=== PATIENT | female | born 1995 | race Caucasian/White ===

== ENCOUNTER 2021-06-24 09:33 | Emergency (ER) | payer BC ==
[2021-06-24] MEDS ORDERED: NA CHLORIDE 0.9% 1,000 ML ONE (10:08)
[2021-06-24] MEDS ORDERED: ONDANSETRON 4 MG/2 ML VIAL ONE (10:08)
[2021-06-24 10:16] LABS: Absolute Lymphocytes (CBC) 0.5 K/uL (0.7-4.9); Hematocrit 44.5 % (36.0-45.0); Lymphocytes % 4.4 % (15.3-44.8); MPV 6.8 fL (7.6-11.3); RBC Red Blood Cell Count 4.71 M/uL (3.86-4.86)
[2021-06-24 10:31] LABS: Urine Blood Negative (Negative); Urine Glucose Negative (Negative); Urine Protein Negative (Negative); Urine pH 8.5 (5.0-7.0)
[2021-06-24 10:56] LABS: Bilirubin Total 0.5 mg/dL (0.2-1.0); Protein, Total 7.5 g/dL (6.4-8.2)
--- NOTE | 2021-06-24 12:18 | RAD REPORT ---
EXAM DESCRIPTION: CTAbdomen Pelvis W Contrast - 06/24/2021 11:26 am CLINICAL HISTORY: Abdominal pain. LLQ abdominal pain COMPARISON: No comparisons TECHNIQUE: Biphasic CT imaging of the abdomen and pelvis was performed with 100 ml non-ionic IV cont rast. All CT scans are performed using dose optimization technique as appropriate and may include automated exposure control or mA/KV adjustment according to patient size. FINDINGS: The lung bases are clear. The liver, spleen, pancreas, adrenal glands and kidneys are within normal limits. No bowel obstruction, free air, intra-abdominal free fluid or abscess. The appendix is not identifie d as a discrete structure, however, no secondary findings of appendicitis are identified. No eviden ce of significant lymphadenopathy. IUD is noted in the endometrium. Mild free fluid is seen in the pelvis. No suspicious bony findings. IMPRESSION: IUD is present in the uterus with mild free fluid in the pelvis. Suggest correlation cli nically for the possibility of pelvic inflammation or infection.
[2021-06-24] MEDS ORDERED: DIPHENHYDRAMINE 50 MG/ML VIAL ONE (12:21)
[2021-06-24] MEDS ORDERED: METOCLOPRAMIDE 10 MG/2mL INJ ONE (12:21)
[2021-06-24] MEDS ORDERED: NA CHLORIDE 0.9% 250 ML ONE (12:21)
[2021-06-24] MEDS ORDERED: FENTANYL CITR 100 MCG/2 ML ONE (12:46)
[2021-06-24 13:11] LABS: Platelet Estimate ADEQ
[2021-06-24 13:12] LABS: Blood Morphology Comment NOTED (NOT SEEN); White Blood Cell Scan OK (OK)
--- NOTE | 2021-06-24 14:34 | EDPHYS ---
Physician Documentation [facility] Name: Olga Wilkins Age: 26 yrs Sex: Female : 1995 Arrival Date: 06/24/2021 Time: 09:33 Bed 5 Private MD: Kulwinder Escalante ED Physician Dashawn Ferris HPI: 06/24 09:54 This 26 yrs old Female presents to ER via Wheelchair with complaints of Abdominal Pain, jmm Vomiting. 09:54 The patient presents with abdominal pain. Onset: The symptoms/episode began/occurred jmm gradually, today. The symptoms do not radiate. Associated signs and symptoms: Pertinent positives: nausea and vomiting, diarrhea. The symptoms are described as achy, crampy. Modifying factors: The symptoms are alleviated by nothing, the symptoms are aggravated by vomiting. It is unknown whether or not the patient has had similar symptoms in the past. 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 - Social history:: Smoking status: unknown. ROS: 09:54 Cardiovascular: Negative for chest pain, palpitations, and edema, Respiratory: Negative jmm for shortness of breath, cough, wheezing, and pleuritic chest pain. 09:54 Constitutional: Positive for body aches, chills. 09:54 Abdomen/GI: Positive for abdominal pain, nausea and vomiting, diarrhea. 09:54 All other systems are negative. Exam: 09:54 Head/Face: atraumatic. Eyes: EOMI, no conjunctival erythema appreciated ENT: Moist jmm Mucus Membranes Neck: Trachea midline, Supple Chest/axilla: Normal chest wall appearance and motion. Cardiovascular: Regular rate and rhythm. No edema appreciated Respiratory: Normal respirations, no respiratory distress appreciated 09:54 Back: Normal ROM Skin: General appearance color normal MS/ Extremity: Moves all extremities, no obvious deformities appreciated, no edema noted to the lower extremities Neuro: Awake and alert Psych: Behavior is normal, Mood is normal, Patient is cooperative and pleasant 09:54 Constitutional: The patient appears alert, awake, uncomfortable. 09:54 Abdomen/GI: Inspection: abdomen appears normal, Bowel sounds: normal, Palpation: soft, moderate abdominal tenderness, in all quadrants. Vital Signs: 09:40 BP 122 / 87; Pulse 103; Resp 20; Temp 97.9; Pulse Ox 100% on R/A; iw 10:32 BP 120 / 85; Pulse 100; Resp 18 S; Pulse Ox 100% on R/A; jd3 12:32 Pulse 100; Resp 17 S; Pulse Ox 100% on R/A; jd3 14:15 BP 119 / 85; Pulse 95; Resp 17 S; Pulse Ox 100% on R/A; jd3 MDM: 09:54 Patient medically screened. [facility] 14:32 Data reviewed: vital signs, nurses notes. Counseling: I had a detailed discussion with [facility] the patient and/or guardian regarding: the historical points, exam findings, and any diagnostic results supporting the discharge/admit diagnosis, lab results, the need for outpatient follow up, to return to the emergency department if symptoms worsen or persist or if there are any questions or concerns that arise at home. 06/24 09:56 Order name: CBC with Diff; Complete Time: 13:23 [facility] 06/24 09:56 Order name: CMP; Complete Time: 11:36 [facility] 06/24 09:56 Order name: Lipase; Complete Time: 11:36 [facility] 06/24 10:23 Order name: CBC Smear Scan; Complete Time: 13:23 [facility] 06/24 10:31 Order name: Urine --Ancillary (enter results); Complete Time: 12:01 06/24 10:31 Order name: Urine Dipstick-Ancillary; Complete Time: 10:31 [facility] 06/24 09:57 Order name: CT Abd/Pelvis - IV Contrast Only; Complete Time: 12:19 [facility] 06/24 12:21 Order name: GC (GONORR/CHLAMYDIA) Probe [facility] 06/24 14:28 Order name: Wet Prep [facility] 06/24 09:56 Order name: IV Saline Lock; Complete Time: 10:03 [facility] 06/24 09:56 Order name: Labs collected and sent; Complete Time: 10:03 [facility] 06/24 09:56 Order name: Urine Dipstick-Ancillary (obtain specimen); Complete Time: 10:31 [facility] 06/24 09:56 Order name: Urine Test (obtain specimen); Complete Time: 10:31 [facility] 06/24 12:20 Order name: Pelvic Exam Setup; Complete Time: 12:48 [facility] Administered Medications: 10:09 Drug: Zofran (Ondansetron) 4 mg Route: IVP; Site: right antecubital; jd3 10:09 Drug: NS 0.9% 1000 ml Route: IV; Rate: 1 bolus; Site: right antecubital; jd3 12:00 Follow up: IV Status: Completed infusion 6 12:22 Drug: Reglan (metoCLOPramide) 20 mg Route: IVP; Site: right antecubital; 6 12:22 Drug: diphenhydrAMINE 12.5 mg Route: IVP; Site: right antecubital; 6 12:22 Drug: NS 0.9% 250 ml Route: IV; Rate: bolus; Site: right antecubital; 6 12:48 Drug: fentaNYL (PF) 50 mcg Route: IVP; Site: right antecubital; jd3 15:04 Follow up: Response: Pain is decreased [facility] 14:40 Drug: Rocephin (cefTRIAXone) 1 grams Route: IV; Rate: calculated rate; Site: right jd3 antecubital; 15:04 Follow up: Response: No adverse reaction [facility] 14:41 Drug: AZITHromycin 1 grams Route: PO; jd3 15:04 Follow up: Response: No adverse reaction [facility] Disposition Summary: 06/24/21 14:33 Discharge Ordered Location: Home [facility] Condition: Stable [facility] Diagnosis - Vomiting [facility] - Diarrhea, unspecified [facility] Followup: [facility] - With: Kulwinder Escalante MD - When: 2 - 3 days - Reason: Recheck today's complaints, Continuance of care, Re-evaluation by your physician Discharge Instructions: - Discharge Summary Sheet [facility] - Food Choices to Help Relieve Diarrhea, Adult jm - Vomiting, Adult [facility] Forms: - Medication Reconciliation Form [facility] - Thank You Letter [facility] - Antibiotic Education [facility] - Prescription Opioid Use [facility] - Work release form [facility] Prescriptions: - ondansetron 4 mg Oral tablet,disintegrating - take 1 tablet by ORAL route every 4-6 hours; 20 tablet; Refills: 0, Product [facility] Selection Permitted - dicyclomine 20 mg Oral Tablet - take 1 tablet by ORAL route 4 times per day; 20 tablet; Refills: 0, Product [facility] Selection Permitted Addendum: 06/25/2021 15:38 Co-signature as Attending Physician, Dashawn Ferris MD I agree with the assessment and k dr plan of care. Signatures: Dispatcher [employer] EDNJ Dashawn Ferris MD MD kdr Mickail, Joel, PA PA jmm Williams, Irene, RN RN iw Davies, Jonathon, RN RN jd3 Azra Garcia RN RN jh6
--- NOTE | 2021-06-24 14:34 | ER ---
Nurse's Notes [facility] Name: Olga Wilkins Age: 26 yrs Sex: Female : 1995 Arrival Date: 06/24/2021 Time: 09:33 Bed 5 Private MD: Kulwinder Escalante Diagnosis: Vomiting;Diarrhea, unspecified Presentation: 06/24 09:40 Chief complaint: Patient states: is weak and vomiting and nauseous, started at 230 am , iw is also having abd pain. Coronavirus screen: Ebola Screen: Patient negative for fever greater than or equal to 101.5 degrees Fahrenheit, and additional compatible Ebola Virus Disease symptoms Patient denies exposure to infectious person. Patient denies travel to an Ebola-affected area in the 21 days before illness onset. No symptoms or risks identified at this time. Initial Sepsis Screen: Does the patient meet any 2 criteria? No. Patient's initial sepsis screen is negative. Does the patient have a suspected source of infection? No. Patient's initial sepsis screen is negative. Risk Assessment: Do you want to hurt yourself or someone else? Patient reports no desire to harm self or others. Onset of symptoms was June 24, 2021. 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 - Social history:: Smoking status: unknown. Screenin:32 Abuse screen: Denies threats or abuse. Nutritional screening: No deficits noted. jd3 Tuberculosis screening: No symptoms or risk factors identified. Fall Risk Ambulatory Aid- None/Bed Rest/Nurse Assist (0 pts). Gait- Normal/Bed Rest/Wheelchair (0 pts) Mental Status- Oriented to own ability (0 pts). Total Jerez Fall Scale indicates No Risk (0-24 pts). Assessment: 10:31 General: Appears in no apparent distress. uncomfortable, Behavior is calm, cooperative, jd3 appropriate for age. Pain: Complains of pain in low back area Quality of pain is described as aching. Neuro: Level of Consciousness is awake, alert, obeys commands, Oriented to person, place, time, situation. Cardiovascular: Heart tones present Capillary refill < 3 seconds Patient's skin is warm and dry. Respiratory: Airway is patent Respiratory effort is even, unlabored, Respiratory pattern is regular, symmetrical, Denies cough, shortness of breath. GI: Abdomen is flat, non-distended, Bowel sounds present X 4 quads. Abd is soft and non tender X 4 quads. Reports diarrhea, nausea, vomiting. : No signs and/or symptoms were reported regarding the genitourinary system. EENT: No signs and/or symptoms were reported regarding the EENT system. Derm: Skin is intact, Skin is dry, Skin is normal, Skin temperature is warm. Musculoskeletal: Circulation, motion, and sensation intact. Range of motion: intact in all extremities. 11:29 Reassessment: Patient appears in no apparent distress at this time. No changes from jd3 previously documented assessment. Patient and/or family updated on plan of care and expected duration. Pain level reassessed. Patient is alert, oriented x 3, equal unlabored respirations, skin warm/dry/pink. 12:32 Reassessment: Patient appears in no apparent distress at this time. Patient and/or jd3 family updated on plan of care and expected duration. Pain level reassessed. Patient is alert, oriented x 3, equal unlabored respirations, skin warm/dry/pink. pt reports continued nausea. 14:13 Reassessment: Patient appears in no apparent distress at this time. Patient and/or jd3 family updated on plan of care and expected duration. Pain level reassessed. Patient is alert, oriented x 3, equal unlabored respirations, skin warm/dry/pink. provider at bedside performing pelvic exam with [facility] as pasting inspector. 15:02 Reassessment: Patient and/or family updated on plan of care and expected duration. Pain jh6 level reassessed. Patient states feeling better. Patient states symptoms have improved. Pain: Denies pain. Vital Signs: 09:40 BP 122 / 87; Pulse 103; Resp 20; Temp 97.9; Pulse Ox 100% on R/A; iw 10:32 BP 120 / 85; Pulse 100; Resp 18 S; Pulse Ox 100% on R/A; jd3 12:32 Pulse 100; Resp 17 S; Pulse Ox 100% on R/A; jd3 14:15 BP 119 / 85; Pulse 95; Resp 17 S; Pulse Ox 100% on R/A; jd3 ED Course: 09:33 Patient arrived in ED. am2 09:33 Kulwinder Escalante MD is Private Physician. am2 09:41 Triage completed. iw 09:41 Marcell Rey PA is PHCP. jmm 09:41 Dashawn Ferris MD is Attending Physician. jmm 09:42 Arm band placed on. iw 09:49 Ole White RN is Primary Nurse. jd3 10:00 Initial lab(s) drawn, by me, sent to lab. Inserted saline lock: 20 gauge in right kj1 antecubital area, using aseptic technique. Blood collected. 10:32 Patient has correct armband on for positive identification. Bed in low position. Call jd3 light in reach. Side rails up X 1. Adult w/ patient. Pulse ox on. NIBP on. 11:28 CT Abd/Pelvis - IV Contrast Only In Process Unspecified. EDMS 14:33 Kulwinder Escalante MD is Referral Physician. [facility] 15:04 IV discontinued, intact, bleeding controlled, No redness/swelling at site. Pressure jh6 dressing applied. 15:04 No provider procedures requiring assistance completed. jh6 Administered Medications: 10:09 Drug: Zofran (Ondansetron) 4 mg Route: IVP; Site: right antecubital; jd3 10:09 Drug: NS 0.9% 1000 ml Route: IV; Rate: 1 bolus; Site: right antecubital; jd3 12:00 Follow up: IV Status: Completed infusion jh6 12:22 Drug: Reglan (metoCLOPramide) 20 mg Route: IVP; Site: right antecubital; jh6 12:22 Drug: diphenhydrAMINE 12.5 mg Route: IVP; Site: right antecubital; jh6 12:22 Drug: NS 0.9% 250 ml Route: IV; Rate: bolus; Site: right antecubital; jh6 12:48 Drug: fentaNYL (PF) 50 mcg Route: IVP; Site: right antecubital; jd3 15:04 Follow up: Response: Pain is decreased jh6 14:40 Drug: Rocephin (cefTRIAXone) 1 grams Route: IV; Rate: calculated rate; Site: right jd3 antecubital; 15:04 Follow up: Response: No adverse reaction 6 14:41 Drug: AZITHromycin 1 grams Route: PO; jd3 15:04 Follow up: Response: No adverse reaction [facility] Outcome: 14:33 Discharge ordered by MD. garza 15:03 Discharged to home ambulatory. 6 15:03 Condition: improved 15:03 Discharge instructions given to Instructed on discharge instructions, follow up and referral plans. Demonstrated understanding of instructions, follow-up care, medications, Prescriptions given X 2. 15:04 Patient left the ED. [facility] Signatures: Dispatcher [employer] EDMS Marcell Rey PA PA jmm Williams, Irene, RN Bethanie Orona Jonathon, RN RN jd3 Jackson, Kandis kj1 Azra Garcia RN RN jh6
[2021-06-24] MEDS ORDERED: AZITHROMYCIN 250 MG TAB ONE (14:39)
[2021-06-24] MEDS ORDERED: CEFTRIAXONE 1000 MG/VIAL ONE (14:39)
[2021-06-24] MEDS ORDERED: NA CHLORIDE 0.9% 50 ML ONE (14:40)
[2021-06-24 16:01] VITALS: TEMP 97.9; O2SAT 100
[2021-06-24 16:05] VITALS: BP 119/85
[2021-06-28 08:31] LABS: C.trachomatis RNA,TMA Not Detected (Not Detected)
== END 2021-06-24 15:04 | disposition home or self-care (01) ==
LOC: ER 09:33
DX: R10.32 Left lower quadrant pain (principal); R11.10 Vomiting, unspecified; R19.7 Diarrhea, unspecified
CPT/HCPCS: 96361; 85025; 36415; 81025; 87210; 81003; 83690; 80053; 87590; 87490; 74177; 96375; 96374; 99284; Q9967; J2765; J1200; J3010; J7050; J7030; J2405

== ENCOUNTER 2021-07-17 14:12 | Emergency (ER) | payer BC ==
--- OUTSIDE RECORDS SUMMARY | 2021-07-17 14:16 | XMS REPORT | Continuity of Care Document ---
:1995 Author Organization [facility] t Address [address] [place] [address] Care Team Providers Name Role Phone CLEVE, Barrera Primary Care Physician Unavailable ASIM DOMÍNGUEZ Attending Clinician Unavailable Asim Domínguez MD Attending Clinician Doctor Unassigned, Name Attending Clinician Unavailable Ron CLAIRE Attending Clinician Joce PA-C Attending Clinician JOCE Attending Clinician Unavailable 2, Lab Attending Clinician Unavailable Consults, Ang Pn Genetic Attending Clinician Unavailable David CLAIRE W Attending Clinician Billy HERNANDEZ Attending Clinician Unavailable Ultrasound Attending Clinician Unavailable Anna CLAIRE R Attending Clinician ASIM DOMÍNGUEZ Admitting Clinician Unavailable Ron CLAIRE Admitting Clinician Payers Payer Name Policy Type Policy Number Effective Date Expiration Date [facility] [id number] 2019 CHOICE MEDICAID 00:00:00 Problems Condition Condition Condition Status Onset Resolution Last Treating Co mments Source Name Details Category Date Date Treatment Clinician Date Presence Presence Disease Active 2019-02 Unive rs of 52 mg of 52 mg 0-15 ity of [place] trel-relea trel-relea 00 Sd dical [facility] intrauteri intrauteri ne device ne device (IUD) (IUD) Normal Normal Disease Active Univers labor labor 8-28 ity of 00:00: [address] 39 weeks 39 weeks Disease Active Unive rs gestation gestation 8-28 ity of of of 00:00: [place] 00 Medi lani Branch Liveborn Liveborn Disease Active 2020-0 Unive rs , of , of 8-28 it y of pyle pyle 00:00: Snehal guzman , , 00 Me dical born in born in [facility] hospital by vaginal by vaginal delivery delivery COVID-19 COVID-19 Disease Active 2020-0 Unive rs virus virus 8-28 ity of infection infection 00:00: Snehal s [facility] Abnormal Abnormal Disease Active 2020- Last Unive rs maternal maternal 8-14 Assessmen ity of glucose glucose 00:00: t & Plan: [place] tolerance, tolerance, 00 3 hr gtt Medical antepartum antepartum wnl Br anch Positive Positive Disease Active 2020- Unive rs GBS test GBS test 8-14 ity of 00:00: [address] Obesity Obesity Disease Active 2020-0 Univers (BMI (BMI 6-08 ity of 30-39.9) 30-39.9) 00:00: [address] Gastroesop Gastroesop Disease Active 2020-0 U nivers hageal hageal 5-28 ity of reflux reflux 00:00: [place] disease, disease, 00 Medica l esophagiti esophagiti Br anch s presence s presence not not specified specified Abnormal Abnormal Disease Active 2020-0 Unive rs findings findings 5-28 ity of on on 00:00: [place] 00 [facility] screening screening Bran ch Supervisio Supervisio Disease Active 2020-0 U nivers n of n of 4-09 ity of high-risk high-risk 00:00: Snehal guzman 00 [facility] with with Branch insufficie insufficie nt nt care in care in third third trimester trimester Allergies, Adverse Reactions, Alerts Allergy Allergy Status Severity Reaction(s) Onset Inactive Treating Comm ents Source Name Type Date Date Clinician NO KNOWN Drug Active Univers ALLERGIE Class ity of S [facility] Social History Social Habit Start Date Stop Date Quantity Comments Source ASSERTION 2019-02-05 University of 00:00:00 [facility] History SDOH University o f Alcohol Binge [facility] Sex Assigned At Universit y of [facility] Exposure to Not sure [facility] SARS-CoV-2 (event) [facility] History of tobacco Cigarette Smoker University of use [facility] Tobacco use and 2020-01-08 2020-01-08 Never used Universit y of exposure 00:00:00 00:00:00 [facility] Cigarettes smoked 2020-01-08 2020-01-08 Univers ity of current (pack per 00:00:00 00:00:00 [facility]) - Reported Branch Cigarette 2020-01-08 2020-01-08 University of pack-years 00:00:00 00:00:00 [facility] Alcohol intake 2020-01-08 2020-01-08 Ex-drinker University 00:00:00 00:00:00 (finding) [facility] History SDOH 2019-06-05 2019-06-05 2 [place] o f Alcohol Std Drinks 00:00:00 00:00:00 [facility] History [facility] 2019-06-05 2019-06-05 3 [place] o f Alcohol Frequency 00:00:00 00:00:00 [facility] Smoking Status Start Date Stop Date Source Former smoker 2020-01-08 00:00:00 2020-01-08 00:00:00 [facility] Medications Ordered Filled Start Stop Current Ordering Indication Dosage Frequency Signature Comments Components Source Medication Medication Date Date Medication? 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 [place] levonorgest 2019-02 2020- No 1{devic 1 Device, Univers reL 0-16 10-15 e} Intrauteri ity of (MIRENA) 00:30: 23:28 ne, ONCE, [place] IUD 1 00 :00 1 dose, Hydrometeorologist [facility] 12/11/19 at 1930, Routine rho(D) Yes 300ug 300 mcg, Univer s immune 10-23 Intramuscu ity of globulin 22:49: lar, ONCE, [place] (RHOGAM) 17 For 1 Medical syringe 300 dose, Branch mcg Conditiona l, Routine HYDROcodone 2020-0 Yes 1{tbl} 1 tablet, Univers -acetaminop 10-23 Oral, ity of hen (NORCO 22:49: Q6HPRN, [place] 5) 5-325 mg 12 Starting Medi lani tablet 1 Fri Branch tablet 10/24/19 at 174, Until Discontinu ed, Routine, Pain (scale 7-10) ibuprofen 2020-0 Yes 600mg 600 mg, Univ ers (IBU) 10-23 Oral, ity of tablet 600 22:49: Q6HPRN[place] mg 12 Starting Medical Fri Branch 10/24/19 at 174, Until Discontinu ed, Routine, Pain (scale 4-6) diphenhydrA 2020-0 Yes 25mg 25 mg, IV U nivers MINE-0.9 % 10-23 Piggyback, ity of sod.chlr 22:49: Administer [place] (BENADRYL) 12 over 30 Medica l 25 mg/50 mL Minutes, Bran ch piggyback Q6HPRN, 25 mg Starting 10/24/19 at 174, Until Discontinu ed, Routine, Itching ondansetron 2020-0 Yes 4mg 4 mg, Slow Univers (ZOFRAN 10-23 IV Push, ity of (PF)) 22:49: Q8HPRN, [place] injection 4 12 Starting Medi lani mg Fri Branch 10/24/19 at 174, Until Discontinu ed, Routine, Nausea and Vomiting (N/V) simethicone 2020-0 Yes 160mg 160 mg, Un johnnie (GAS RELIEF 10-23 Oral, ity of (SIMETHICON 22:49: PC+HSPRN, [place] E)) 12 Starting Medical chewable Fri Branch tablet 160 10/24/19 at mg 174, Until Discontinu ed, Routine, Gas docusate 2020-0 Yes 240mg 240 mg, Unive rs calcium 10-23 Oral, ity of (SURFAK) 22:49: QDAILYPRN, [place] capsule 240 12 Starting Medi lani mg Fri Branch 10/24/19 at 174, Until Discontinu ed, Routine, Constipati on magnesium 2019-0 Yes 30mL 30 mL, Univer s hydroxide 10-23 Oral, ity of (MILK OF 22:49: QDAILYPRN, [place] MAGNESIA) 12 Starting Medica l 400 mg/5 mL Fri Branch suspension 10/24/19 at 30 mL 1749, Until Discontinu ed, Routine, Constipati on acetaminoph 2020-0 Yes 650mg 650 mg, Un johnnie en 10-23 Oral, ity of (TYLENOL) 22:49: Q6HPRN, [place] tablet 650 11 Starting Medic al mg Fri Branch 10/24/19 at 1749, Until Discontinu ed, Routine, Pain (scale 1-3) diphenhydrA 2019-0 Yes 25mg 25 mg, Univ ers MINE 10-23 Oral, ity of (BENADRYL) 22:49: Q6HPRN, [place] tablet 25 11 Starting Medica l mg Fri Branch 10/24/19 at 1749, Until Discontinu ed, Routine, Sleep, Itching benzocaine- 2019-0 Yes Topical, Un [place]ohn[place] menthol 10-23 PRN, ity of (DERMOPLAST 22:49: [place] 20-0.5 % 11 Sun Medical topical 10/24/19 at Branch spray 1749, Until Discontinu ed, Routine, Perineum discomfort benzocaine- 2019-0 Yes Topical, Un johnnie menthol 10-23 PRN, ity of (DERMOPLAST 16:17: [place] 20-0.5 % 00 Sun Medical topical 10/24/19 at Branch spray 1117, Until Discontinu ed, Routine, Localized pain LR 1000 mL 2019-0 2020- No at 125 Univ ers + oxytocin 10-23-28 mL/hr, IV ity of 20 units IV 15:45: 16:19 Infusion, [place] Solution 00 :00 ONCE, 1 Medical dose, Fri Branch 10/24/19 at 1045, Routine oxytocin 2019-0 2020- No at 6 Univers (PITOCIN) 10-23- mL/hr, IV ity of 20 Units in 14:13: 22:49 Infusion, [place] lactated 45 :17 TITRATE, Medical ringers Starting Branch 1,000 mL IV Fri infusion 10/24/19 at 0913, Until 8/28/20 at 1749, Routine FENTanyl PF 2019- No 50ug 50 mcg, Un johnnie (SUBLIMAZE 10-23 Slow IV ity o f (PF)) 10:45: 09:42 Push, [place] injection 00 :00 ONCE, 1 Medical 50 mcg dose, Fri Branch 10/24/19 at 0545, Routine D5W-LR IV 2019- No 1000mL at 125 Uni vers infusion 10-23 mL/hr, IV ity o f 1,000 mL 09:00: 22:49 Infusion, [place] 00 :17 CONTINUOUS Medical , Starting Branch Sun10/24/19 at 0400, Until Sun10/24/19 at 1749, Routine lactated 2019- No 500mL at 999 Unive rs ringers IV 10-23 mL/hr, 500 it y of infusion 08:52: 22:49 mL, IV [place] 500 mL 15 :17 Infusion, Medical PRN - SEE Branch INSTRUCTIO NS, Starting Sun10/24/19 at 0352, Until Sun10/24/19 at 174, Routine 2020- No 1{piece Take 1 Uni vers vits62/FA/o 10-09 } Piece by ity of m3/dha/epa 15:37: 00:00 mouth [place] ( 59 :00 daily. Medical GUMMY ORAL) Branch 2020- No 1{piece Take 1 Uni vers vits62/FA/o 10-09 } Piece by ity of m3/dha/epa 15:37: 00:00 mouth [place] ( 59 :00 daily. Medical GUMMY ORAL) Branch 2020-0 Yes 1{piece Take 1 Univ ers vits62/FA/o 8-07 } Piece by ity of m3/dha/epa 21:11: mouth [place] ( 56 daily. Medical GUMMY ORAL) Branch 2020-0 Yes 1{piece Take 1 Univ ers vits62/FA/o 8-07 } Piece by ity of m3/dha/epa 21:11: mouth [place] ( 56 daily. Medical GUMMY ORAL) Branch 2020-0 Yes 1{piece Take 1 Univ ers vits62/FA/o 8-07 } Piece by ity of m3/dha/epa 21:11: mouth [place] ( 56 daily. Medical GUMMY ORAL) Branch 2020-0 Yes 1{piece Take 1 Univ ers vits62/FA/o 8-07 } Piece by ity of m3/dha/epa 21:11: mouth [place] ( 56 daily. Medical GUMMY ORAL) Branch famotidine 2020-0 Yes [id number] 20mg Take 1 Univers 20 mg 5-28 tablet by ity of tablet 00:00: mouth [address] [place] [address] (two) Medical times Branch daily. famotidine 2020-0 Yes [id number] 20mg Take 1 Univers 20 mg 5-28 tablet by ity of tablet 00:00: mouth [address] [place] [address] (two) Medical times Branch daily. famotidine 2020-0 Yes [id number] 20mg Take 1 Univers 20 mg 5-28 tablet by ity of tablet 00:00: mouth [address] [place] [address] (two) Medical times Branch daily. famotidine 2020-0 Yes [id number] 20mg Take 1 Univers 20 mg 5-28 tablet by ity of tablet 00:00: mouth [address] [place] [address] ([facility]) Medical times Branch daily. famotidine 2020-0 Yes [id number] 20mg Take 1 Univers 20 mg 5-28 tablet by ity of tablet 00:00: mouth [address] [place] [address] (two) Medical times Branch daily. famotidine 2020-0 Yes [id number] 20mg Take 1 Univers 20 mg 5-28 tablet by ity of tablet 00:00: mouth [address] [place] [address] (two) Medical times Branch daily. famotidine 2020-0 Yes [id number] 20mg Take 1 Univers 20 mg 5-28 tablet by ity of tablet 00:00: mouth [address] [place] [address] (two) Medical times Branch daily. famotidine 2020-0 Yes [id number] 20mg Take 1 Univers 20 mg 5-28 tablet by ity of tablet 00:00: mouth [address] [place] [address] (two) Medical times Branch daily. famotidine 2020-0 Yes [id number] 20mg Take 1 Univers 20 mg 5-28 tablet by ity of tablet 00:00: mouth [address] [place] [address] (two) Medical times Branch daily. famotidine 2020-0 Yes [id number] 20mg Take 1 Univers 20 mg 5-28 tablet by ity of tablet 00:00: mouth [address] [place] [address] (two) Medical times Branch daily. famotidine 2020-0 Yes [id number] 20mg Take 1 Univers 20 mg 5-28 tablet by ity of tablet 00:00: mouth (two) Medical times Branch daily. famotidine 2020-0 Yes [id number] 20mg Take 1 Univers 20 mg 5-28 tablet by ity of tablet 00:00: mouth (two) Medical times Branch daily. famotidine 2020-0 Yes [id number] 20mg Take 1 Univers 20 mg 5-28 tablet by ity of tablet 00:00: mouth (two) Medical times Branch daily. famotidine 2020-0 Yes [id number] 20mg Take 1 Univers 20 mg 5-28 tablet by ity of tablet 00:00: mouth (two) Medical times Branch daily. famotidine 2020-0 Yes [id number] 20mg Take 1 Univers 20 mg 5-28 tablet by ity of tablet 00:00: mouth (two) Medical times Branch daily. famotidine 2020-0 Yes [id number] 20mg Take 1 Univers 20 mg 5-28 tablet by ity of tablet 00:00: mouth (two) Medical times Branch daily. famotidine 2020-0 Yes [id number] 20mg Take 1 Univers 20 mg 5-28 tablet by ity of tablet 00:00: mouth (two) Medical times Branch daily. famotidine 2020-0 Yes [id number] 20mg Take 1 Univers 20 mg 5-28 tablet by ity of tablet 00:00: mouth (two) Medical times Branch daily. famotidine 2020-0 Yes [id number] 20mg Take 1 Univers 20 mg 5-28 tablet by ity of tablet 00:00: mouth [place] (two) Medical times Branch daily. famotidine 2020-0 Yes [id number] 20mg Take 1 Univers 20 mg 5-28 tablet by ity of tablet 00:00: mouth (two) Medical times Branch daily. famotidine 2020-0 Yes [id number] 20mg Take 1 Univers 20 mg 5-28 tablet by ity of tablet 00:00: mouth [place] (two) Medical times Branch daily. famotidine 2020-0 Yes [id number] 20mg Take 1 Univers 20 mg 5-28 tablet by ity of tablet 00:00: mouth [place] (two) Medical times Branch daily. famotidine 2020-0 2020- No [id number] 20mg Take 1 Univers 20 mg 5-28 11-12 tablet by ity of tablet 00:00: 00:00 mouth 2 [place] 00 :00 (two) Medical times Branch daily. famotidine 2020- No [id number] 20mg Take 1 Univers 20 mg 5-28 11-12 tablet by ity of tablet 00:00: 00:00 mouth 2 [place] 00 :00 (two) Medical times Branch daily. 2020-0 Yes 1{piece Take 1 Univ ers vits62/FA/o 4-09 } Piece by ity of m3/dha/epa 20:38: mouth [place] ( 24 daily. Medical GUMMY ORAL) Branch Yes 1{piece Take 1 Univ ers vits62/FA/o 4-09 } Piece by ity of m3/dha/epa 20:38: mouth [place] ( 24 daily. Medical GUMMY ORAL) Branch 0 Yes 1{piece Take 1 Univ ers vits62/FA/o 4-09 } Piece by ity of m3/dha/epa 20:38: mouth [place] ( 24 daily. Medical GUMMY ORAL) Branch 0 Yes 1{piece Take 1 Univ ers vits62/FA/o 4-09 } Piece by ity of m3/dha/epa 20:38: mouth [place] ( 24 daily. Medical GUMMY ORAL) Branch 2019-0 Yes 1{piece Take 1 Univ ers vits62/FA/o 4-09 } Piece by ity of m3/dha/epa 20:38: mouth [place] ( 24 daily. Medical GUMMY ORAL) Branch 2020-0 Yes 1{piece Take 1 Univ ers vits62/FA/o 4-09 } Piece by ity of m3/dha/epa 20:38: mouth [place] ( 24 daily. Medical GUMMY ORAL) Branch 2020-0 Yes 1{piece Take 1 Univ ers vits62/FA/o 4-09 } Piece by ity of m3/dha/epa 20:38: mouth [place] ( 24 daily. Medical GUMMY ORAL) Branch 2019-0 Yes 1{piece Take 1 Univ ers vits62/FA/o 4-09 } Piece by ity of m3/dha/epa 20:38: mouth [place] ( 24 daily. Medical GUMMY ORAL) Branch 2020-0 Yes 1{piece Take 1 Univ ers vits62/FA/o 4-09 } Piece by ity of m3/dha/epa 20:38: mouth [place] ( 24 daily. Medical GUMMY ORAL) Branch 2020-0 Yes 1{piece Take 1 Univ ers vits62/FA/o 4-09 } Piece by ity of m3/dha/epa 20:38: mouth [place] ( 24 daily. Medical GUMMY ORAL) Branch 2019-0 Yes 1{piece Take 1 Univ ers vits62/FA/o 4-09 } Piece by ity of m3/dha/epa 20:38: mouth [place] ( 24 daily. Medical GUMMY ORAL) Branch 0 Yes 1{piece Take 1 Univ ers vits62/FA/o 4-09 } Piece by ity of m3/dha/epa 20:38: mouth [place] ( 24 daily. Medical GUMMY ORAL) Branch 0 Yes 1{piece Take 1 Univ ers vits62/FA/o 4-09 } Piece by ity of m3/dha/epa 20:38: mouth [place] ( 24 daily. Medical GUMMY ORAL) Branch 2019-0 Yes 1{piece Take 1 Univ ers vits62/FA/o 4-09 } Piece by ity of m3/dha/epa 20:38: mouth [place] ( 24 daily. Medical GUMMY ORAL) Branch 2020-0 Yes 1{piece Take 1 Univ ers vits62/FA/o 4-09 } Piece by ity of m3/dha/epa 20:38: mouth [place] ( 24 daily. Medical GUMMY ORAL) Branch 2020-0 Yes 1{piece Take 1 Univ ers vits62/FA/o 4-09 } Piece by ity of m3/dha/epa 20:38: mouth [place] ( 24 daily. Medical GUMMY ORAL) Branch 2020-0 Yes 1{piece Take 1 Univ ers vits62/FA/o 4-09 } Piece by ity of m3/dha/epa 20:38: mouth [place] ( 24 daily. Medical GUMMY ORAL) Branch 2020-0 Yes 1{piece Take 1 Univ ers vits62/FA/o 4-09 } Piece by ity of m3/dha/epa 20:38: mouth [place] ( 24 daily. Medical GUMMY ORAL) Branch 2020-0 Yes 1{piece Take 1 [facility] vits62/FA/o 06-04 } Piece by ity of m3/dha/epa 20:38: mouth [place] ( 24 daily. Medical GUMMY ORAL) Branch PNV 2020-0 Yes [id number] Take 1 Univ [facility] 102-iron-fo - 09 TAB-CAP/M2 it y of late 00:00: by mouth [place] 1-dss-dha 00 daily. Medical (VITAFOL Branch FE+, WITH DOCUSATE,) 90 mg iron-1 mg -50 mg-200 mg Cap PNV 2020-0 Yes [id number] Take 1 [facility] 102-iron-fo - 09 TAB-CAP/M2 it y of late 00:00: by mouth [place] 1-dss-dha 00 daily. Medical (VITAFOL Branch FE+, WITH DOCUSATE,) 90 mg iron-1 mg -50 mg-200 mg Cap PNV 2020-0 Yes [id number] Take 1 [facility] 102-iron-fo - 09 TAB-CAP/M2 it y of late 00:00: by mouth [place] 1-dss-dha 00 daily. Medical (VITAFOL Branch FE+, WITH DOCUSATE,) 90 mg iron-1 mg -50 mg-200 mg Cap PNV 2020-0 Yes [id number] Take 1 Univ [facility] 102-iron-fo - 09 TAB-CAP/M2 it y of late 00:00: by mouth [place] 1-dss-dha 00 daily. Medical (VITAFOL Branch FE+, WITH DOCUSATE,) 90 mg iron-1 mg -50 mg-200 mg Cap PNV 2020-0 Yes [id number] Take 1 Univ [facility] 102-iron-fo - 09 TAB-CAP/M2 it y of late 00:00: by mouth [place] 1-dss-dha 00 daily. Medical (VITAFOL Branch FE+, WITH DOCUSATE,) 90 mg iron-1 mg -50 mg-200 mg Cap PNV 2020-0 Yes [id number] Take 1 Univ ers 102-iron-fo - 09 TAB-CAP/M2 it y of late 00:00: by mouth [place] 1-dss-dha 00 daily. Medical (VITAFOL Branch FE+, WITH DOCUSATE,) 90 mg iron-1 mg -50 mg-200 mg Cap PNV 2020-0 Yes [id number] Take 1 Univ ers 102-iron-fo 4-09 09 TAB-CAP/M2 it y of late 00:00: by mouth [place] [address] 00 daily. Medical (VITAFOL Branch FE+, WITH DOCUSATE,) 90 mg iron-1 mg -50 mg-200 mg Cap PNV 2020-0 Yes [id number] Take 1 Univ ers 102-iron-fo 4-09 09 TAB-CAP/M2 it y of late 00:00: by mouth [place] [address]-dss-dha 00 daily. Medical (VITAFOL Branch FE+, WITH DOCUSATE,) 90 mg iron-1 mg -50 mg-200 mg Cap PNV 2020-0 Yes [id number] Take 1 Univ ers 102-iron-fo 4-09 09 TAB-CAP/M2 it y of late 00:00: by mouth [place] [address]-dss-dha 00 daily. Medical (VITAFOL Branch FE+, WITH DOCUSATE,) 90 mg iron-1 mg -50 mg-200 mg Cap PNV 2020-0 Yes [id number] Take 1 Univ ers 102-iron-fo 4- 09 TAB-CAP/M2 it y of late 00:00: by mouth [place] [address] 00 daily. Medical (VITAFOL Branch FE+, WITH DOCUSATE,) 90 mg iron-1 mg -50 mg-200 mg Cap PNV 2020-0 Yes [id number] Take 1 Univ ers 102-iron-fo 4- 09 TAB-CAP/M2 it y of late 00:00: by mouth [place] [address] 00 daily. Medical (VITAFOL Branch FE+, WITH DOCUSATE,) 90 mg iron-1 mg -50 mg-200 mg Cap PNV 2020-0 Yes [id number] Take 1 Univ ers 102-iron-fo 4-09 09 TAB-CAP/M2 it y of late 00:00: by mouth [place] [address]-dss-dha 00 daily. Medical (VITAFOL Branch FE+, WITH DOCUSATE,) 90 mg iron-1 mg -50 mg-200 mg Cap PNV 2020-0 Yes [id number] Take 1 Univ ers 102-iron-fo 4-09 09 TAB-CAP/M2 it y of late 00:00: by mouth [place] [address]-dss-dha 00 daily. Medical (VITAFOL Branch FE+, WITH DOCUSATE,) 90 mg iron-1 mg -50 mg-200 mg Cap PNV 2020-0 Yes [id number] Take 1 Univ ers 102-iron-fo - 09 TAB-CAP/M2 it y of late 00:00: by mouth [address] daily. Medical (VITAFOL Branch FE+, WITH DOCUSATE,) 90 mg iron-1 mg -50 mg-200 mg Cap PNV 2020-0 Yes [id number] Take 1 Univ ers 102-iron-fo - 09 TAB-CAP/M2 it y of late 00:00: by mouth [address] daily. Medical (VITAFOL Branch FE+, WITH DOCUSATE,) 90 mg iron-1 mg -50 mg-200 mg Cap PNV 2020-0 Yes [id number] Take 1 Univ ers 102-iron-fo - 09 TAB-CAP/M2 it y of late 00:00: by mouth [address] daily. Medical (VITAFOL Branch FE+, WITH DOCUSATE,) 90 mg iron-1 mg -50 mg-200 mg Cap PNV 2020-0 Yes [id number] Take 1 Univ ers 102-iron-fo - 09 TAB-CAP/M2 it y of late 00:00: by mouth [address] daily. Medical (VITAFOL Branch FE+, WITH DOCUSATE,) 90 mg iron-1 mg -50 mg-200 mg Cap PNV 2020-0 Yes [id number] Take 1 Univ ers 102-iron-fo - 09 TAB-CAP/M2 it y of late 00:00: by mouth [address] daily. Medical (VITAFOL Branch FE+, WITH DOCUSATE,) 90 mg iron-1 mg -50 mg-200 mg Cap PNV 2020-0 Yes [id number] Take 1 Univ ers 102-iron-fo - 09 TAB-CAP/M2 it y of late 00:00: by mouth [place] [address]-dss-dha 00 daily. Medical (VITAFOL Branch FE+, WITH DOCUSATE,) 90 mg iron-1 mg -50 mg-200 mg Cap PNV 2020-0 Yes [id number] Take 1 Univ ers 102-iron-fo - 09 TAB-CAP/M2 it y of late 00:00: by mouth [place] [address]-dss-[facility] 00 daily. Medical (VITAFOL Branch FE+, WITH DOCUSATE,) 90 mg iron-1 mg -50 mg-200 mg Cap PNV 2020-0 Yes [id number] Take 1 Univ ers 102-iron-fo - 09 TAB-CAP/M2 it y of late 00:00: by mouth [place] [address] 00 daily. Medical (VITAFOL Branch FE+, WITH DOCUSATE,) 90 mg iron-1 mg -50 mg-200 mg Cap PNV 2020-0 Yes [id number] Take 1 Univ ers 102-iron-fo - 09 TAB-CAP/M2 it y of late 00:00: by mouth [place] [address]-dss-dha 00 daily. Medical (VITAFOL Branch FE+, WITH DOCUSATE,) 90 mg iron-1 mg -50 mg-200 mg Cap PNV 2020-0 Yes [id number] Take 1 Univ ers 102-iron-fo - 09 TAB-CAP/M2 it y of late 00:00: by mouth [place] [address] 00 daily. Medical (VITAFOL Branch FE+, WITH DOCUSATE,) 90 mg iron-1 mg -50 mg-200 mg Cap PNV 2020-0 Yes [id number] Take 1 Univ ers 102-iron-fo - 09 TAB-CAP/M2 it y of late 00:00: by mouth [place] [address] 00 daily. Medical (VITAFOL Branch FE+, WITH DOCUSATE,) 90 mg iron-1 mg -50 mg-200 mg Cap PNV 2020-0 Yes [id number] Take 1 Univ ers 102-iron-fo - 09 TAB-CAP/M2 it y of late 00:00: by mouth [place] [address]-dss-dha 00 daily. Medical (VITAFOL Branch FE+, WITH DOCUSATE,) 90 mg iron-1 mg -50 mg-200 mg Cap PNV 2020-0 Yes [id number] Take 1 Univ ers 102-iron-fo - 09 TAB-CAP/M2 it y of late 00:00: by mouth [place] [address]-dss-dha 00 daily. Medical (VITAFOL Branch FE+, WITH DOCUSATE,) 90 mg iron-1 mg -50 mg-200 mg Cap PNV 2020-0 Yes [id number] Take 1 Univ ers 102-iron-fo - 09 TAB-CAP/M2 it y of late 00:00: by mouth [address] 00 daily. Medical (VITAFOL Branch FE+, WITH DOCUSATE,) 90 mg iron-1 mg -50 mg-200 mg Cap PNV 2020-0 Yes [id number] Take 1 Univ ers 102-iron-fo - 09 TAB-CAP/M2 it y of late 00:00: by mouth [place] [address]-dss-[facility] 00 daily. Medical (VITAFOL Branch FE+, WITH DOCUSATE,) 90 mg iron-1 mg -50 mg-200 mg Cap PNV 2020-0 Yes [id number] Take 1 Univ ers 102-iron-fo - 09 TAB-CAP/M2 it y of late 00:00: by mouth [address] 00 daily. Medical (VITAFOL Branch FE+, WITH DOCUSATE,) 90 mg iron-1 mg -50 mg-200 mg Cap PNV 2020-0 Yes [id number] Take 1 Univ ers 102-iron-fo - 09 TAB-CAP/M2 it y of late 00:00: by mouth [address] 00 daily. Medical (VITAFOL Branch FE+, WITH DOCUSATE,) 90 mg iron-1 mg -50 mg-200 mg Cap PNV 2020-0 Yes [id number] Take 1 Univ ers 102-iron-fo - 09 TAB-CAP/M2 it y of late 00:00: by mouth [address] 00 daily. Medical (VITAFOL Branch FE+, WITH DOCUSATE,) 90 mg iron-1 mg -50 mg-200 mg Cap PNV 2020-0 2020- No [id number] Take 1 Uni vers 102-iron-fo 06-04 09 TAB-CAP/M2 i ty of late 00:00: 00:00 by mouth [place] [address]-dss-dha 00 :00 daily. Medical (VITAFOL Branch FE+, WITH DOCUSATE,) 90 mg iron-1 mg -50 mg-200 mg Cap PNV 2020-0 2020- No [id number] Take 1 Uni vers 102-iron-fo 06-04- 09 TAB-CAP/M2 i ty of late 00:00: 00:00 by mouth [place] 1-dss-dha 00 :00 daily. Medical (VITAFOL Branch FE+, WITH DOCUSATE,) 90 mg iron-1 mg -50 mg-200 mg Cap Immunizations Ordered Filled Immunization Date Status Comments Sour e Immunization Name Name TDAP (ADACEL) 2019-08-04 Completed University of VACCINE 00:00:00 [place] [facility] TDAP (ADACEL) 2019-08-04 Completed University of VACCINE 00:00:00 [place] [facility] TDAP (ADACEL) 2019-08-04 Completed University of VACCINE 00:00:00 [facility] TDAP (ADACEL) 2019-08-04 Completed University of VACCINE 00:00:00 [facility] TDAP (ADACEL) 2019-08-04 Completed University of VACCINE 00:00:00 [place] [facility] TDAP (ADACEL) 2019-08-04 Completed University of VACCINE 00:00:00 [facility] TDAP (ADACEL) 2019-08-04 Completed University of VACCINE 00:00:00 [place] [facility] TDAP (ADACEL) 2019-08-04 Completed University of VACCINE 00:00:00 [facility] TDAP (ADACEL) 2019-08-04 Completed University of VACCINE 00:00:00 [facility] TDAP (ADACEL) 2019-08-04 Completed University of VACCINE 00:00:00 [place] [facility] TDAP (ADACEL) 2019-08-04 Completed University of VACCINE 00:00:00 [facility] TDAP (ADACEL) 2019-08-04 Completed University of VACCINE 00:00:00 [facility] TDAP (ADACEL) 2019-08-04 Completed University of VACCINE 00:00:00 [facility] TDAP (ADACEL) 2019-08-04 Completed University of VACCINE 00:00:00 [facility] TDAP (ADACEL) 2019-08-04 Completed University of VACCINE 00:00:00 [facility] TDAP (ADACEL) 2019-08-04 Completed University of VACCINE 00:00:00 [facility] TDAP (ADACEL) 2019-08-04 Completed University of VACCINE 00:00:00 [facility] TDAP (ADACEL) 2019-08-04 Completed University of VACCINE 00:00:00 [facility] TDAP (ADACEL) 2019-08-04 Completed University of VACCINE 00:00:00 [facility] TDAP (ADACEL) 2019-08-04 Completed University of VACCINE 00:00:00 [facility] TDAP (ADACEL) 2019-08-04 Completed University VACCINE 00:00:00 [facility] Vital Signs Vital Name Observation Time Observation Value Comments Source Systolic blood 2020-01-08 21:28:00 132 mm[Hg] Univer sity of pressure [facility] Diastolic blood 2020-01-08 21:28:00 70 mm[Hg] Unive rsity of pressure [facility] Heart rate 2020-01-08 21:28:00 92 /min Universi ty of [facility] Body temperature 2020-01-08 21:28:00 36.89 Deisy Univ ersity of [facility] Respiratory rate 2020-01-08 21:28:00 18 /min Univ ersity of [facility] Body height 2020-01-08 21:28:00 162.6 cm Universi ty of [facility] Body weight 2020-01-08 21:28:00 90.266 kg Universi ty of [facility] BMI 2020-01-08 21:28:00 34.16 kg/m2 Universi ty of [facility] Systolic blood 2019-12-11 20:34:00 117 mm[Hg] Univer sity of pressure [facility] Diastolic blood 2019-12-11 20:34:00 74 mm[Hg] Unive rsity of pressure [facility] Heart rate 2019-12-11 20:34:00 71 /min Universi ty of [facility] Body temperature 2019-12-11 20:34:00 36.83 Deisy Univ ersity of [facility] Respiratory rate 2019-12-11 20:34:00 18 /min Univ ersity of [facility] Body height 2019-12-11 20:34:00 162.6 cm Universi ty of [facility] Body weight 2019-12-11 20:34:00 90.266 kg Universi ty of [facility] BMI 2019-12-11 20:34:00 34.16 kg/m2 Universi ty of [facility] Systolic blood 2019-11-20 20:57:00 109 mm[Hg] Univer sity of pressure [facility] Diastolic blood 2019-11-20 20:57:00 73 mm[Hg] Unive rsity of pressure [facility] Heart rate 2019-11-20 20:57:00 72 /min Universi ty of [place] [facility] Body temperature 2019-11-20 20:57:00 37.11 Deisy Univ ersity of [place] [facility] Respiratory rate 2019-11-20 20:57:00 18 /min Univ ersity of [facility] Body height 2019-11-20 20:57:00 162.6 cm Universi ty [facility] [place] [facility] Body weight 2019-11-20 20:57:00 87.363 kg Universi ty of [place] [facility] BMI 2019-11-20 20:57:00 33.06 kg/m2 Universi ty of [place] [facility] Respiratory rate 2019-10-25 19:15:00 18 /min Univ ersity of [facility] Systolic blood 2019-10-25 13:05:00 123 mm[Hg] Univer sity of pressure [facility] Diastolic blood 2019-10-25 13:05:00 83 mm[Hg] Unive rsity of pressure [facility] Heart rate 2019-10-25 13:05:00 87 /min Universi ty of [facility] Body temperature 2019-10-25 13:05:00 36.67 Deisy Univ ersity of [facility] Oxygen saturation in 2019-10-25 13:05:00 100 /min University of Arterial blood by [facility] Pulse oximetry Branch Body height 2019-10-24 09:25:00 162.6 cm Universi ty [facility] [place] [facility] [place] Body weight 2019-10-24 09:25:00 93.441 kg Universi ty of [place] [facility] BMI 2019-10-24 09:25:00 35.36 kg/m2 Universi ty of [facility] Systolic blood 2019-10-17 14:02:00 119 mm[Hg] Univer sity of pressure [facility] Diastolic blood 2019-10-17 14:02:00 75 mm[Hg] Unive rsity of pressure [facility] Heart rate 2019-10-17 14:02:00 84 /min Universi ty of [facility] Body temperature 2019-10-17 14:02:00 36.83 Deisy Univ ersity of [facility] Respiratory rate 2019-10-17 14:02:00 18 /min Univ ersity of [facility] Body height 2019-10-17 14:02:00 162.6 cm Universi ty of [facility] Body weight 2019-10-17 14:02:00 93.441 kg Universi ty of [place] [facility] BMI 2019-10-17 14:02:00 35.36 kg/m2 Universi ty of [place] [facility] Systolic blood 2019-10-10 15:06:00 116 mm[Hg] Univer sity of pressure [place] [facility] Diastolic blood 2019-10-10 15:06:00 78 mm[Hg] Unive rsity of pressure [place] [facility] Heart rate 2019-10-10 15:06:00 85 /min Universi ty of [place] [facility] Body temperature 2019-10-10 15:06:00 36.94 Deisy Univ ersity of [place] [facility] Respiratory rate 2019-10-10 15:06:00 18 /min Univ ersity of [place] [facility] Body height 2019-10-10 15:06:00 162.6 cm Universi ty of [place] [facility] Body weight 2019-10-10 15:06:00 93.078 kg Universi ty of [place] [facility] BMI 2019-10-10 15:06:00 35.22 kg/m2 Universi ty of [place] [facility] Systolic blood 2019-10-03 21:11:00 115 mm[Hg] Univer sity of pressure [facility] Diastolic blood 2019-10-03 21:11:00 74 mm[Hg] Unive rsity of pressure [facility] Heart rate 2019-10-03 21:11:00 91 /min Universi ty of [place] [facility] Body temperature 2019-10-03 21:11:00 36.72 Deisy Univ ersity of [place] [facility] Respiratory rate 2019-10-03 21:11:00 18 /min Univ ersity of [place] [facility] Body weight 2019-10-03 21:11:00 91.808 kg Universi ty of [place] [facility] BMI 2019-10-03 21:11:00 34.74 kg/m2 Universi ty of [place] [facility] Systolic blood 2019-09-15 21:17:00 118 mm[Hg] Univer sity of pressure [facility] Diastolic blood 2019-09-15 21:17:00 72 mm[Hg] Unive rsity of pressure [facility] Heart rate 2019-09-15 21:17:00 64 /min Universi ty of [place] [facility] Body temperature 2019-09-15 21:17:00 37.06 Deisy Univ ersity of [place] [facility] Respiratory rate 2019-09-15 21:17:00 18 /min [facility] Body height 2019-09-15 21:17:00 162.6 cm Universi ty [facility] Body weight 2019-09-15 21:17:00 89.812 kg Universi [facility] BMI 2019-09-15 21:17:00 33.99 kg/m2 Universi [facility] Systolic blood 2019-08-04 15:38:00 114 mm[Hg] Univer sity of pressure [facility] Diastolic blood 2019-08-04 15:38:00 74 mm[Hg] Unive rsity of [facility] Heart rate 2019-08-04 15:38:00 92 /min Universi [facility] Body temperature 2019-08-04 15:38:00 36.83 Deisy [facility] Respiratory rate 2019-08-04 15:38:00 18 /min [facility] Body height 2019-08-04 15:38:00 162.6 cm Universi [facility] Body weight 2019-08-04 15:38:00 87.091 [facility] BMI 2019-08-04 15:38:00 32.96 kg/m2 [facility] Procedures Procedure Date / Time Performing Clinician Source Performed DISCLOSURE AND CONSENT, 2019-12-11 05:01:00 Doctor Unassigned, [facility] MEDICAL AND SURGICAL [facility] PROCEDURES POCT TEST 2019-12-11 00:00:00 Landon Domínguez [facility] CBC WITH DIFF 2019-10-25 08:36:00 [facility] VENOUS CORD GAS 2019-10-24 14:20:00 [facility] CBC WITH DIFF 2019-10-24 09:11:00 Ron Arleth [facility] HEPATITIS B SURFACE 2019-10-24 09:11:00 Arleth Velasquez [facility] ANTIGEN [facility] ADC OR NANI ONLY - RPR 2019-10-24 09:11:00 Arleth Velasquez [facility] HIV 1/2 AG-AB WITH REFLEX 2019-10-24 09:11:00 Arleth Velasquez [facility] COVID-19 (ID NOW RAPID 2019-10-24 09:11:00 Arleth Velasquez [facility] TESTING) Medical Branch HB ABO GROUPING 2019-10-24 09:10:00 Ron Arleth [place] [facility] [place] [facility] RHO (D) IMMUNE GLOBULIN 2019-10-24 09:10:00 Landon Domínguez [facility] [place] NOTICE OF PRIVACY 2019-10-24 08:36:07 Doctor Unassigned, [facility] PRACTICES [facility] CONSENT/REFUSAL FOR 2019-10-24 08:33:33 [facility] DIAGNOSIS [facility] TREATMENT [facility] ASSIGNMENT OF BENEFITS 2019-10-24 08:33:13 Doctor Unasscecil, [facility] POCT URINALYSIS W/O 2019-10-17 00:00:00 Shivani Hatch [facility] SPECIFIC GRAVITY Medical Branch POCT URINALYSIS W/O 2019-10-10 15:08:00 Landon Domínguez [facility] SPECIFIC GRAVITY Medical Branch 3 HR GLUCOSE TOLERANCE 2019-10-09 17:12:00 Landon Domínguez [facility] TEST Medical Branch 2 HR GLUCOSE TOLERANCE 2019-10-09 16:05:00 Sang [facility] TEST Medical Branch 1 HR GLUCOSE TOLERANCE 2019-10-09 15:00:00 [facility] [place] [facility] GLUCOSE FASTING 2019-10-09 14:02:00 Landon Domínguez [facility] [place] [facility] [place] CBC WITH DIFF 2019-10-09 14:02:00 Shivani Hatch [place] [facility] Medical Branch GLUCOSE FASTING 2019-10-09 14:02:00 Landon Domínguez [facility] [place] >14 WEEKS US 2019-10-03 21:43:13 Shivani [facility]atch [facility] LIMITED Medical Branch POCT URINALYSIS W/O 2019-10-03 21:35:00 Shivani Hatch [facility] SPECIFIC GRAVITY Medical Branch DSU PRE-OP 2019-10-03 05:01:00 Doctor Kalen, [facility] POCT HEMOGLOBIN A1C TEST 2019-10-03 00:00:00 Shivani Hatch [facility] POCT URINALYSIS W/O 2019-09-15 00:00:00 Sang Landon Mauricio [facility] [place] SPECIFIC GRAVITY [facility] TDAP (ADACEL) 2019-08-04 16:00:53 Landon Domínguez [place] [facility] [place] IMMUNIZATION [facility] POCT URINALYSIS W/O 2019-08-04 00:00:00 Landon Domínguez [facility] SPECIFIC GRAVITY [facility] SCANNED LAB RESULTS 2019-07-24 05:01:00 Doctor Lb Higuera [facility] SCANNED LAB RESULTS 2019-07-07 05:01:00 Doctor Lb Higuera [facility] AGREEMENTS AUTHORIZATIONS 2019-06-18 05:01:00 Doctor Kalen, [facility] AND IRREVOCABLE [facility] ASSIGNMENTS (FORM 2001) Encounters Start End Encounter Admission Attending Care Care Encounter Source Date/Time Date/Time Type Type Clinicians Facility Department ID 2020-12-24 Outpatient [facility] NANNETTE [id number] Univers [facility]:37[facility] 2020-12-28 2020-12-28 Outpatient R RYAN DOMÍNGUEZEN [facility] [id number] Univers 13:30:00 13:30:00 ity [facility] 2020-12-28 2020-12-28 Outpatient R LANDON DOMÍNGUEZ [facility] [id number] Univers 13:30:00 13:30:00 [id number] ity [facility] 2020-07-07 2020-07-07 Outpatient R LANDON DOMÍNGUEZ [facility] [id number] Univers 09:30:00 09:30:00 [id number] ity [facility] 2020-07-07 2020-07-07 Outpatient R SANG LANDON [facility] [id number] Univers 09:30:00 09:30:00 [facility] 2020-01-08 2020-01-08 Office Landon Domínguez [facility] [id number] Univers 15:04:40 15:34:40 Visit Asim Malcolm [id number] i ty of [place] [id number] Snehal guzman Professio [phone] Sd dic[address] 2020-01-08 2020-01-08 Outpatient R LANDON DOMÍNGUEZ [facility] [id number] Univers 15:00:00 15:00:00 [id number] ity [facility] 2020-01-08 2020-01-08 Outpatient R LANDON DOMÍNGUEZ [facility] [id number] Univers 15:00:00 15:00:00 ity of [facility] 2019-12-11 2019-12-11 Office Sang [facility] [id number] Univers 15:06:04 16:09:16 Visit Asim Malcolm [id number] i [id number] [phone] [address] 2019-12-11 2019-12-11 Outpatient R LANDON DOMÍNGUEZ [facility] [id number] Univers 15:00:00 15:00:00 [id number] ity [facility] 2019-12-11 2019-12-11 Outpatient R SANG [facility] [id number] Univers 15:00:00 15:00:00 ity of [facility] 2019-12-11 2019-12-11 Orders Doctor DEONDRE [id number] Univers 00:00:00 00:00:00 Only Unassigned, RACHELLE [id number] ity of [facility] [id number] [place] as [phone] [address] 2019-11-20 2019-11-20 Routine Sang [facility] [id number] Univers 15:38:58 16:14:30 Asim Hickman [id number] ity of [place] [id number] [phone] [address] 2019-11-20 2019-11-20 Outpatient R LANDON DOMÍNGUEZ [facility] [id number] Univers 15:30:00 15:30:00 [id number] ity [facility] 2019-11-20 2019-11-20 Outpatient R SANG [facility] [id number] Univers 15:30:00 15:30:00 ity of [facility] 2019-11-13 2019-11-13 Outpatient R LANDON DOMÍNGUEZ [facility] [id number] Univers 15:30:00 15:30:00 [id number] ity of [facility] 2019-11-13 2019-11-13 Outpatient R LANDON DOMÍNGUEZ [facility] [id number] Univers 15:30:00 15:30:00 ity of [facility] 2019-10-27 2019-10-27 Outpatient R [facility] [id number] Univers 09:00:00 09:00:00 [id number] ity of [facility] 2019-10-27 2019-10-27 Outpatient R [facility] [id number] Univers 09:00:00 09:00:00 ity of [facility] 2019-10-24 2019-10-25 Hospital Landon Domínguez [facility] [id number] Univers 03:33:00 14:45:00 Encounter Arleth Velasquez [id number] ity of [id number] [phone] [address] 2019-10-24 2019-10-24 Outpatient LANDON DOMÍNGUEZ [facility] [id number] Univers 09:00:00 09:00:00 [id number] ity of [facility] 2019-10-24 2019-10-24 Outpatient R LANDON DOMÍNGUEZ [facility] [id number] Univers 09:00:00 09:00:00 ity of [facility] 2019-10-17 2019-10-17 Routine Joce [facility] [id number] Univers 08:54:41 09:09:41 Shivani Malcolm [id number] ity of Visit [place] [id number] [facility] [phone] Sd dical [address] 2019-10-17 2019-10-17 Outpatient R JOCE [facility] [id number] Univers 09:00:00 09:00:00 SHIVANI [id number] ity of [facility] 2019-10-17 2019-10-17 Outpatient R JOCE [facility] [id number] Univers 09:00:00 09:00:00 SHIVANI itchacorta [facility] 2019-10-10 2019-10-10 Routine Landon Domínguez [facility] [id number] Univers 09:54:20 10:49:54 Asim Malcolm [id number] ity [id number] [phone] Sd dical nal [address] [facility] 2019-10-10 2019-10-10 Outpatient R LANDON DOMÍNGUEZ [facility] [id number] Univers 10:00:00 10:00:00 [id number] ity of [facility] 2019-10-10 2019-10-10 Outpatient R SANG LANDON [facility] [id number] Univers 10:00:00 10:00:00 ity [facility] 2019-10-09 2019-10-09 Channel Program Manager 2, Adc Lab [facility] [id number] Univers 08:57:15 09:12:15 Visit Landon Domínguezton [id number] ity [id number] [phone] Sd dical [address] 2019-10-09 2019-10-09 Outpatient R [facility] [id number] Univers 09:00:00 09:00:00 [id number] ity of [facility] 2019-10-09 2019-10-09 Outpatient R LANDON DOMÍNGUEZ [facility] [id number] Univers 09:00:00 09:00:00 ity of [facility] 2019-10-08 2019-10-08 Outpatient R [facility] [id number] Univers 08:30:00 08:30:00 [id number] ity of [facility] 2019-10-08 2019-10-08 Outpatient R [facility] [id number] Univers 08:30:00 08:30:00 ity of [facility] 2019-10-03 2019-10-03 Routine Joce [facility] [id number] Univers 15:55:08 16:10:08 Shivani Yun [id number] ity of [id number] [phone] Sd dical nal [address] [facility] 2019-10-03 2019-10-03 Outpatient R JOCE, [facility] [id number] Univers 16:00:00 16:00:00 SHIVANI [id number] ity of [facility] 2019-10-03 2019-10-03 Outpatient R JOCE, [facility] [id number] Univers 16:00:00 16:00:00 SHIVANI ity [facility] 2019-10-03 2019-10-03 Orders Doctor DEONDRE [id number] Univers 00:00:00 00:00:00 Only Unassigned, RACHELLE [id number] ity of [place] [facility] [id number] [place] as [phone] [address] 2019-09-22 2019-09-22 Outpatient R [facility] [id number] Univers 08:30:00 08:30:00 [id number] ity of [facility] 2019-09-22 2019-09-22 Outpatient R [facility] [id number] Univers 08:30:00 08:30:00 ity of [facility] 2019-09-16 2019-09-16 Case Landon Domínguez [facility] [id number] Univers 00:00:00 00:00:00 Management Asim Malcolm [id number] ity [id number] [phone] Sd dical nal [address] [place] [address] 2019-09-15 2019-09-15 Routine Landon Domínguez [facility] [id number] Univers 15:47:00 16:33:51 Asim Malcolm [id number] ity of [id number] [phone] Sd dical nal [address] [place] [address] 2019-09-15 2019-09-15 Channel Program Manager 2, Adc Lab [facility] [id number] Univers 13:16:45 13:31:45 Visit Landon Domínguez [id number] ity of [id number] [phone] Sd dical nal [address] [facility] 2019-09-15 2019-09-15 Outpatient R [facility] [id number] Univers 13:00:00 13:00:00 ity [facility] 2019-09-15 2019-09-15 Outpatient R [facility] [id number] Univers 13:00:00 13:00:00 ity of [facility] 2019-09-01 2019-09-01 Outpatient R JOCE [facility] [id number] Univers 11:30:00 11:30:00 [facility] 2019-09-01 2019-09-01 Outpatient R JOCE [facility] [id number] Univers 11:30:00 11:30:00 SHIVANI [facility] 2019-09-01 2019-09-01 [facility] [id number] Univers 07:52:30 08:07:30 ne Visit Shivani Malcolm [id number] ity [id number] [phone] Sd dical nal [address] [place] [address] 2019-08-12 2019-08-12 Telephone Joce [facility] [id number] Univers 00:00:00 00:00:00 Shivani Malcolm [id number] i ty of [id number] [phone] Sd dical nal [address] [place] [address] 2019-08-04 2019-08-04 Routine Sang Landon [facility] [id number] Univers 10:26:46 11:59:45 Asim Malcolm [id number] ity of [id number] [phone] Sd dical nal [address] [place] [address] 2019-08-04 2019-08-04 Outpatient R LANDON DOMÍNGUEZ [facility] [id number] Univers 10:30:00 10:30:00 [id number] ity [facility] 2019-08-04 2019-08-04 Outpatient R LANDON DOMÍNGUEZ [facility] [id number] Univers 10:30:00 10:30:00 ity of [facility] 2019-07-29 2019-07-29 Outpatient R [facility] [id number] Univers 10:30:00 10:30:00 ity of [facility] 2019-07-29 2019-07-29 Outpatient P [facility] [id number] Univers 10:30:00 10:30:00 ity of [facility] 2019-07-28 2019-07-28 Telemedici Consults, Rmchp Ang Pn Gene tic [facility] [id number] Univers 07:55:28 17:00:39 ne Visit Rommel Hernandez BEAMING MACHINE OPERATOR [id number] ity [facility] [id number] [place]ón as MATERNAL [phone] Med ical & CHILD [address] [place] [address] 2019-07-28 2019-07-28 Outpatient R [facility] [id number] Univers 09:30:00 09:30:00 ity of [facility] 2019-07-28 2019-07-28 Outpatient R ROMMEL HERNANDEZ [facility] [id number] Univers 09:30:00 09:30:00 ity of [facility] 2019-07-24 2019-07-24 Outpatient R LANDON DOMÍNGUEZ [facility] [id number] Univers 14:00:00 14:00:00 [id number] ity of [facility] 2019-07-24 2019-07-24 Outpatient R LANDON DOMÍNGUEZ [facility] [id number] Univers 14:00:00 14:00:00 ity of [facility] 2019-07-24 2019-07-24 Telemedici Landon Domínguez [facility] 1.2.840.114 [id number] Univers 08:03:52 08:18:52 ne Visit Asim [place] 350.1.13.10 ity [facility] [place] [phone] Sd dic[address] 2019-07-24 2019-07-24 Orders Doctor MENDOSA 1.2.840.114 [id number] Univers 00:00:00 00:00:00 Only Unassigned, RACHELLE 350.1.13.10 ity of [place] [facility] 4.2.7.2.686 [place] [phone] [address] 2019-07-22 2019-07-22 Telephone Landon Domínguez [facility] 1.2.840.114 [id number] Univers 00:00:00 00:00:00 Cam [place] 350.1.13.10 i ty [place] [phone] Sd dic[address] 2019-07-18 2019-07-18 Telephone Landon Domínguez [facility] 1.2.840.114 [id number] Univers 00:00:00 00:00:00 Cam [place] 350.1.13.10 i ty [place] [phone] Sd dic[address] 2019-07-16 2019-07-16 Telephone Landon Domínguez [facility] 1.2.840.114 [id number] Univers 00:00:00 00:00:00 Cam [facility] [id number] it y of [place] 4.2.7.2.686 [place] Professio [phone] [address] One 2019-07-14 2019-07-14 Telephone Landon Domínguez [facility] 1.2.840.114 [id number] Univers 00:00:00 00:00:00 Cam [place] 350.1.13.10 i ty [place] [phone] [address] 2019-07-11 2019-07-11 Outpatient R [facility] [id number] Univers 13:00:00 13:00:00 [id number] ity of [facility] 2019-07-07 2019-07-07 Orders Doctor MENDOSA 1.2.840.114 [id number] Univers 00:00:00 00:00:00 Only Unassigned, RACHELLE 350.1.13.10 ity of [place] [facility] 4.2.7.2.686 [place] [phone] [address] 2019-07-04 2019-07-04 Outpatient R [facility] [id number] Univers 15:15:00 15:15:00 ity of [facility] 2019-07-04 2019-07-04 Outpatient R [facility] [id number] Univers 15:15:00 15:15:00 ity of [facility] 2019-07-03 2019-07-03 Outpatient R LANDON DOMÍNGUEZ [facility] [id number] Univers 16:15:00 16:15:00 ity of [facility] 2019-07-03 2019-07-03 Telemedici Shivani Hatch [facility] 1.2.840 .114 [id number] Univers 08:03:54 08:18:54 ne Visit Landon Domínguez Yun 350.1.13.10 ity of [place].2.[place] [phone] Sd dical nal 134 [facility] 2019-06-18 2019-06-18 Channel Program Manager Ultrasound, [facility] 1.2 .840.114 [id number] Univers 14:18:50 15:12:47 Visit Landon Domínguez BEAMING MACHINE OPERATOR 350.1.13.10 ity of Sidney Castillo [facility] 4.2.7.2.686 [place] MATERNAL [phone] Med ical & CHILD [address] [place] [address] 2019-06-18 2019-06-18 Channel Program Manager 2, Adc Lab [facility] 1.2.840.114 [id number] Univers 13:08:11 13:23:11 Visit Ladnon Domínguez Yun 350.1.13.10 ity of [place] 4[place].7.2.[place] [phone] Sd dical nal 353 [facility] 2019-06-18 2019-06-18 Outpatient R LANDON DOMÍNGUEZ [facility] [id number] Univers 13:00:00 13:00:00 ity of [facility] 2019-06-18 2019-06-18 Orders Doctor DEONDRE 1.2.840.114 [id number] Univers 00:00:00 00:00:00 Only Unassigned, RACHELLE 350.1.13.10 ity of [place] [facility] 4.2.7.2.686 [place] [phone] [address] Results Test Description Test Time Test Comments Results Result Comments Source POCT TEST 2019-12-11 20:50:00 Test Item Value Reference Range Interpretation Comme nts POCT PREG (test code = 1605) Negative On board controls acceptable with C Line (test code = 3574) Yes POCT PREG LOT # (test code = 3575) POCT PREG TEST DATE (test code = 3576) [facility] [id number] 20:50:00 Test Item Value Reference Range Interpretation Comments POCT PREG (test code = 1605) Negative On board controls acceptable with C Yes Line (test code = 3574) POCT PREG LOT # (test code = 3575) POCT PREG TEST DATE (test code = 3576) [facility] with [id number] 09:39:00 Test Item Value Reference Range Interpretation Comments WBC (test code = See_Comment [Automated 3390-2) message] The sy stem which generated this result transmitted reference range : 4.30 - 11.10 10*3/?L. The reference range was not used to interpret this result as normal/abnormal . RBC (test code = See_Comment L [Automated 719-8) message] The sy stem which generated this result transmitted reference range : 3.93 - 5.25 10*6/?L. The reference range was not used to interpret this result as normal/abnormal . HGB (test code = 9.6 g/dL 11.6-15 L 718-7) HCT (test code = 28.5 % 35.7-45.2 L 4544-3) MCV (test code = 95.6 fL 80.6-95.5 H 787-2) MCH (test code = 32.2 pg 25.9-32.8 785-6) MCHC (test code = 33.7 g/dL 31.6-35.1 786-4) RDW-SD (test code = 46.3 fL 39-49.9 60989-3) RDW-CV (test code = 13.3 % 12-15.5 788-0) PLT (test code = See_Comment [Automated 777-3) message] The sy stem which generated this result transmitted reference range : 166 - 358 10*3/ ?L. The reference r saira was not used to interpret this result as normal/abnormal . MPV (test code = 9.7 fL 9.5-12.9 36087-1) NRBC/100 WBC (test See_Comment [Automat ed code = 3428486029) message] The system which generated this result transmitted reference range : 0.0 - 10.0 /100 WBCs. The refer ence range was not u sed to interpret th is result as normal/abnormal . NRBC x10^3 (test code <0.01 See_Comment [Auto mated = 3282789815) message] The s ystem which generated this result transmitted reference range : 10*3/?L. The reference range was not used to interpret this result as normal/abnormal . GRAN MAT (NEUT) % 67.7 % (test code = 770-8) IMM GRAN % (test code 0.70 % = 9065880931) LYMPH % (test code = 23.3 % 736-9) MONO % (test code = 7.1 % 5905-5) EOS % (test code = 0.8 % 713-8) BASO % (test code = 0.4 % 706-2) GRAN MAT x10^3(ANC) 7.43 10*3/uL 1.88-7.09 H (test code = 4789867253) IMM GRAN x10^3 (test 0.08 10*3/uL 0-0.06 H code = 3497304321) LYMPH x10^3 (test code 2.56 10*3/uL 1.32-3.29 = 731-0) MONO x10^3 (test code 0.78 10*3/uL 0.33-0.92 = 742-7) EOS x10^3 (test code = 0.09 10*3/uL 0.03-0.39 711-2) BASO x10^3 (test code 0.04 10*3/uL 0.01-0.07 = 704-7) Lab Interpretation Abnormal (test code = 24793-2) [facility] CECELIA RIVERA - [id number] 03:09:00 Test Item Value Reference Range Interpretation Comments RPR (Qualitative) (test code = Nonreactive Nonreactive 95819-4) Lab Interpretation (test code = Normal 19142-2) [facility] IMMUNE [id number] 22:52:21 Test Item Value Reference Range Interpretation Comments RHIG CANDIDATE? No- see comment Patient i s not a (test code = candidate for R hIg- 5055) Patient is Rh Positive.Perfor med at [facility] Laboratory Services - [facility] Blood [address] [place] [address]Wcvf Free: [phone] A No. [id number] [facility] CampusHepatitis B Surface [id number] 15:34:00 Test Item Value Reference Range Interpretation Comments HBsAg Semi-Quantitative (test code = Negative Negative 5195-3) [facility]ORD [id number] 14:31:00 Test Item Value Reference Range Interpretation Comments VENOUS BASE EXCESS, mEq/L CORD (test code = 3509091154) VENOUS PH, CORD (test 7.25-7.45 code = 4979664259) VENOUS PC02, CORD See_Comment [Automate d message] The (test code = system which ge nerated 6459629515) this result tra nsmitted reference range : 27 - 49 mmHg. The refer ence range was not used to interpret this result as normal/abnormal . VENOUS PO2, CORD (test See_Comment [Aut omated message] The code = 3371334354) system wh ich generated this result tra nsmitted reference range : 17 - 41 mmHg. The refer ence range was not used to interpret this result as normal/abnormal . VENOUS BICARBONATE, See_Comment [Automa josue message] The CORD (test code = system whi ch generated 2909737813) this result tra nsmitted reference range : 12 - 29 mEq/L. The refe rence range was not used to interpret this result as normal/abnormal . [facility] [id number] 14:28:00 Test Item Value Reference Range Interpretation Comments BASE EXCESS, CORD mEq/L (test code = 4230063203) AC PH, CORD (BEAKER) 7.18-7.38 (test code = 8114107565) PC02, CORD (test code See_Comment [Auto mated message] The = 7168332022) system which g enerated this result transmit josue reference range : 32 - 66 mmHg. The refer ence range was not used to interpret this result as normal/abnormal . PO2, CORD (test code See_Comment [Autom ated message] The = 4344701982) system which g enerated this result transmit josue reference range : 10 - 30 mmHg. The refer ence range was not used to interpret this result as normal/abnormal . BICARBONATE, CORD See_Comment [Automate d message] The (test code = system which ge nerated this 9053194648) result transmit josue reference range : 17 - 27 mEq/L. The refe rence range was not used to interpret this result as normal/abnormal . [facility]HIV [facility]/2 AG-AB WITH [id number] 10:27:00 Test Item Value Reference Range Interpretation Comments HIV Negative Negative Semi-quantitative (test code = 87078-4) IBETH (test code = Non-reactive for HIV-1 IBETH) antigen and HIV-1/HIV-2 antibodies. ?No laboratory evidence of HIV infection. ?Repeat in 2-4 weeks if acute HIV infection is suspected. [facility] CampusType and Screen - ONCE [id number] 10:02:48 Test Item Value Reference Range Interpretation Comments ABO & RH (test code O Positive Performe d at [facility] = 20) Laboratory Serv [facility] [address] [place] [address] Free: [phone] A No. [id number] IAT (test code = Negative Performed a t [facility] 1185) Laboratory Serv [facility] [place] [address] Free: [phone] A No. [id number] [facility]COVID[facility] (ID NOW RAPID TESTING)2019-10-24 09:50:00 Test Item Value Reference Range Interpretation Comments SARS-CoV-2 Rapid ID NOW Positive Not Detected A (test code = 58893-9) IBETH (test code = IBETH) ID NOW COVID-19 Assay is an isothermal nucleic acid amplification test intended for the qualitative detection of nucleic acid from SARS-CoV-2 viral RNA in nasopharyngeal (FOOD TECHNICIAN) specimens. It is used under Emergency Use Authorization (EUA) by FDA. The limit of detection (LOD) of the assay is 125 Genome Equivalents/mL. A positive result is indicative of the presence of SARS-CoV-2 RNA. ?Clinical correlation with patient history and other diagnostic information is necessary to determine patient infection status. A negative (Not Detected) result does not preclude SARS-CoV-2 infection. In patients with clinical symptoms and other tests that are consistent with SARS-CoV-2 infection, negative results should be treated as presumptive negative and a new specimen should be tested with alternative PCR molecular test. Invalid: Please collect a new specimen for repeat patient testing if clinically indicated. Lab Interpretation Abnormal (test code = 69204-1) [facility] with [id number] 09:33:00 Test Item Value Reference Range Interpretation Comments WBC (test code = See_Comment H [Automated 5227-2) message] The sy stem which generated this result transmitted reference range : 4.30 - 11.10 10*3/?L. The reference range was not used to interpret this result as normal/abnormal . RBC (test code = See_Comment L [Automated 079-8) message] The sy stem which generated this result transmitted reference range : 3.93 - 5.25 10*6/?L. The reference range was not used to interpret this result as normal/abnormal . HGB (test code = 11.9 g/dL 11.6-15 718-7) HCT (test code = 34.4 % 35.7-45.2 L 4544-3) MCV (test code = 92.0 fL 80.6-95.5 787-2) MCH (test code = 31.8 pg 25.9-32.8 785-6) MCHC (test code = 34.6 g/dL 31.6-35.1 786-4) RDW-SD (test code = 42.7 fL 39-49.9 88300-6) RDW-CV (test code = 12.9 % 12-15.5 788-0) PLT (test code = See_Comment [Automated 777-3) message] The sy stem which generated this result transmitted reference range : 166 - 358 10*3/ ?L. The reference r saira was not used to interpret this result as normal/abnormal . MPV (test code = 9.6 fL 9.5-12.9 38651-9) NRBC/100 WBC (test See_Comment [Automat ed code = 3522033594) message] The system which generated this result transmitted reference range : 0.0 - 10.0 /100 WBCs. The refer ence range was not u sed to interpret th is result as normal/abnormal . NRBC x10^3 (test code <0.01 See_Comment [Auto mated = 0492626898) message] The s ystem which generated this result transmitted reference range : 10*3/?L. The reference range was not used to interpret this result as normal/abnormal . GRAN MAT (NEUT) % 72.0 % (test code = 770-8) IMM GRAN % (test code 0.70 % = 7955938023) LYMPH % (test code = 20.8 % 736-9) MONO % (test code = 5.7 % 5905-5) EOS % (test code = 0.5 % 713-8) BASO % (test code = 0.3 % 706-2) GRAN MAT x10^3(ANC) 8.70 10*3/uL 1.88-7.09 H (test code = 8990004063) IMM GRAN x10^3 (test 0.08 10*3/uL 0-0.06 H code = 1451262783) LYMPH x10^3 (test code 2.52 10*3/uL 1.32-3.29 = 731-0) MONO x10^3 (test code 0.69 10*3/uL 0.33-0.92 = 742-7) EOS x10^3 (test code = 0.06 10*3/uL 0.03-0.39 711-2) BASO x10^3 (test code 0.04 10*3/uL 0.01-0.07 = 704-7) Lab Interpretation Abnormal (test code = 07748-1) [facility] URINALYSIS W/O SPECIFIC [id number] 14:04:00 Test Item Value Reference Range Interpretation Comments POCT PH U (test code = 3254) n/a 5-8 POCT U LEUK EST (test code = 3263) n/a Negative - Negative POCT U NIT (test code = 3262) n/a Negative - Negative POCT U PROT (test code = 3259) neg Negative - Negative POCT U GLU (test code = 3256) neg Negative - Negative POCT U KETONE (test code = 3258) n/a Negative - Negative POCT U BLD (test code = 3257) n/a Negative - Negative [facility] W/O SPECIFIC [id number] 15:08:00 Test Item Value Reference Range Interpretation Comments POCT PH U (test code = 3254) n/a 5-8 POCT U LEUK EST (test code = 3263) n/a Negative - Negative POCT U NIT (test code = 3262) n/a Negative - Negative POCT U PROT (test code = 3259) neg Negative - Negative POCT U GLU (test code = 3256) neg Negative - Negative POCT U KETONE (test code = 3258) n/a Negative - Negative POCT U BLD (test code = 3257) n/a Negative - Negative [facility] W/O SPECIFIC [id number] 15:08:00 Test Item Value Reference Range Interpretation Comments POCT PH U (test code = 3254) n/a 5-8 POCT U LEUK EST (test code = 3263) n/a Negative - Negative POCT U NIT (test code = 3262) n/a Negative - Negative POCT U PROT (test code = 3259) neg Negative - Negative POCT U GLU (test code = 3256) neg Negative - Negative POCT U KETONE (test code = 3258) n/a Negative - Negative POCT U BLD (test code = 3257) n/a Negative - Negative [facility]3 HR GLUCOSE TOLERANCE [id number] 18:00:00 Test Item Value Reference Range Interpretation Comments GLUC 3 HR (test code = 5250662652) 103 mg/dL 70-110 Lab Interpretation (test code = Normal 98580-3) [facility] CampusGLUCOSE [id number] 17:52:00 Test Item Value Reference Range Interpretation Comments GLU FASTNG (test code = 7464484177) 86 mg/dL 70-110 Lab Interpretation (test code = Normal 58022-9) [facility] HR GLUCOSE TOLERANCE [id number] 17:48:00 Test Item Value Reference Range Interpretation Comments GLUC 1 HR (test code = 6440995955) 131 mg/dL 120-170 Lab Interpretation (test code = Normal 47648-0) [facility] HR GLUCOSE TOLERANCE [id number] 17:48:00 Test Item Value Reference Range Interpretation Comments GLUC 2 HR (test code = 2767468268) 171 mg/dL 70-120 H Lab Interpretation (test code = Abnormal 08330-8) [facility] WITH [id number] 17:33:00 Test Item Value Reference Range Interpretation Comments WBC (test code = See_Comment [Automated 6690-2) message] The sy stem which generated this result transmitted reference range : 4.30 - 11.10 10*3/?L. The reference range was not used to interpret this result as normal/abnormal . RBC (test code = See_Comment L [Automated 789-8) message] The sy stem which generated this result transmitted reference range : 3.93 - 5.25 10*6/?L. The reference range was not used to interpret this result as normal/abnormal . HGB (test code = 10.9 g/dL 11.6-15 L 718-7) HCT (test code = 32.5 % 35.7-45.2 L 4544-3) MCV (test code = 95.0 fL 80.6-95.5 787-2) MCH (test code = 31.9 pg 25.9-32.8 785-6) MCHC (test code = 33.5 g/dL 31.6-35.1 786-4) RDW-SD (test code = 43.9 fL 39-49.9 86613-0) RDW-CV (test code = 12.9 % 12-15.5 788-0) PLT (test code = See_Comment [Automated 777-3) message] The sy stem which generated this result transmitted reference range : 166 - 358 10*3/ ?L. The reference r saira was not used to interpret this result as normal/abnormal . MPV (test code = 9.8 fL 9.5-12.9 83159-4) NRBC/100 WBC (test See_Comment [Automat ed code = 8698442915) message] The system which generated this result transmitted reference range : 0.0 - 10.0 /100 WBCs. The refer ence range was not u sed to interpret th is result as normal/abnormal . NRBC x10^3 (test code <0.01 See_Comment [Auto mated = 3311740210) message] The s ystem which generated this result transmitted reference range : 10*3/?L. The reference range was not used to interpret this result as normal/abnormal . GRAN MAT (NEUT) % 62.3 % (test code = 770-8) IMM GRAN % (test code 0.70 % = 0768794467) LYMPH % (test code = 29.9 % 736-9) MONO % (test code = 6.0 % 5905-5) EOS % (test code = 0.5 % 713-8) BASO % (test code = 0.6 % 706-2) GRAN MAT x10^3(ANC) 5.49 10*3/uL 1.88-7.09 (test code = 8873306411) IMM GRAN x10^3 (test 0.06 10*3/uL 0-0.06 code = 3800920703) LYMPH x10^3 (test code 2.63 10*3/uL 1.32-3.29 = 731-0) MONO x10^3 (test code 0.53 10*3/uL 0.33-0.92 = 742-7) EOS x10^3 (test code = 0.04 10*3/uL 0.03-0.39 711-2) BASO x10^3 (test code 0.05 10*3/uL 0.01-0.07 = 704-7) Lab Interpretation Abnormal (test code = 90705-8) [facility] HEMOGLOBIN A1C [id number] 21:58:00 Test Item Value Reference Range Interpretation Comments POCT HBA1C (test code = 4548-4) 5.2 % 4-6 [facility] HEMOGLOBIN A1C [id number] 21:58:00 Test Item Value Reference Range Interpretation Comments POCT HBA1C (test code = 4548-4) 5.2 % 4-6 [facility]>14 WEEKS US [id number] 21:43:38Cephalic presentationUn[facility]>14 WEEKS US [id number] 21:43:38Cephalic presentationUnHarris Health System [facility] HospitalPOCO URINALYSIS W/O SPECIFIC [id number] 21:35:00 Test Item Value Reference Range Interpretation Comments POCT PH U (test code = 3254) NA 5-8 POCT U LEUK EST (test code = NA Negative - Negative 3263) POCT U NIT (test code = 3262) NA Negative - Negative POCT U PROT (test code = 3259) Negative Negative - Negative POCT U GLU (test code = 3256) Negative Negative - Negative POCT U KETONE (test code = 3258) NA Negative - Negative POCT U BLD (test code = 3257) NA Negative - Negative Lab Interpretation (test code = Normal 06907-9) [facility] URINALYSIS W/O SPECIFIC [id number] 21:35:00 Test Item Value Reference Range Interpretation Comments POCT PH U (test code = 3254) NA 5-8 POCT U LEUK EST (test code = NA Negative - Negative 3263) POCT U NIT (test code = 3262) NA Negative - Negative POCT U PROT (test code = 3259) Negative Negative - Negative POCT U GLU (test code = 3256) Negative Negative - Negative POCT U KETONE (test code = 3258) NA Negative - Negative POCT U BLD (test code = 3257) NA Negative - Negative Lab Interpretation (test code = Normal 49959-9) [facility] URINALYSIS W/O SPECIFIC [id number] 21:23:00 Test Item Value Reference Range Interpretation Comments POCT PH U (test code = 3254) n/a 5-8 POCT U LEUK EST (test code = 3263) n/a Negative - Negative POCT U NIT (test code = 3262) n/a Negative - Negative POCT U PROT (test code = 3259) neg Negative - Negative POCT U GLU (test code = 3256) neg Negative - Negative POCT U KETONE (test code = 3258) n/a Negative - Negative POCT U BLD (test code = 3257) n/a Negative - Negative [facility] URINALYSIS W/O SPECIFIC [id number] 15:56:00 Test Item Value Reference Range Interpretation Comments POCT PH U (test code = 3254) N/A 5-8 POCT U LEUK EST (test code = N/A Negative - Negative 3263) POCT U NIT (test code = 3262) N/A Negative - Negative POCT U PROT (test code = 3259) Negative Negative - Negative POCT U GLU (test code = 3256) Trace Negative - Negative POCT U KETONE (test code = 3258) N/A Negative - Negative POCT U BLD (test code = 3257) N/A Negative - Negative [facility] W/O SPECIFIC [id number] 15:56:00 Test Item Value Reference Range Interpretation Comments POCT PH U (test code = 3254) N/A 5-8 POCT U LEUK EST (test code = N/A Negative - Negative 3263) POCT U NIT (test code = 3262) N/A Negative - Negative POCT U PROT (test code = 3259) Negative Negative - Negative POCT U GLU (test code = 3256) Trace Negative - Negative POCT U KETONE (test code = 3258) N/A Negative - Negative POCT U BLD (test code = 3257) N/A Negative - Negative [facility]
[2021-07-17 16:02] LABS: Urine Blood Negative (Negative); Urine Glucose Negative (Negative); Urine Protein Negative (Negative); Urine Specific Gravity >=1.030 (1.005-1.030); Urine pH 5.5 (5.0-7.0)
[2021-07-17 16:14] LABS: Urine Bacteria <20 /HPF (<20); Urine RBC <5 /HPF (NONE SEEN)
[2021-07-17] MEDS ORDERED: FENTANYL CITR 100 MCG/2 ML ONE (16:50)
[2021-07-17] MEDS ORDERED: KETOROLAC 30 MG/ML INJ ONE (18:19)
--- NOTE | 2021-07-17 18:52 | EDPHYS ---
Physician Documentation [facility] Name: Olga Wilkins Age: 26 yrs Sex: Female : 1995 Arrival Date: 07/17/2021 Time: 14:13 Bed 9 Private MD: ED Physician Dia Campo HPI: 07/17 18:00 This 26 yrs old Female presents to ER via Wheelchair with complaints of Back Pain. cp 18:00 The patient presents with pain that is chronic. The symptoms are located in the low cp back. Onset: The symptoms/episode began/occurred at an unknown time. and became worse today, after bending over. 18:00 The pain radiates to the left leg. cp 18:00 Associated signs and symptoms: Pertinent negatives: abdominal pain, constipation, cp fever, incontinence, numbness. Modifying factors: the patient symptoms are aggravated by standing, walking. Severity of symptoms: in the emergency department the symptoms are unchanged, despite home interventions. Patient reports being diagnosed with bulging disc in January 2021. Currently taking prescribed Gabapentin w/o relief. Patient denies history of IV drug use, denies bowel and/or bladder incontinence, denies saddle anesthesia. 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 - Social history:: Smoking status: Reported history of juuling and/or vaping. ROS: 18:05 Constitutional: Negative for body aches, chills, fever, poor PO intake. cp 18:05 Eyes: Negative for injury, pain, redness, and discharge. cp 18:05 Neck: Negative for pain with movement, pain at rest, stiffness. 18:05 Cardiovascular: Negative for chest pain. 18:05 Respiratory: Negative for cough, shortness of breath, wheezing. 18:05 Abdomen/GI: Negative for abdominal pain, nausea, vomiting, and diarrhea, constipation, bowel incontinence. 18:05 Back: Positive for pain at rest, pain with movement, of the low back. 18:05 : Negative for urinary symptoms, bladder incontinence. 18:05 Neuro: Negative for dizziness, headache, saddle anesthesia. 18:05 All other systems are negative. Exam: 18:10 Constitutional: The patient appears in no acute distress, alert, awake, non-toxic, well cp developed, well nourished, uncomfortable. 18:10 Head/Face: Normocephalic, atraumatic. cp 18:10 Eyes: Periorbital structures: appear normal, Conjunctiva: normal, no exudate, no injection, Sclera: no appreciated abnormality, Lids and lashes: appear normal, bilaterally. 18:10 ENT: External ear(s): are unremarkable, Nose: is normal, Mouth: Lips: moist, Oral mucosa: moist, Posterior pharynx: Airway: no evidence of obstruction, patent. 18:10 Neck: ROM/movement: is normal, is supple, without pain, no range of motions limitations. 18:10 Chest/axilla: Inspection: normal. 18:10 Cardiovascular: Rate: normal. 18:10 Respiratory: the patient does not display signs of respiratory distress, Respirations: normal, no use of accessory muscles, no retractions. 18:10 Abdomen/GI: Inspection: abdomen appears normal, Bowel sounds: active, all quadrants, Palpation: abdomen is soft and non-tender, in all quadrants. 18:10 Back: pain, that is severe, of the low back area, ROM is painful, with all movement. 18:10 Neuro: Orientation: to person, place \T\ time. Mentation: is normal, Motor: moves all fours, strength is normal, Sensation: is normal, Gait: is steady, Deep tendon reflexes are 2+ (normal) in the right patellar, right Achilles, left patellar and left Achilles. Vital Signs: 14:23 BP 99 / 68; Pulse 98; Resp 16; Temp 99.1(TE); Pulse Ox 98% on R/A; Weight 68.04 kg; vg1 Height 5 ft. 5 in. (165.10 cm); Pain 10/10; 14:23 Body Mass Index 24.96 (68.04 kg, 165.10 cm) vg1 MDM: 16:42 Patient medically screened. cp 18:50 Data reviewed: vital signs, nurses notes. cp 18:50 Counseling: I had a detailed discussion with the patient and/or guardian regarding: the cp historical points, exam findings, and any diagnostic results supporting the discharge/admit diagnosis, lab results, the need for outpatient follow up, for definitive care, a painting manager, to return to the emergency department if symptoms worsen or persist or if there are any questions or concerns that arise at home. Response to treatment: the patient's symptoms have markedly improved after treatment, and as a result, I will discharge patient. 07/17 14:48 Order name: Urine Microscopic Only; Complete Time: 16:42 cp 07/17 16:02 Order name: Urine Dipstick-Ancillary; Complete Time: 16:42 EDMS 07/17 14:48 Order name: Urine Dipstick-Ancillary (obtain specimen); Complete Time: 16:19 cp 07/17 14:48 Order name: Urine Test (obtain specimen); Complete Time: 16:19 cp Administered Medications: 16:51 Drug: fentaNYL (PF) 25 mcg Route: IM; Site: right deltoid; ss 19:26 Follow up: Response: No adverse reaction ss 18:20 Drug: TORadol (ketorolac) 60 mg Route: IM; Site: right gluteus; ss 19:27 Follow up: Response: No adverse reaction; Marked relief of symptoms; Pain is decreased ss 18:55 Not Given (Already has lido patch on from todaya): Lidoderm Patch 5 % (700 mg/patch) 1 ss patches Topical once; leave on for 12 hours; cover most painful area; may cut into smaller pieces Disposition Summary: 07/17/21 18:51 Discharge Ordered Location: Home cp Problem: chronic cp Symptoms: have improved cp Condition: Stable cp Diagnosis - Low back pain cp Followup: cp - With: Vinh Bejarano DO - When: 2 - 3 days - Reason: Recheck today's complaints Discharge Instructions: - Discharge Summary Sheet cp - Chronic Back Pain cp Forms: - Work release form ss - Medication Reconciliation Form cp - Thank You Letter cp - Antibiotic Education cp - Prescription Opioid Use cp Prescriptions: - Lidoderm 5 % Topical adhesive patch,medicated - apply 1 patch by TOPICAL route once daily; 1 box; Refills: 0, Product Selection cp Permitted - Cyclobenzaprine 10 mg Oral Tablet - take 1 tablet by ORAL route every 8 hours As needed; 20 tablet; Refills: 0, cp Product Selection Permitted - Medrol (Leonardo) 4 mg Oral Tablets, Dose Pack - take 1 tablet by ORAL route as directed - follow package instructions; 1 cp packet; Refills: 0, Product Selection Permitted Signatures: Dispatcher [employer] Odalis Duggan, RN RN ss Francois Hennessy PA PA cp Garcia, Victoria RN RN vg1 Corrections: (The following items were deleted from the chart) 07/18 19:07 07/17 18:00 Onset: The symptoms/episode began/occurred last year, cp cp
--- NOTE | 2021-07-17 18:52 | ER ---
Nurse's Notes [facility] Name: Olga Wilkins Age: 26 yrs Sex: Female : 1995 Arrival Date: 07/17/2021 Time: 14:13 Bed 9 Private MD: Diagnosis: Low back pain Presentation: 07/17 14:23 Chief complaint: Patient states: was dx with a bulging disc in January 2021; states vg1 has been taking Gabapentin but "its not working"; states this morning the pain "shoots down the left side of my leg". Coronavirus screen: Vaccine status: Patient reports being unvaccinated. Client denies travel out of the [place] in the last 14 days. Ebola Screen: Patient denies exposure to infectious person. Patient denies travel to an Ebola-affected area in the 21 days before illness onset. Initial Sepsis Screen: Does the patient meet any 2 criteria? No. Patient's initial sepsis screen is negative. Does the patient have a suspected source of infection? No. Patient's initial sepsis screen is negative. Risk Assessment: Do you want to hurt yourself or someone else? Patient reports no desire to harm self or others. Onset of symptoms was July 16, 2021. 14:23 Method Of Arrival: Wheelchair vg1 14:23 Acuity: REBEKAH 3 vg1 Triage Assessment: 14:27 General: Appears uncomfortable, Behavior is crying. Pain: Complains of pain in back vg1 Pain currently is 10 out of 10 on a pain scale. Musculoskeletal: Circulation, motion, and sensation intact. 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 - Social history:: Smoking status: Reported history of juuling and/or vaping. Screenin:53 Abuse screen: Denies threats or abuse. Denies injuries from another. Nutritional ss screening: No deficits noted. Tuberculosis screening: Never had TB. Fall Risk None identified. Assessment: 16:53 General: Appears distressed, uncomfortable, Behavior is cooperative, tearful. Pain: ss Complains of pain in low back Pain currently is 10 out of 10 on a pain scale. Quality of pain is described as aching, sharp. Neuro: Blum Agitation-Sedation Scale (RASS): 0 - Alert and Calm Level of Consciousness is awake, alert, obeys commands, Oriented to person, place, time, situation. Neuro: Denies paresthesias. Cardiovascular: Capillary refill < 3 seconds is brisk in bilateral fingers. Respiratory: Airway is patent Respiratory effort is even, unlabored, Respiratory pattern is regular, symmetrical. GI: No signs and/or symptoms were reported involving the gastrointestinal system. EENT: Oral mucosa is moist. Derm: Skin is intact, is healthy with good turgor, Skin is dry, Skin is pink, warm \\T\\ dry. normal. 18:46 Reassessment: Patient appears in no apparent distress at this time. Patient and/or ss family updated on plan of care and expected duration. Pain level reassessed. Patient is alert, oriented x 3, equal unlabored respirations, skin warm/dry/pink. General: Pt reports that she had some relief with the Fentanyl dose, but is still having a lot of pain. Toradol given as ordered. Respiratory: Respiratory effort is even, unlabored. 19:27 Reassessment: Patient states feeling better. Patient states symptoms have improved. Vital Signs: 14:23 BP 99 / 68; Pulse 98; Resp 16; Temp 99.1(TE); Pulse Ox 98% on R/A; Weight 68.04 kg; vg1 Height 5 ft. 5 in. (165.10 cm); Pain 10/10; 14:23 Body Mass Index 24.96 (68.04 kg, 165.10 cm) vg1 ED Course: 14:13 Patient arrived in ED. ds1 14:18 Francois Hennessy PA is PHCP. cp 14:18 Dia Campo MD is Attending Physician. cp 14:27 Triage completed. vg1 14:27 Arm band placed on. vg1 16:53 Odalis Fair, RN is Primary Nurse. 16:53 Patient has correct armband on for positive identification. Bed in low position. Call ss light in reach. 18:50 Vinh Bejarano DO is Referral Physician. cp 19:26 No provider procedures requiring assistance completed. Patient did not have IV access ss during this emergency room visit. Administered Medications: 16:51 Drug: fentaNYL (PF) 25 mcg Route: IM; Site: right deltoid; ss 19:26 Follow up: Response: No adverse reaction ss 18:20 Drug: TORadol (ketorolac) 60 mg Route: IM; Site: right gluteus; ss 19:27 Follow up: Response: No adverse reaction; Marked relief of symptoms; Pain is decreased ss 18:55 Not Given (Already has lido patch on from todaya): Lidoderm Patch 5 % (700 mg/patch) 1 ss patches Topical once; leave on for 12 hours; cover most painful area; may cut into smaller pieces Medication: 16:53 VIS not applicable for this client. ss Outcome: 18:51 Discharge ordered by MD. cp 19:26 Discharged to home ambulatory. ss 19:26 Condition: improved 19:26 Discharge instructions given to patient, Instructed on discharge instructions, follow up and referral plans. medication usage, Demonstrated understanding of instructions, follow-up care, medications, Prescriptions given X 3. 19:27 Patient left the ED. ss Signatures: Lissett Morales ds1 Odalis Fair, RN RN ss Francois Hennessy PA PA cp Garcia, Victoria, RN RN vg1
[2021-07-17 19:59] VITALS: BP 99/68; TEMP 99.1; O2SAT 98
== END 2021-07-17 19:27 | disposition home or self-care (01) ==
LOC: ER 14:12
DX: M54.50 Low back pain, unspecified (principal)
CPT/HCPCS: 96372; 99283; J3010; 81003; 81015

== ENCOUNTER 2021-12-24 21:12 | Emergency (ER) | payer BC, OTHER ==
--- OUTSIDE RECORDS SUMMARY | 2021-12-24 21:18 | XMS REPORT | Continuity of Care Document ---
:1995 Author Organization [facility] t Address [address] [place] [address] Care Team Providers Name Role Phone Caitlyn GELLER, Azra Rust Primary Care Physician [phone] Shivani Hobson PA-C Attending Clinician LANDON DOMÍNGUEZ Attending Clinician Unavailable Landon Domínguez MD Attending Clinician Doctor Unassigned, Ra[place] Attending Clinician Unavailable Arleth Velasquez MD Attending Clinician SHIVANI HOBSON Attending Clinician Unavailable 2, [facility] Attending Clinician Unavailable Consults, Rmchp [facility] Pn Genetic Attending Clinician Unavailab Rommel Catherine MD Attending Clinician ROMMEL HERNANDEZ Attending Clinician Unavailable Ultrasound, Ang-Mfm Attending Clinician Unavailable Sidney Castillo MD Attending Clinician LANDON DOMÍNGUEZ Admitting Clinician Unavailable Arleth Velasquez MD Admitting Clinician Payers Payer Name Policy Type Policy Number Effective Date Expiration Date [facility] [id number] 2019 CHOICE MEDICAID 00:00:00 Problems Condition Condition Condition Status Onset Resolution Last Treating Co mments Source Name Details Category Date Date Treatment Clinician Date Presence Presence Disease Active 2019-02 Unive rs of 52 mg of 52 mg 0-15 ity of [place] trel-relea trel-relea 00 Me dical sing sing Branch intrauteri intrauteri ne device ne device (IUD) (IUD) Normal Normal Disease Active 2020-0 Univers labor labor 8-28 ity of 00:00: [address] 39 weeks 39 weeks Disease Active 2020-0 Unive rs gestation gestation 8-28 ity of of of 00:00: [place] 00 [facility] Liveborn Liveborn Disease Active 2020-0 Unive rs infant, of infant, of 8-28 it y of pyle [place]yle 00:[place] , , 00 [place] dical born in born in [facility] hospital by vaginal by vaginal delivery delivery COVID-19 COVID-19 Disease Active 2020-0 Unive rs virus virus 8-28 [place] [facility] Abnormal Abnormal Disease Active 2020-0 Last Unive rs maternal maternal 8-14 Assessmen ity of glucose glucose 00:00: t & Plan: Raúl tolerance, tolerance, 00 3 hr gtt Medical antepartum antepartum wnl Br anch Positive Positive Disease Active 2020-0 Unive rs GBS test GBS test 8-14 ity of 00:00: [place] [facility] Obesity Obesity Disease Active 2020-0 Univers (BMI (BMI 6-08 ity of 30-39.9) 30-39.9) 00:00: [address] Gastroesop Gastroesop Disease Active 2020-0 U nivers hageal hageal 5-28 ity of reflux reflux 00:00: [place] disease, disease, 00 Medica l esophagiti esophagiti Br anch s presence s presence not not specified specified Abnormal Abnormal Disease Active 2020-0 Unive rs findings findings 5-28 ity of on on 00:00: [place] 00 [facility] screening screening Bran ch Supervisio Supervisio Disease Active 2020-0 U nivers n of n of 4-09 ity of high-risk high-risk 00:00: [place] [facility] with with Branch insufficie insufficie nt nt care in care in third third trimester trimester Allergies, Adverse Reactions, Alerts Allergy Allergy Status Severity Reaction(s) Onset Inactive Treating Comm ents Source Name Type Date Date Clinician NO KNOWN Drug Active Univers ALLERGIE Class ity of S [facility] Social History Social Habit Start Date Stop Date Quantity Comments Source ASSERTION 2019-02-05 University of 00:00:00 [place] [facility] History SDOH University o f Alcohol Binge [place] [facility] History [facility] University o f Alcohol Comment [place] Med ical Branch History of tobacco Cigarette Smoker University of use [facility] Exposure to 2021-11-22 2021-12-02 Not sure University of SARS-CoV-2 (event) 00:00:00 13:21:00 [facility] Tobacco use and 2021-12-02 2021-12-02 Smokeless Universit y of exposure 00:00:00 00:00:00 tobacco non-user [facility] dical Branch Cigarettes smoked 2021-12-02 2021-12-02 Univers ity of current (pack per 00:00:00 00:00:00 [facility]) - Reported Branch Cigarette 2021-12-02 2021-12-02 University of pack-years 00:00:00 00:00:00 [facility] Alcohol intake 2021-12-02 2021-12-02 Ex-drinker University 00:00:00 00:00:00 (finding) [facility] History [facility] 2019-06-05 2019-06-05 2 University o f Alcohol Std Drinks 00:00:00 00:00:00 [facility] History [facility] 2019-06-05 2019-06-05 3 University o f Alcohol Frequency 00:00:00 00:00:00 [facility] Sex Assigned At [birth year] Universit y of 00:00:00 00:00:00 [facility] Smoking Status Start Date Stop Date Source Ex-smoker 2021-12-02 00:00:00 2021-12-02 00:00:00 Universi ty [facility] Medications Ordered Filled Start Stop Current Ordering Indication Dosage Frequency Signature Comments Components Source Medication Medication Date Date Medication? Clinician (SIG) Name Name metroNIDAZO 2021-02 Yes [id number] 500mg Take 1 Univers LE 500 mg 0-10 tablet by ity o f tablet 00:00: mouth [place] 00 every 12 Medical (twelve) Branch hours. meloxicam 2021-02 Yes 7.5mg Take 7.5 Uni vers 7.5 mg 0-07 mg by ity of tablet 13:54: mouth. [address] baclofen 10 2021-02 Yes 10mg Take 10 mg Univers mg tablet 0-07 by mouth. ity o f 13:54: [address] meloxicam 2021-02 Yes 7.5mg Take 7.5 Uni vers 7.5 mg 0-07 mg by ity of tablet 13:54: mouth. [address] baclofen 10 2021-02 Yes 10mg Take 10 mg Univers mg tablet 0-07 by mouth. ity o f 13:54: [address] meloxicam 2021-02 Yes 7.5mg Take 7.5 Uni vers 7.5 mg 0-07 mg by ity of tablet 13:54: mouth. [address] baclofen 10 2021-02 Yes 10mg Take 10 mg Univers mg tablet 0-07 by mouth. ity o f 13:54: [address] meloxicam 2021-02 Yes 7.5mg Take 7.5 Uni vers 7.5 mg 0-07 mg by ity of tablet 13:54: mouth. [address] baclofen 10 2021-02 Yes 10mg Take 10 mg Univers mg tablet 0-07 by mouth. ity o f 13:54: [address] LOESTRIN FE 2021-02 Yes [id number] 1{tbl} Take 1 Univers (LOESTRIN 0-07 tablet by ity o f FE 03/17) 1 00:00: mouth in [place] mg-20 mcg 00 the Medical (21)/75 mg morning. Branc h (7) tablet LOESTRIN FE 2021-02 Yes [id number] 1{tbl} Take 1 Univers (LOESTRIN 0-07 tablet by ity o f FE 03/17) 1 00:00: mouth in [place] mg-20 mcg 00 the Medical (21)/75 mg morning. Branc h (7) tablet LOESTRIN FE 2021-02 Yes [id number] 1{tbl} Take 1 Univers (LOESTRIN 0-07 tablet by ity o f FE 03/17) 1 00:00: mouth in [place] mg-20 mcg 00 the Medical (21)/75 mg morning. Branc h (7) tablet LOESTRIN FE 2021-02 Yes [id number] 1{tbl} Take 1 Univers (LOESTRIN 0-07 tablet by ity o f FE 03/17) 1 00:00: mouth in [place] mg-20 mcg 00 the Medical (21)/75 mg morning. Branc h (7) tablet gabapentin 2022-0 Yes 600mg Take 600 Un johnnie 600 mg 8-29 mg by ity of tablet 00:00: mouth in [place] [address] the Medical morning Branch and 600 mg at noon and 600 mg in the evening. gabapentin 2022-0 Yes 600mg Take 600 Un johnnie 600 mg 8-29 mg by ity of tablet 00:00: mouth in [place] 00 the Medical morning Branch and 600 mg at noon and 600 mg in the evening. gabapentin 2022-0 Yes 600mg Take 600 Un johnnie 600 mg 8-29 mg by ity of tablet 00:00: mouth in [place] [address] the Medical morning Branch and 600 mg at noon and 600 mg in the evening. gabapentin 2022-0 Yes 600mg Take 600 Un johnnie 600 mg 8-29 mg by ity of tablet 00:00: mouth in [place] [address] the Medical morning Branch and 600 mg at noon and 600 mg in the evening. SERTraline 2022-0 Yes TAKE 1 AND U nivers 100 mg 8-14 A HALF ity of tablet 00:00: TABLETS BY [address] Medical DAILY Branch SERTraline 2022-0 Yes TAKE 1 AND U nivers 100 mg 8-14 A HALF ity of tablet 00:00: TABLETS BY [address] Medical DAILY Branch SERTraline 2022-0 Yes TAKE 1 AND U nivers 100 mg 8-14 A HALF ity of tablet 00:00: TABLETS BY [address] Medical DAILY Branch SERTraline 2022-0 Yes TAKE 1 AND U nivers 100 mg 8-14 A HALF ity of tablet 00:00: TABLETS BY [place] [address] MOUTH Medical DAILY Branch buPROPion 2022-0 Yes 1{tbl} Take 1 Univ ers HCL, 8-08 tablet by ity of smoking 00:00: mouth 2 [place] deter, 150 00 (two) Medical mg Tb12 times Branch daily. buPROPion 2022-0 Yes 1{tbl} Take 1 Univ ers HCL, 8-08 tablet by ity of smoking 00:00: mouth 2 [place] deter, 150 00 (two) Medical mg Tb12 times Branch daily. buPROPion 2022-0 Yes 1{tbl} Take 1 Univ ers HCL, 8-08 tablet by ity of smoking 00:00: mouth 2 [place] deter, 150 00 (two) Medical mg Tb12 times Branch daily. buPROPion Yes 1{tbl} Take 1 Univ ers HCL, 8-08 tablet by ity of smoking 00:00: mouth 2 [place] deter, 150 00 (two) Medical mg Tb12 times Branch daily. 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 levonorgest 2019-02 2020- No 1{devic 1 Device, Univers reL 0-16 10-15 e} Intrauteri ity of (MIRENA) 00:30: 23:28 ne, ONCE, [place] IUD 1 00 :00 1 dose, Associate Financial Advisor [facility] Branch 12/11/19 at 1930, Routine rho(D) Yes 300ug 300 mcg, Univer s immune 10-23 Intramuscu ity of globulin 22:49: lar, ONCE, [place] (RHOGAM) 17 For 1 Medical syringe 300 dose, Branch mcg Conditiona l, Routine HYDROcodone Yes 1{tbl} 1 tablet, Univers -acetaminop 10-23 Oral, ity of hen (NORCO 22:49: Q6HPRN, [place] 5) 5-325 mg 12 Starting Medi lani tablet 1 Sun Branch tablet 10/24/19 at 1749, Until Discontinu ed, Routine, Pain (scale 7-10) ibuprofen Yes 600mg 600 mg, Univ ers (IBU) 8- Oral, ity of tablet 600 22:49: Q6HPRN[place] mg 12 Starting Medical Fri Branch 10/24/19 at 1749, Until Discontinu ed, Routine, Pain (scale 4-6) [...] IV Push, ity of (PF)) 22:49: Q8HPRN, [place] injection 4 12 Starting Medi lani mg [...] Until Discontinu ed, Routine, Constipati on magnesium 2020-0 Yes 30mL 30 mL, Univer s hydroxide 10-23 Oral, ity of (MILK OF 22:49: QDAILYPRN, [place] MAGNESIA) 12 Starting Medica l 400 mg/5 mL Fri Branch suspension 10/24/19 at 30 mL 1748, Until Discontinu ed, Routine, Constipati on acetaminoph 2020-0 Yes 650mg 650 mg, Un johnnie en 10-23 Oral, ity of (TYLENOL) 22:49: Q6HPRN, [place] tablet 650 11 Starting Medic al mg Fri Branch 10/24/19 at 174, Until Discontinu ed, Routine, Pain (scale 1-3) diphenhydrA 2020-0 Yes 25mg 25 mg, Univ ers MINE 10-23 Oral, ity of (BENADRYL) 22:49: Q6HPRN, [place] tablet 25 11 Starting Medica l mg Fri Branch 10/24/19 at 1749, Until Discontinu ed, Routine, Sleep, Itching benzocaine- 2020-0 Yes Topical, Un johnnie menthol 10-23 PRN, ity of (DERMOPLAST 22:49: [place] 20-0.5 % 11 Sun Medical topical 10/24/19 at Branch spray 1749, Until Discontinu ed, Routine, Perineum discomfort benzocaine- 2020-0 Yes Topical, Un [place]ohn[place] menthol 10-23 PRN, ity of (DERMOPLAST 16:17: [place] 20-0.5 % 00 Sun Medical topical 10/24/19 at Branch spray 1117, Until Discontinu ed, Routine, Localized pain LR 1000 mL 2020-0 2020- No at 125 Univ ers + oxytocin 10-23 mL/hr, IV ity of 20 units IV 15:45: 16:19 Infusion, [place] Solution 00 :00 ONCE, 1 Medical dose, Sun Branch 10/24/19 at 1045, Routine oxytocin 2020-0 2020- No at 6 Univers (PITOCIN) 10-23 mL/hr, IV ity of 20 Units in 14:13: 22:49 Infusion, [place] lactated 45 :17 TITRATE, Medical ringers Starting Branch 1,000 mL IV Fri infusion 10/24/19 at 0913, Until Sun10/24/19 at 1749, Routine FENTanyl PF 2020-0 2020- No 50ug 50 mcg, Un johnnie (SUBLIMAZE 10-23 Slow IV ity o f (PF)) 10:45: 09:42 Push, [place] injection 00 :00 ONCE, 1 Medical 50 mcg dose, Sun Branch 10/24/19 at 0545, Routine D5W-LR IV 2020-0 2020- No 1000mL at 125 Uni vers infusion 10-23 mL/hr, IV ity o f 1,000 mL 09:00: 22:49 Infusion, [place] 00 :17 CONTINUOUS Medical , Starting Branch Sun10/24/19 at 0400, Until Sun10/24/19 at 1749, Routine lactated 2020-0 2020- No 500mL at 999 Unive rs ringers IV 10-23 mL/hr, 500 it y of infusion 08:52: 22:49 mL, IV [place] 500 mL 15 :17 Infusion, Medical PRN - SEE Branch NICHELLE HERNANDEZ, Starting Sun10/24/19 at 0352, Until Sun10/24/19 at 1749, Routine 2020- No 1{piece Take 1 Uni vers vits62/FA/o 8-14 08-14 } Piece by ity of m3/dha/epa 15:37: 00:00 mouth [place] ( 59 :00 daily. Medical GUMMY ORAL) Branch 0 2020- No 1{piece Take 1 Uni vers vits62/FA/o 8-14 -14 } Piece by ity of m3/dha/epa 15:37: 00:00 mouth [place] ( 59 :00 daily. Medical GUMMY ORAL) Branch 0 Yes 1{piece Take 1 Univ ers vits62/FA/o 8-07 } Piece by ity of m3/dha/epa 21:11: mouth [place] ( 56 daily. Medical GUMMY ORAL) Branch 0 Yes 1{piece Take 1 Univ ers vits62/FA/o 8-07 } Piece by ity of m3/dha/epa 21:11: mouth [place] ( 56 daily. Medical GUMMY ORAL) Branch 0 Yes 1{piece Take 1 Univ ers vits62/FA/o 8-07 } Piece by ity of m3/dha/epa 21:11: mouth [place] ( 56 daily. Medical GUMMY ORAL) Branch 0 Yes 1{piece Take 1 Univ ers vits62/FA/o 8-07 } Piece by ity of m3/dha/epa 21:11: mouth [place] ( 56 daily. Medical GUMMY ORAL) Branch famotidine 0 Yes [id number] 20mg Take 1 Univers 20 mg 5-28 tablet by ity of tablet 00:00: mouth 2 [place] 00 (two) Medical times Branch daily. famotidine 2020-0 Yes [id number] 20mg Take 1 Univers 20 mg 5-28 tablet by ity of tablet 00:00: mouth 2 [place] 00 (two) Medical times Branch daily. famotidine 2020-0 Yes [id number] 20mg Take 1 Univers 20 mg 5-28 tablet by ity of tablet 00:00: mouth 2 [place] 00 (two) Medical times Branch daily. famotidine 0 Yes [id number] 20mg Take 1 Univers 20 mg 5-28 tablet by ity of tablet 00:00: mouth [place] (two) Medical times Branch daily. famotidine 2020-0 Yes [id number] 20mg Take 1 Univers 20 mg 5-28 tablet by ity of tablet 00:00: mouth [place] (two) Medical times Branch daily. famotidine 2020-0 Yes [id number] 20mg Take 1 Univers 20 mg 5-28 tablet by ity of tablet 00:00: mouth [place] (two) Medical times Branch daily. famotidine 2020-0 Yes [id number] 20mg Take 1 Univers 20 mg 5-28 tablet by ity of tablet 00:00: mouth [place] (two) Medical times Branch daily. famotidine 2020-0 Yes [id number] 20mg Take 1 Univers 20 mg 5-28 tablet by ity of tablet 00:00: mouth [place] (two) Medical times Branch daily. famotidine 2020-0 Yes [id number] 20mg Take 1 Univers 20 mg 5-28 tablet by ity of tablet 00:00: mouth [place] (two) Medical times Branch daily. famotidine 2020-0 Yes [id number] 20mg Take 1 Univers 20 mg 5-28 tablet by ity of tablet 00:00: mouth [place] (two) Medical times Branch daily. famotidine 2020-0 Yes [id number] 20mg Take 1 Univers 20 mg 5-28 tablet by ity of tablet 00:00: mouth [place] (two) Medical times Branch daily. famotidine 2020-0 Yes [id number] 20mg Take 1 Univers 20 mg 5-28 tablet by ity of tablet 00:00: mouth [place] (two) Medical times Branch daily. famotidine 2020-0 Yes [id number] 20mg Take 1 Univers 20 mg 5-28 tablet by ity of tablet 00:00: mouth [place] (two) Medical times Branch daily. famotidine 2020-0 Yes [id number] 20mg Take 1 Univers 20 mg 5-28 tablet by ity of tablet 00:00: mouth [place] (two) Medical times Branch daily. famotidine 2020-0 Yes [id number] 20mg Take 1 Univers 20 mg 5-28 tablet by ity of tablet 00:00: mouth 2 [place] (two) Medical times Branch daily. famotidine 2020-0 Yes [id number] 20mg Take 1 Univers 20 mg 5-28 tablet by ity of tablet 00:00: mouth 2 [place] (two) Medical times Branch daily. famotidine 2020-0 Yes [id number] 20mg Take 1 Univers 20 mg 5-28 tablet by ity of tablet 00:00: mouth 2 [place] 00 (two) Medical times Branch daily. famotidine 2020-0 Yes [id number] 20mg Take 1 Univers 20 mg 5-28 tablet by ity of tablet 00:00: mouth 2 [place] 00 (two) Medical times Branch daily. famotidine 2020-0 Yes [id number] 20mg Take 1 Univers 20 mg 5-28 tablet by ity of tablet 00:00: mouth 2 [place] (two) Medical times Branch daily. famotidine 2020-0 Yes [id number] 20mg Take 1 Univers 20 mg 5-28 tablet by ity of tablet 00:00: mouth [address] [place] [address] (two) Medical times Branch daily. famotidine 2020-0 Yes [id number] 20mg Take 1 Univers 20 mg 5-28 tablet by ity of tablet 00:00: mouth [address] [place] [address] (two) Medical times Branch daily. famotidine 2020-0 Yes [id number] 20mg Take 1 Univers 20 mg 5-28 tablet by ity of tablet 00:00: mouth 2 [place] (two) Medical times Branch daily. famotidine 2020-0 2020- No [id number] 20mg Take 1 Univers 20 mg 5-28 11-12 tablet by ity of tablet 00:00: 00:00 mouth 2 [place] 00 :00 (two) Medical times Branch daily. famotidine 2020-0 2020- No [id number] 20mg Take 1 Univers 20 mg 5-28 11-12 tablet by ity of tablet 00:00: 00:00 mouth 2 [place] 00 :00 (two) Medical times Branch daily. [...] 24 daily. Medical GUMMY ORAL) Branch PNV 0 Yes [id number] Take 1 Univ ers 102-iron-fo 06-04 TAB-CAP/M2 it y of late 00:00: by mouth [place] 1-dss-dha 00 daily. Medical (VITAFOL Branch FE+, WITH DOCUSATE,) 90 mg iron-1 mg -50 mg-200 mg Cap PNV 0 Yes [id number] Take 1 Univ ers 102-iron-fo 06-04 TAB-CAP/M2 it y of late 00:00: by mouth [place] 1-dss-dha 00 daily. Medical (VITAFOL Branch FE+, WITH DOCUSATE,) 90 mg iron-1 mg -50 mg-200 mg Cap PNV 2020-0 Yes [id number] Take 1 Univ ers 102-iron-fo - 09 TAB-CAP/M2 it y of late 00:00: by mouth [address] 00 daily. Medical (VITAFOL Branch FE+, WITH DOCUSATE,) 90 mg iron-1 mg -50 mg-200 mg Cap PNV 2020-0 Yes [id number] Take 1 Univ ers 102-iron-fo 4- 09 TAB-CAP/M2 it y of late 00:00: by mouth [address] 00 daily. Medical (VITAFOL Branch FE+, WITH DOCUSATE,) 90 mg iron-1 mg -50 mg-200 mg Cap PNV 2020-0 Yes [id number] Take 1 Univ ers 102-iron-fo - 09 TAB-CAP/M2 it y of late 00:00: by mouth [address] 00 daily. Medical (VITAFOL Branch FE+, WITH DOCUSATE,) 90 mg iron-1 mg -50 mg-200 mg Cap PNV 2020-0 Yes [id number] Take 1 Univ ers 102-iron-fo - 09 TAB-CAP/M2 it y of late 00:00: by mouth [address] 00 daily. Medical (VITAFOL Branch FE+, WITH DOCUSATE,) 90 mg iron-1 mg -50 mg-200 mg Cap PNV 2020-0 Yes [id number] Take 1 Univ ers 102-iron-fo - 09 TAB-CAP/M2 it y of late 00:00: by mouth [address] 00 daily. Medical (VITAFOL Branch FE+, WITH DOCUSATE,) 90 mg iron-1 mg -50 mg-200 mg Cap PNV 2020-0 Yes [id number] Take 1 Univ ers 102-iron-fo - 09 TAB-CAP/M2 it y of late 00:00: by mouth [place] [address] 00 daily. Medical (VITAFOL Branch FE+, WITH DOCUSATE,) 90 mg iron-1 mg -50 mg-200 mg Cap PNV 2020-0 Yes [id number] Take 1 Univ ers 102-iron-fo 4- 09 TAB-CAP/M2 it y of late 00:00: by mouth [place] [address] 00 daily. Medical (VITAFOL Branch FE+, WITH DOCUSATE,) 90 mg iron-1 mg -50 mg-200 mg Cap PNV 2020-0 Yes [id number] Take 1 Univ ers 102-iron-fo 06-04 09 TAB-CAP/M2 it y of late 00:00: by mouth [place] [address]-dss-dha 00 daily. Medical (VITAFOL Branch FE+, WITH DOCUSATE,) 90 mg iron-1 mg -50 mg-200 mg Cap PNV 2020-0 Yes [id number] Take 1 Univ ers 102-iron-fo 06-04 09 TAB-CAP/M2 it y of late 00:00: by mouth [place] [address]-dha 00 daily. Medical (VITAFOL Branch FE+, WITH DOCUSATE,) 90 mg iron-1 mg -50 mg-200 mg Cap PNV 2020-0 Yes [id number] Take 1 Univ ers 102-iron-fo 06-04 09 TAB-CAP/M2 it y of late 00:00: by mouth [place] [address] 00 daily. Medical (VITAFOL Branch FE+, WITH DOCUSATE,) 90 mg iron-1 mg -50 mg-200 mg Cap PNV 2020-0 Yes [id number] Take 1 Univ ers 102-iron-fo - 09 TAB-CAP/M2 it y of late 00:00: by mouth [place] [address]-dss-dha 00 daily. Medical (VITAFOL Branch FE+, WITH DOCUSATE,) 90 mg iron-1 mg -50 mg-200 mg Cap PNV 2020-0 Yes [id number] Take 1 Univ ers 102-iron-fo - 09 TAB-CAP/M2 it y of late 00:00: by mouth [place] [address]-dss-dha 00 daily. Medical (VITAFOL Branch FE+, WITH DOCUSATE,) 90 mg iron-1 mg -50 mg-200 mg Cap PNV 2020-0 Yes [id number] Take 1 Univ ers 102-iron-fo - 09 TAB-CAP/M2 it y of late 00:00: by mouth [place] [address]-dss-dha 00 daily. Medical (VITAFOL Branch FE+, WITH DOCUSATE,) 90 mg iron-1 mg -50 mg-200 mg Cap PNV 2020-0 Yes [id number] Take 1 Univ ers 102-iron-fo 4-09 09 TAB-CAP/M2 it y of late 00:00: by mouth [address] 00 daily. Medical (VITAFOL Branch FE+, WITH DOCUSATE,) 90 mg iron-1 mg -50 mg-200 mg Cap PNV 2020-0 Yes [id number] Take 1 Univ ers 102-iron-fo 4-09 09 TAB-CAP/M2 it y of late 00:00: by mouth [address] 00 daily. Medical (VITAFOL Branch FE+, WITH DOCUSATE,) 90 mg iron-1 mg -50 mg-200 mg Cap PNV 2020-0 Yes [id number] Take 1 Univ ers 102-iron-fo 4-09 09 TAB-CAP/M2 it y of late 00:00: by mouth [place] [address] 00 daily. Medical (VITAFOL Branch FE+, WITH DOCUSATE,) 90 mg iron-1 mg -50 mg-200 mg Cap PNV 2020-0 Yes [id number] Take 1 Univ ers 102-iron-fo 4-09 09 TAB-CAP/M2 it y of late 00:00: by mouth [address] 00 daily. Medical (VITAFOL Branch FE+, WITH DOCUSATE,) 90 mg iron-1 mg -50 mg-200 mg Cap PNV 2020-0 Yes [id number] Take 1 Univ ers 102-iron-fo 4-09 09 TAB-CAP/M2 it y of late 00:00: by mouth [address] 00 daily. Medical (VITAFOL Branch FE+, WITH DOCUSATE,) 90 mg iron-1 mg -50 mg-200 mg Cap PNV 2020-0 Yes [id number] Take 1 Univ ers 102-iron-fo 4-09 09 TAB-CAP/M2 it y of late 00:00: by mouth [address]-[facility] 00 daily. Medical (VITAFOL Branch FE+, WITH DOCUSATE,) 90 mg iron-1 mg -50 mg-200 mg Cap PNV 2020-0 Yes [id number] Take 1 Univ ers 102-iron-fo 4-09 09 TAB-CAP/M2 it y of late 00:00: by mouth [place] [address]-dha 00 daily. Medical (VITAFOL Branch FE+, WITH DOCUSATE,) 90 mg iron-1 mg -50 mg-200 mg Cap PNV 2020-0 Yes [id number] Take 1 Univ ers 102-iron-fo - 09 TAB-CAP/M2 it y of late 00:00: by mouth [address] 00 daily. Medical (VITAFOL Branch FE+, WITH DOCUSATE,) 90 mg iron-1 mg -50 mg-200 mg Cap PNV 2020-0 Yes [id number] Take 1 Univ ers 102-iron-fo 4- 09 TAB-CAP/M2 it y of late 00:00: by mouth [address] 00 daily. Medical (VITAFOL Branch FE+, WITH DOCUSATE,) 90 mg iron-1 mg -50 mg-200 mg Cap PNV 2020-0 Yes [id number] Take 1 Univ ers 102-iron-fo - 09 TAB-CAP/M2 it y of late 00:00: by mouth [address] 00 daily. Medical (VITAFOL Branch FE+, WITH DOCUSATE,) 90 mg iron-1 mg -50 mg-200 mg Cap PNV 2020-0 Yes [id number] Take 1 Univ ers 102-iron-fo - 09 TAB-CAP/M2 it y of late 00:00: by mouth [address] 00 daily. Medical (VITAFOL Branch FE+, WITH DOCUSATE,) 90 mg iron-1 mg -50 mg-200 mg Cap PNV 2020-0 Yes [id number] Take 1 Univ ers 102-iron-fo - 09 TAB-CAP/M2 it y of late 00:00: by mouth [address] 00 daily. Medical (VITAFOL Branch FE+, WITH DOCUSATE,) 90 mg iron-1 mg -50 mg-200 mg Cap PNV 2020-0 Yes [id number] Take 1 Univ ers 102-iron-fo - 09 TAB-CAP/M2 it y of late 00:00: by mouth [place] [address] 00 daily. Medical (VITAFOL Branch FE+, WITH DOCUSATE,) 90 mg iron-1 mg -50 mg-200 mg Cap PNV 2020-0 Yes [id number] Take 1 Univ ers 102-iron-fo 4- 09 TAB-CAP/M2 it y of late 00:00: by mouth [place] 1-dss-dha 00 daily. Medical (VITAFOL Branch FE+, WITH DOCUSATE,) 90 mg iron-1 mg -50 mg-200 mg Cap PNV 2020-0 Yes [id number] Take 1 Univ ers 102-iron-fo 06-04 09 TAB-CAP/M2 it y of late 00:00: by mouth [place] 1-dss-dha 00 daily. Medical (VITAFOL Branch FE+, WITH DOCUSATE,) 90 mg iron-1 mg -50 mg-200 mg Cap PNV 2020-0 Yes [id number] Take 1 Univ ers 102-iron-fo 06-04 09 TAB-CAP/M2 it y of late 00:00: by mouth [place] 1-dss-dha 00 daily. Medical (VITAFOL Branch FE+, WITH DOCUSATE,) 90 mg iron-1 mg -50 mg-200 mg Cap PNV 2019-0 2020- No [id number] Take 1 Uni vers 102-iron-fo 06-04 09 TAB-CAP/M2 i ty of late 00:00: 00:00 by mouth [place] 1-dss-dha 00 :00 daily. Medical (VITAFOL Branch FE+, WITH DOCUSATE,) 90 mg iron-1 mg -50 mg-200 mg Cap PNV 2019-0 2020- No [id number] Take 1 Uni vers 102-iron-fo 06-04 09 TAB-CAP/M2 i ty of late 00:00: 00:00 by mouth [place] 1-dss-dha 00 :00 daily. Medical (VITAFOL Branch FE+, WITH DOCUSATE,) 90 mg iron-1 mg -50 mg-200 mg Cap Immunizations Ordered Filled Immunization Date Status Comments [facility] e Immunization Name Name TDAP (ADACEL) 2019-08-04 Completed University of VACCINE 00:00:00 [place] [facility] TDAP (ADACEL) 2019-08-04 Completed University of VACCINE 00:00:00 [place] [facility] TDAP (ADACEL) 2019-08-04 Completed University of VACCINE 00:00:00 [place] [facility] TDAP (ADACEL) 2019-08-04 Completed University of VACCINE 00:00:00 [place] [facility] TDAP (ADACEL) 2019-08-04 Completed University of VACCINE 00:00:00 [facility] TDAP (ADACEL) 2019-08-04 Completed University of VACCINE 00:00:00 [facility] TDAP (ADACEL) 2019-08-04 Completed University of VACCINE 00:00:00 [facility] TDAP (ADACEL) 2019-08-04 Completed University of VACCINE 00:00:00 [facility] TDAP (ADACEL) 2019-08-04 Completed University of VACCINE 00:00:00 [facility] TDAP (ADACEL) 2019-08-04 Completed University of VACCINE 00:00:00 [facility] TDAP (ADACEL) 2019-08-04 Completed University of VACCINE 00:00:00 [facility] TDAP (ADACEL) 2019-08-04 Completed University of VACCINE 00:00:00 [facility] TDAP (ADACEL) 2019-08-04 Completed University of VACCINE 00:00:00 [facility] TDAP (ADACEL) 2019-08-04 Completed University of VACCINE 00:00:00 [facility] TDAP (ADACEL) 2019-08-04 Completed University of VACCINE 00:00:00 [facility] TDAP (ADACEL) 2019-08-04 Completed University of VACCINE 00:00:00 [facility] TDAP (ADACEL) 2019-08-04 Completed University of VACCINE 00:00:00 [facility] TDAP (ADACEL) 2019-08-04 Completed University of VACCINE 00:00:00 [facility] TDAP (ADACEL) 2019-08-04 Completed University of VACCINE 00:00:00 [facility] TDAP (ADACEL) 2019-08-04 Completed University of VACCINE 00:00:00 [facility] TDAP (ADACEL) 2019-08-04 Completed University of VACCINE 00:00:00 [facility] TDAP (ADACEL) 2019-08-04 Completed University of VACCINE 00:00:00 [facility] TDAP (ADACEL) 2019-08-04 Completed University of VACCINE 00:00:00 [facility] TDAP (ADACEL) 2019-08-04 Completed University of VACCINE 00:00:00 [facility] TDAP (ADACEL) 2019-08-04 Completed University of VACCINE 00:00:00 [facility] Vital Signs Vital Name Observation Time Observation Value Comments Source Systolic blood 2021-12-02 18:51:00 102 mm[Hg] Univer sity of pressure [facility] Diastolic blood 2021-12-02 18:51:00 71 mm[Hg] Unive rsity of pressure [facility] Heart rate 2021-12-02 18:51:00 89 /min Universi ty of [place] [facility] Body temperature 2021-12-02 18:51:00 36.72 Deisy Univ ersity of [place] [facility] Respiratory rate 2021-12-02 18:51:00 16 /min Univ ersity of [place] [facility] Body height 2021-12-02 18:51:00 162.6 cm Universi ty [facility] [place] [facility] Body weight 2021-12-02 18:51:00 64.093 kg Universi ty [facility] [place] [facility] BMI 2021-12-02 18:51:00 24.25 kg/m2 Universi ty [facility] [place] [facility] Oxygen saturation in 2021-12-02 18:51:00 98 /min University of Arterial blood by [facility] Pulse oximetry Branch Systolic blood 2020-01-08 21:28:00 132 mm[Hg] Univer sity of pressure [place] [facility] Diastolic blood 2020-01-08 21:28:00 70 mm[Hg] Unive rsity of pressure [facility] Heart rate 2020-01-08 21:28:00 92 /min Universi ty of [place] [facility] Body temperature 2020-01-08 21:28:00 36.89 Deisy Univ ersity of [place] [facility] Respiratory rate 2020-01-08 21:28:00 18 /min Univ ersity of [place] [facility] Body height 2020-01-08 21:28:00 162.6 cm Universi ty [facility] [place] [facility] Body weight 2020-01-08 21:28:00 90.266 kg [facility]i [facility] [place] [facility] BMI 2020-01-08 21:28:00 34.16 kg/m2 [facility] [place] [facility] Systolic blood 2019-12-11 20:34:00 117 mm[Hg] Univer sity of pressure [place] [facility] Diastolic blood 2019-12-11 20:34:00 74 mm[Hg] Unive rsity of pressure [facility] Heart rate 2019-12-11 20:34:00 71 /min Universi ty of [place] [facility] Body temperature 2019-12-11 20:34:00 36.83 Deisy Univ ersity of [place] [facility] Respiratory rate 2019-12-11 20:34:00 18 /min Univ ersity of [place] [facility] Body height 2019-12-11 20:34:00 162.6 cm Universi ty [facility] [place] [facility] Body weight 2019-12-11 20:34:00 90.266 kg Universi ty of [place] [facility] BMI 2019-12-11 20:34:00 34.16 kg/m2 Universi ty of [facility] Systolic blood 2019-11-20 20:57:00 109 mm[Hg] Univer sity of pressure [facility] Diastolic blood 2019-11-20 20:57:00 73 mm[Hg] Unive rsity of pressure [facility] Heart rate 2019-11-20 20:57:00 72 /min Universi ty of [facility] Body temperature 2019-11-20 20:57:00 37.11 Deisy Univ ersity of [facility] Respiratory rate 2019-11-20 20:57:00 18 /min Univ ersity of [facility] Body height 2019-11-20 20:57:00 162.6 cm Universi ty of [facility] Body weight 2019-11-20 20:57:00 87.363 kg Universi ty of [facility] BMI 2019-11-20 20:57:00 33.06 kg/m2 Universi ty of [facility] Respiratory rate 2019-10-25 19:15:00 18 /min Univ ersity of [facility] Systolic blood 2019-10-25 13:05:00 123 mm[Hg] Univer sity of pressure [facility] Diastolic blood 2019-10-25 13:05:00 83 mm[Hg] Unive rsity of pressure [facility] Heart rate 2019-10-25 13:05:00 87 /min Universi ty of [facility] Body temperature 2019-10-25 13:05:00 36.67 Deisy Univ ersity of [facility] Oxygen saturation in 2019-10-25 13:05:00 100 /min University of Arterial blood by [facility] Pulse oximetry Branch Body height 2019-10-24 09:25:00 162.6 cm Universi ty of [facility] Body weight 2019-10-24 09:25:00 93.441 kg Universi ty of [place] [facility] BMI 2019-10-24 09:25:00 35.36 kg/m2 Universi ty of [facility] Systolic blood 2019-10-17 14:02:00 119 mm[Hg] Univer sity of pressure [place] [facility] Diastolic blood 2019-10-17 14:02:00 75 mm[Hg] Unive rsity of pressure [place] [facility] Heart rate 2019-10-17 14:02:00 84 /min Universi ty of [place] [facility] Body temperature 2019-10-17 14:02:00 36.83 Deisy Univ ersity of [place] [facility] Respiratory rate 2019-10-17 14:02:00 18 /min Univ ersity of [place] [facility] Body height 2019-10-17 14:02:00 162.6 cm Universi ty of [place] [facility] Body weight 2019-10-17 14:02:00 93.441 kg Universi ty of [place] [facility] BMI 2019-10-17 14:02:00 35.36 kg/m2 [facility]i ty [facility] [place] [facility] Systolic blood 2019-10-10 15:06:00 116 mm[Hg] Univer sity of pressure [place] [facility] Diastolic blood 2019-10-10 15:06:00 78 mm[Hg] Unive rsity of pressure [place] [facility] Heart rate 2019-10-10 15:06:00 85 /min Universi ty of [place] [facility] Body temperature 2019-10-10 15:06:00 36.94 Deisy Univ ersity of [place] [facility] Respiratory rate 2019-10-10 15:06:00 18 /min Univ ersity of [place] [facility] Body height 2019-10-10 15:06:00 162.6 cm [facility]i [facility] [place] [facility] Body weight 2019-10-10 15:06:00 93.078 kg [facility] [place] [facility] BMI 2019-10-10 15:06:00 35.22 kg/m2 [facility] [place] [facility] Systolic blood 2019-10-03 21:11:00 115 mm[Hg] Univer sity of pressure [place] [facility] Diastolic blood 2019-10-03 21:11:00 74 mm[Hg] Unive rsity of pressure [place] [facility] Heart rate 2019-10-03 21:11:00 91 /min Universi ty [facility] [place] [facility] Body temperature 2019-10-03 21:11:00 36.72 Deisy Univ [facility]ity of [place] [facility] Respiratory rate 2019-10-03 21:11:00 18 /min Univ ersity of [place] [facility] Body weight 2019-10-03 21:11:00 91.808 kg [facility]i ty [facility] [place] [facility] BMI 2019-10-03 21:11:00 34.74 kg/m2 [facility] [place] [facility] Systolic blood 2019-09-15 21:17:00 118 mm[Hg] Univer sity of pressure [place] [facility] Diastolic blood 2019-09-15 21:17:00 72 mm[Hg] Unive rsity of pressure [place] [facility] Heart rate 2019-09-15 21:17:00 64 /min Universi ty of [place] [facility] Body temperature 2019-09-15 21:17:00 37.06 Deisy Univ ersity of [place] [facility] Respiratory rate 2019-09-15 21:17:00 18 /min Univ ersity of [place] [facility] Body height 2019-09-15 21:17:00 162.6 cm [facility]i ty [facility] [place] [facility] Body weight 2019-09-15 21:17:00 89.812 kg [facility]i ty [facility] [place] [facility] BMI 2019-09-15 21:17:00 33.99 kg/m2 [facility] ty [facility] [place] [facility] Systolic blood 2019-08-04 15:38:00 114 mm[Hg] Univer sity of pressure [place] [facility] Diastolic blood 2019-08-04 15:38:00 74 mm[Hg] Unive rsity of pressure [place] [facility] Heart rate 2019-08-04 15:38:00 92 /min Universi ty of [place] [facility] Body temperature 2019-08-04 15:38:00 36.83 Deisy Univ [facility] [place] [facility] Respiratory rate 2019-08-04 15:38:00 18 /min Univ ersity of [place] [facility] Body height 2019-08-04 15:38:00 162.6 cm [facility]i [facility] [place] [facility] Body weight 2019-08-04 15:38:00 87.091 kg [facility] [place] [facility] BMI 2019-08-04 15:38:00 32.96 kg/m2 [facility] [place] [facility] Procedures Procedure Date / Time Performing Clinician Source Performed DISCLOSURE AND CONSENT, 2021-12-02 05:01:00 [facility] PROCEDURES POCT TEST 2021-12-02 00:00:00 Landon Domínguez [facility] ty [facility] DISCLOSURE AND CONSENT, 2019-12-11 05:01:00 [facility]ICAL [facility] PROCEDURES POCT TEST 2019-12-11 00:00:00 Landon Domínguez [facility] CBC WITH DIFF 2019-10-25 08:36:00 Landon Domínguez [facility] VENOUS CORD GAS 2019-10-24 14:20:[address] [facility] CBC WITH DIFF 2019-10-24 09:11:00 Ron [facility] HEPATITIS B SURFACE 2019-10-24 09:11:00 Ron Arleth [facility] ANTIGEN [facility] ADC OR NANI ONLY - RPR 2019-10-24 09:11:00 Arleth Velasquez [facility] HIV 1/2 AG-AB WITH REFLEX 2019-10-24 09:11:00 Arleth Velasquez [facility] COVID-19 (ID NOW RAPID 2019-10-24 09:11:00 Ron Arleth [facility] TESTING) Medical [place] HB ABO GROUPING 2019-10-24 09:10:00 Ron [facility] RHO (D) IMMUNE GLOBULIN 2019-10-24 09:10:00 Landon Domínguez [facility] NOTICE OF PRIVACY 2019-10-24 08:36:07 Doctor Unassigned, [facility] PRACTICES [facility] CONSENT/REFUSAL FOR 2019-10-24 08:33:33 Doctor Unassigned, [facility] DIAGNOSIS AND TREATMENT [facility] ASSIGNMENT OF BENEFITS 2019-10-24 08:33:13 Doctor Unassigned, [facility] POCT URINALYSIS W/O 2019-10-17 00:00:00 Shivani Hobson [facility] SPECIFIC GRAVITY Medical Branch POCT URINALYSIS W/O 2019-10-10 15:08:00 Landon Domínguez [facility] SPECIFIC GRAVITY Medical [place] 3 HR GLUCOSE TOLERANCE 2019-10-09 17:12:00 Landon Domínguez [facility] TEST Medical [place] 2 HR GLUCOSE TOLERANCE 2019-10-09 16:05:00 Landon Domínguez [facility] TEST Medical [place] 1 HR GLUCOSE TOLERANCE 2019-10-09 15:00:00 Landon Domínguez [facility] TEST Medical Branch GLUCOSE FASTING 2019-10-09 14:02:[address] [facility] [place] CBC WITH DIFF 2019-10-09 14:02:00 Shivani Hobson [place] [facility] [place] GLUCOSE FASTING 2019-10-09 14:02:[address] [facility] [place] >14 WEEKS US 2019-10-03 21:43:13 Shivani Hobson [facility] LIMITED [facility] POCT URINALYSIS W/O 2019-10-03 21:35:00 Shivani Hobson [facility] SPECIFIC GRAVITY Medical [place] DSU PRE-OP 2019-10-03 05:01:00 Doctor Higuera [facility] [place] [facility] [place] POCT HEMOGLOBIN A1C TEST 2019-10-03 00:00:00 Shivani Hobson [facility] POCT URINALYSIS W/O 2019-09-15 00:00:00 Sang [facility] SPECIFIC GRAVITY Medical [place] TDAP (ADACEL) 2019-08-04 16:00:53 Sang Landon [facility] IMMUNIZATION [facility] POCT URINALYSIS W/O 2019-08-04 00:00:00 Sang [facility] SPECIFIC GRAVITY Medical [place] SCANNED LAB RESULTS 2019-07-24 05:01:00 Lb Neal [facility] [place] [facility] [place] SCANNED LAB RESULTS 2019-07-07 05:01:00 Doctor Higuera [facility] Name Medical [place] AGREEMENTS AUTHORIZATIONS 2019-06-18 05:01:00 Doctor Higuera [facility] AND IRREVOCABLE [place] [facility] [place] ASSIGNMENTS (FORM 2001) Encounters Start End Encounter Admission Attending Care Care Encounter Source Date/Time Date/Time Type Type Clinicians Facility Department ID 2020-12-24 Outpatient [facility] NANNETTE [id number] Univers 14:37:30 [facility] 2021-12-05 2021-12-05 Case Carlmaki [facility] [id number] [facility] 00:00:00 00:00:00 Management Shivani [place] [id number] [id number] [phone] Mn dical NAL 134 [facility] 2021-12-02 2021-12-02 Outpatient R SANG LANDON [facility] [id number] Univers 13:30:00 14:30:59 ity of [facility] 2021-12-02 2021-12-02 Office Domínguez [facility] [id number] Univers 13:30:00 14:00:00 Visit Hang FRANKLIN [id number] it y of W[id number] [phone] [address] 2021-12-02 2021-12-02 Orders Doctor DEONDRE [id number] Univers 00:00:00 00:00:00 Only Unassigned, RACHELLE [id number] ity of [place] [facility] [id number] [place] [phone] [place] [address] Branch 2020-12-28 2020-12-28 Outpatient R SANG [facility] [id number] Univers 13:30:00 13:30:00 ity of [facility] 2020-07-07 2020-07-07 Outpatient R SANG [facility] [id number] Univers 09:30:00 09:30:00 ity of [facility] 2020-01-08 2020-01-08 Office Sang [facility] [id number] Univers 15:04:40 15:34:40 Visit Hang [place] [id number] [id number] [phone] Mn dic[address] 2020-01-08 2020-01-08 Outpatient R SANG [facility] [id number] Univers 15:00:00 15:00:00 ity of [facility] 2019-12-11 2019-12-11 Office Sang [facility] [id number] Univers 15:06:04 16:09:16 Visit Hang [place] [id number] [place] [id number] [phone] Mn dical nal 134 [facility] 2019-12-11 2019-12-11 Outpatient R SANG LANDON [facility] [id number] Univers 15:00:00 15:00:00 ity of [facility] 2019-12-11 2019-12-11 Orders Doctor DEONDRE [id number] Univers 00:00:00 00:00:00 Only Unassigned, RACHELLE [id number] ity of [place] [facility] [id number] [place] [phone] [facility] 009 [place] 2019-11-20 2019-11-20 Routine Sang [facility] [id number] Univers 15:38:58 16:14:30 Hang [place] [id number] ity of [id number] [phone] Mn dic[address] 2019-11-20 2019-11-20 Outpatient R SANG [facility] [id number] Univers 15:30:00 15:30:00 ity of [facility] 2019-11-13 2019-11-13 Outpatient R SANG [facility] [id number] Univers 15:30:00 15:30:00 ity of [facility] 2019-10-27 2019-10-27 Outpatient R [facility] [id number] Univers 09:00:00 09:00:00 ity of [facility] 2019-10-24 2019-10-25 Hospital Landon Domínguez [facility] [id number] Univers 03:33:00 14:45:00 Encounter Arleth Velasquez [id number] ity [id number] Op[place] [id number] [facility] 083 [place] 2019-10-24 2019-10-24 Outpatient R DOMÍNGUEZ [facility] [id number] Univers 09:00:00 09:00:00 ity of [facility] 2019-10-17 2019-10-17 [facility] [id number] Univers 08:54:41 09:09:41 Shivani [place] [id number] [place]y [id number] [phone] Mn dical [facility] 134 [facility] 2019-10-17 2019-10-17 Outpatient R JOCE [facility] [id number] Univers 09:00:00 09:00:00 SHIVANI ity of [facility] 2019-10-10 2019-10-10 Routine Sang [facility] [id number] Univers 09:54:20 10:49:54 Cam [place] [id number] ity [place] [id number] [phone] [address] 2019-10-10 2019-10-10 Outpatient R SANG LANDON [facility] [id number] Univers 10:00:00 10:00:00 ity of [facility] 2019-10-09 2019-10-09 Book Sewing 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 Operator 2, Adc Lab [facility] [id number] Univers 08:57:15 09:12:15 Visit Landon Domínguez [place] [id number] [place] [id number] [phone] [facility] 353 [facility] 2019-10-09 2019-10-09 Outpatient R LANDON DOMÍNGUEZ [facility] [id number] Univers 09:00:00 09:00:00 ity of [facility] 2019-10-08 2019-10-08 Outpatient R [facility] [id number] Univers 08:30:00 08:30:00 ity of [facility] 2019-10-03 2019-10-03 Routine Joce [facility] [id number] Univers 15:55:08 16:10:08 Shivani [place] [id number] [id number] [phone] Mn dical [facility] 134 [facility] 2019-10-03 2019-10-03 Outpatient R JOCE [facility] [id number] Univers 16:00:00 16:00:00 SHIVANI ity [facility] 2019-10-03 2019-10-03 Orders Doctor DEONDRE [id number] Univers 00:00:00 00:00:00 Only Unassigned, RACHELLE [id number] ity of [place] [facility] [id number] [place] [phone] [address] 2019-09-22 2019-09-22 Outpatient R [facility] [id number] Univers 08:30:00 08:30:00 ity of [facility] 2019-09-16 2019-09-16 Case Ryan Domínguezen [facility] [id number] Univers 00:00:00 00:00:00 Management Hang [place] [id number] [id number] [phone] Mn dical nal 134 [facility] 2019-09-15 2019-09-15 Routine Sang Landon [facility] [id number] Univers 15:47:00 16:33:51 Cam [place] [id number] [id number] [phone] Mn dical nal 134 [facility] 2019-09-15 2019-09-15 Book Sewing Machine Operator 2, Adc Lab [facility] 1.2.840.114 [id number] Univers 13:16:45 13:31:45 Visit Landon Domínguez [place] [id number] [place] [id number] [phone] Mn dical [facility] 353 [facility] 2019-09-15 2019-09-15 Outpatient R [facility] [id number] Univers 13:00:00 13:00:00 ity of [facility] 2019-09-01 2019-09-01 [facility] [id number] Univers 11:30:00 11:30:00 SHIVANI [facility] 2019-09-01 2019-09-01 Telemedici Joce [facility] [id number] Univers 07:52:30 08:07:30 ne Visit Shivani [place] [id number] [id number] [phone] [address] 2019-08-12 2019-08-12 [facility] [id number] Univers 00:00:00 00:00:00 Shivani [place] [id number] i [place] [id number] [id number] [address] 2019-08-04 2019-08-04 Franko Domínguez [facility] [id number] Univers 10:26:46 11:59:45 Hang [place] [id number] ity of [place] [id number] [id number] [address] 2019-08-04 2019-08-04 Outpatient R LANDON DOMÍNGUEZ [facility] [id number] Univers 10:30:00 10:30:00 ity [facility] 2019-07-29 2019-07-29 Outpatient P [facility] [id number] Univers 10:30:00 10:30:00 ity of [facility] 2019-07-28 2019-07-28 Telemedici Consults, Rmchp Ang Pn Gene tic [facility] [id number] Univers 07:55:28 17:00:39 ne Visit Rommel Hernandez 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 [id number] ity of REGIONAL [id number] [place] MATERNAL [phone] Med ical & CHILD [address] [place] [address] 2019-07-28 2019-07-28 Outpatient R ROMMEL HERNNADEZ [facility] [id number] Univers 09:30:00 09:30:00 ity of [facility] 2019-07-24 2019-07-24 Outpatient R LANDON DOMÍNGUEZ [facility] [id number] Univers 14:00:00 14:00:00 ity [facility] 2019-07-24 2019-07-24 Telemedici Landon Domínguez NMNIKHIL 1.2.840.114 [id number] Univers 08:03:52 08:18:52 ne Visit Cam [place] 350.1.13.10 [id number] [phone] Mn dical nal 134 [facility] 2019-07-24 2019-07-24 Orders Doctor DEONDRE [id number] [facility] 00:00:00 00:00:00 Only Unassigned, RACHELLE [id number] ity of [place] [facility] [id number] [place] [phone] [address] 2019-07-22 2019-07-22 Telephone Landon Domínguez [facility] 1.2.840.114 [id number] Univers 00:00:00 00:00:00 Cam [place] [id number] i [place] [id number] [phone] Mn dical nal 134 [facility] 2019-07-18 2019-07-18 Telephone Landon Domínguez [facility] [facility] 1.2.840.114 [id number] Univers 00:00:00 00:00:00 [place] 350.1.13.10 [place] [phone] Mn dical nal 134 [facility] 2019-07-16 2019-07-16 Telephone Landon Domínguez [facility] 1.2.840.114 [id number] Univers 00:00:00 00:00:00 [facility] [id number] it y of [place] 4.2.7.2.686 [place] Professio [phone] Mn dical nal 044 [facility] 2019-07-14 2019-07-14 Telephone Landon Domínguez [facility] 1.2.840.114 [id number] Univers 00:00:00 00:00:00 [place] 350.1.13.10 [place] [phone] Mn dical nal 134 [facility] 2019-07-07 2019-07-07 Orders Doctor DEONDRE 1.2.840.114 [id number] Univers 00:00:00 00:00:00 Only Unassigned, RACHELLE 350.1.13.10 ity of [facility] 4.2.7.2.686 [place] [phone] [address] 2019-07-04 2019-07-04 Outpatient R [facility] [id number] Univers 15:15:00 15:15:00 ity of [facility] 2019-07-03 2019-07-03 Outpatient R DOMÍNGUEZRYANEN [facility] [id number] Univers 16:15:00 16:15:00 ity of [facility] 2019-07-03 2019-07-03 Telemedici Shivani Hobson [facility] 1.2.840 .114 [id number] Univers 08:03:54 08:18:54 ne Visit Landon Domínguezton 350.1.13.10 [place] [phone] Mn dical nal 134 [facility] 2019-06-18 2019-06-18 Book Sewing Machine Operator Ultrasound, [facility] 1.2 .840.114 [id number] Univers 14:18:50 15:12:47 Visit Landon Domínguez Hang 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 ASSISTANT 350.1.13.10 ity of Sidney Castillo [facility] 4.2.7.2.686 [place] MATERNAL [phone] Med ical & CHILD [address] [place] [address] 2019-06-18 2019-06-18 Book Sewing Machine Operator 2, Adc Lab [facility] 1.2.840.114 [id number] Univers 13:08:11 13:23:11 Visit Landon Domínguez 350.1.13.10 [place] [phone] Mn dical nal 353 [facility] 2019-06-18 2019-06-18 Outpatient R DOMÍNGUEZLANDON [facility] [id number] Univers 13:00:00 13:00:00 ity of [facility] 2019-06-18 2019-06-18 Orders Doctor MENDOSA 1.2.840.114 [id number] Univers 00:00:00 00:00:00 Only Unassigned, RACHELLE 350.1.13.10 ity of [place] [facility] 4.2.7.2.686 [place] [phone] [address] Results Test Description Test Time Test Comments Results Result Comments Source POCT TEST 2021-12-02 19:14:00 Test Item Value Reference Range Interpretation Comme nts POCT PREG (test code = 1605) Negative On board controls acceptable with C Line (test code = 3574) Yes POCT PREG LOT # (test code = 3575) POCT PREG TEST DATE (test code = 3576) [facility] [id number] 19:14:00 Test Item Value Reference Range Interpretation Comments POCT PREG (test code = 1605) Negative On board controls acceptable with C Yes Line (test code = 3574) POCT PREG LOT # (test code = 3575) POCT PREG TEST DATE (test code = 3576) [facility] [id number] 20:50:00 Test Item Value Reference Range Interpretation Comments POCT PREG (test code = 1605) Negative On board controls acceptable with C Yes Line (test code = 3574) POCT PREG LOT # (test code = 3575) POCT PREG TEST DATE (test code = 3576) [facility] [id number] 20:50:00 Test Item Value Reference Range Interpretation Comments POCT PREG (test code = 1605) Negative On board controls acceptable with C Yes Line (test code = 3574) POCT PREG LOT # (test code = 3575) POCT PREG TEST DATE (test code = 3576) [facility] with [id number] 09:39:00 Test Item Value Reference Range Interpretation Comments WBC (test code = See_Comment [Automated 1590-2) message] The sy stem which generated this result transmitted reference range : 4.30 - 11.10 10*3/?L. The reference range was not used to interpret this result as normal/abnormal . RBC (test code = See_Comment L [Automated 369-8) message] The sy stem which generated this [...] RDW-SD (test code = 46.3 fL 39-49.9 31601-2) RDW-CV (test code = 13.3 % 12-15.5 788-0) PLT (test code = See_Comment [Automated 777-3) message] The sy stem which generated this result transmitted reference range : 166 - 358 10*3/ ?L. The reference r saira was not used to interpret this result as normal/abnormal . MPV (test code = 9.7 fL 9.5-12.9 98297-0) NRBC/100 WBC (test See_Comment [Automat ed code = 9899528791) message] The system which generated this result transmitted reference range : 0.0 - 10.0 /100 WBCs. The refer ence range was not u sed to interpret th is result as normal/abnormal . NRBC x10^3 (test code <0.01 See_Comment [Auto mated = 4133247437) message] The s ystem which generated this result transmitted reference range : 10*3/?L. The reference range was not used to interpret this result as normal/abnormal . GRAN MAT (NEUT) % 67.7 % (test code = 770-8) IMM GRAN % (test code 0.70 % = 3483538077) LYMPH % (test code = 23.3 % 736-9) MONO % (test code = 7.1 % 5905-5) EOS % (test code = 0.8 % 713-8) BASO % (test code = 0.4 % 706-2) GRAN MAT x10^3(ANC) 7.43 10*3/uL 1.88-7.09 H (test code = 5729066825) IMM GRAN x10^3 (test 0.08 10*3/uL 0-0.06 H code = 8213111161) LYMPH x10^3 (test code 2.56 10*3/uL 1.32-3.29 = 731-0) MONO x10^3 (test code 0.78 10*3/uL 0.33-0.92 = 742-7) EOS x10^3 (test code = 0.09 10*3/uL 0.03-0.39 711-2) BASO x10^3 (test code 0.04 10*3/uL 0.01-0.07 = 704-7) Lab Interpretation Abnormal (test code = 18487-9) [facility] OR NANI ONLY - [id number] 03:09:00 Test Item Value Reference Range Interpretation Comments RPR (Qualitative) (test code = Nonreactive Nonreactive 79456-5) Lab Interpretation (test code = Normal 46710-3) [facility] IMMUNE [id number] 22:52:21 Test Item Value Reference Range Interpretation Comments RHIG CANDIDATE? No- see comment Patient i s not a (test code = candidate for R hIg- 5055) Patient is Rh Positive.Perfor med at [facility] Laboratory Services - [facility] Blood [address] [place], [place] [address]Toll Free: [phone] A No. [id number] [facility] System[facility]atitis B Surface [id number] 15:34:00 Test Item Value Reference Range Interpretation Comments HBsAg Semi-Quantitative (test code = Negative Negative 5195-3) [facility] System[facility] CORD [id number] 14:31:00 Test Item Value Reference Range Interpretation Comments VENOUS BASE EXCESS, mEq/L CORD (test code = 9668485933) VENOUS PH, CORD (test 7.25-7.45 code = 2357317044) VENOUS PC02, CORD See_Comment [Automate d message] The (test code = system which ge nerated 9836861973) this result tra nsmitted reference range : 27 - 49 mmHg. The refer ence range was not used to interpret this result as normal/abnormal . VENOUS PO2, CORD (test See_Comment [Aut omated message] The code = 6542119380) system wh [facility] generated this result tra nsmitted reference range : 17 - 41 mmHg. The refer ence range was not used to interpret this result as normal/abnormal . VENOUS BICARBONATE, See_Comment [Automa josue message] The CORD (test code = system whi ch generated 4354936472) this result tra nsmitted reference range : 12 - 29 mEq/L. The refe rence range was not used to interpret this result as normal/abnormal . [facility] System[facility] CORD [id number] 14:28:00 Test Item Value Reference Range Interpretation Comments BASE EXCESS, CORD mEq/L (test code = 0394333813) AC PH, CORD (BEAKER) 7.18-7.38 (test code = 0657438958) PC02, CORD (test code See_Comment [Auto mated message] The = 7985664823) system which g enerated this result transmit josue reference range : 32 - 66 mmHg. The refer ence range was not used to interpret this result as normal/abnormal . PO2, CORD (test code See_Comment [Autom ated message] The = 2222993238) system which g enerated this result transmit josue reference range : 10 - 30 mmHg. The refer ence range was not used to interpret this result as normal/abnormal . BICARBONATE, CORD See_Comment [Automate d message] The (test code = system which ge nerated this 9038679409) result transmit josue reference range : 17 - 27 mEq/L. The refe rence range was not used to interpret this result as normal/abnormal . [facility]/2 AG-AB WITH [id number] 10:27:00 Test Item Value Reference Range Interpretation Comments HIV Negative Negative Semi-quantitative (test code = 58452-7) IBETH (test code = Non-reactive for HIV-1 IBETH) antigen and HIV-1/HIV-2 antibodies. ?No laboratory evidence of HIV infection. ?Repeat in 2-4 weeks if acute HIV infection is suspected. [facility] SystemType and Screen - ONCE [id number] 10:02:48 Test Item Value Reference Range Interpretation Comments ABO & RH (test code O Positive Performe d at [facility] = 20) Laboratory Serv [facility] [place], [place] [address]Toll Free: [phone] A No. [id number] IAT (test code = Negative Performed a t [facility] 1185) Laboratory Serv [facility] [address] [place] [address]Oume Free: [phone] A No. [id number] [facility] SystemCOVID-19 (ID NOW RAPID TESTING)2019-10-24 09:50:00 Test Item Value Reference Range Interpretation Comments SARS-CoV-2 Rapid ID NOW Positive Not Detected A (test code = 53647-2) IBETH (test code = IBETH) ID NOW COVID-19 Assay is an isothermal nucleic acid amplification test intended for the qualitative detection of nucleic acid from SARS-CoV-2 viral RNA in nasopharyngeal (MACHINIST HELPER MARINE) specimens. It is used under Emergency Use [...] indicated. Lab Interpretation Abnormal (test code = 17745-3) [facility] with [id number] 09:33:00 Test Item Value Reference Range Interpretation Comments WBC (test code = See_Comment H [Automated 4690-2) message] The sy stem which generated this result transmitted reference range : 4.30 - 11.10 10*3/?L. The reference range was not used to interpret this result as normal/abnormal . RBC (test code = See_Comment L [Automated 279-8) message] The sy stem which generated this [...] RDW-SD (test code = 42.7 fL 39-49.9 24341-1) RDW-CV (test code = 12.9 % 12-15.5 788-0) PLT (test code = See_Comment [Automated 777-3) message] The sy stem which generated this result transmitted reference range : 166 - 358 10*3/ ?L. The reference r saira was not used to interpret this result as normal/abnormal . MPV (test code = 9.6 fL 9.5-12.9 08999-3) NRBC/100 WBC (test See_Comment [Automat ed code = 0942271734) message] The system which generated this result transmitted reference range : 0.0 - 10.0 /100 WBCs. The refer ence range was not u sed to interpret th is result as normal/abnormal . NRBC x10^3 (test code <0.01 See_Comment [Auto mated = 0862757564) message] The s ystem which generated this result transmitted reference range : 10*3/?L. The reference range was not used to interpret this result as normal/abnormal . GRAN MAT (NEUT) % 72.0 % (test code = 770-8) IMM GRAN % (test code 0.70 % = 1239303530) LYMPH % (test code = 20.8 % 736-9) MONO % (test code = 5.7 % 5905-5) EOS % (test code = 0.5 % 713-8) BASO % (test code = 0.3 % 706-2) GRAN MAT x10^3(ANC) 8.70 10*3/uL 1.88-7.09 H (test code = 4578837927) IMM GRAN x10^3 (test 0.08 10*3/uL 0-0.06 H code = 5532093016) LYMPH x10^3 (test code 2.52 10*3/uL 1.32-3.29 = 731-0) MONO x10^3 (test code 0.69 10*3/uL 0.33-0.92 = 742-7) EOS x10^3 (test code = 0.06 10*3/uL 0.03-0.39 711-2) BASO x10^3 (test code 0.04 10*3/uL 0.01-0.07 = 704-7) Lab Interpretation Abnormal (test code = 21551-6) [facility] URINALYSIS W/O SPECIFIC [id number] 14:04:00 Test Item Value Reference Range Interpretation [...] code = 3257) n/a Negative - Negative [facility] URINALYSIS W/O SPECIFIC [id number] 15:08:00 Test Item Value Reference Range Interpretation [...] code = 3257) n/a Negative - Negative [facility] [id number] 15:08:00 Test Item Value Reference Range Interpretation [...] code = 3257) n/a Negative - Negative [facility] HR GLUCOSE TOLERANCE [id number] 18:00:00 Test Item Value Reference Range Interpretation Comments GLUC 3 HR (test code = 7360384653) 103 mg/dL 70-110 Lab Interpretation (test code = Normal 99822-4) [facility] SystemGLUCOSE [id number] 17:52:00 Test Item Value Reference Range Interpretation Comments GLU FASTNG (test code = 2864579962) 86 mg/dL 70-110 Lab Interpretation (test code = Normal 78469-5) [facility] HR GLUCOSE TOLERANCE [id number] 17:48:00 Test Item Value Reference Range Interpretation Comments GLUC 1 HR (test code = 4000800585) 131 mg/dL 120-170 Lab Interpretation (test code = Normal 76720-1) [facility] HR GLUCOSE TOLERANCE [id number] 17:48:00 Test Item Value Reference Range Interpretation Comments GLUC 2 HR (test code = 5493387685) 171 mg/dL 70-120 H Lab Interpretation (test code = Abnormal 26953-5) [facility] SystemCBC WITH [id number] 17:33:00 Test Item Value Reference Range Interpretation Comments WBC (test code = See_Comment [Automated 5990-2) message] The sy stem which generated this result transmitted reference range : 4.30 - 11.10 10*3/?L. The reference range was not used to interpret this result as normal/abnormal . RBC (test code = See_Comment L [Automated 939-8) message] The sy stem which generated this [...] RDW-SD (test code = 43.9 fL 39-49.9 05146-0) RDW-CV (test code = 12.9 % 12-15.5 788-0) PLT (test code = See_Comment [Automated 777-3) message] The sy stem which generated this result transmitted reference range : 166 - 358 10*3/ ?L. The reference r saira was not used to interpret this result as normal/abnormal . MPV (test code = 9.8 fL 9.5-12.9 65198-2) NRBC/100 WBC (test See_Comment [Automat ed code = 7959990020) message] The system which generated this result transmitted reference range : 0.0 - 10.0 /100 WBCs. The refer ence range was not u sed to interpret th is result as normal/abnormal . NRBC x10^3 (test code <0.01 See_Comment [Auto mated = 8381720037) message] The s ystem which generated this result transmitted reference range : 10*3/?L. The reference range was not used to interpret this result as normal/abnormal . GRAN MAT (NEUT) % 62.3 % (test code = 770-8) IMM GRAN % (test code 0.70 % = 0376247942) LYMPH % (test code = 29.9 % 736-9) MONO % (test code = 6.0 % 5905-5) EOS % (test code = 0.5 % 713-8) BASO % (test code = 0.6 % 706-2) GRAN MAT x10^3(ANC) 5.49 10*3/uL 1.88-7.09 (test code = 5094602881) IMM GRAN x10^3 (test 0.06 10*3/uL 0-0.06 code = 4648753756) LYMPH x10^3 (test code 2.63 10*3/uL 1.32-3.29 = 731-0) MONO x10^3 (test code 0.53 10*3/uL 0.33-0.92 = 742-7) EOS x10^3 (test code = 0.04 10*3/uL 0.03-0.39 711-2) BASO x10^3 (test code 0.05 10*3/uL 0.01-0.07 = 704-7) Lab Interpretation Abnormal (test code = 32886-5) [facility] HEMOGLOBIN A1C [id number] 21:58:00 Test Item Value Reference Range Interpretation Comments POCT HBA1C (test code = 4548-4) 5.2 % 4-6 [facility] HEMOGLOBIN A1C [id number] 21:58:00 Test Item Value Reference Range Interpretation Comments POCT HBA1C (test code = 4548-4) 5.2 % 4-6 [facility]>14 WEEKS US [id number] 21:43:38[facility]14 W[facility] [id number] 21:43:38[facility]phal[facility]Un[facility] URINALYSIS W/O SPECIFIC [id number] 21:35:00 Test Item Value Reference Range Interpretation [...] Negative Lab Interpretation (test code = Normal 31742-9) [facility] URINALYSIS W/O SPECIFIC [id number] 21:35:00 Test Item Value Reference Range Interpretation [...] Negative Lab Interpretation (test code = Normal 22079-6) [facility] URINALYSIS W/O SPECIFIC [id number] 21:23:00 Test Item Value Reference Range Interpretation [...] code = 3257) n/a Negative - Negative [facility] URINALYSIS W/O SPECIFIC [id number] 15:56:00 Test Item Value Reference Range Interpretation [...] code = 3257) N/A Negative - Negative [facility] URINALYSIS W/O SPECIFIC [id number] 15:56:00 Test Item Value Reference Range Interpretation [...] code = 3257) N/A Negative - Negative [facility]
[2021-12-24] MEDS ORDERED: ONDANSETRON 4 MG (ODT) TAB ONE (21:25)
[2021-12-24] MEDS ORDERED: FAMOTIDINE 20 MG/2 ML VIAL IV ONE (22:13)
[2021-12-24] MEDS ORDERED: NA CHLORIDE 0.9% 1,000 ML ONE ×2 (22:13→23:20)
[2021-12-24 22:19] LABS: Absolute Lymphocytes (CBC) 3.9 K/uL (0.7-4.9); Hematocrit 42.9 % (36.0-45.0); Lymphocytes % 29.4 % (15.3-44.8); MCV 92.1 fL (80-100); MPV 6.9 fL (7.6-11.3); RBC Red Blood Cell Count 4.65 M/uL (3.86-4.86)
[2021-12-24 22:22] LABS: Urine Blood Negative (Negative); Urine Glucose Negative (Negative); Urine Protein Trace (Negative); Urine Specific Gravity 1.025 (1.005-1.030)
[2021-12-24 22:35] LABS: Urine Bacteria <20 /HPF (<20); Urine Mucus 1+ /HPF (None Seen); Urine RBC <5 /HPF (None Seen)
[2021-12-24 22:35] LABS: Albumin 3.9 g/dL (3.4-5.0); Bilirubin Total 0.4 mg/dL (0.2-1.0); Potassium 3.1 mmol/L (3.5-5.1); Protein, Total 7.7 g/dL (6.4-8.2)
[2021-12-24 22:40] LABS: Urine Specific Gravity/Preg 1.025 (1.005-1.030)
[2021-12-24] MEDS ORDERED: CEFTRIAXONE 1000 MG/VIAL ONE (23:19)
[2021-12-24] MEDS ORDERED: PANTOPRAZOLE 40 MG INJ ONE (23:19)
[2021-12-24] MEDS ORDERED: NA CHLORIDE 0.9% 50 ML IV ONE (23:20)
[2021-12-24] MEDS ORDERED: ONDANSETRON 4 MG/2 ML VIAL ONE (23:42)
[2021-12-25 00:11] LABS: Barbiturates NEGATIVE (NEGATIVE); Benzodiazepines NEGATIVE (NEGATIVE); Cocaine NEGATIVE (NEGATIVE); METHAMPHETAM NEGATIVE (NEGATIVE); Methadone NEGATIVE (NEGATIVE); Opiates NEGATIVE (NEGATIVE); Phencyclidine NEGATIVE (NEGATIVE); THC Cannibis POSITIVE (NEGATIVE)
--- NOTE | 2021-12-25 01:03 | ER ---
Nurse's Notes [facility] Name: Olga Wilkins Age: 26 yrs Sex: Female : 1995 Arrival Date: 12/24/2021 Time: 21:15 Bed 7 Private MD: Diagnosis: Nausea with vomiting, unspecified;UTI/ Urinary tract infection, site not specified;Hypokalemia Presentation: 12/24 21:18 Chief complaint: Patient states: "For the past several day I have been puking, so much tw5 so it is just stomach acid.". Chief complaint: Patient states: "My stomach and lower back really hurt.". Coronavirus screen: Vaccine status: Patient reports being unvaccinated. Ebola Screen: Patient negative for fever greater than or equal to 101.5 degrees Fahrenheit, and additional compatible Ebola Virus Disease symptoms Patient denies exposure to infectious person. Patient denies travel to an Ebola-affected area in the 21 days before illness onset. Initial Sepsis Screen: Does the patient meet any 2 criteria? No. Patient's initial sepsis screen is negative. Does the patient have a suspected source of infection? Yes: Acute abdominal pain. Risk Assessment: Do you want to hurt yourself or someone else? Patient reports no desire to harm self or others. Onset of symptoms was December 22, 2021. 21:18 Method Of Arrival: Ambulatory tw5 21:18 Acuity: REBEKAH 3 tw5 Triage Assessment: 21:19 General: Appears in no apparent distress. Behavior is appropriate for age. Pain: tw5 Complains of pain in abdomen Pain currently is 10 out of 10 on a pain scale. GI: Reports nausea, vomiting. 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 - Social history:: Smoking status: Reported history of juuling and/or vaping. Patient uses street drugs, marijuana. Screenin:05 Abuse screen: Denies threats or abuse. Denies injuries from another. Nutritional tp1 screening: No deficits noted. Tuberculosis screening: No symptoms or risk factors identified. Fall Risk None identified. Assessment: 21:55 General: Appears in no apparent distress. uncomfortable, Behavior is calm, cooperative. tp1 Pain: Complains of pain in abdomen Pain does not radiate. Pain currently is 10 out of 10 on a pain scale. Quality of pain is described as aching, sharp, Pain began 2-3 days ago. Is continuous. Neuro: Level of Consciousness is awake, alert, obeys commands, Oriented to person, place, time, situation. Cardiovascular: Patient's skin is warm and dry. Respiratory: Airway is patent Respiratory effort is even, unlabored. GI: Abdomen is flat, non-distended, Abd is soft and non tender X 4 quads. Reports nausea, vomiting. : No signs and/or symptoms were reported regarding the genitourinary system. EENT: No signs and/or symptoms were reported regarding the EENT system. Derm: Skin is pink, warm \\T\\ dry. Musculoskeletal: Circulation, motion, and sensation intact. Vital Signs: 21:18 BP 154 / 93; Pulse 71; Resp 18; Temp 99.2; Pulse Ox 97% ; Weight 63.5 kg; Height 5 ft. tw5 4 in. (162.56 cm); Pain 1010; 23:00 BP 153 / 89; Pulse 67; Resp 20 S; Pulse Ox 100% on R/A; as6 12/25 01:34 BP 147 / 88; Pulse 67; Resp 18 S; Pulse Ox 100% on R/A; as6 12/24 21:18 Body Mass Index 24.03 (63.50 kg, 162.56 cm) tw5 ED Course: 12/24 21:15 Patient arrived in ED. bp1 21:16 Francois Hennessy PA is PHCP. cp 21:16 Mague Ray MD is Attending Physician. cp 21:19 Triage completed. tw5 21:58 Lucio Arias, REBEKA is Primary Nurse. as6 22:02 Inserted saline lock: 20 gauge in right antecubital area, using aseptic technique. tp1 Blood collected. 22:02 Patient has correct armband on for positive identification. Placed in gown. Bed in low tp1 position. Call light in reach. 22:12 CBC with Diff Sent. as6 22:12 CMP Sent. as6 22:12 Lipase Sent. as6 23:32 CT Abd/Pelvis - IV Contrast Only In Process Unspecified. EDMS 23:40 UDS Sent. 12/25 01:34 No provider procedures requiring assistance completed. IV discontinued, intact, as bleeding controlled, No redness/swelling at site. Pressure dressing applied. 01:34 Arm band placed on. as6 Administered Medications: 12/24 21:25 Drug: Ondansetron 4 mg Route: PO; tw5 12/25 01:32 Follow up: Response: No adverse reaction 12/24 22:23 Drug: NS 0.9% 1000 ml Route: IV; Rate: 1 bolus; Site: right antecubital; 22:23 Drug: Pepcid (famotidine) 20 mg Route: IVP; Site: right antecubital; 12/25 01:32 Follow up: Response: No adverse reaction 12/24 23:49 Drug: ProTONIX (pantoprazole) 40 mg Route: IVP; Site: right antecubital; 12/25 01:33 Follow up: Response: No adverse reaction 12/24 23:49 Drug: NS 0.9% 1000 ml Route: IV; Rate: 1 bolus; Site: right antecubital; 12/25 01:33 Follow up: Response: No adverse reaction; IV Status: Completed infusion; IV Intake: as6 1000ml 12/24 23:49 Drug: Rocephin (cefTRIAXone) 1 grams Route: IV; Rate: calculated rate; Site: right as6 antecubital; 12/25 01:33 Follow up: Response: No adverse reaction; IV Status: Completed infusion; IV Intake: 48dcsn412/24 23:49 Drug: Zofran (Ondansetron) 4 mg Route: IVP; Site: right antecubital; 12/25 01:33 Follow up: Response: No adverse reaction 01:32 Drug: Potassium Effervescent Tablet 50 mEq Route: PO; 01:33 Follow up: Response: No adverse reaction 01:32 Drug: Potassium Effervescent Tablet 25 mEq Route: PO; 01:33 Follow up: Response: No adverse reaction as Medication: 01:34 VIS not applicable for this client. as6 Intake: 01:33 IV: 1000ml; Total: 1000ml. 01:33 IV: 50ml; Total: 1050ml. as6 Outcome: 01:02 Discharge ordered by . cp 01:34 Discharged to home ambulatory. as6 01:34 Condition: stable 01:34 Discharge instructions given to patient, Instructed on discharge instructions, follow up and referral plans. medication usage, Demonstrated understanding of instructions, follow-up care, medications, Prescriptions given X 3. 01:35 Patient left the ED. as6 Signatures: Dispatcher [employer] EDMS Francois Hennessy PA PA cp [place], Brittany bp1 Wood, Tiffany tw5 Lucio Arias, REBEKA RN as6 Malika Ng RN RN tp1
--- NOTE | 2021-12-25 01:03 | EDPHYS ---
Physician Documentation [facility] [place] Name: Olga Wilkins Age: 26 yrs Sex: Female : 1995 Arrival Date: 12/24/2021 Time: 21:15 Bed 7 Private MD: ED Physician Mague Ray HPI: 12/24 21:30 This 26 yrs old Female presents to ER via Ambulatory with complaints of Vomiting, cp Abdominal Pain. 21:30 The patient presents to the emergency department with nausea, with "dry heaves", cp vomiting, that is continuous, abdominal pain, of the abdomen diffusely, described as waxing and waning. 21:30 Onset: The symptoms/episode began/occurred 3 day(s) ago. cp 21:30 Possible causes: frequent use of marijuana. Associated signs and symptoms: Pertinent cp positives: abdominal pain, anorexia, small amount of bright red blood in vomitus, Pertinent negatives: constipation, diarrhea, fever. Severity of symptoms: in the emergency department the symptoms are unchanged despite home interventions. 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 - Social history:: Smoking status: Reported history of juuling and/or vaping. Patient uses street drugs, marijuana. ROS: 21:35 Constitutional: Positive for poor PO intake, Negative for body aches, chills, fever. cp 21:35 Eyes: Negative for injury, pain, redness, and discharge. cp 21:35 ENT: Negative for drainage from ear(s), ear pain, sore throat, difficulty swallowing, difficulty handling secretions. 21:35 Cardiovascular: Negative for chest pain, palpitations. 21:35 Respiratory: Negative for cough, shortness of breath, wheezing. 21:35 Abdomen/GI: Positive for abdominal pain, nausea and vomiting, anorexia, hematemesis, Negative for diarrhea, constipation, black/tarry stool, rectal bleeding. 21:35 Back: Positive for pain at rest, pain with movement. 21:35 : Negative for vaginal bleeding, vaginal discharge. 21:35 Neuro: Negative for altered mental status. 21:35 All other systems are negative. Exam: 21:40 Constitutional: The patient appears in no acute distress, alert, awake, non-toxic, well cp developed, well nourished, uncomfortable. 21:40 Head/Face: Normocephalic, atraumatic. cp 21:40 Eyes: Periorbital structures: appear normal, Conjunctiva: normal, no exudate, no injection, Sclera: no appreciated abnormality, Lids and lashes: appear normal, bilaterally. 21:40 ENT: External ear(s): are unremarkable, Nose: is normal, Mouth: Lips: moist, Oral mucosa: pink and intact, moist, Posterior pharynx: Airway: no evidence of obstruction, patent, Tonsils: are normal in appearance, swelling, is not appreciated, erythema, is not appreciated, exudate, is not appreciated. 21:40 Chest/axilla: Inspection: normal. 21:40 Cardiovascular: Rate: normal, Rhythm: regular. 21:40 Respiratory: the patient does not display signs of respiratory distress, Respirations: normal, no use of accessory muscles, no retractions, labored breathing, is not present, Breath sounds: are clear throughout, no decreased breath sounds, no stridor, no wheezing. 21:40 Abdomen/GI: Inspection: abdomen appears normal, Bowel sounds: active, all quadrants, Palpation: soft, in all quadrants, moderate abdominal tenderness, in all quadrants, rebound tenderness, is not appreciated, involuntary guarding, is not appreciated. 21:40 Back: pain, that is mild, of the low back area and mid back area, ROM is painful, with all movement, Straight leg raises: of both lower extremities does not illicit pain. 21:40 Neuro: Orientation: to person, place \\T\\ time. Mentation: is normal, Motor: moves all fours, strength is normal, Sensation: is normal. Vital Signs: 21:18 BP 154 / 93; Pulse 71; Resp 18; Temp 99.2; Pulse Ox 97% ; Weight 63.5 kg; Height 5 ft. tw5 4 in. (162.56 cm); Pain 10/10; 23:00 BP 153 / 89; Pulse 67; Resp 20 S; Pulse Ox 100% on R/A; as6 12/25 01:34 BP 147 / 88; Pulse 67; Resp 18 S; Pulse Ox 100% on R/A; as6 12/24 21:18 Body Mass Index 24.03 (63.50 kg, 162.56 cm) tw5 MDM: 12/24 21:35 Patient medically screened. cp 22:00 Differential diagnosis: gastritis, cholecystitis, appendicitis, viral gastroenteritis, cp gastroenteritis. 12/25 01:02 Data reviewed: vital signs, nurses notes, lab test result(s), radiologic studies, CT cp scan. 01:02 Counseling: I had a detailed discussion with the patient and/or guardian regarding: the cp historical points, exam findings, and any diagnostic results supporting the discharge/admit diagnosis, lab results, radiology results, to return to the emergency department if symptoms worsen or persist or if there are any questions or concerns that arise at home. 01:02 Response to treatment: the patient's symptoms have markedly improved after treatment, cp patient is well hydrated. and as a result, I will discharge patient. ED course: VSS. Nausea and pain improved, vomiting resolved. Will discharge to home for continued monitoring. 12/24 22:06 Order name: CBC with Diff; Complete Time: 22:57 cp 12/24 23:00 Interpretation: Normal except: WBC 13.20; HGB 15.1; MPV 6.9; NEUT A 8.3. 12/24 22:06 Order name: CMP; Complete Time: 22:57 12/24 23:00 Interpretation: Normal except: NA 135; K 3.1; GLUC 137; GFR 78; GLOB 3.8; A/G 1.0. 12/24 22:06 Order name: Lipase; Complete Time: 22:57 cp 12/24 22:06 Order name: Urine Microscopic Only; Complete Time: 22:57 cp 12/24 22:22 Order name: Urine Dipstick-Ancillary; Complete Time: 22:57 EDMS 12/24 22:23 Order name: Urine --Ancillary (enter results); Complete Time: 22:57 mw2 12/24 22:40 Order name: Urine Culture EDSD 12/24 22:57 Order name: UDS; Complete Time: 00:53 cp 12/24 22:59 Order name: CT Abd/Pelvis - IV Contrast Only cp 12/24 22:06 Order name: IV Saline Lock; Complete Time: 22:12 cp 12/24 22:06 Order name: Labs collected and sent; Complete Time: 22:12 cp 12/24 22:06 Order name: Urine Dipstick-Ancillary (obtain specimen); Complete Time: 22:22 cp 12/24 22:06 Order name: Urine Test (obtain specimen); Complete Time: 22:22 cp Administered Medications: 12/24 21:25 Drug: Ondansetron 4 mg Route: PO; tw5 12/25 01:32 Follow up: Response: No adverse reaction 12/24 22:23 Drug: NS 0.9% 1000 ml Route: IV; Rate: 1 bolus; Site: right antecubital; 22:23 Drug: Pepcid (famotidine) 20 mg Route: IVP; Site: right antecubital; 12/25 01:32 Follow up: Response: No adverse reaction 12/24 23:49 Drug: ProTONIX (pantoprazole) 40 mg Route: IVP; Site: right antecubital; 12/25 01:33 Follow up: Response: No adverse reaction 12/24 23:49 Drug: NS 0.9% 1000 ml Route: IV; Rate: 1 bolus; Site: right antecubital; 12/25 01:33 Follow up: Response: No adverse reaction; IV Status: Completed infusion; IV Intake: as6 1000ml 12/24 23:49 Drug: Rocephin (cefTRIAXone) 1 grams Route: IV; Rate: calculated rate; Site: right as6 antecubital; 12/25 01:33 Follow up: Response: No adverse reaction; IV Status: Completed infusion; IV Intake: [id number] 23:49 Drug: Zofran (Ondansetron) 4 mg Route: IVP; Site: right antecubital; 12/25 01:33 Follow up: Response: No adverse reaction 01:32 Drug: Potassium Effervescent Tablet 50 mEq Route: PO; 01:33 Follow up: Response: No adverse reaction 01:32 Drug: Potassium Effervescent Tablet 25 mEq Route: PO; 01:33 Follow up: Response: No adverse reaction as6 Disposition Summary: 12/25/21 01:02 Discharge Ordered Location: Home cp Problem: new cp Symptoms: have improved cp Condition: Stable cp Diagnosis - Nausea with vomiting, unspecified cp - UTI/ Urinary tract infection, site not specified cp - Hypokalemia cp Followup: cp - With: Private Physician - When: 2 - 3 days - Reason: Recheck today's complaints Discharge Instructions: - Discharge Summary Sheet cp - Nausea and Vomiting, Adult cp - Urinary Tract Infection, Adult cp - Hypokalemia cp Forms: - Medication Reconciliation Form cp - Thank You Letter cp - Antibiotic Education cp - Prescription Opioid Use cp Prescriptions: - Pepcid 20 mg Oral Tablet - take 1 tablet by ORAL route every 12 hours for 5 days; 10 tablet; Refills: 0, cp Product Selection Permitted - Zofran 4 mg Oral Tablet - take 1 tablet by ORAL route every 12 hours As needed; 20 tablet; Refills: 0, cp Product Selection Permitted - Macrobid 100 mg Oral Capsule - take 1 capsule by ORAL route every 12 hours for 7 days; 14 capsule; Refills: 0, cp Product Selection Permitted Signatures: Dispatcher [employer] EDFrancois Hunt PA PA cp Wood, Tiffany tw5 Lucio Arias RN RN as6
[2021-12-25] MEDS ORDERED: POTASSIUM 25 MEQ EFFERV TAB ONE (01:25)
[2021-12-25 02:05] VITALS: TEMP 99.2
[2021-12-25 02:16] VITALS: O2SAT 100
[2021-12-25 02:17] VITALS: BP 147/88
--- NOTE | 2021-12-27 20:08 | RAD REPORT ---
EXAM DESCRIPTION: CT - Abdomen Pelvis W Contrast - 12/24/2021 11:29 pm CLINICAL HISTORY: 26 years Female vomiting, abdominal pain TECHNIQUE: Contiguous axial images obtained through the abdomen and pelvis following intravenous con trast administration. Coronal and sagittal reformatted images provided. This CT exam was performed according to our departmental dose-optimization program, which includes on e or more of the following dose reduction techniques: automated exposure control, adjustment of the m A and/or kV according to patient size, and/or use of iterative reconstruction technique. COMPARISON: No prior exams provided for comparison. FINDINGS: There is a small amount of free fluid in the cul-de-sac. No adnexal mass. Normal uterus. No bowel inflammation, obstruction, or free intraperitoneal air. Normal appendix. The lung bases, liver, biliary tree, gallbladder, pancreas, spleen, adrenal glands, kidneys, uterus, urinary bladder, and osseous structures are normal. IMPRESSION: Small amount of free fluid in the cul-de-sac likely physiologic. No adnexal mass. No other acute findings in the abdomen or pelvis. Normal appendix. Electronically signed by: Vaishnavi Gipson MD 12/25/2021 12:49 AM CDT Due to temporary technical issues with the PACS/Fluency reporting system, reports are being signed by the in house radiologists without review as a courtesy to insure prompt reporting. The interpreting radiologist is fully responsible for the content of the report.
== END 2021-12-25 01:35 | disposition home or self-care (01) ==
LOC: ER 21:12
DX: N39.0 Urinary tract infection, site not specified (principal); E87.6 Hypokalemia; F32.A Depression, unspecified
CPT/HCPCS: 96365; 87088; 85025; 87086; 36415; 81025; 83690; 80053; 80307; 74177; 96375; 99284; 96366; Q9967; C9113; Q0162; J7030 ×2; J2405; 81003; 81015

== ENCOUNTER 2022-12-18 23:26 | Emergency (ER) | payer BC, OTHER ==
--- OUTSIDE RECORDS SUMMARY | 2022-12-18 23:31 | XMS REPORT | Continuity of Care Document ---
:1995 Author Organization [facility] t Address [address] [place] [address] [place] [id number] Care Team Providers Name Role Phone PERICO POON Primary Care Physician Unavailable LANDON DOMÍNGUEZ Attending Clinician Unavailable Shviani Hobson PA-C Attending Clinician Landon Domínguez MD Attending Clinician Doctor Unassigned, Carpio Attending Clinician Unavailable [email or web address] Attending Clinician Unavailable Arleth Velasquez MD Attending Clinician SHIVANI HOBSON Attending Clinician Unavailable 2, Adc Lab Attending Clinician Unavailable Consults, Rmchp Har[facility] Pn Genetic Attending Clinician Unavailab Rommel Catherine MD Attending Clinician ROMMEL HERNANDEZ Attending Clinician Unavailable Ultrasound, Ang-Mfm Attending Clinician Unavailable Sidney Castillo MD Attending Clinician LANDON DOMÍNGUEZ Admitting Clinician Unavailable [email or web address] Admitting Clinician Unavailable Arleth Velasquez MD Admitting Clinician Payers Payer Name Policy Type Policy Number Effective Date Expiration Date [facility] [id number] 2019 CHOICE MEDICAID 00:00:00 Problems Condition Condition Condition Status Onset Resolution Last Treating Co mments Source Name Details Category Date Date Treatment Clinician Date Presence Presence Disease Active 2019-02 Unive rs of 52 mg of 52 mg 0-15 ity of [place] trel-rele[place] trel-relea 00 Me dical sing [facility] intrauteri intrauteri ne device ne device (IUD) (IUD) Normal Normal Disease Active 2020-0 Univers labor labor 8-28 ity of 00:00: [address] 39 weeks 39 weeks Disease Active 2020-0 Unive rs gestation gestation 8-28 ity of of of 00:00: [place] 00 [facility] Branch Liveborn Liveborn Disease Active 2020-0 Unive rs infant, of infant, of 8-28 it y of pyle pyle 00:00: Snehal guzman , , 00 Me dical born in born in [facility] hospital by vaginal by vaginal delivery delivery COVID-19 COVID-19 Disease Active 2020-0 Unive rs virus virus 8-28 ity of infection infection 00:00: Snehal guzman [address] [place] [address] Abnormal Abnormal Disease Active 2020-0 Last Unive rs maternal maternal 8-14 Assessmen ity of glucose glucose 00:00: t & Plan: [place] tolerance, tolerance, 00 3 hr gtt Medical antepartum antepartum wnl Br anch Positive Positive Disease Active 2020-0 Unive rs GBS test GBS test 8-14 ity of 00:00: [address] Obesity Obesity Disease Active 2020-0 Univers (BMI (BMI 6-08 ity of 30-39.9) 30-39.9) 00:00: [address] Gastroesop Gastroesop Disease Active 2020-0 U nivers hageal hageal 5-28 ity of reflux reflux 00:00: [place] disease, disease, 00 Medica l esophagiti esophagiti Br anch s presence s presence not not specified specified Abnormal Abnormal Disease Active 2020-0 Unive rs findings findings 5-28 ity of on on 00:00: [place] 00 [facility] screening screening Bran ch Supervisio Supervisio Disease Active 2020-0 U nivers n of n of 4-09 ity of high-risk high-risk 00:00: Snehal guzman 00 [facility] with with Branch insufficie insufficie nt nt care in care in third third trimester trimester Allergies, Adverse Reactions, Alerts Allergy Allergy Status Severity Reaction(s) Onset Inactive Treating Comm ents Source Name Type Date Date Clinician NO KNOWN Drug Active Univers ALLERGIE Class ity of S [facility] Social History Social Habit Start Date Stop Date Quantity Comments Source ASSERTION 2019-02-05 University of 00:00:00 [facility] History SDVT University o f Alcohol Binge [place] [facility] Branch History [facility] o f Alcohol Comment [place] Med ical Branch History of tobacco Cigarette Smoker University of use [facility] Exposure to 2021-11-22 2021-12-02 Not sure University SARS-CoV-2 (event) 00:00:00 13:21:00 [facility] Tobacco use and 2021-12-02 2021-12-02 Smokeless Universit y of exposure 00:00:00 00:00:00 tobacco non-user [facility] dical Branch Cigarettes smoked 2021-12-02 2021-12-02 [facility] ity of current (pack per 00:00:00 00:00:00 [facility]) - Reported Branch Cigarette 2021-12-02 2021-12-02 University of pack-years 00:00:00 00:00:00 [facility] Alcohol intake 2021-12-02 2021-12-02 Ex-drinker [facility] 00:00:00 00:00:00 (finding) [facility] History [facility] 2019-06-05 2019-06-05 2 University o f Alcohol Std Drinks 00:00:00 00:00:00 [facility] History [facility] 2019-06-05 2019-06-05 3 University o f Alcohol Frequency 00:00:00 00:00:00 [facility] Sex Assigned At [birth year] Universit y of 00:00:00 00:00:00 [facility] Smoking Status Start Date Stop Date Source Ex-smoker 2021-12-02 00:00:00 2021-12-02 00:00:00 Universi ty of [facility] Medications Ordered Filled Start Stop Current Ordering Indication Dosage Frequency Signature Comments Components Source Medication Medication Date Date Medication? Clinician (SIG) Name Name metroNIDAZO 2021-02 Yes [id number] 500mg Take 1 Univers LE 500 mg 0-10 tablet by ity o f tablet 00:00: mouth [place] 00 every 12 Medical (twelve) Branch hours. meloxicam 2021-02 Yes 7.5mg Take 7.5 Uni vers 7.5 mg 0-07 mg by ity of tablet 13:54: mouth. [place] 16 [facility] Branch baclofen 10 2021-02 Yes 10mg Take 10 mg Univers mg tablet 0-07 by mouth. ity o f 13:54: [address] meloxicam 2021-02 Yes 7.5mg Take 7.5 Uni vers 7.5 mg 0-07 mg by ity of tablet 13:54: mouth. [address] baclofen 10 2021-02 Yes 10mg Take 10 mg Univers mg tablet 0-07 by mouth. ity o f 13:54: [address] meloxicam 2021-02 Yes 7.5mg Take 7.5 Uni vers 7.5 mg 0-07 mg by ity of tablet 13:54: mouth. [address] baclofen 10 2021-02 Yes 10mg Take 10 mg Univers mg tablet 0-07 by mouth. ity o f 13:54: [address] meloxicam 2021-02 Yes 7.5mg Take 7.5 Uni vers 7.5 mg 0-07 mg by ity of tablet 13:54: mouth. [address] baclofen 10 2021-02 Yes 10mg Take 10 mg Univers mg tablet 0-07 by mouth. ity o f 13:54: [address] LOESTRIN FE 2021-02 Yes [id number] 1{tbl} Take 1 Univers (LOESTRIN 0-07 tablet by ity o f FE 03/17) 1 00:00: mouth in [place] mg-20 mcg 00 the Medical (21)/75 mg morning. Branc h (7) tablet LOESTRIN FE 2021-02 Yes [id number] 1{tbl} Take 1 Univers (LOESTRIN 0-07 tablet by ity o f FE 03/17) 1 00:00: mouth in [place] mg-20 mcg 00 the Medical (21)/75 mg morning. Branc h (7) tablet LOESTRIN FE 2021-02 Yes [id number] 1{tbl} Take 1 Univers (LOESTRIN 0-07 tablet by ity o f FE 03/17) 1 00:00: mouth in [place] mg-20 mcg 00 the Medical (21)/75 mg morning. Branc h (7) tablet LOESTRIN FE 2021-02 Yes [id number] 1{tbl} Take 1 Univers (LOESTRIN 0-07 tablet by ity o f FE 03/17) 1 00:00: mouth in [place] mg-20 mcg 00 the Medical (21)/75 mg morning. [facility] h (7) tablet gabapentin 2022-0 Yes 600mg Take 600 Un johnnie 600 mg 8-29 mg by ity of tablet 00:00: mouth in [place] 00 the Medical morning Branch and 600 mg at noon and 600 mg in the evening. gabapentin 2022-0 Yes 600mg Take 600 Un johnnie 600 mg 8-29 mg by ity of tablet 00:00: mouth in [place] 00 the Medical morning Branch and 600 mg at noon and 600 mg in the evening. gabapentin 2022-0 Yes 600mg Take 600 Un johnnie 600 mg 8-29 mg by ity of tablet 00:00: mouth in [place] 00 the Medical morning Branch and 600 mg at noon and 600 mg in the evening. gabapentin 2022-0 Yes 600mg Take 600 Un johnnie 600 mg 8-29 mg by ity of tablet 00:00: mouth in [place] [address] the Medical morning Branch and 600 mg at noon and 600 mg in the evening. SERTraline 2022-0 Yes TAKE 1 AND U nivers 100 mg 8-14 A HALF ity of tablet 00:00: TABLETS BY [place] [address] MOUTH Medical DAILY Branch SERTraline 2022-0 Yes TAKE 1 AND U nivers 100 mg 8-14 A HALF ity of tablet 00:00: TABLETS BY [place] [address] MOUTH Medical DAILY Branch SERTraline 2022-0 Yes TAKE 1 AND U nivers 100 mg 8-14 A HALF ity of tablet 00:00: TABLETS BY [address] Medical DAILY Branch SERTraline 2022-0 Yes TAKE 1 AND U nivers 100 mg 8-14 A HALF ity of tablet 00:00: TABLETS BY [place] [address] MOUTH Medical DAILY Branch buPROPion 2022-0 Yes [...] 00:30: 23:28 [place] IUD 1 00 :00 [employer] Branch levonorgest 2019-02 2020- No 1{devic 1 Device, Univers reL 0-16 10-15 e} Intrauteri ity of (MIRENA) 00:30: 23:28 ne, ONCE, [place] IUD 1 00 :00 1 dose, Terminal Supervisor [facility] 12/11/19 at 1930, Routine levonorgest 2019-02 2020- No 1{devic Un johnnie reL 0-16 10-15 e} ity of (MIRENA) 00:30: 23:28 [place] IUD 1 00 :00 [employer] Branch levonorgest 2019-02 2020- No 1{devic 1 Device, Univers reL 0-16 10-15 e} Intrauteri ity of (MIRENA) 00:30: 23:28 ne, ONCE, [place] IUD 1 00 :00 1 dose, Terminal Supervisor [facility] Branch 12/11/19 at 1930, Routine rho(D) [...] 12 Starting Medi lani tablet 1 Sun [place] tablet 10/24/19 at 1749, Until Discontinu ed, Routine, Pain (scale 7-10) ibuprofen Yes 600mg 600 mg, Univ ers (IBU) 8 Oral, ity of tablet 600 22:49: Q6HPRN, [...] IV Push, ity of (PF)) 22:49: Q8HPRN, [place] injection 4 12 Starting Medi lani mg Fri Branch 10/24/19 at 1748, Until Discontinu ed, Routine, Nausea and Vomiting (N/V) simethicone 2020-0 Yes 160mg 160 mg, Un johnnie (GAS RELIEF 10-23 Oral, ity of (SIMETHICON 22:49: PC+HSPRN, [place] E)) 12 Starting Medical chewable Fri Branch tablet 160 10/24/19 at mg 1748, Until Discontinu ed, Routine, Gas docusate 2020-0 [...] of 20 units IV 15:45: 16:19 Infusion, [place] Solution 00 :00 ONCE, 1 Medical dose, Sun Branch 10/24/19 at 1045, Routine oxytocin 2020-0 2020- No at 6 Univers (PITOCIN) 10-23 mL/hr, IV ity of 20 Units in 14:13: 22:49 Infusion, [place] lactated 45 :17 TITRATE, Medical ringers Starting Branch 1,000 mL IV Fri infusion 10/24/19 at 0913, Until Sun10/24/19 at 1749, Routine FENTanyl PF 2019-0 2020- No 50ug 50 mcg, Un johnnie [...] 00 :17 CONTINUOUS Medical , Starting Branch 10/24/19 at 0400, Until Sun10/24/19 at 1749, Routine lactated 2020-0 2020- No 500mL at 999 Unive rs ringers IV 8-28 08-28 mL/hr, 500 it y of infusion 08:52: [...] Medical GUMMY ORAL) Branch famotidine 0 Yes [id number] 20mg Take 1 Univers 20 mg 5-28 tablet by ity of tablet 00:00: mouth 2 [place] 00 (two) Medical times Branch daily. famotidine 2020-0 Yes [id number] 20mg Take 1 Univers 20 mg 5-28 tablet by ity of tablet 00:00: mouth 2 [place] 00 (two) Medical times Branch daily. famotidine 2020-0 Yes [id number] 20mg Take 1 Univers 20 mg 5-28 tablet by ity of tablet 00:00: mouth 2 [place] 00 (two) Medical times Branch daily. famotidine 2020-0 Yes [id number] 20mg Take 1 Univers 20 mg 5-28 tablet by ity of tablet 00:00: mouth [place] (two) Medical times Branch daily. famotidine 2020-0 Yes [id number] 20mg Take 1 Univers 20 mg 5-28 tablet by ity of tablet 00:00: mouth [place] (two) Medical times Branch daily. famotidine 2020-0 Yes [id number] 20mg Take 1 Univers 20 mg 5-28 tablet by ity of tablet 00:00: mouth [place] (two) Medical times Branch daily. famotidine 2020-0 Yes [id number] 20mg Take 1 Univers 20 mg 5-28 tablet by ity of tablet 00:00: mouth [place] (two) Medical times Branch daily. famotidine 2020-0 Yes [id number] 20mg Take 1 Univers 20 mg 5-28 tablet by ity of tablet 00:00: mouth [place] (two) Medical times Branch daily. famotidine 2020-0 Yes [id number] 20mg Take 1 Univers 20 mg 5-28 tablet by ity of tablet 00:00: mouth [place] (two) Medical times Branch daily. famotidine 2020-0 Yes [id number] 20mg Take 1 Univers 20 mg 5-28 tablet by ity of tablet 00:00: mouth [place] (two) Medical times Branch daily. famotidine 2020-0 Yes [id number] 20mg Take 1 Univers 20 mg 5-28 tablet by ity of tablet 00:00: mouth [place] (two) Medical times Branch daily. famotidine 2020-0 Yes [id number] 20mg Take 1 Univers 20 mg 5-28 tablet by ity of tablet 00:00: mouth [place] (two) Medical times Branch daily. famotidine 2020-0 Yes [id number] 20mg Take 1 Univers 20 mg 5-28 tablet by ity of tablet 00:00: mouth [place] (two) Medical times Branch daily. famotidine 2020-0 Yes [id number] 20mg Take 1 Univers 20 mg 5-28 tablet by ity of tablet 00:00: mouth [place] (two) Medical times Branch daily. famotidine 2020-0 Yes [id number] 20mg Take 1 Univers 20 mg 5-28 tablet by ity of tablet 00:00: mouth 2 [place] (two) Medical times Branch daily. famotidine 2020-0 Yes [id number] 20mg Take 1 Univers 20 mg 5-28 tablet by ity of tablet 00:00: mouth 2 [place] (two) Medical times Branch daily. famotidine 2020-0 Yes [id number] 20mg Take 1 Univers 20 mg 5-28 tablet by ity of tablet 00:00: mouth 2 [place] 00 (two) Medical times Branch daily. famotidine 2020-0 Yes [id number] 20mg Take 1 Univers 20 mg 5-28 tablet by ity of tablet 00:00: mouth 2 [place] 00 (two) Medical times Branch daily. famotidine 2020-0 Yes [id number] 20mg Take 1 Univers 20 mg 5-28 tablet by ity of tablet 00:00: mouth 2 [place] (two) Medical times Branch daily. famotidine 2020-0 Yes [id number] 20mg Take 1 Univers 20 mg 5-28 tablet by ity of tablet 00:00: mouth 2 [place] (two) Medical times Branch daily. famotidine 2020-0 Yes [id number] 20mg Take 1 Univers 20 mg 5-28 tablet by ity of tablet 00:00: mouth [address] [place] [address] (two) Medical times Branch daily. famotidine 2020-0 Yes [id number] 20mg Take 1 Univers 20 mg 5-28 tablet by ity of tablet 00:00: mouth 2 [place] (two) Medical times Branch daily. famotidine 2020-0 2020- No [id number] 20mg Take 1 Univers 20 mg 5-28 11-12 tablet by ity of tablet 00:00: 00:00 mouth 2 [place] 00 :00 (two) Medical times Branch daily. famotidine 2020-0 2020- No [id number] 20mg Take 1 Univers 20 mg 5-28 11-12 tablet by ity of tablet 00:00: 00:00 mouth 2 [place] 00 :00 (two) Medical times Branch daily. [...] Medical GUMMY ORAL) Branch PNV 0 Yes [id number] Take 1 Univ ers 102-iron-fo 06-04 09 TAB-CAP/M2 it y of late 00:00: by mouth [place] 1-dss-dha 00 daily. Medical (VITAFOL Branch FE+, WITH DOCUSATE,) 90 mg iron-1 mg -50 mg-200 mg Cap PNV 2019-0 Yes [id number] Take 1 Univ ers 102-iron-fo 06-04 09 TAB-CAP/M2 it y of late 00:00: by mouth [place] 1-dss-dha 00 daily. Medical (VITAFOL Branch FE+, WITH DOCUSATE,) 90 mg iron-1 mg -50 mg-200 mg Cap PNV 2020-0 Yes [id number] Take 1 Univ ers 102-iron-fo 06-04 09 TAB-CAP/M2 it y of late 00:00: by mouth [address] daily. Medical (VITAFOL Branch FE+, WITH DOCUSATE,) 90 mg iron-1 mg -50 mg-200 mg Cap PNV 2020-0 Yes [id number] Take 1 Univ ers 102-iron-fo - 09 TAB-CAP/M2 it y of late 00:00: by mouth [address] daily. Medical (VITAFOL Branch FE+, WITH DOCUSATE,) 90 mg iron-1 mg -50 mg-200 mg Cap PNV 2020-0 Yes [id number] Take 1 Univ ers 102-iron-fo 06-04 09 TAB-CAP/M2 it y of late 00:00: by mouth [address] daily. Medical (VITAFOL Branch FE+, WITH DOCUSATE,) 90 mg iron-1 mg -50 mg-200 mg Cap PNV 2020-0 Yes [id number] Take 1 Univ ers 102-iron-fo - 09 TAB-CAP/M2 it y of late 00:00: by mouth [address] daily. Medical (VITAFOL Branch FE+, WITH DOCUSATE,) 90 mg iron-1 mg -50 mg-200 mg Cap PNV 2020-0 Yes [id number] Take 1 Univ ers 102-iron-fo 06-04 TAB-CAP/M2 it y of late 00:00: by mouth [address] daily. Medical (VITAFOL Branch FE+, WITH DOCUSATE,) 90 mg iron-1 mg -50 mg-200 mg Cap PNV 2020-0 Yes [id number] Take 1 Univ ers 102-iron-fo 06-04 09 TAB-CAP/M2 it y of late 00:00: by mouth [address] 00 daily. Medical (VITAFOL Branch FE+, WITH DOCUSATE,) 90 mg iron-1 mg -50 mg-200 mg Cap PNV 2020-0 Yes [id number] Take 1 Univ ers 102-iron-fo 4- 09 TAB-CAP/M2 it y of late 00:00: by mouth [place] [address]-[facility] 00 daily. Medical (VITAFOL Branch FE+, WITH DOCUSATE,) 90 mg iron-1 mg -50 mg-200 mg Cap PNV 2020-0 Yes [id number] Take 1 Univ ers 102-iron-fo - 09 TAB-CAP/M2 it y of late 00:00: by mouth [place] [address]-[facility] 00 daily. Medical (VITAFOL Branch FE+, WITH DOCUSATE,) 90 mg iron-1 mg -50 mg-200 mg Cap PNV 2020-0 Yes [id number] Take 1 Univ ers 102-iron-fo - 09 TAB-CAP/M2 it y of late 00:00: by mouth [place] [address]-[facility] 00 daily. Medical (VITAFOL Branch FE+, WITH DOCUSATE,) 90 mg iron-1 mg -50 mg-200 mg Cap PNV 2020-0 Yes [id number] Take 1 Univ ers 102-iron-fo - 09 TAB-CAP/M2 it y of late 00:00: by mouth [place] [address]-[facility] 00 daily. Medical (VITAFOL Branch FE+, WITH DOCUSATE,) 90 mg iron-1 mg -50 mg-200 mg Cap PNV 2020-0 Yes [id number] Take 1 Univ ers 102-iron-fo - 09 TAB-CAP/M2 it y of late 00:00: by mouth [place] [address]-[facility] 00 daily. Medical (VITAFOL Branch FE+, WITH DOCUSATE,) 90 mg iron-1 mg -50 mg-200 mg Cap PNV 2020-0 Yes [id number] Take 1 Univ ers 102-iron-fo - 09 TAB-CAP/M2 it y of late 00:00: by mouth [place] [address]-[facility] 00 daily. Medical (VITAFOL Branch FE+, WITH DOCUSATE,) 90 mg iron-1 mg -50 mg-200 mg Cap PNV 2020-0 Yes [id number] Take 1 Univ ers 102-iron-fo 4- 09 TAB-CAP/M2 it y of late 00:00: by mouth [place] [address]-[facility] 00 daily. Medical (VITAFOL Branch FE+, WITH DOCUSATE,) 90 mg iron-1 mg -50 mg-200 mg Cap PNV 2020-0 Yes [id number] Take 1 Univ ers 102-iron-fo 4-09 09 TAB-CAP/M2 it y of late 00:00: by mouth [address] 00 daily. Medical (VITAFOL Branch FE+, WITH DOCUSATE,) 90 mg iron-1 mg -50 mg-200 mg Cap PNV 2020-0 Yes [id number] Take 1 Univ ers 102-iron-fo 4-09 09 TAB-CAP/M2 it y of late 00:00: by mouth [place] [address]-[facility] 00 daily. Medical (VITAFOL Branch FE+, WITH DOCUSATE,) 90 mg iron-1 mg -50 mg-200 mg Cap PNV 2020-0 Yes [id number] Take 1 Univ ers 102-iron-fo 4-09 09 TAB-CAP/M2 it y of late 00:00: by mouth [place] [address]-[facility] 00 daily. Medical (VITAFOL Branch FE+, WITH DOCUSATE,) 90 mg iron-1 mg -50 mg-200 mg Cap PNV 2020-0 Yes [id number] Take 1 Univ ers 102-iron-fo 4- 09 TAB-CAP/M2 it y of late 00:00: by mouth [address] 00 daily. Medical (VITAFOL Branch FE+, WITH DOCUSATE,) 90 mg iron-1 mg -50 mg-200 mg Cap PNV 2020-0 Yes [id number] Take 1 Univ ers 102-iron-fo 4-09 09 TAB-CAP/M2 it y of late 00:00: by mouth [place] [address]-[facility] 00 daily. Medical (VITAFOL Branch FE+, WITH DOCUSATE,) 90 mg iron-1 mg -50 mg-200 mg Cap PNV 2020-0 Yes [id number] Take 1 Univ ers 102-iron-fo 4-09 09 TAB-CAP/M2 it y of late 00:00: by mouth [place] [address]-[facility] 00 daily. Medical (VITAFOL Branch FE+, WITH DOCUSATE,) 90 mg iron-1 mg -50 mg-200 mg Cap PNV 2020-0 Yes [id number] Take 1 Univ ers 102-iron-fo 4-09 09 TAB-CAP/M2 it y of late 00:00: by mouth [place] 1-dss-dha 00 daily. Medical (VITAFOL Branch FE+, WITH DOCUSATE,) 90 mg iron-1 mg -50 mg-200 mg Cap PNV 2020-0 Yes [id number] Take 1 Univ ers 102-iron-fo 06-04 09 TAB-CAP/M2 it y of late 00:00: by mouth [address] daily. Medical (VITAFOL Branch FE+, WITH DOCUSATE,) 90 mg iron-1 mg -50 mg-200 mg Cap PNV 2020-0 Yes [id number] Take 1 Univ ers 102-iron-fo - 09 TAB-CAP/M2 it y of late 00:00: by mouth [address] daily. Medical (VITAFOL Branch FE+, WITH DOCUSATE,) 90 mg iron-1 mg -50 mg-200 mg Cap PNV 2020-0 Yes [id number] Take 1 Univ ers 102-iron-fo 06-04 09 TAB-CAP/M2 it y of late 00:00: by mouth [address] daily. Medical (VITAFOL Branch FE+, WITH DOCUSATE,) 90 mg iron-1 mg -50 mg-200 mg Cap PNV 2020-0 Yes [id number] Take 1 Univ ers 102-iron-fo - 09 TAB-CAP/M2 it y of late 00:00: by mouth [address] daily. Medical (VITAFOL Branch FE+, WITH DOCUSATE,) 90 mg iron-1 mg -50 mg-200 mg Cap PNV 2020-0 Yes [id number] Take 1 Univ ers 102-iron-fo 06-04 TAB-CAP/M2 it y of late 00:00: by mouth [address] daily. Medical (VITAFOL Branch FE+, WITH DOCUSATE,) 90 mg iron-1 mg -50 mg-200 mg Cap PNV 2020-0 Yes [id number] Take 1 Univ ers 102-iron-fo 06-04 09 TAB-CAP/M2 it y of late 00:00: by mouth [address] 00 daily. Medical (VITAFOL Branch FE+, WITH DOCUSATE,) 90 mg iron-1 mg -50 mg-200 mg Cap PNV 2020-0 Yes [id number] Take 1 Univ ers 102-iron-fo 4-09 09 TAB-CAP/M2 it y of late 00:00: by mouth [place] 1-dss-dha 00 daily. Medical (VITAFOL Branch FE+, WITH DOCUSATE,) 90 mg iron-1 mg -50 mg-200 mg Cap PNV 2020-0 Yes [id number] Take 1 Univ ers 102-iron-fo 06-04 09 TAB-CAP/M2 it y of late 00:00: by mouth [place] 1-dss-dha 00 daily. Medical (VITAFOL Branch FE+, WITH DOCUSATE,) 90 mg iron-1 mg -50 mg-200 mg Cap PNV 2020-0 Yes [id number] Take 1 Univ ers 102-iron-fo 06-04 09 TAB-CAP/M2 it y of late 00:00: by mouth [place] 1-dss-dha 00 daily. Medical (VITAFOL Branch FE+, WITH DOCUSATE,) 90 mg iron-1 mg -50 mg-200 mg Cap PNV 2020-0 2020- No [id number] Take 1 Uni vers 102-iron-fo 06-04 09 TAB-CAP/M2 i ty of late 00:00: 00:00 by mouth [place] 1-dss-dha 00 :00 daily. Medical (VITAFOL Branch FE+, WITH DOCUSATE,) 90 mg iron-1 mg -50 mg-200 mg Cap PNV 2020-0 2020- No [id number] Take 1 Uni vers 102-iron-fo 06-04 09 TAB-CAP/M2 i ty of late 00:00: 00:00 by mouth [place] 1-dss-dha 00 :00 daily. Medical (VITAFOL Branch FE+, WITH DOCUSATE,) 90 mg iron-1 mg -50 mg-200 mg Cap Vital Signs Vital Name Observation Time Observation Value Comments Source Systolic blood 2021-12-02 18:51:00 102 mm[Hg] Univer [facility]ity of [facility] Diastolic blood 2021-12-02 18:51:00 71 mm[Hg] Unive [facility] Heart rate 2021-12-02 18:51:00 89 /min [facility] Body temperature 2021-12-02 18:51:00 36.72 Deisy [facility] Respiratory rate 2021-12-02 18:51:00 16 /min Univ ersity of [facility] Body height 2021-12-02 18:51:00 162.6 cm Universi ty of [facility] Body weight 2021-12-02 18:51:00 64.093 kg Universi ty of [place] [facility] BMI 2021-12-02 18:51:00 24.25 kg/m2 Universi ty of [facility] Oxygen saturation in 2021-12-02 18:51:00 98 /min University of Arterial blood by [facility] Pulse oximetry Branch Systolic blood 2020-01-08 21:28:00 132 mm[Hg] Univer sity of pressure [facility] Diastolic blood 2020-01-08 21:28:00 70 mm[Hg] Unive rsity of pressure [facility] Heart rate 2020-01-08 21:28:00 92 /min Universi ty of [facility] Body temperature 2020-01-08 21:28:00 36.89 Deisy Univ ersity of [facility] Respiratory rate 2020-01-08 21:28:00 18 /min Univ ersity of [facility] Body height 2020-01-08 21:28:00 162.6 cm Universi ty of [facility] Body weight 2020-01-08 21:28:00 90.266 kg Universi ty of [facility] BMI 2020-01-08 21:28:00 34.16 kg/m2 Universi ty of [facility] Systolic blood 2019-12-11 20:34:00 117 mm[Hg] Univer sity of pressure [facility] Diastolic blood 2019-12-11 20:34:00 74 mm[Hg] Unive rsity of pressure [facility] Heart rate 2019-12-11 20:34:00 71 /min Universi ty of [facility] Body temperature 2019-12-11 20:34:00 36.83 Deisy Univ ersity of [facility] Respiratory rate 2019-12-11 20:34:00 18 /min Univ ersity of [facility] Body height 2019-12-11 20:34:00 162.6 cm Universi ty of [facility] Body weight 2019-12-11 20:34:00 90.266 kg [facility] System BMI 2019-12-11 20:34:00 34.16 kg/m2 [facility] Systolic blood 2019-11-20 20:57:00 109 mm[Hg] Univer sity of [facility] Diastolic blood 2019-11-20 20:57:00 73 mm[Hg] Unive rsity of [facility] Heart rate 2019-11-20 20:57:00 72 /min [facility] Body temperature 2019-11-20 20:57:00 37.11 Deisy Univ ers[facility] Respiratory rate 2019-11-20 20:57:00 18 /min Univ [facility] Body height 2019-11-20 20:57:00 162.6 cm [facility] Body weight 2019-11-20 20:57:00 87.363 kg [facility] BMI 2019-11-20 20:57:00 33.06 kg/m2 [facility] Respiratory rate 2019-10-25 19:15:00 18 /min Univ ersity of [facility] Systolic blood 2019-10-25 13:05:00 123 mm[Hg] Univer sity of [facility] Diastolic blood 2019-10-25 13:05:00 83 mm[Hg] Unive rsity of [facility] Heart rate 2019-10-25 13:05:00 87 /min [facility] [place] Body temperature 2019-10-25 13:05:00 36.67 Deisy Univ [facility] Oxygen saturation in 2019-10-25 13:05:00 100 /min University Arterial blood by [facility] Pulse oximetry Branch Body height 2019-10-24 09:25:00 162.6 cm [facility] Body weight 2019-10-24 09:25:00 93.441 kg [facility] BMI 2019-10-24 09:25:00 35.36 kg/m2 [facility] Systolic blood 2019-10-17 14:02:00 119 mm[Hg] Univer [facility] Diastolic blood 2019-10-17 14:02:00 75 mm[Hg] Unive rsity of [facility] Heart rate 2019-10-17 14:02:00 84 /min [facility] Body temperature 2019-10-17 14:02:00 36.83 Deisy Univ [facility] Respiratory rate 2019-10-17 14:02:00 18 /min Univ [facility] Body height 2019-10-17 14:02:00 162.6 cm [facility] Body weight 2019-10-17 14:02:00 93.441 kg [facility] BMI 2019-10-17 14:02:00 35.36 kg/m2 [facility] Systolic blood 2019-10-10 15:06:00 116 mm[Hg] [facility]iver [facility] Diastolic blood 2019-10-10 15:06:00 78 mm[Hg] Unive rsity of [facility] Heart rate 2019-10-10 15:06:00 85 /min [facility] Body temperature 2019-10-10 15:06:00 36.94 Deisy Univ [facility] Respiratory rate 2019-10-10 15:06:00 18 /min Univ [facility] Body height 2019-10-10 15:06:00 162.6 cm [facility] Body weight 2019-10-10 15:06:00 93.078 kg [facility] BMI 2019-10-10 15:06:00 35.22 kg/m2 [facility] Systolic blood 2019-10-03 21:11:00 115 mm[Hg] [facility] Diastolic blood 2019-10-03 21:11:00 74 mm[Hg] Unive rs[facility] of [facility] Heart rate 2019-10-03 21:11:00 91 /min [facility] Body temperature 2019-10-03 21:11:00 36.72 Deisy Univ [facility] Respiratory rate 2019-10-03 21:11:00 18 /min Univ [facility] Body weight 2019-10-03 21:11:00 91.808 kg [facility] BMI 2019-10-03 21:11:00 34.74 kg/m2 [facility] Systolic blood 2019-09-15 21:17:00 118 mm[Hg] Univer [facility] Diastolic blood 2019-09-15 21:17:00 72 mm[Hg] Unive rsity of [facility] Heart rate 2019-09-15 21:17:00 64 /min [facility] Body temperature 2019-09-15 21:17:00 37.06 Deisy [facility] ersity of [facility] Respiratory rate 2019-09-15 21:17:00 18 /min Univ [facility] Body height 2019-09-15 21:17:00 162.6 cm [facility] Body weight 2019-09-15 21:17:00 89.812 kg [facility] BMI 2019-09-15 21:17:00 33.99 kg/m2 [facility] Systolic blood 2019-08-04 15:38:00 114 mm[Hg] [facility] Diastolic blood 2019-08-04 15:38:00 74 mm[Hg] Unive rsity of [facility] Heart rate 2019-08-04 15:38:00 92 /min [facility] Body temperature 2019-08-04 15:38:00 36.83 Deisy [facility] Res[facility] rate 2019-08-04 15:38:00 18 /min [facility] ersity of [facility] Body height 2019-08-04 15:38:00 162.6 cm [facility] Body weight 2019-08-04 15:38:00 87.091 kg [facility] BMI 2019-08-04 15:38:00 32.96 kg/m2 [facility] Procedures Procedure Date / Time Performing Clinician Source Performed DISCLOSURE AND CONSENT, 2021-12-02 05:01:00 Doctor Unassigned, U [facility] MEDICAL AND SURGICAL [facility] PROCEDURES POCT TEST 2021-12-02 00:00:00 Landon Domínguez [facility] DISCLOSURE AND CONSENT, 2019-12-11 05:01:00 [facility] PROCEDURES POCT TEST 2019-12-11 00:00:00 Landon Domínguez [facility] CBC WITH DIFF 2019-10-25 08:36:00 Landon Dom[place]nguez [place] [facility] VENOUS CORD GAS 2019-10-24 14:20:00 Domínguez, [facility] CBC WITH DIFF 2019-10-24 09:11:00 Ron [facility] HEPATITIS B SURFACE 2019-10-24 09:11:00 [facility] ANTIGEN Medical Branch ADC OR NANI ONLY - RPR 2019-10-24 09:11:00 Arleth Velasquez Un [facility] HIV 1/2 AG-AB WITH REFLEX 2019-10-24 09:11:00 Arleth Velasquez Un [facility] COVID-19 (ID NOW RAPID 2019-10-24 09:11:00 Arleth Velasquez [facility] TESTING) Medical Branch HB ABO GROUPING 2019-10-24 09:10:00 Ron [facility] RHO (D) IMMUNE GLOBULIN 2019-10-24 09:10:00 Sang [facility] NOTICE OF PRIVACY 2019-10-24 08:36:07 Doctor Unassigned, [facility] PRACTICES [facility] CONSENT/REFUSAL FOR 2019-10-24 08:33:33 Doctor Unassigned, [facility] DIAGNOSIS AND TREATMENT [facility] ASSIGNMENT OF BENEFITS 2019-10-24 08:33:13 Doctor Unassigned, [facility] POCT URINALYSIS W/O 2019-10-17 00:00:00 [facility]iv[facility] SPECIFIC GRAVITY Medical Branch POCT URINALYSIS W/O 2019-10-10 15:08:[address] [facility] SPECIFIC GRAVITY Medical Branch 3 HR GLUCOSE TOLERANCE 2019-10-09 17:12:00 [facility] 2 HR GLUCOSE TOLERANCE 2019-10-09 16:05:00 [facility] TEST [facility] 1 HR GLUCOSE TOLERANCE 2019-10-09 15:00:00 Sang [facility] TEST [facility] GLUCOSE FASTING 2019-10-09 14:02:00 Sang [facility] CBC WITH DIFF 2019-10-09 14:02:00 Joce [facility] GLUCOSE FASTING 2019-10-09 14:02:00 Doímnguez, [facility] >14 WEEKS US 2019-10-03 21:43:13 Shivani Hobson [facility] LIMITED [facility] POCT URINALYSIS W/O 2019-10-03 21:35:00 [facility] SPECIFIC GRAVITY [facility] DSU PRE-OP 2019-10-03 05:01:00 Doctor Higuera [facility] POCT HEMOGLOBIN A1C TEST 2019-10-03 00:00:00 Shivani Hobson [facility] POCT URINALYSIS W/O 2019-09-15 00:00:00 Landon Domínguez [facility] SPECIFIC GRAVITY [facility] TDAP (ADACEL) 2019-08-04 16:00:53 Landon Domínguez [facility] IMMUNIZATION [facility] POCT URINALYSIS W/O 2019-08-04 00:00:00 Landon Domínguez [facility] SPECIFIC GRAVITY [facility] SCANNED LAB RESULTS 2019-07-24 05:01:00 [facility] SCANNED LAB RESULTS 2019-07-07 05:01:00 Doctor Suttoncecil [facility] Name [facility] AGREEMENTS AUTHORIZATIONS 2019-06-18 05:01:00 Doctor Higuera [facility] AND IRREVOCABLE [place] [facility] ASSIGNMENTS (FORM 2001) Encounters Start End Encounter Admission Attending Care Care Encounter Source Date/Time Date/Time Type Type Clinicians Facility Department ID 2020-12-24 Outpatient [facility] NANNETTE [id number] Univers 14:37:30 ity [facility] 2021-12-05 2021-12-05 Case Joce [facility] [id number] Univers 00:00:00 00:00:00 Management Shivani VENTURA 350.1.13.10 ity jack [place] 4.2.7.2.686 Snehal HARMON [phone] [address] 2021-12-02 2021-12-02 Outpatient R LANDON DOMÍNGUEZ [facility] [id number] Univers 13:30:00 14:30:59 ity [facility] 2021-12-02 2021-12-02 [facility] 1.2.840.114 [id number] Univers 13:30:00 14:00:00 Visit Hang FRANKLIN 350.1.13.10 it y of [place] [phone] [facility] 134 Branch 2021-12-02 2021-12-02 Orders Doctor DEONDRE 1.2.840.114 [id number] Univers 00:00:00 00:00:00 Only Unassigned, RACHELLE 350.1.13.10 ity of [place] [facility] 4.2.7.2.686 [place] [phone] [facility] 009 Branch 2020-12-28 2020-12-28 Outpatient R [facility] [id number] Univers 13:30:00 13:30:00 ity [facility] 2020-07-07 2020-07-07 Outpatient [facility] [id number] Univers 09:30:00 09:30:00 ity [facility] 2020-05-26 2020-05-26 Outpatient GUU_SHENG_Y [facility] [id number] [place] 05:14:00 05:14[place]00 [place] [id number] [facility] 2020-01-08 2020-01-08 Office [facility] [id number] Univers 15:04:40 15:34:40 Visit Hang [place] 350.1.13.10 i [place] [phone] [address] 2020-01-08 2020-01-08 Outpatient [facility] [id number] Univers 15:00:00 15:00:00 ity [facility] 2019-12-11 2019-12-11 Office Sang [facility] [id number] Univers 15:06:04 16:09:16 Visit Hang [place] 350.1.13.10 [place] [phone] Md [address] 2019-12-11 2019-12-11 Outpatient R LANDON DOMÍNGUEZ [facility] [id number] Univers 15:00:00 15:00:00 ity of [facility] 2019-12-11 2019-12-11 Orders Doctor DEONDRE 1.2.840.114 [id number] Univers 00:00:00 00:00:00 Only Unassigned, RACHELLE 350.1.13.10 ity of [place] [facility] 4.2.7.2.686 [place] [phone] [facility] 009 [place] 2019-11-20 2019-11-20 [facility] [id number] Univers 15:38:58 16:14:30 Hang [place] 350.1.13.10 ity of [place] [facility] [phone] [address] 2019-11-20 2019-11-20 Outpatient R [facility] [id number] Univers 15:30:00 15:30:00 ity of [facility] 2019-11-13 2019-11-13 Outpatient R [facility] [id number] Univers 15:30:00 15:30:00 ity of [facility] 2019-10-27 2019-10-27 Outpatient R [facility] [id number] Univers 09:00:00 09:00:00 ity of [facility] 2019-10-24 2019-10-25 Hospital Landon Domínguez [facility] 1.2.840.114 [id number] Univers 03:33:00 14:45:00 Encounter Arleth Velasquez 350.1.13.10 it[place] of [place] [phone] [facility] 083 [place] 2019-10-24 2019-10-24 Outpatient R [facility] [id number] Univers 09:00:00 09:00:00 ity of [facility] 2019-10-17 2019-10-17 Routine Joce [facility] [id number] Univers 08:54:41 09:09:41 Shivani [place] 350.1.13.10 [place] [phone] Md dical nal 134 [facility] 2019-10-17 2019-10-17 Outpatient R JOCE [facility] [id number] Univers 09:00:00 09:00:00 SHIVANI ity of [facility] 2019-10-10 2019-10-10 Routine Landon Domínguez [facility] 1.2.486.161 [id number] Univers 09:54:20 10:49:54 Cam Yun 350.1.13.10 it[place] [phone] Md dical nal [address] [place] [address] 2019-10-10 2019-10-10 Outpatient R SANG LANDON [facility] [id number] Univers 10:00:00 10:00:00 ity of [facility] 2019-10-09 2019-10-09 Dryerman/Woman 2, Adc Lab [facility] 1.2.840.114 [id number] Univers 08:57:15 09:12:15 Visit Landon Domínguez Yun 350.1.13.10 it[place] [phone] Md dical [facility] 353 [facility] 2019-10-09 2019-10-09 Outpatient R LANDON DOMÍNGUEZ [facility] [id number] Univers 09:00:00 09:00:00 ity of [facility] 2019-10-08 2019-10-08 Outpatient R [facility] [id number] Univers 08:30:00 08:30:00 ity of [facility] 2019-10-03 2019-10-03 Routine Joce [facility] [id number] Univers 15:55:08 16:10:08 Shivani [place] 350.1.13.10 it[place] [phone] Md dical nal [address] [place] [address] 2019-10-03 2019-10-03 Outpatient R JOCE [facility] [id number] Univers 16:00:00 16:00:00 SHIVANI ity of [facility] 2019-10-03 2019-10-03 Orders Doctor DEONDRE 1.2.840.114 [id number] Univers 00:00:00 00:00:00 Only Unassigned, RACHELLE 350.1.13.10 ity of [place] [facility] 4.2.7.2.686 [place] [phone] [address] 2019-09-22 2019-09-22 Outpatient R [facility] [id number] Univers 08:30:00 08:30:00 ity of [facility] 2019-09-16 2019-09-16 Case Landon Domínguez [facility] [id number] Univers 00:00:00 00:00:00 Management Hang [place] 350.1.13.10 it[place] [phone] Md dical nal 134 [facility] 2019-09-15 2019-09-15 Routine Landon Domínguez [facility] 1.2.169.646 [id number] Univers 15:47:00 16:33:51 Hang [place] 350.1.13.10 it[place] of [place] [phone] Md dical nal 134 [facility] 2019-09-15 2019-09-15 Dryerman/Woman 2, Adc Lab [facility] 1.2.840.114 [id number] Univers 13:16:45 13:31:45 Visit Landon Domínguez Hang [place] 350.1.13.10 it[place] [phone] Md dical nal 353 [facility] 2019-09-15 2019-09-15 Outpatient R [facility] [id number] Univers 13:00:00 13:00:00 ity of [facility] 2019-09-01 2019-09-01 Outpatient R JOCE [facility] [id number] Univers 11:30:00 11:30:00 SHIVANI aguilar [facility] 2019-09-01 2019-09-01 Telemedici Joce [facility] 1.2.840.114 [id number] Univers 07:52:30 08:07:30 ne Visit Shivani [place] 350.1.13.10 [place] [phone] [address] 2019-08-12 2019-08-12 Telephone Joce [facility] 1.2.840.114 [id number] Univers 00:00:00 00:00:00 Shivani [place] 350.1.13.10 i ty [place] [phone] [address] 2019-08-04 2019-08-04 Routine Sang [facility] [id number] Univers 10:26:46 11:59:45 Hang Yun 350.1.13.10 [place] [phone] [address] 2019-08-04 2019-08-04 Outpatient R SANG LANDON [facility] [id number] Univers 10:30:00 10:30:00 ity [facility] 2019-07-29 2019-07-29 Outpatient P [facility] [id number] Univers 10:30:00 10:30:00 ity [facility] 2019-07-28 2019-07-28 Telemedici Consults, Rmchp Ang Pn Gene tic [facility] 1.2.840.114 [id number] Univers 07:55:28 17:00:39 ne Visit Rommel Hernandez 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 350.1.13.10 ity of REGIONAL 4.2.7.2.686 [place] MATERNAL [phone] Med ical & CHILD [address] [place] [address] 2019-07-28 2019-07-28 Outpatient R ROMMEL HERNANDEZ [facility] [id number] Univers 09:30:00 09:30:00 ity [facility] 2019-07-24 2019-07-24 Outpatient R SANG LANDON [facility] [id number] Univers 14:00:00 14:00:00 ity [facility] 2019-07-24 2019-07-24 Telemedici Sang [facility] 1.2.840.114 [id number] Univers 08:03:52 08:18:52 ne Visit Cam Grisw[place] 350.1.13.10 [place] [phone] Md dical nal 134 [facility] 2019-07-24 2019-07-24 Orders Doctor DEONDRE 1.2.840.114 [id number] Univers 00:00:00 00:00:00 Only Unassigned, RACHELLE 350.1.13.10 ity of [place] [facility] 4.2.7.2.686 [place] [phone] [address] 2019-07-22 2019-07-22 Telephone Landon Domínguez [facility] 1.2.840.114 [id number] Univers 00:00:00 00:00:00 Cam [place] 350.1.13.10 i ty [place] [phone] Md dical nal 134 [facility] 2019-07-18 2019-07-18 Telephone Landon Domínguez [facility] 1.2.840.114 [id number] Univers 00:00:00 00:00:00 Cam [place] 350.1.13.10 i ty of [place] [phone] Md dical nal 134 [facility] 2019-07-16 2019-07-16 Telephone Landon Domínguez INNIKHIL 1.2.840.114 [id number] Univers 00:00:00 00:00:00 Cam [facility] 350.1.13.10 it y of [place] 4.2.7.2.686 [place] Professio [phone] Md dical nal 0[address] [facility] 2019-07-14 2019-07-14 Telephone Landon Domínguez [facility] 1.2.840.114 [id number] Univers 00:00:00 00:00:00 Cam [place] 350.1.13.10 i ty [place] [phone] Md dical nal 134 [facility] 2019-07-07 2019-07-07 Orders Doctor DEONDRE 1.2.840.114 [id number] Univers 00:00:00 00:00:00 Only Unassigned, RACHELLE 350.1.13.10 ity of [place] [facility] 4.2.7.2.686 [place] [phone] [address] 2019-07-04 2019-07-04 Outpatient R [facility] [id number] Univers 15:15:00 15:15:00 ity of [facility] 2019-07-03 2019-07-03 Outpatient R LANDON DOMÍNGUEZ [facility] [id number] Univers 16:15:00 16:15:00 ity of [facility] 2019-07-03 2019-07-03 Telemedici Shivani Hobson [facility] 1.2.840 .114 [id number] Univers 08:03:54 08:18:54 ne Visit Landon Domínguez [place] 350.1.13.10 it[place] of [place] [phone] Md dical nal 134 [facility] 2019-06-18 2019-06-18 Dryerman/Woman Ultrasound, [facility] 1.2 .840.114 [id number] Univers 14:18:50 15:12:47 Visit Landon Domínguez 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 350.1.13.10 ity of Sidney Castillo [facility] 4.2.7.2.686 [place] MATERNAL [phone] Med ical & CHILD [address] [place] [address] 2019-06-18 2019-06-18 Dryerman/Woman 2, Adc Lab [facility] 1.2.840.114 [id number] Univers 13:08:11 13:23:11 Visit Landon Domínguez [place] 350.1.13.10 ity of [place] [phone] Md dical nal 353 [facility] 2019-06-18 2019-06-18 Outpatient R LANDON DOMÍNGUEZ [facility] [id number] Univers 13:00:00 13:00:00 ity of [facility] 2019-06-18 2019-06-18 Orders Doctor MENDOSA 1.2.840.114 [id number] Univers 00:00:00 00:00:00 Only Unassigned, RACHELLE 350.1.13.10 ity of [place] [facility] 4.2.7.2.686 [place] [phone] [address] Results Test Description Test Time Test Comments Results Result Comments Source POCT TEST 2021-12-02 19:14:00 Test Item Value Reference Range Interpretation Comme nts POCT PREG (test code = 1605) Negative On board controls acceptable with C Line (test code = 3574) Yes POCT PREG LOT # (test code = 3575) POCT PREG TEST DATE (test code = 3576) [facility] [id number] 19:14:00 Test Item Value Reference Range Interpretation Comments POCT PREG (test code = 1605) Negative On board controls acceptable with C Yes Line (test code = 3574) POCT PREG LOT # (test code = 3575) POCT PREG TEST DATE (test code = 3576) [facility] [id number] 20:50:00 Test Item Value Reference Range Interpretation Comments POCT PREG (test code = 1605) Negative On board controls acceptable with C Yes Line (test code = 3574) POCT PREG LOT # (test code = 3575) POCT PREG TEST DATE (test code = 3576) [facility] [id number] 20:50:00 Test Item Value Reference Range Interpretation Comments POCT PREG (test code = 1605) Negative On board controls acceptable with C Yes Line (test code = 3574) POCT PREG LOT # (test code = 3575) POCT PREG TEST DATE (test code = 3576) [facility] with [id number] 09:39:00 Test Item Value Reference Range Interpretation Comments WBC (test code = See_Comment [Automated 9490-2) message] The sy stem which generated this result transmitted reference range : 4.30 - 11.10 10*3/?L. The reference range was not used to interpret this result as normal/abnormal . RBC (test code = See_Comment L [Automated 167-8) message] The sy stem which generated this [...] RDW-SD (test code = 46.3 fL 39-49.9 83244-9) RDW-CV (test code = 13.3 % 12-15.5 788-0) PLT (test code = See_Comment [Automated 777-3) message] The sy stem which generated this result transmitted reference range : 166 - 358 10*3/ ?L. The reference r saira was not used to interpret this result as normal/abnormal . MPV (test code = 9.7 fL 9.5-12.9 22931-9) NRBC/100 WBC (test See_Comment [Automat ed code = 6788538112) message] The system which generated this result transmitted reference range : 0.0 - 10.0 /100 WBCs. The refer ence range was not u sed to interpret th is result as normal/abnormal . NRBC x10^3 (test code <0.01 See_Comment [Auto mated = 3508698843) message] The s ystem which generated this result transmitted reference range : 10*3/?L. The reference range was not used to interpret this result as normal/abnormal . GRAN MAT (NEUT) % 67.7 % (test code = 770-8) IMM GRAN % (test code 0.70 % = 0620406002) LYMPH % (test code = 23.3 % 736-9) MONO % (test code = 7.1 % 5905-5) EOS % (test code = 0.8 % 713-8) BASO % (test code = 0.4 % 706-2) GRAN MAT x10^3(ANC) 7.43 10*3/uL 1.88-7.09 H (test code = 3115385315) IMM GRAN x10^3 (test 0.08 10*3/uL 0-0.06 H code = 7323293982) LYMPH x10^3 (test code 2.56 10*3/uL 1.32-3.29 = 731-0) MONO x10^3 (test code 0.78 10*3/uL 0.33-0.92 = 742-7) EOS x10^3 (test code = 0.09 10*3/uL 0.03-0.39 711-2) BASO x10^3 (test code 0.04 10*3/uL 0.01-0.07 = 704-7) Lab Interpretation Abnormal (test code = 02610-4) [facility] NANI ONLY - [id number] 03:09:00 Test Item Value Reference Range Interpretation Comments RPR (Qualitative) (test code = Nonreactive Nonreactive 49146-5) Lab Interpretation (test code = Normal 04067-8) [facility] TexasR[facility] (D) IMMUNE [id number] 22:52:21 Test Item Value Reference Range Interpretation Comments RHIG CANDIDATE? No- see comment Patient i s not a (test code = candidate for R hIg- 5055) Patient is Rh Positive.Perfor med at [facility] Laboratory Services - [facility] Blood [address] [place], [place] [id number] Free: [phone] A No. [id number] [facility] TexasHepatitis B Surface [id number] 15:34:00 Test Item Value Reference Range Interpretation Comments HBsAg Semi-Quantitative (test code = Negative Negative 5195-3) [facility] TexasVENOUS CORD [id number] 14:31:00 Test Item Value Reference Range Interpretation Comments VENOUS BASE EXCESS, mEq/L CORD (test code = 6972154837) VENOUS PH, CORD (test 7.25-7.45 code = 5272606533) VENOUS PC02, CORD See_Comment [Automate d message] The (test code = system which ge nerated 7684568361) this result tra nsmitted reference range : 27 - 49 mmHg. The refer ence range was not used to interpret this result as normal/abnormal . VENOUS PO2, CORD (test See_Comment [Aut omated message] The code = 0222022279) system wh ich generated this result tra nsmitted reference range : 17 - 41 mmHg. The refer ence range was not used to interpret this result as normal/abnormal . VENOUS BICARBONATE, See_Comment [Automa josue message] The CORD (test code = system wh ch generated 0497294725) this result tra nsmitted reference range : 12 - 29 mEq/L. The refe rence range was not used to interpret this result as normal/abnormal . [facility] TexasARTERIAL CORD [id number] 14:28:00 Test Item Value Reference Range Interpretation Comments BASE EXCESS, CORD mEq/L (test code = 1598594978) AC PH, CORD (BEAKER) 7.18-7.38 (test code = 3996890110) PC02, CORD (test code See_Comment [Auto mated message] The = 8910239163) system which g enerated this result transmit josue reference range : 32 - 66 mmHg. The refer ence range was not used to interpret this result as normal/abnormal . PO2, CORD (test code See_Comment [Autom ated message] The = 6803451900) system which g enerated this result transmit josue reference range : 10 - 30 mmHg. The refer ence range was not used to interpret this result as normal/abnormal . BICARBONATE, CORD See_Comment [Automate d message] The (test code = system which ge nerated this 5455325936) result transmit josue reference range : 17 - 27 mEq/L. The refe rence range was not used to interpret this result as normal/abnormal . [facility] TexasHIV 1/2 AG-AB WITH [id number] 10:27:00 Test Item Value Reference Range Interpretation Comments HIV Negative Negative Semi-quantitative (test code = 42842-6) IBETH (test code = Non-reactive for HIV-1 IBETH) antigen and HIV-1/HIV-2 antibodies. ?No laboratory evidence of HIV infection. ?Repeat in 2-4 weeks if acute HIV infection is suspected. [facility] TexasType and Screen - ONCE [id number] 10:02:48 Test Item Value Reference Range Interpretation Comments ABO & RH (test code O Positive Performe d at [facility] = 20) Laboratory Serv [facility] [place] [phone] Free: [phone] A No. [id number] IAT (test code = Negative Performed a t [facility] 1185) Laboratory Serv [facility] [place] [phone] Free: [phone] A No. [id number] [facility] TexasCOVID-19 (ID NOW RAPID TESTING)2019-10-24 09:50:00 Test Item Value Reference Range Interpretation Comments SARS-CoV-2 Rapid ID NOW Positive Not Detected A (test code = 05384-3) IBETH (test code = IBETH) ID NOW COVID-19 Assay is an isothermal nucleic acid amplification test intended for the qualitative detection of nucleic acid from SARS-CoV-2 viral RNA in nasopharyngeal (RUSH SEATER) specimens. It is used under Emergency Use [...] indicated. Lab Interpretation Abnormal (test code = 70987-5) [facility] TexasCB with [id number] 09:33:00 Test Item Value Reference Range Interpretation Comments WBC (test code = See_Comment H [Automated 0819-2) message] The sy stem which generated this result transmitted reference range : 4.30 - 11.10 10*3/?L. The reference range was not used to interpret this result as normal/abnormal . RBC (test code = See_Comment L [Automated 999-8) message] The sy stem which generated this [...] RDW-SD (test code = 42.7 fL 39-49.9 53576-3) RDW-CV (test code = 12.9 % 12-15.5 788-0) PLT (test code = See_Comment [Automated 777-3) message] The sy stem which generated this result transmitted reference range : 166 - 358 10*3/ ?L. The reference r saira was not used to interpret this result as normal/abnormal . MPV (test code = 9.6 fL 9.5-12.9 01902-8) NRBC/100 WBC (test See_Comment [Automat ed code = 7801023435) message] The system which generated this result transmitted reference range : 0.0 - 10.0 /100 WBCs. The refer ence range was not u sed to interpret th is result as normal/abnormal . NRBC x10^3 (test code <0.01 See_Comment [Auto mated = 8749657900) message] The s ystem which generated this result transmitted reference range : 10*3/?L. The reference range was not used to interpret this result as normal/abnormal . GRAN MAT (NEUT) % 72.0 % (test code = 770-8) IMM GRAN % (test code 0.70 % = 3378883725) LYMPH % (test code = 20.8 % 736-9) MONO % (test code = 5.7 % 5905-5) EOS % (test code = 0.5 % 713-8) BASO % (test code = 0.3 % 706-2) GRAN MAT x10^3(ANC) 8.70 10*3/uL 1.88-7.09 H (test code = 0902520671) IMM GRAN x10^3 (test 0.08 10*3/uL 0-0.06 H code = 5773311005) LYMPH x10^3 (test code 2.52 10*3/uL 1.32-3.29 = 731-0) MONO x10^3 (test code 0.69 10*3/uL 0.33-0.92 = 742-7) EOS x10^3 (test code = 0.06 10*3/uL 0.03-0.39 711-2) BASO x10^3 (test code 0.04 10*3/uL 0.01-0.07 = 704-7) Lab Interpretation Abnormal (test code = 40584-0) [facility] URINALYSIS W/O SPECIFIC [id number] 14:04:00 Test Item Value Reference Range Interpretation [...] code = 3257) n/a Negative - Negative [facility] URINALYSIS W/O SPECIFIC [id number] 15:08:00 Test Item Value Reference Range Interpretation [...] code = 3257) n/a Negative - Negative [facility] URINALYSIS W/O SPECIFIC [id number] 15:08:00 Test Item Value Reference Range Interpretation [...] code = 3257) n/a Negative - Negative [facility]3 HR GLUCOSE TOLERANCE [id number] 18:00:00 Test Item Value Reference Range Interpretation Comments GLUC 3 HR (test code = 8088194791) 103 mg/dL 70-110 Lab Interpretation (test code = Normal 22111-7) [facility] TexasGLUCOSE [id number] 17:52:00 Test Item Value Reference Range Interpretation Comments GLU FASTNG (test code = 9332799378) 86 mg/dL 70-110 Lab Interpretation (test code = Normal 21157-4) [facility]1 HR GLUCOSE TOLERANCE [id number] 17:48:00 Test Item Value Reference Range Interpretation Comments GLUC 1 HR (test code = 4265255332) 131 mg/dL 120-170 Lab Interpretation (test code = Normal 69276-8) [facility]2 HR GLUCOSE TOLERANCE [id number] 17:48:00 Test Item Value Reference Range Interpretation Comments GLUC 2 HR (test code = 2075915827) 171 mg/dL 70-120 H Lab Interpretation (test code = Abnormal 49667-4) [facility] TexasCBC WITH [id number] 17:33:00 Test Item Value Reference Range Interpretation Comments WBC (test code = See_Comment [Automated 1190-2) message] The sy stem which generated this result transmitted reference range : 4.30 - 11.10 10*3/?L. The reference range was not used to interpret this result as normal/abnormal . RBC (test code = See_Comment L [Automated 973-8) message] The sy stem which generated this [...] RDW-SD (test code = 43.9 fL 39-49.9 18270-5) RDW-CV (test code = 12.9 % 12-15.5 788-0) PLT (test code = See_Comment [Automated 777-3) message] The sy stem which generated this result transmitted reference range : 166 - 358 10*3/ ?L. The reference r saira was not used to interpret this result as normal/abnormal . MPV (test code = 9.8 fL 9.5-12.9 44413-5) NRBC/100 WBC (test See_Comment [Automat ed code = 1684688351) message] The system which generated this result transmitted reference range : 0.0 - 10.0 /100 WBCs. The refer ence range was not u sed to interpret th is result as normal/abnormal . NRBC x10^3 (test code <0.01 See_Comment [Auto mated = 8178157366) message] The s ystem which generated this result transmitted reference range : 10*3/?L. The reference range was not used to interpret this result as normal/abnormal . GRAN MAT (NEUT) % 62.3 % (test code = 770-8) IMM GRAN % (test code 0.70 % = 1708588853) LYMPH % (test code = 29.9 % 736-9) MONO % (test code = 6.0 % 5905-5) EOS % (test code = 0.5 % 713-8) BASO % (test code = 0.6 % 706-2) GRAN MAT x10^3(ANC) 5.49 10*3/uL 1.88-7.09 (test code = 1106171028) IMM GRAN x10^3 (test 0.06 10*3/uL 0-0.06 code = 4388297758) LYMPH x10^3 (test code 2.63 10*3/uL 1.32-3.29 = 731-0) MONO x10^3 (test code 0.53 10*3/uL 0.33-0.92 = 742-7) EOS x10^3 (test code = 0.04 10*3/uL 0.03-0.39 711-2) BASO x10^3 (test code 0.05 10*3/uL 0.01-0.07 = 704-7) Lab Interpretation Abnormal (test code = 69662-8) [facility] HEMOGLOBIN A1C [id number] 21:58:00 Test Item Value Reference Range Interpretation Comments POCT HBA1C (test code = 4548-4) 5.2 % 4-6 [facility] HEMOGLOBIN A1C [id number] 21:58:00 Test Item Value Reference Range Interpretation Comments POCT HBA1C (test code = 4548-4) 5.2 % 4-6 [facility]>14 WEEKS US [id number] 21:43:38Cephalic presentationUn[facility]>14 WEEKS US [id number] 21:43:38[facility]phal[facility]Un[facility] URINALYSIS W/O SPECIFIC [id number] 21:35:00 Test Item Value Reference Range Interpretation [...] Negative Lab Interpretation (test code = Normal 95665-4) [facility] URINALYSIS W/O SPECIFIC [id number] 21:35:00 Test Item Value Reference Range Interpretation [...] Negative Lab Interpretation (test code = Normal 45428-4) [facility] URINALYSIS W/O SPECIFIC [id number] 21:23:00 Test Item Value Reference Range Interpretation [...] code = 3257) n/a Negative - Negative [facility] URINALYSIS W/O SPECIFIC [id number] 15:56:00 Test Item Value Reference Range Interpretation [...] code = 3257) N/A Negative - Negative [facility] URINALYSIS W/O SPECIFIC [id number] 15:56:00 Test Item Value Reference Range Interpretation [...] code = 3257) N/A Negative - Negative [facility]
--- NOTE | 2022-12-18 23:36 | EDPHYS ---
Physician Documentation [facility] Name: Olga Wilkins Age: 27 yrs Sex: Female : 1995 Arrival Date: 12/18/2022 Time: 23:26 Bed Waiting Private MD: ED Physician Diego Sanchez HPI: 12/19 00:09 This 27 yrs old Female presents to ER via Ambulatory with complaints of BUMPS ON HANDS kb OR FEET. 00:09 Patient is a 27-year-old female with a history of depression who presents for sore kb throat that started yesterday and is better today with rash to hands and feet that started today. 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 Denies fever.. 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 - Social history:: Smoking status: Patient denies any tobacco usage or history of. ROS: 12/19 00:08 Constitutional: Negative for fever, chills, and weight loss, kb ENT: Positive for sore throat, Skin: Positive for rash, of the right hand, left hand, right foot and left foot, All other systems are negative, Exam: 00:08 Constitutional: This is a well developed, well nourished patient who is awake, alert, kb and in no acute distress. Head/Face: Normocephalic, atraumatic. Cardiovascular: Regular rate Respiratory: Respirations even and unlabored. No increased work of breathing. Talking in full sentences MS/ Extremity: Pulses equal, no cyanosis. Neurovascular intact. Full, normal range of motion. Neuro: Awake and alert, GCS 15, oriented to person, place, time, and situation. Moves all extremities. Normal gait. 00:08 ENT: Mouth: Oral mucosa: noted to have ulceration(s), 00:08 Skin: consistent with hand, foot and mouth, on the left foot and right foot and left hand and right hand, Vital Signs: 12/18 23:33 BP 123 / 88; Pulse 93; Resp 18; Temp 97.6(TE); Pulse Ox 99% on R/A; Weight 70.31 kg; cm10 Height 5 ft. 3 in. ; Pain 0/10; 23:33 Body Mass Index 27.46 (70.31 kg, 160.02 cm) cm10 23:33 Pain Scale: Adult cm10 MDM: 23:29 Patient medically screened. kb 12/19 00:09 Differential diagnosis: hand, foot and mouth, flu, strep, pharyngitis, tonsillitis. kb Data reviewed: vital signs, nurses notes. Counseling: I had a detailed discussion with the patient and/or guardian regarding the historical points, exam findings, and any diagnostic results supporting the discharge/admit diagnosis, the need for outpatient follow up, a family practitioner, to return to the emergency department if symptoms worsen or persist or if there are any questions or concerns that arise at home. Administered Medications: No medications were administered Disposition: 02:46 Co-signature as Attending Physician, Diego Sanchez MD I agree with the assessment sp4 and plan of care. I reviewed the patient's care provided by the Advanced Practice Provider and agree with the diagnosis and treatment plan. Disposition Summary: 12/18/22 23:35 Discharge Ordered Notes: Location: Home kb Condition: Stable kb Diagnosis - Enteroviral vesicular stomatitis with exanthem kb Followup: kb - With: Emergency Department - When: As needed - Reason: Worsening of condition Followup: kb - With: Private Physician - When: 2 - 3 days - Reason: Recheck today's complaints, Continuance of care, Re-evaluation by your physician Discharge Instructions: - Discharge Summary Sheet kb - Hand, Foot, and Mouth Disease, Adult kb Forms: - Work release form kb - Medication Reconciliation Form kb - Thank You Letter kb - Antibiotic Education kb - Prescription Opioid Use kb - Patient Portal Instructions kb - Leadership Thank You Letter kb Signatures: Cony Carrasco FNP-C FNP-Diego Sams MD MD sp4 Radha Martinez, RN RN cm10
--- NOTE | 2022-12-18 23:36 | ER ---
Nurse's Notes [facility] Name: Olga Wilkins Age: 27 yrs Sex: Female : 1995 Arrival Date: 12/18/2022 Time: 23:26 Bed Waiting Private MD: Diagnosis: Enteroviral vesicular stomatitis with exanthem Presentation: 12/18 23:33 Chief complaint: Patient states: has bumps on hands, feet and mouth. 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 Coronavirus screen: Vaccine status: Patient reports being unvaccinated. Client denies travel out of the [place] in the last 14 days. Ebola Screen: Patient denies travel to an Ebola-affected area in the 21 days before illness onset. No symptoms or risks identified at this time. Initial Sepsis Screen: Does the patient meet any 2 criteria? No. Patient's initial sepsis screen is negative. Does the patient have a suspected source of infection? No. Patient's initial sepsis screen is negative. Risk Assessment: Do you want to hurt yourself or someone else? Patient reports no desire to harm self or others. Onset of symptoms was December 18, 2022. 23:33 Method Of Arrival: Ambulatory cm10 23:33 Acuity: REBEKAH 4 cm10 Triage Assessment: 23:35 General: Appears in no apparent distress. comfortable, Behavior is calm, cooperative. cm10 Pain: Denies pain. EENT: No deficits noted. No signs and/or symptoms were reported regarding the EENT system. Neuro: No deficits noted. Blum Agitation-Sedation Scale (RASS): 0 - Alert and Calm Level of Consciousness is awake, alert, obeys commands, Oriented to person, place, time, situation. Cardiovascular: No deficits noted. Patient's skin is warm and dry. Respiratory: No deficits noted. Airway is patent Respiratory effort is even, unlabored, Respiratory pattern is regular, symmetrical. GI: No deficits noted. No signs and/or symptoms were reported involving the gastrointestinal system. : No deficits noted. No signs and/or symptoms were reported regarding the genitourinary system. Derm: No deficits noted. No signs and/or symptoms reported regarding the dermatologic system. Skin is intact, Skin is pink, warm \T\ dry. Musculoskeletal: No deficits noted. No signs and/or symptoms reported regarding the musculoskeletal system. Range of motion: intact in all extremities. 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 - Social history:: Smoking status: Patient denies any tobacco usage or history of. Screenin:36 [facility] ED Fall Risk Assessment (Adult) History of falling in the last 3 months, cm10 including since admission No falls in past 3 months (0 pts) Confusion or Disorientation No (0 pts) Intoxicated or Sedated No (0 pts) Impaired Gait No (0 pts) Mobility Assist Device Used No (0 pt) Altered Elimination No (0 pt) Score/Fall Risk Level 0 - 2 = Low Risk Oriented to surroundings, Maintained a safe environment, Hourly rounding (assess needs \T\ fall precautionary measures) done. Abuse screen: Denies threats or abuse. Denies injuries from another. Nutritional screening: No deficits noted. Tuberculosis screening: No symptoms or risk factors identified. Vital Signs: 23:33 BP 123 / 88; Pulse 93; Resp 18; Temp 97.6(TE); Pulse Ox 99% on R/A; Weight 70.31 kg; cm10 Height 5 ft. 3 in. ; Pain 0/10; 23:33 Body Mass Index 27.46 (70.31 kg, 160.02 cm) cm10 23:33 Pain Scale: Adult cm10 ED Course: 23:29 Patient arrived in ED. ag3 23:29 Cony Carrasco [facility]-C [facility] kb 23:29 Diego Sanchez MD is Attending Physician. kb 23:35 Triage completed. cm10 23:35 Arm band placed on Patient placed in waiting room. cm10 23:36 Patient has correct armband on for positive identification. Provided Education on: ER cm10 process and procedures. . 23:36 No provider procedures requiring assistance completed. Patient did not have IV access cm10 during this emergency room visit. Administered Medications: No medications were administered Medication: 23:36 VIS not applicable for this client. cm10 Outcome: 23:35 Discharge ordered by . kb 23:36 Discharged to home ambulatory, cm10 23:36 Condition: good 23:36 Discharge instructions given to patient, Instructed on discharge instructions, follow up and referral plans. Demonstrated understanding of instructions, follow-up care, 23:40 Patient left the ED. cm10 Signatures: Cony Carrasco FNP-C FNP-Sandra Hicks ag3 Radha Martinez, REBEKA RN cm10
== END 2022-12-18 23:40 | disposition home or self-care (01) ==
LOC: ER 23:26
DX: B08.4 Enteroviral vesicular stomatitis with exanthem (principal)
CPT/HCPCS: 99282

== ENCOUNTER → 2023-02-24 | Emergency (ER) | payer BC ==
[~2023-02-24] MED LIST: MORPHINE 4 MG/ML SYR ONE; ONDANSETRON 4 MG (ODT) TAB ONE
--- OUTSIDE RECORDS SUMMARY | 2023-02-24 14:56 | XMS REPORT | Continuity of Care Document ---
Author Name Unknown Address [address] [facility] [address] [place] [address] [facility] thconnect Address [address] [facility] [address] [place] [address] Care Team Providers Care Safety Consultant Name Role Phone RAJINDERNEFTALI PERICO A Primary Care Physician UnavaLANDON Colvin Attending Clinician Unavailable Shivani Hatch PA-C Attending Clinician [phone] Landon Domínguez MD Attending Clinician [phone] Doctor Unassigned, Radium Attending Clinician U navailable [email or web address] Attending Clinician Unavailable Arleth Velasquez MD Attending Clinician [phone] SHIVANI HATCH Attending Clinician Unavailable 2, [facility] Lab Attending Clinician Unavailable Consults, Rmchp Ang Pn Genetic Attending Clinici an Unavailable Rommel Hernandez MD Attending Clinician [phone] ROMMEL HERNANDEZ Attending Clinician Unavailable Ultrasound, Timigloria Attending Clinician UnavailSidney Groves MD Attending Clinician [phone] LANDON DOMÍNGUEZ Admitting Clinician Unavailable [email or web address] Admitting Clinician Unavailable Arleth Velasquez MD Admitting Clinician [phone] Payers Payer Name Policy Type Policy Number Effective Date Expirati on Date Source [facility] [id number] 2019 00:00:00 [facility] [id number] 2020 00:00:00 Problems Condition Name Condition Details Condition Category Status Onset Date Resolution Date Last Treatment Date Treating Clinician Comments Source Presence of 52 mg levonorges trel-relea sing intrauteri ne device (IUD) Presence of 52 mg levonorges trel-relea sing intrauteri ne device (IUD) Disease Active 2019-02 0-15 00:00: 00 [facility] Normal labor Normal labor Disease Active 8-28 00:00: 00 [facility] 39 weeks gestation of 39 weeks gestation of Disease Active 828 00:00: 00 [facility] Liveborn , of pyle , born in hospital by vaginal delivery Liveborn , of pyle , born in hospital by vaginal delivery Disease Active 8 00:00: 00 [facility] COVID-19 virus infection COVID-19 virus infection Disease Active 8 00:00: 00 [facility] Abnormal maternal glucose tolerance, antepartum Abnormal maternal glucose tolerance, antepartum Disease Active 814 00:00: 00 Last Assessmen t & Plan: 3 hr gtt wnl [facility] Positive GBS test Positive GBS test Disease Active 8-14 00:00: 00 [facility] Obesity (BMI 30-39.9) Obesity (BMI 30-39.9) Disease Active 6-08 00:00: 00 [facility] Gastroesop hageal reflux disease, esophagiti s presence not specified Gastroesop hageal reflux disease, esophagiti s presence not specified Disease Active 528 00:00: 00 [facility] Abnormal findings on screening Abnormal findings on screening Disease Active 5 00:00: 00 [facility] Supervisio n of high-risk with insufficie nt care in third trimester Supervisio n of high-risk with insufficie nt care in third trimester Disease Active 4-09 00:00: 00 [facility] Allergies, Adverse Reactions, Alerts Allergy Name Allergy Type Status Severity Reaction(s) Onset Date Inactive Date Treating Clinician Comments Source NO KNOWN ALLERGIE S Drug Class Active [facility] Social History Social Habit Start Date Stop Date Quantity Comments Source ASSERTION 2019-02-05 00:00:00 [facility] History SDOH Alcohol Binge [facility] History SDOH Alcohol Comment [facility] History of tobacco use Cigarette Smoker [facility] Exposure to SARS-CoV-2 (event) 2021-11-22 00:00:00 2021-12-02 13:21:00 Not sure [facility] Tobacco use and exposure 2021-12-02 00:00:00 2021-12-02 00:00:00 Smokeless tobacco non-user [facility] Cigarettes smoked current (pack per day) - Reported 2021-12-02 00:00:00 2021-12-02 00:00:00 [facility] Cigarette pack-years 2021-12-02 00:00:00 2021-12-02 00:00:00 [facility] Alcohol intake 2021-12-02 00:00:00 2021-12-02 00:00:00 Ex-drinker (finding) [facility] History SDOH Alcohol Std Drinks 2019-06-05 00:00:00 2019-06-05 00:00:00 2 [facility] History SDOH Alcohol Frequency 2019-06-05 00:00:00 2019-06-05 00:00:00 3 [facility] Sex Assigned At 1995 00:00:00 1995 00:00:00 [facility] Smoking Status Start Date Stop Date Source Ex-smoker 2021-12-02 00:00:00 2021-12-02 [facility]:00[facility] Medications Ordered Medication Name Filled Medication Name Start Date Stop Date Current Medication? Ordering Clinician Indication Dosage Frequency Signature (SIG) Comments Components Source metroNIDAZO LE 500 mg tablet 2021-02 00:00: 00 Yes [id number] 500mg Take 1 tablet by mouth every 12 (twelve) hours. [facility] meloxicam 7.5 mg tablet 2021-02 13:54: 16 Yes 7.5mg Take 7.5 mg by mouth. [facility] baclofen 10 mg tablet 2021-02 13:54: 16 Yes 10mg Take 10 mg by mouth. [facility] meloxicam 7.5 mg tablet 2021-02 0 13:54: 16 Yes 7.5mg Take 7.5 mg by mouth. [facility] baclofen 10 mg tablet 2021-02 13:54: 16 Yes 10mg Take 10 mg by mouth. [facility] meloxicam 7.5 mg tablet 2021-02 0 13:54: 16 Yes 7.5mg Take 7.5 mg by mouth. [facility] baclofen 10 mg tablet 2021-02 13:54: 16 Yes 10mg Take 10 mg by mouth. [facility] meloxicam 7.5 mg tablet 2021-02 13:54: 16 Yes 7.5mg Take 7.5 mg by mouth. [facility] baclofen 10 mg tablet 2021-02 13:54: 16 Yes 10mg Take 10 mg by mouth. [facility] LOESTRIN FE (LOESTRIN FE 1/20) 1 mg-20 mcg (21)/75 mg (7) tablet 2021-02 0 00:00: 00 Yes [id number] 1{tbl} Take 1 tablet by mouth in the morning. [facility] LOESTRIN FE (LOESTRIN FE 1/20) 1 mg-20 mcg (21)/75 mg (7) tablet 2021-02 0 00:00: 00 Yes [id number] 1{tbl} Take 1 tablet by mouth in the morning. [facility] LOESTRIN FE (LOESTRIN FE 1/20) 1 mg-20 mcg (21)/75 mg (7) tablet 2021-02 0 00:00: 00 Yes [id number] 1{tbl} Take 1 tablet by mouth in the morning. [facility] LOESTRIN FE (LOESTRIN FE 1/20) 1 mg-20 mcg (21)/75 mg (7) tablet 2021-02 0 00:00: 00 Yes [id number] 1{tbl} Take 1 tablet by mouth in the morning. [facility] gabapentin 600 mg tablet 8 00:00: 00 Yes 600mg Take 600 mg by mouth in the morning and 600 mg at noon and 600 mg in the evening. [facility] gabapentin 600 mg tablet 2021-0 10-24 00:00: 00 Yes 600mg Take 600 mg by mouth in the morning and 600 mg at noon and 600 mg in the evening. [facility] gabapentin 600 mg tablet 2021-0 10-24 00:00: 00 Yes 600mg Take 600 mg by mouth in the morning and 600 mg at noon and 600 mg in the evening. [facility] gabapentin 600 mg tablet 2021-0 10-24 00:00: 00 Yes 600mg Take 600 mg by mouth in the morning and 600 mg at noon and 600 mg in the evening. [facility] SERTraline 100 mg tablet 0 8 00:00: 00 Yes TAKE 1 AND A HALF TABLETS BY MOUTH DAILY [facility] SERTraline 100 mg tablet 2021-0 8 00:00: 00 Yes TAKE 1 AND A HALF TABLETS BY MOUTH DAILY [facility] SERTraline 100 mg tablet 2021-0 10-09 00:00: 00 Yes TAKE 1 AND A HALF TABLETS BY MOUTH DAILY [facility] SERTraline 100 mg tablet 2021-0 10-09 00:00: 00 Yes TAKE 1 AND A HALF TABLETS BY MOUTH DAILY [facility] buPROPion HCL, smoking deter, 150 mg Tb12 2-0 8-08 00:00: 00 Yes 1{tbl} Take 1 tablet by mouth 2 (two) times daily. [facility] buPROPion HCL, smoking deter, 150 mg Tb12 2-0 8-08 00:00: 00 Yes 1{tbl} Take 1 tablet by mouth 2 (two) times daily. [facility] buPROPion HCL, smoking deter, 150 mg Tb12 2-0 8- 00:00: 00 Yes 1{tbl} Take 1 tablet by mouth 2 (two) times daily. [facility] buPROPion HCL, smoking deter, 150 mg Tb12 2-0 8-08 00:00: 00 Yes 1{tbl} Take 1 tablet by mouth 2 (two) times daily. [facility] levonorgest reL (MIRENA) IUD 1 Device 2019-02 0-16 00:30: 00 12-10 23:28 :00 No 1{devic e} [facility] levonorgest reL (MIRENA) IUD 1 Device 2019-02 0-16 00:30: 00 12-10 23:28 :00 No 1{devic e} 1 Device, Intrauteri ne, ONCE, 1 dose, [facility] 12/11/19 at 1930, Routine [facility] levonorgest reL (MIRENA) IUD 1 Device 2019-02 016 00:30: 00 12-10 23:28 :00 No 1{devic e} [facility] levonorgest reL (MIRENA) IUD 1 Device 2019-02 016 00:30: 00 12-10 23:28 :00 No 1{devic e} 1 Device, Intrauteri ne, ONCE, 1 dose, [facility] 12/11/19 at 1930, Routine [facility] rho(D) immune globulin (RHOGAM) syringe 300 mcg 10-23 22:49: 17 Yes 300ug 300 mcg, Intramuscu lar, ONCE, For 1 dose, Conditiona l, Routine [facility] HYDROcodone -acetaminop hen (NORCO 5) 5-325 mg tablet 1 tablet 10-23 22:49: 12 Yes 1{tbl} 1 tablet, Oral, Q6HPRN, Starting Sun10/24/19 at 1749, Until Discontinu ed, Routine, Pain (scale 7-10) [facility] ibuprofen (IBU) tablet 600 mg 10-23 22:49: 12 Yes 600mg 600 mg, Oral, Q6HPRN, Starting Sun10/24/19 at 1749, Until Discontinu ed, Routine, Pain (scale 4-6) [facility] diphenhydrA MINE-0.9 % sod.chlr (BENADRYL) 25 mg/50 mL piggyback 25 mg 10-23 22:49: 12 Yes 25mg 25 mg, IV Piggyback, Administer over 30 Minutes, Q6HPRN, Starting Sun10/24/19 at 174, Until Discontinu ed, Routine, Itching [facility] ondansetron (ZOFRAN (PF)) injection 4 mg 10-23 22:49: 12 Yes 4mg 4 mg, Slow IV Push, Q8HPRN, Starting Sun10/24/19 at 174, Until Discontinu ed, Routine, Nausea and Vomiting (N/V) [facility] simethicone (GAS RELIEF (SIMETHICON E)) chewable tablet 160 mg 10-23 22:49: 12 Yes 160mg 160 mg, Oral, PC+HSPRN, Starting Sun10/24/19 at 174, Until Discontinu ed, Routine, Gas [facility] docusate calcium (SURFAK) capsule 240 mg 10-23 22:49: 12 Yes 240mg 240 mg, Oral, QDAILYPRN, Starting Sun10/24/19 at 174, Until Discontinu ed, Routine, Constipati on [facility] magnesium hydroxide (MILK OF MAGNESIA) 400 mg/5 mL suspension 30 mL 10-23 22:49: 12 Yes 30mL 30 mL, Oral, QDAILYPRN, Starting Sun10/24/19 at 174, Until Discontinu ed, Routine, Constipati on [facility] acetaminoph en (TYLENOL) tablet 650 mg 10-23 22:49: 11 Yes 650mg 650 mg, Oral, Q6HPRN, Starting Sun10/24/19 at 174, Until Discontinu ed, Routine, Pain (scale 1-3) [facility] diphenhydrA MINE (BENADRYL) tablet 25 mg 10-23 22:49: 11 Yes 25mg 25 mg, Oral, Q6HPRN, Starting Sun10/24/19 at 174, Until Discontinu ed, Routine, Sleep, Itching [facility] benzocaine- menthol (DERMOPLAST ) 20-0.5 % topical spray 10-23 22:49: 11 Yes Topical, PRN, Starting Sun10/24/19 at 1749, Until Discontinu ed, Routine, Perineum discomfort [facility] benzocaine- menthol (DERMOPLAST ) 20-0.5 % topical spray 10-23 16:17: 00 Yes Topical, PRN, Starting Sun10/24/19 at 1117, Until Discontinu ed, Routine, Localized pain [facility] LR 1000 mL + oxytocin 20 units IV Solution 10-23 15:45: 00 10-23 16:19 :00 No at 125 mL/hr, IV Infusion, ONCE, 1 dose, Sun10/24/19 at 1045, Routine [facility] oxytocin (PITOCIN) 20 Units in lactated ringers 1,000 mL IV infusion 10-23 14:13: 45 10-23 22:49 :17 No at 6 mL/hr, IV Infusion, TITRATE, Starting Sun10/24/19 at 0913, Until Sun10/24/19 at 1749, Routine [facility] FENTanyl PF (SUBLIMAZE (PF)) injection 50 mcg 10-23 10:45: 00 10-23 09:42 :00 No 50ug 50 mcg, Slow IV Push, ONCE, 1 dose, Sun10/24/19 at 0545, Routine [facility] D5W-LR IV infusion 1,000 mL 10-23 09:00: 00 10-23 22:49 :17 No 1000mL at 125 mL/hr, IV Infusion, CONTINUOUS , Starting Sun10/24/19 at 0400, Until Sun10/24/19 at 1749, Routine [facility] lactated ringers IV infusion 500 mL 10-23 08:52: 15 10-23 22:49 :17 No 500mL at 999 mL/hr, 500 mL, IV Infusion, PRN - SEE INSTRUCTIO NS, Starting Sun10/24/19 at 0352, Until Sun10/24/19 at 174, Routine [facility] vits62/FA/o m3/dha/epa ( GUMMY ORAL) 10-09 15:37: 59 10-09 00:00 :00 No 1{piece } Take 1 Piece by mouth daily. [facility] vits62/FA/o m3/dha/epa ( GUMMY ORAL) 10-09 15:37: 59 10-09 00:00 :00 No 1{piece } Take 1 Piece by mouth daily. [facility] vits62/FA/o m3/dha/epa ( GUMMY ORAL) 10-02 21:11: 56 Yes 1{piece } Take 1 Piece by mouth daily. [facility] vits62/FA/o m3/dha/epa ( GUMMY ORAL) 10-02 21:11: 56 Yes 1{piece } Take 1 Piece by mouth daily. [facility] vits62/FA/o m3/dha/epa ( GUMMY ORAL) 10-02 21:11: 56 Yes 1{piece } Take 1 Piece by mouth daily. [facility] vits62/FA/o m3/dha/epa ( GUMMY ORAL) 10-02 21:11: 56 Yes 1{piece } Take 1 Piece by mouth daily. [facility] famotidine 20 mg tablet 0 07-23 00:00: 00 Yes [id number] 20mg Take 1 tablet by mouth 2 (two) times daily. [facility] famotidine 20 mg tablet 0 07-23 00:00: 00 Yes [id number] 20mg Take 1 tablet by mouth 2 (two) times daily. [facility] famotidine 20 mg tablet 0 07-23 00:00: 00 Yes [id number] 20mg Take 1 tablet by mouth 2 (two) times daily. [facility] famotidine 20 mg tablet 0 07-23 00:00: 00 Yes [id number] 20mg Take 1 tablet by mouth 2 (two) times daily. [facility] famotidine 20 mg tablet 0 07-23 00:00: 00 Yes [id number] 20mg Take 1 tablet by mouth 2 (two) times daily. [facility] famotidine 20 mg tablet 2019-0 07-23 00:00: 00 Yes [id number] 20mg Take 1 tablet by mouth 2 (two) times daily. [facility] 2019-0 5-28 00:00: 00 Yes [id number] 20mg Take 1 tablet by mouth 2 (two) times daily. [facility] famotidine 20 mg tablet 2019-0 5-28 00:00: 00 Yes [id number] 20mg Take 1 tablet by mouth 2 (two) times daily. [facility] mg tablet 2019-0 5-28 00:00: 00 Yes [id number] 20mg Take 1 tablet by mouth 2 (two) times daily. [facility] mg tablet 2019-0 5-28 00:00: 00 Yes [id number] 20mg Take 1 tablet by mouth 2 (two) times daily. [facility] famotidine 20 mg tablet 2019-0 5-28 00:00: 00 Yes [id number] 20mg Take 1 tablet by mouth 2 (two) times daily. [facility] famotidine 20 mg tablet 2019-0 5-28 00:00: 00 Yes [id number] 20mg Take 1 tablet by mouth 2 (two) times daily. [facility] famotidine 20 mg tablet 2019-0 -28 00:00: 00 Yes [id number] 20mg Take 1 tablet by mouth 2 (two) times daily. [facility] famotidine 20 mg tablet 2019-0 28 00:00: 00 Yes [id number] 20mg Take 1 tablet by mouth 2 (two) times daily. [facility] famotidine 20 mg tablet 2019-0 -28 00:00: 00 Yes [id number] 20mg Take 1 tablet by mouth 2 (two) times daily. [facility] famotidine 20 mg tablet 2019-0 5-28 00:00: 00 Yes [id number] 20mg Take 1 tablet by mouth 2 (two) times daily. [facility] famotidine 20 mg tablet 2019-0 5-28 00:00: 00 Yes [id number] 20mg Take 1 tablet by mouth 2 (two) times daily. [facility] famotidine 20 mg tablet 07-23 00:00: 00 Yes [id number] 20mg Take 1 tablet by mouth 2 (two) times daily. [facility] famotidine 20 mg tablet 07-23 00:00: 00 Yes [id number] 20mg Take 1 tablet by mouth 2 (two) times daily. [facility] famotidine 20 mg tablet 07-23 00:00: 00 Yes [id number] 20mg Take 1 tablet by mouth 2 (two) times daily. [facility] famotidine 20 mg tablet 07-23 00:00: 00 Yes [id number] 20mg Take 1 tablet by mouth 2 (two) times daily. [facility] famotidine 20 mg tablet 07-23 00:00: 00 Yes [id number] 20mg Take 1 tablet by mouth 2 (two) times daily. [facility] famotidine 20 mg tablet 07-23 00:00: 00 01-07 00:00 :00 No [id number] 20mg Take 1 tablet by mouth 2 (two) times daily. [facility] famotidine 20 mg tablet 07-23 00:00: 00 01-07 00:00 :00 No [id number] 20mg Take 1 tablet by mouth 2 (two) times daily. [facility] vits62/FA/o m3/dha/epa ( GUMMY ORAL) 06-04 20:38: 24 Yes 1{piece } Take 1 Piece by mouth daily. [facility] vits62/FA/o m3/dha/epa ( GUMMY ORAL) 09 20:38: 24 Yes 1{piece } Take 1 Piece by mouth daily. [facility] vits62/FA/o m3/dha/epa ( GUMMY ORAL) 09 20:38: 24 Yes 1{piece } Take 1 Piece by mouth daily. [facility] vits62/FA/o m3/dha/epa ( GUMMY ORAL) 409 20:38: 24 Yes 1{piece } Take 1 Piece by mouth daily. [facility] vits62/FA/o m3/dha/epa ( GUMMY ORAL) 409 20:38: 24 Yes 1{piece } Take 1 Piece by mouth daily. [facility] vits62/FA/o m3/dha/epa ( GUMMY ORAL) 409 20:38: 24 Yes 1{piece } Take 1 Piece by mouth daily. [facility] vits62/FA/o m3/dha/epa ( GUMMY ORAL) 409 20:38: 24 Yes 1{piece } Take 1 Piece by mouth daily. [facility] vits62/FA/o m3/dha/epa ( GUMMY ORAL) 409 20:38: 24 Yes 1{piece } Take 1 Piece by mouth daily. [facility] vits62/FA/o m3/dha/epa ( GUMMY ORAL) 409 20:38: 24 Yes 1{piece } Take 1 Piece by mouth daily. [facility] vits62/FA/o m3/dha/epa ( GUMMY ORAL) 409 20:38: 24 Yes 1{piece } Take 1 Piece by mouth daily. [facility] vits62/FA/o m3/dha/epa ( GUMMY ORAL) 409 20:38: 24 Yes 1{piece } Take 1 Piece by mouth daily. [facility] vits62/FA/o m3/dha/epa ( GUMMY ORAL) 409 20:38: 24 Yes 1{piece } Take 1 Piece by mouth daily. [facility] vits62/FA/o m3/dha/epa ( GUMMY ORAL) 409 20:38: 24 Yes 1{piece } Take 1 Piece by mouth daily. [facility] vits62/FA/o m3/dha/epa ( GUMMY ORAL) 409 20:38: 24 Yes 1{piece } Take 1 Piece by mouth daily. [facility] vits62/FA/o m3/dha/epa ( GUMMY ORAL) 06-04 20:38: 24 Yes 1{piece } Take 1 Piece by mouth daily. [facility] vits62/FA/o m3/dha/epa ( GUMMY ORAL) 06-04 20:38: 24 Yes 1{piece } Take 1 Piece by mouth daily. [facility] vits62/FA/o m3/dha/epa ( GUMMY ORAL) 06-04 20:38: 24 Yes 1{piece } Take 1 Piece by mouth daily. [facility] vits62/FA/o m3/dha/epa ( GUMMY ORAL) 06-04 20:38: 24 Yes 1{piece } Take 1 Piece by mouth daily. [facility] vits62/FA/o m3/dha/epa ( GUMMY ORAL) 06-04 20:38: 24 Yes 1{piece } Take 1 Piece by mouth daily. [facility] PNV 102-iron-fo late 1-dss-dha (VITAFOL FE+, WITH DOCUSATE,) 90 mg iron-1 mg -50 mg-200 mg Cap 06-04 00:00: 00 Yes [id number] 09 Take 1 TAB-CAP/M2 by mouth daily. [facility] PN 102-iron-fo late 1-dss-dha (VITAFOL FE+, WITH DOCUSATE,) 90 mg iron-1 mg -50 mg-200 mg Cap 06-04 00:00: 00 Yes [id number] 09 Take 1 TAB-CAP/M2 by mouth daily. [facility] PN 102-iron-fo late 1-dss-dha (VITAFOL FE+, WITH DOCUSATE,) 90 mg iron-1 mg -50 mg-200 mg Cap 06-04 00:00: 00 Yes [id number] 09 Take 1 TAB-CAP/M2 by mouth daily. [facility] PNV 102-iron-fo late 1-dss-dha (VITAFOL FE+, WITH DOCUSATE,) 90 mg iron-1 mg -50 mg-200 mg Cap 2020-0 4-09 00:00: 00 Yes [id number] 09 Take 1 TAB-CAP/M2 by mouth daily. [facility] 102-iron-fo late 1-dss-dha (VITAFOL FE+, WITH DOCUSATE,) 90 mg iron-1 mg -50 mg-200 mg Cap 2020-0 4-09 00:00: 00 Yes [id number] 09 Take 1 TAB-CAP/M2 by mouth daily. [facility] 102-iron-fo late 1-dss-dha (VITAFOL FE+, WITH DOCUSATE,) 90 mg iron-1 mg -50 mg-200 mg Cap 2020-0 4-09 00:00: 00 Yes [id number] 09 Take 1 TAB-CAP/M2 by mouth daily. [facility] 102-iron-fo late 1-dss-dha (VITAFOL FE+, WITH DOCUSATE,) 90 mg iron-1 mg -50 mg-200 mg Cap 2020-0 4-09 00:00: 00 Yes [id number] 09 Take 1 TAB-CAP/M2 by mouth daily. [facility] 102-iron-fo late 1-dss-dha (VITAFOL FE+, WITH DOCUSATE,) 90 mg iron-1 mg -50 mg-200 mg Cap 2020-0 4-09 00:00: 00 Yes [id number] 09 Take 1 TAB-CAP/M2 by mouth daily. [facility] 102-iron-fo late 1-dss-dha (VITAFOL FE+, WITH DOCUSATE,) 90 mg iron-1 mg -50 mg-200 mg Cap 2020-0 4-09 00:00: 00 Yes [id number] 09 Take 1 TAB-CAP/M2 by mouth daily. [facility] 102-iron-fo late 1-dss-dha (VITAFOL FE+, WITH DOCUSATE,) 90 mg iron-1 mg -50 mg-200 mg Cap 2020-0 4-09 00:00: 00 Yes [id number] 09 Take 1 TAB-CAP/M2 by mouth daily. [facility] 102-iron-fo late 1-dss-dha (VITAFOL FE+, WITH DOCUSATE,) 90 mg iron-1 mg -50 mg-200 mg Cap 2020-0 4-09 00:00: 00 Yes [id number] 09 Take 1 TAB-CAP/M2 by mouth daily. [facility] 102-iron-fo late 1-dss-dha (VITAFOL FE+, WITH DOCUSATE,) 90 mg iron-1 mg -50 mg-200 mg Cap 2020-0 4-09 00:00: 00 Yes [id number] 09 Take 1 TAB-CAP/M2 by mouth daily. [facility] 102-iron-fo late 1-dss-dha (VITAFOL FE+, WITH DOCUSATE,) 90 mg iron-1 mg -50 mg-200 mg Cap 2020-0 4-09 00:00: 00 Yes [id number] 09 Take 1 TAB-CAP/M2 by mouth daily. [facility] 102-iron-fo late 1-dss-dha (VITAFOL FE+, WITH DOCUSATE,) 90 mg iron-1 mg -50 mg-200 mg Cap 2020-0 4-09 00:00: 00 Yes [id number] 09 Take 1 TAB-CAP/M2 [facility] 1-dss-dha (VITAFOL FE+, WITH DOCUSATE,) 90 mg iron-1 mg -50 mg-200 mg Cap 2020-0 4-09 00:00: 00 Yes [id number] 09 Take 1 TAB-CAP/M2 by mouth daily. [facility] 102-iron-fo late 1-dss-dha (VITAFOL FE+, WITH DOCUSATE,) 90 mg iron-1 mg -50 mg-200 mg Cap 2020-0 4-09 00:00: 00 Yes [id number] 09 Take 1 TAB-CAP/M2 by mouth daily. [facility] 102-iron-fo late 1-dss-dha (VITAFOL FE+, WITH DOCUSATE,) 90 mg iron-1 mg -50 mg-200 mg Cap 2020-0 4-09 00:00: 00 Yes [id number] 09 Take 1 TAB-CAP/M2 by mouth daily. [facility] 102-iron-fo late 1-dss-dha (VITAFOL FE+, WITH DOCUSATE,) 90 mg iron-1 mg -50 mg-200 mg Cap 2020-0 4-09 00:00: 00 Yes [id number] 09 Take 1 TAB-CAP/M2 by mouth daily. [facility] 102-iron-fo late 1-dss-dha (VITAFOL FE+, WITH DOCUSATE,) 90 mg iron-1 mg -50 mg-200 mg Cap 2020-0 4-09 00:00: 00 Yes [id number] 09 Take 1 TAB-CAP/M2 by mouth daily. [facility] 102-iron-fo late 1-dss-dha (VITAFOL FE+, WITH DOCUSATE,) 90 mg iron-1 mg -50 mg-200 mg Cap 2020-0 4-09 00:00: 00 Yes [id number] 09 Take 1 TAB-CAP/M2 by mouth daily. [facility] 102-iron-fo late 1-dss-dha (VITAFOL FE+, WITH DOCUSATE,) 90 mg iron-1 mg -50 mg-200 mg Cap 2020-0 4-09 00:00: 00 Yes [id number] 09 Take 1 TAB-CAP/M2 by mouth daily. [facility] 102-iron-fo late 1-dss-dha (VITAFOL FE+, WITH DOCUSATE,) 90 mg iron-1 mg -50 mg-200 mg Cap 2020-0 4-09 00:00: 00 Yes [id number] 09 Take 1 TAB-CAP/M2 by mouth daily. [facility] 102-iron-fo late 1-dss-dha (VITAFOL FE+, WITH DOCUSATE,) 90 mg iron-1 mg -50 mg-200 mg Cap 2020-0 4-09 00:00: 00 Yes [id number] 09 Take 1 TAB-CAP/M2 by mouth daily. [facility] 102-iron-fo late 1-dss-dha (VITAFOL FE+, WITH DOCUSATE,) 90 mg iron-1 mg -50 mg-200 mg Cap 2020-0 4-09 00:00: 00 Yes [id number] 09 Take 1 TAB-CAP/M2 by mouth daily. [facility] 102-iron-fo late 1-dss-dha (VITAFOL FE+, WITH DOCUSATE,) 90 mg iron-1 mg -50 mg-200 mg Cap 2020-0 4-09 00:00: 00 Yes [id number] 09 Take 1 TAB-CAP/M2 by mouth daily. [facility] 102-iron-fo late 1-dss-dha (VITAFOL FE+, WITH DOCUSATE,) 90 mg iron-1 mg -50 mg-200 mg Cap 2020-0 4-09 00:00: 00 Yes [id number] 09 Take 1 TAB-CAP/M2 by mouth daily. [facility] 102-iron-fo late 1-dss-dha (VITAFOL FE+, WITH DOCUSATE,) 90 mg iron-1 mg -50 mg-200 mg Cap 2020-0 4-09 00:00: 00 Yes [id number] 09 Take 1 TAB-CAP/M2 by mouth daily. [facility] 102-iron-fo late 1-dss-dha (VITAFOL FE+, WITH DOCUSATE,) 90 mg iron-1 mg -50 mg-200 mg Cap 2020-0 4-09 00:00: 00 Yes [id number] 09 Take 1 TAB-CAP/M2 by mouth daily. [facility] 102-iron-fo late 1-dss-dha (VITAFOL FE+, WITH DOCUSATE,) 90 mg iron-1 mg -50 mg-200 mg Cap 2020-0 4-09 00:00: 00 Yes [id number] 09 Take 1 TAB-CAP/M2 by mouth daily. [facility] 102-iron-fo late 1-dss-dha (VITAFOL FE+, WITH DOCUSATE,) 90 mg iron-1 mg -50 mg-200 mg Cap 2020-0 4-09 00:00: 00 Yes [id number] 09 Take 1 TAB-CAP/M2 by mouth daily. [facility] 102-iron-fo late 1-dss-dha (VITAFOL FE+, WITH DOCUSATE,) 90 mg iron-1 mg -50 mg-200 mg Cap 06-04 00:00: 00 Yes [id number] 09 Take 1 TAB-CAP/M2 by mouth daily. [facility] 102-iron-fo late 1-dss-dha (VITAFOL FE+, WITH DOCUSATE,) 90 mg iron-1 mg -50 mg-200 mg Cap 06-04 00:00: 00 01-07 00:00 :00 No [id number] 09 Take 1 TAB-CAP/M2 by mouth daily. [facility] 102-iron-fo late 1-dss-dha (VITAFOL FE+, WITH DOCUSATE,) 90 mg iron-1 mg -50 mg-200 mg Cap 06-04 00:00: 00 01-07 00:00 :00 No [id number] 09 Take 1 TAB-CAP/M2 by mouth daily. [facility] Vital Signs Vital Name Observation Time Observation Value Comments S ource Systolic blood pressure 2021-12-02 18:51:00 102 mm[Hg] [facility] Diastolic blood pressure 2021-12-02 18:51:00 71 mm[Hg] [facility] Heart rate 2021-12-02 18:51:00 89 /min [facility] Body temperature 2021-12-02 18:51:00 36.72 Deisy [facility] Respiratory rate 2021-12-02 18:51:00 16 /min [facility] Body height 2021-12-02 18:51:00 162.6 cm [facility] Body weight 2021-12-02 18:51:00 64.093 kg [facility] BMI 2021-12-02 18:51:00 24.25 kg/m2 [facility] Oxygen saturation in Arterial blood by Pulse oximetry 2021-12-02 18:51:00 98 /min [facility] Systolic blood pressure 2020-01-08 21:28:00 132 mm[Hg] [facility] Diastolic blood pressure 2020-01-08 21:28:00 70 mm[Hg] [facility] Heart rate 2020-01-08 21:28:00 92 /min [facility] Body temperature 2020-01-08 21:28:00 36.89 Deisy [facility] Respiratory rate 2020-01-08 21:28:00 18 /min [facility] Body height 2020-01-08 21:28:00 162.6 cm [facility] Body weight 2020-01-08 21:28:00 90.266 kg [facility] BMI 2020-01-08 21:28:00 34.16 kg/m2 [facility] Systolic blood pressure 2019-12-11 20:34:00 117 mm[Hg] [facility] Diastolic blood pressure 2019-12-11 20:34:00 74 mm[Hg] [facility] Heart rate 2019-12-11 20:34:00 71 /min [facility] Body temperature 2019-12-11 20:34:00 36.83 Deisy [facility] Respiratory rate 2019-12-11 20:34:00 18 /min [facility] Body height 2019-12-11 20:34:00 162.6 cm [facility] Body weight 2019-12-11 20:34:00 90.266 kg [facility] BMI 2019-12-11 20:34:00 34.16 kg/m2 [facility] Systolic blood pressure 2019-11-20 20:57:00 109 mm[Hg] [facility] Diastolic blood pressure 2019-11-20 20:57:00 73 mm[Hg] [facility] Heart rate 2019-11-20 20:57:00 72 /min [facility] Body temperature 2019-11-20 20:57:00 37.11 Deisy [facility] Respiratory rate 2019-11-20 20:57:00 18 /min [facility] Body height 2019-11-20 20:57:00 162.6 cm [facility] Body weight 2019-11-20 20:57:00 87.363 kg [facility] BMI 2019-11-20 20:57:00 33.06 kg/m2 [facility] Respiratory rate 2019-10-25 19:15:00 18 /min [facility] Systolic blood pressure 2019-10-25 13:05:00 123 mm[Hg] [facility] Diastolic blood pressure 2019-10-25 13:05:00 83 mm[Hg] [facility] Heart rate 2019-10-25 13:05:00 87 /min [facility] Body temperature 2019-10-25 13:05:00 36.67 Deisy [facility] Oxygen saturation in Arterial blood by Pulse oximetry 2019-10-25 13:05:00 100 /min [facility] Body height 2019-10-24 09:25:00 162.6 cm [facility] Body weight 2019-10-24 09:25:00 93.441 kg [facility] BMI 2019-10-24 09:25:00 35.36 kg/m2 [facility] Systolic blood pressure 2019-10-17 14:02:00 119 mm[Hg] [facility] Diastolic blood pressure 2019-10-17 14:02:00 75 mm[Hg] [facility] Heart rate 2019-10-17 14:02:00 84 /min [facility] Body temperature 2019-10-17 14:02:00 36.83 Deisy [facility] Respiratory rate 2019-10-17 14:02:00 18 /min [facility] Body height 2019-10-17 14:02:00 162.6 cm [facility] Body weight 2019-10-17 14:02:00 93.441 kg [facility] BMI 2019-10-17 14:02:00 35.36 kg/m2 [facility] Systolic blood pressure 2019-10-10 15:06:00 116 mm[Hg] [facility] Diastolic blood pressure 2019-10-10 15:06:00 78 mm[Hg] [facility] Heart rate 2019-10-10 15:06:00 85 /min [facility] Body temperature 2019-10-10 15:06:00 36.94 Deisy [facility] Respiratory rate 2019-10-10 15:06:00 18 /min [facility] Body height 2019-10-10 15:06:00 162.6 cm [facility] Body weight 2019-10-10 15:06:00 93.078 kg [facility] BMI 2019-10-10 15:06:00 35.22 kg/m2 [facility] Systolic blood pressure 2019-10-03 21:11:00 115 mm[Hg] [facility] Diastolic blood pressure 2019-10-03 21:11:00 74 mm[Hg] [facility] Heart rate 2019-10-03 21:11:00 91 /min [facility] Body temperature 2019-10-03 21:11:00 36.72 Deisy [facility] Respiratory rate 2019-10-03 21:11:00 18 /min [facility] Body weight 2019-10-03 21:11:00 91.808 kg [facility] BMI 2019-10-03 21:11:00 34.74 kg/m2 [facility] Systolic blood pressure 2019-09-15 21:17:00 118 mm[Hg] [facility] Diastolic blood pressure 2019-09-15 21:17:00 72 mm[Hg] [facility] Heart rate 2019-09-15 21:17:00 64 /min [facility] Body temperature 2019-09-15 21:17:00 37.06 Deisy [facility] Respiratory rate 2019-09-15 21:17:00 18 /min [facility] Body height 2019-09-15 21:17:00 162.6 cm [facility] Body weight 2019-09-15 21:17:00 89.812 kg [facility] BMI 2019-09-15 21:17:00 33.99 kg/m2 [facility] Systolic blood pressure 2019-08-04 15:38:00 114 mm[Hg] [facility] Diastolic blood pressure 2019-08-04 15:38:00 74 mm[Hg] [facility] Heart rate 2019-08-04 15:38:00 92 /min [facility] Body temperature 2019-08-04 15:38:00 36.83 Deisy [facility] Respiratory rate 2019-08-04 15:38:00 18 /min [facility] Body height 2019-08-04 15:38:00 162.6 cm [facility] Body weight 2019-08-04 15:38:00 87.091 kg [facility] BMI 2019-08-04 15:38:00 32.96 kg/m2 [facility] Procedures Procedure Date / Time Performed Performing Clinician Source DISCLOSURE AND CONSENT, MEDICAL AND SURGICAL PROCEDURES 2021-12-02 05:01:00 Doctor Unassigned, Radium [facility] POCT TEST 2021-12-02 00:00:00 Landon Domínguez [facility] DISCLOSURE AND CONSENT, MEDICAL AND SURGICAL PROCEDURES 2019-12-11 05:01:00 Doctor Unassigned, Radium [facility] POCT TEST 2019-12-11 00:00:00 Landon Domínguez [facility] CBC WITH DIFF 2019-10-25 08:36:00 Landon Domínguez [facility] VENOUS CORD GAS 2019-10-24 14:20:00 Landon Domínguez [facility] CBC WITH DIFF 2019-10-24 09:11:00 Arleth Velasquez [facility] HEPATITIS B SURFACE ANTIGEN 2019-10-24 09:11:00 Arleth Velasquez [facility] ADC OR NANI ONLY - RPR 2019-10-24 09:11:00 [facility] HIV 1/2 AG-AB WITH REFLEX 2019-10-24 09:11:00 [facility] COVID-19 (ID NOW RAPID TESTING) 2019-10-24 09:11:00 Ron Arleth [facility] HB ABO GROUPING 2019-10-24 09:10:00 [facility] RHO (D) IMMUNE GLOBULIN 2019-10-24 09:10:00 Landon Domínguez [facility] NOTICE OF PRIVACY PRACTICES 2019-10-24 08:36:07 Doctor Unassigned, Radium [facility] CONSENT/REFUSAL FOR DIAGNOSIS AND TREATMENT 2019-10-24 08:33:33 Doctor Unassigned, Radium [facility] ASSIGNMENT OF BENEFITS 2019-10-24 08:33:13 Docto r Unassigned, [facility]ium [facility] POCT URINALYSIS W/O SPECIFIC GRAVITY 2019-10-17 00:00:00 [facility] POCT URINALYSIS W/O SPECIFIC GRAVITY 2019-10-10 15:08[facility] TOLERANCE TEST 2019-10-09 17:12:00 Sang [facility] 2 HR GLUCOSE TOLERANCE TEST 2019-10-09 16:05:00 [facility] GLUCOSE TOLERANCE TEST 2019-10-09 15:00:00 Sang [facility] GLUCOSE FASTING 2019-10-09 14:02:00 Sang [facility] CBC WITH DIFF 2019-10-09 14:02:00 Holden [facility] GLUCOSE FASTING 2019-10-09 14:02:00 Sang [facility] >14 WEEKS US LIMITED 2019-10-03 21:43:13 Holden [facility] POCT URINALYSIS W/O SPECIFIC GRAVITY 2019-10-03 21:35:00 Hold[facility] DSU PRE-OP 2019-10-03 05:01:00 Doctor Unass igned, Radium [facility] POCT HEMOGLOBIN A1C TEST 2019-10-03 00:00:00 [facility] POCT URINALYSIS W/O SPECIFIC GRAVITY 2019-09-15 00:00:00 Chantell Domínguezen [facility] TDAP (ADACEL) IMMUNIZATION 2019-08-04 16:00:53 Sang [facility] POCT URINALYSIS W/O SPECIFIC GRAVITY 2019-08-04 00:00:00 Sang [facility] SCANNED LAB RESULTS 2019-07-24 05:01:00 Doctor Sean jones, Radium [facility] SCANNED LAB RESULTS 2019-07-07 05:01:00 Doctor Sean jones, Radium [facility] AGREEMENTS AUTHORIZATIONS AND IRREVOCABLE ASSIGNMENTS (FORM 2001) 2019-06-18 05:01:00 Doctor Unassigned, Radium [facility] Encounters Start Date/Time End Date/Time Encounter Type Admission Type Attending Clinicians Care Facility Care Department Encounter ID Source 2020-12-24 14:37:30 Outpatient [facility] NANNETTE [id number] [facility] 2023-01-01 08:00:00 2023-01-01 08:00:00 Outpatient LANDON HERNANDEZ [facility] [id number] [facility] 2021-12-05 00:00:00 2021-12-05 00:00:00 Case Management Shivani Hatch [facility] 1..840.114 350.1.13.10 4.2.7.2.686 [id number] 134 [id number] [facility] 2021-12-02 13:30:00 2021-12-02 14:30:59 Outpatient LANDON HERNANDEZ [facility] [id number] [facility] 2021-12-02 13:30:00 2021-12-02 14:00:00 Office Visit Landon Domínguez [facility] 1..840.114 350.1.13.10 4.2.7.2.686 [id number] 134 [id number] [facility] 2021-12-02 00:00:00 2021-12-02 00:00:00 Orders Only Doctor Unassigned, Radium [facility] 1..840.114 350.1.13.10 4.2.7.2.686 [id number] [facility] 2020-12-28 13:30:00 2020-12-28 13:30:00 Outpatient LANDON HERNANDEZ [facility] [id number] [facility] 2020-07-07 09:30:00 2020-07-07 09:30:00 Outpatient LANDON HERNANDEZ [facility] [id number] [facility] 2020-05-26 05:14:00 2020-05-26 05:14:00 Outpatient GUU_SHENG_Y AW [facility] [id number] [facility] 2020-01-08 15:04:40 2020-01-08 15:34:40 Office [facility]andon [facility] 1.2.840.114 350.1.13.10 4.2.7.2.686 [id number] [facility] 2020-01-08 15:00:00 2020-01-08 15:00:00 Outpatient R LANDON DOMÍNGUEZ [facility] [id number] [facility] 2019-12-11 15:06:04 2019-12-11 16:09:16 Office Visit Landon Domínguez [facility] 1.2.840.114 350.1.13.10 4.2.7.2.686 [id number] [facility] 2019-12-11 15:00:00 2019-12-11 15:00:00 Outpatient R LANDON DOMÍNGUEZ [facility] [id number] [facility] 2019-12-11 00:00:00 2019-12-11 00:00:00 Orders Only Doctor Unassigned, Radium [facility] 1.2.840.114 350.1.13.10 4.2.7.2.686 [id number] [facility] 2019-11-20 15:38:58 2019-11-20 16:14:30 Routine Visit Landon Domínguez [facility] 1.2.840.114 350.1.13.10 4.2.7.2.686 [id number] [facility] 2019-11-20 15:30:00 2019-11-20 15:30:00 Outpatient R LANDON DOMÍNGUEZ [facility] [id number] [facility] 2019-11-13 15:30:00 2019-11-13 15:30:00 Outpatient R LANDON DOMÍNGUEZ [facility] [id number] [facility] 2019-10-27 09:00:00 2019-10-27 09:00:00 Outpatient R [facility] [id number] [facility] 2019-10-24 03:33:00 2019-10-25 14:45:00 Hospital Encounter Landon Domínguez [facility] 1..840.114 350.1.13.10 4.2.7.2.686 [id number] [facility] 2019-10-24 09:00:00 2019-10-24 09:00:00 Outpatient R LANDON DOMÍNGUEZ [facility] [id number] [facility] 2019-10-17 08:54:41 2019-10-17 09:09:41 [facility]114 350.1.13.10 4.2.7.2.686 [id number] [facility] 2019-10-17 09:00:00 2019-10-17 09:00:00 [id number] 2019-10-10 09:54:20 2019-10-10 10:49:54 Routine Visit Landon Domínguez [facility] 1..840.114 350.1.13.10 4.2.7.2.686 [id number] [facility] 2019-10-10 10:00:00 2019-10-10 10:00:00 Outpatient R LANDON DOMÍNGUEZ [facility] [id number] [facility] 2019-10-09 08:57:15 2019-10-09 09:12:15 Director Of Group Sales Visit 2, Adc Lab Landon Domínguez [facility] Building 1..840.114 350.1.13.10 4.2.7.2.686 [id number] [facility] 2019-10-09 09:00:00 2019-10-09 09:00:00 Outpatient R LANDON DOMÍNGUEZ [facility] [id number] [facility] 2019-10-08 08:30:00 2019-10-08 08:30:00 Outpatient R [facility] [id number] [facility] 2019-10-03 15:55:08 2019-10-03 16:10:08 Routine Visit Shivani Hatch [facility] 1.2.840.114 350.1.13.10 4.2.7.2.686 [id number] [facility] 2019-10-03 16:00:00 2019-10-03 16:00:00 [facility] [id number] [facility] 2019-10-03 00:00:00 2019-10-03 00:00:00 Orders Only Doctor Unassigned, Radium [facility] 1.2.840.114 350.1.13.10 4.2.7.2.686 [id number] [facility] 2019-09-22 08:30:00 2019-09-22 08:30:00 Outpatient R [facility] [id number] [facility] 2019-09-16 00:00:00 2019-09-16 00:00:00 Case Management Landon Domínguez [facility] 1.2.840.114 350.1.13.10 4.2.7.2.686 [id number] [facility] 2019-09-15 15:47:00 2019-09-15 16:33:51 Routine Visit Landon Domínguez [facility] 1.2.840.114 350.1.13.10 4.2.7.2.686 [id number] [facility] 2019-09-15 13:16:45 2019-09-15 13:31:45 Director Of Group Sales Visit 2, Adc [facility] 1.2.840.114 350.1.13.10 4.2.7.2.686 [id number] [facility] 2019-09-15 13:00:00 2019-09-15 13:00:00 Outpatient R [facility] [id number] [facility] 2019-09-01 11:30:00 2019-09-01 11:30:00 [facility] [id number] [facility] 2019-09-01 07:52:30 2019-09-01 08:07:30 Telemedici ne Visit Shivani Hatch [facility] nal Building 1.2.840.114 350.1.13.10 4.2.7.2.686 [id number] [facility] 2019-08-12 00:00:00 2019-08-12 00:00:00 Telephone Shivani Hatch [facility] 1.2.840.114 350.1.13.10 4.2.7.2.686 [id number] [facility] 2019-08-04 10:26:46 2019-08-04 11:59:45 Routine Visit Landon Domínguez [facility] 1.2.840.114 350.1.13.10 4.2.7.2.686 [id number] [facility] 2019-08-04 10:30:00 2019-08-04 10:30:00 Outpatient R LANDON DOMÍNGUEZ [facility] [id number] [facility] 2019-07-29 10:30:00 2019-07-29 10:30:00 Outpatient P [facility] [id number] [facility] 2019-07-28 07:55:28 2019-07-28 17:00:39 Telemedici ne Visit Consults, Rmchp Ang Pn Genetic Rommel Hernandez [facility] HEATING AND AIR CONDITIONING MECHANIC [facility] 1.2.840.114 350.1.13.10 4.2.7.2.686 [id number] [facility] 2019-07-28 09:30:00 2019-07-28 09:30:00 Outpatient ROMMEL OLSON [facility] [id number] [facility] 2019-07-24 14:00:00 2019-07-24 14:00:00 Outpatient R LANDON DOMÍNGUEZ [facility] [id number] [facility] 2019-07-24 08:03:52 2019-07-24 08:18:52 Telemedici ne Visit Landon Domínguez [facility] 1.2840.114 350.1.13.10 4.2.7.2.686 [id number] [facility] 2019-07-24 00:00:00 2019-07-24 00:00:00 Orders Only Doctor Unassigned, Radium [facility] 1.2840.114 350.1.13.10 4.2.7.2.686 [id number] [facility] 2019-07-22 00:00:00 2019-07-22 00:00:00 Telephone Landon Domínguez [facility] 1.2840.114 350.1.13.10 4.2.7.2.686 [id number] [facility] 2019-07-18 00:00:00 2019-07-18 00:00:00 Telephone Landon Domínguez [facility] 1.2840.114 350.1.13.10 4.2.7.2.686 [id number] [facility] 2019-07-16 00:00:00 2019-07-16 00:00:[address] [facility] Office [facility] 1..114 350.1.13.10 4.2.7.2.686 [id number] [facility] 2019-07-14 00:00:00 2019-07-14 00:00:[address] [facility] 1..114 350.1.13.10 4.2.7.2.686 [id number] [facility] 2019-07-07 00:00:00 2019-07-07 00:00:00 Orders Only Doctor Unassigned, Radium [facility] 1..114 350.1.13.10 4.2.7.2.686 [id number] [facility] 2019-07-04 15:15:00 2019-07-04 15:15:00 Outpatient R [facility] [id number] [facility] 2019-07-03 16:15:00 2019-07-03 16:15:00 Outpatient R [facility] [id number] [facility] 2019-07-03 08:03:54 2019-07-03 08:18:54 Telemedici ne Visit Shivani Hatch Landon [facility] 1.114 350.1.13.10 4.2.7.2.686 [id number] [facility] 2019-06-18 14:18:50 2019-06-18 15:12:47 Director Of Group Sales Visit Ultrasound, Harley-MfLandon Lloyd George R [facility] HEATING AND AIR CONDITIONING MECHANIC [facility]NAL [facility] 1..114 350.1.13.10 4.2.7.2.686 [id number] [facility] 2019-06-18 13:08:11 2019-06-18 13:23:11 Director Of Group Sales Visit 2, Adc Lab Domínguez, Lnadon Cam [facility] 1.840.114 350.1.13.10 4.2.7.2.686 [id number] [facility] 2019-06-18 13:00:00 2019-06-18 13:00:00 Outpatient R LANDON DOMÍNGUEZ [facility] [id number] [facility] 2019-06-18 00:00:00 2019-06-18 00:00:00 Orders Only Doctor Unassigned, Radium [facility] 1.84.114 350.1.13.10 4.2.7.2.686 [id number] [facility] Results Test Description Test Time Test Comments Results Result Co mments Source [facility] [id number] 19:14:00* Test Item Value Reference Range Interpretation Comme nts POCT PREG (test code = 1605) Negative On board controls acceptable with C Line (test code = 3574) Yes POCT PREG LOT # (test code = 3575) POCT PREG TEST DATE ( test code = 3576) [facility] [id number] 20:50:00* Test Item Value Reference Range Interpretation Comme nts POCT PREG (test code = 1605) Negative On board controls acceptable with C Line (test code = 3574) Yes POCT PREG LOT # (test code = 3575) POCT PREG TEST DATE ( test code = 3576) [facility] [id number] 20:50:00* Test Item Value Reference Range Interpretation Comme nts POCT PREG (test code = 1605) Negative On board controls acceptable with C Line (test code = 3574) Yes POCT PREG LOT # (test code = 3575) POCT PREG TEST DATE ( test code = 3576) [facility] with [id number] 09:39:00* Test Item Value Reference Range Interpretation Comme nts WBC (test code = 6690-2) See_Comment [Automated messa ge] The system which generated this result transmitted reference range: 4.30 - 11.10 10*3/?L. The reference range was not used to interpret this result as normal/abnormal. RBC (test code = 789-8) See_Comment L [Automated messa ge] The system which generated this result transmitted reference range: 3.93 - 5.25 10*6/?L. The reference range was not used to interpret this result as normal/abnormal. HGB (test code = 718-7) 9.6 g/dL 11.6-15 L HCT (test code = 4544-3) 28.5 % 35.7-45.2 L MCV (test code = 787-2) 95.6 fL 80.6-95.5 H MCH (test code = 785-6) 32.2 pg 25.9-32.8 MCHC (test code = 786-4) 33.7 g/dL 31.6-35.1 RDW-SD (test code = 59883-7) 46.3 fL 39-49.9 RDW-CV (test code = 788-0) 13.3 % 12-15.5 PLT (test code = 777-3) See_Comment [Automated [employer]] The system which generated this result transmitted reference range: 166 - 358 10*3/?L. The reference range was not used to interpret this result as normal/abnormal. MPV (test code = 34697-3) 9.7 fL 9.5-12.9 NRBC/100 WBC (test code = 5941015343) See_Comment [Automated [employer] ssage] The system which generated this result transmitted reference range: 0.0 - 10.0 /100 WBCs. The reference range was not used to interpret this result as normal/abnormal. NRBC x10^3 (test code = 7798173387) <0.01 See_Comment [Automated messa ge] The system which generated this result transmitted reference range: 10*3/?L. The reference range was not used to interpret this result as normal/abnormal. GRAN MAT (NEUT) % (test code = 770-8) 67.7 % IMM GRAN % (test code = 9451927879) 0.70 % LYMPH % (test code = 736-9) 23.3 % MONO % (test code = 5905-5) 7.1 % EOS % (test code = 713-8) 0.8 % BASO % (test code = 706-2) 0.4 % GRAN MAT x10^3(ANC) (test code = 0831498721) 7.43 10*3/uL 1.88-7.09 H IMM GRAN x10^3 (test code = 6617552761) 0.08 10*3/uL 0-0.06 H LYMPH x10^3 (test code = 731-0) 2.56 10*3/uL 1.32-3.29 MONO x10^3 (test code = 742-7) 0.78 10*3/uL 0.33-0.92 EOS x10^3 (test code = 711-2) 0.09 10*3/uL 0.03-0.39 BASO x10^3 (test code = 704-7) 0.04 10*3/uL 0.01-0.07 Lab Interpretation (test code = 34676-4) [facility]normal [facility] - [id number] 03:09:00* Test Item Value Reference Range Interpretation Comme nts RPR (Qualitative) (test code = 65528-9) Nonreactive Nonreactive Lab Interpretation (test cod e = 98159-1) Normal [facility] (D) IMMUNE [id number] 22:52:21* Test Item Value Reference Range Interpretation Comme nts RHIG CANDIDATE? (test code = 5055) No- see comment Patient is not a candidate for RhIg- Patient is Rh Positive.Performed at [facility] Laboratory Services - [facility] Blood [address] [place] [id number] Free: [phone] No. [id number] [facility] CenterHepatitis B Surface [id number] 15:34:00 * Test Item Value Reference Range Interpretation Comme nts HBsAg Semi-Quantitative (radha t code = 5195-3) Negative Negative [facility] CenterVENOUS CORD [id number] 14:31:00* Test Item Value Reference Range Interpretation Comme nts VENOUS BASE EXCESS, CORD (test code = 5486031860) mEq/L VENOUS PH, CORD (test code = 8659482663) 7.25-7.45 VENOUS PC02, CORD (test code = 3812094229) See_Comment [Automated messa ge] The system which generated this result transmitted reference range: 27 - 49 mmHg. The reference range was not used to interpret this result as normal/abnormal. VENOUS PO2, CORD (test code = 3925832204) See_Comment [Automated me ssage] The system which generated this result transmitted reference range: 17 - 41 mmHg. The reference range was not used to interpret this result as normal/abnormal. VENOUS BICARBONATE, CORD (test code = 6724936723) See_Comment [Automated messa ge] The system which generated this result transmitted reference range: 12 - 29 mEq/L. The reference range was not used to interpret this result as normal/abnormal. [facility] CenterARTERIAL CORD [id number] 14:28:00* Test Item Value Reference Range Interpretation Comme nts BASE EXCESS, CORD (test code = 1594956703) mEq/L AC PH, CORD (BEAKER) (test code = 3499454327) 7.18-7.38 PC02, CORD (test code = 8057383376) See_Comment [Automated messa ge] The system which generated this result transmitted reference range: 32 - 66 mmHg. The reference range was not used to interpret this result as normal/abnormal. PO2, CORD (test code = 1739409905) See_Comment [Automated messa ge] The system which generated this result transmitted reference range: 10 - 30 mmHg. The reference range was not used to interpret this result as normal/abnormal. BICARBONATE, CORD (test code = 5742363561) See_Comment [Automated messa ge] The system which generated this result transmitted reference range: 17 - 27 mEq/L. The reference range was not used to interpret this result as normal/abnormal. [facility] CenterHIV 1/2 AG-AB WITH [id number] 10:27:00* Test Item Value Reference Range Interpretation Comme [facility] HIV Semi-quantitative (test code = 97286-9) Negative Negative IBETH (test code = IBETH) Non-reactive for HIV-1 antigen and HIV-1/HIV-2 antibodies. ?No laboratory evidence of HIV infection. ?Repeat in 2-4 weeks if acute HIV infection is suspected. [facility] CenterType and Screen - ONCE [id number] 10:02:48 * Test Item Value Reference Range Interpretation Comme nts ABO & RH (test code = 20) O Positive Performed at [facility] Blood [address] [place] [address] Free: [phone] No. [id number] IAT (test code = 1185) Negative Performed at [facility] Blood [address] Free: [phone] No. [id number] [facility] CenterCOVID-19 (ID NOW RAPID TESTING)2019-10-24 09:50:00* Test Item Value Reference Range Interpretation Comme nts SARS-CoV-2 Rapid ID NOW (test code = 23181-7) Positive Not Detected A IBETH (test code = IBETH) ID NOW COVID-19 As say is an isothermal nucleic acid amplification test intended for the qualitative detection of nucleic acid from SARS-CoV-2 viral RNA in nasopharyngeal (BLEACH MIXER) specimens. It is used under Emergency Use [...] patient testing if clinically indicated. Lab Interpretation (test code = 44800-0) Abnormal [facility] with [id number] 09:33:00* Test Item Value Reference Range Interpretation Comme nts WBC (test code = 6690-2) See_Comment H [Automated messa ge] The system which generated this result transmitted reference range: 4.30 - 11.10 10*3/?L. The reference range was not used to interpret this result as normal/abnormal. RBC (test code = 789-8) See_Comment L [Automated messa ge] The system which generated this result transmitted reference range: 3.93 - 5.25 10*6/?L. The reference range was not used to interpret this result as normal/abnormal. HGB (test code = 718-7) 11.9 g/dL 11.6-15 HCT (test code = 4544-3) 34.4 % 35.7-45.2 L MCV (test code = 787-2) 92.0 fL 80.6-95.5 MCH (test code = 785-6) 31.8 pg 25.9-32.8 MCHC (test code = 786-4) 34.6 g/dL 31.6-35.1 RDW-SD (test code = 17838-2) 42.7 fL 39-49.9 RDW-CV (test code = 788-0) 12.9 % 12-15.5 PLT (test code = 777-3) See_Comment [Automated messa ge] The system which generated this result transmitted reference range: 166 - 358 10*3/?L. The reference range was not used to interpret this result as normal/abnormal. MPV (test code = 05879-1) 9.6 fL 9.5-12.9 NRBC/100 WBC (test code = 2272328793) See_Comment [Automated [employer] ssage] The system which generated this result transmitted reference range: 0.0 - 10.0 /100 WBCs. The reference range was not used to interpret this result as normal/abnormal. NRBC x10^3 (test code = 8235929038) <0.01 See_Comment [Automated [employer]] The system which generated this result transmitted reference range: 10*3/?L. The reference range was not used to interpret this result as normal/abnormal. GRAN MAT (NEUT) % (test code = 770-8) 72.0 % IMM GRAN % (test code = 5607083801) 0.70 % LYMPH % (test code = 736-9) 20.8 % MONO % (test code = 5905-5) 5.7 % EOS % (test code = 713-8) 0.5 % BASO % (test code = 706-2) 0.3 % GRAN MAT x10^3(ANC) (test code = 7540351958) 8.70 10*3/uL 1.88-7.09 H IMM GRAN x10^3 (test code = 3881242543) 0.08 10*3/uL 0-0.06 H LYMPH x10^3 (test code = 731-0) 2.52 10*3/uL 1.32-3.29 MONO x10^3 (test code = 742-7) 0.69 10*3/uL 0.33-0.92 EOS x10^3 (test code = 711-2) 0.06 10*3/uL 0.03-0.39 BASO x10^3 (test code = 704-7) 0.04 10*3/uL 0.01-0.07 Lab Interpretation (test code = 97673-5) Abnormal [facility] URINALYSIS W/O SPECIFIC [id number] 14:04:00* Test Item Value Reference Range Interpretation Comme nts POCT PH U (test code = 3254) n/a 5-8 POCT U LEUK EST (test code = 3263) n/a Negative - N egative POCT U NIT (test code = 3262) n/a Negative - Negati ve POCT U PROT (test code = 3259) neg Negative - Negat ariana POCT U GLU (test code = 3256) neg Negative - Negati ve POCT U KETONE (test code = 3258) n/a Negative - Neg ative POCT U BLD (test code = 3257) n/a Negative - Negati ve [facility] URINALYSIS W/O SPECIFIC [id number] 15:08:00* Test Item Value Reference Range Interpretation Comme nts POCT PH U (test code = 3254) n/a 5-8 POCT U LEUK EST (test code = 3263) n/a Negative - N egative POCT U NIT (test code = 3262) n/a Negative - Negati ve POCT U PROT (test code = 3259) neg Negative - Negat ariana POCT U GLU (test code = 3256) neg Negative - Negati ve POCT U KETONE (test code = 3258) n/a Negative - Neg ative POCT U BLD (test code = 3257) n/a Negative - Negati ve [facility] URINALYSIS W/O SPECIFIC [id number] 15:08:00* Test Item Value Reference Range Interpretation Comme nts POCT PH U (test code = 3254) n/a 5-8 POCT U LEUK EST (test code = 3263) n/a Negative - N egative POCT U NIT (test code = 3262) n/a Negative - Negati ve POCT U PROT (test code = 3259) neg Negative - Negat ariana POCT U GLU (test code = 3256) neg Negative - Negati ve POCT U KETONE (test code = 3258) n/a Negative - Neg ative POCT U BLD (test code = 3257) n/a Negative - Negati ve [facility]3 HR GLUCOSE TOLERANCE [id number] 18:00:00 * Test Item Value Reference Range Interpretation Comme nts GLUC 3 HR (test code = 3676531969) 103 mg/dL 70-110 Lab Interpretation (test cod e = 57984-0) Normal [facility] CenterGLUCOSE [id number] 17:52:00* Test Item Value Reference Range Interpretation Comme nts GLU FASTNG (test code = 4960268592) 86 mg/dL 70-110 Lab Interpretation (test cod e = 82810-9) Normal [facility]1 HR GLUCOSE TOLERANCE [id number] 17:48:00 * Test Item Value Reference Range Interpretation Comme nts GLUC 1 HR (test code = 5117906379) 131 mg/dL 120-170 Lab Interpretation (test cod e = 83073-2) Normal [facility]2 HR GLUCOSE TOLERANCE [id number] 17:48:00 * Test Item Value Reference Range Interpretation Comme nts GLUC 2 HR (test code = 0118470728) 171 mg/dL 70-120 H Lab Interpretation (test cod e = 60865-4) Abnormal [facility] CenterCBC WITH [id number] 17:33:00* Test Item Value Reference Range Interpretation Comme nts WBC (test code = 6690-2) See_Comment [Automated [employer]] The system which generated this result transmitted reference range: 4.30 - 11.10 10*3/?L. The reference range was not used to interpret this result as normal/abnormal. RBC (test code = 789-8) See_Comment L [Automated messa ge] The system which generated this result transmitted reference range: 3.93 - 5.25 10*6/?L. The reference range was not used to interpret this result as normal/abnormal. HGB (test code = 718-7) 10.9 g/dL 11.6-15 L HCT (test code = 4544-3) 32.5 % 35.7-45.2 L MCV (test code = 787-2) 95.0 fL 80.6-95.5 MCH (test code = 785-6) 31.9 pg 25.9-32.8 MCHC (test code = 786-4) 33.5 g/dL 31.6-35.1 RDW-SD (test code = 72808-1) 43.9 fL 39-49.9 RDW-CV (test code = 788-0) 12.9 % 12-15.5 PLT (test code = 777-3) See_Comment [Automated [employer]] The system which generated this result transmitted reference range: 166 - 358 10*3/?L. The reference range was not used to interpret this result as normal/abnormal. MPV (test code = 60368-2) 9.8 fL 9.5-12.9 NRBC/100 WBC (test code = 8807736243) See_Comment [Automated [employer] ssage] The system which generated this result transmitted reference range: 0.0 - 10.0 /100 WBCs. The reference range was not used to interpret this result as normal/abnormal. NRBC x10^3 (test code = 1162492576) <0.01 See_Comment [Automated [employer]] The system which generated this result transmitted reference range: 10*3/?L. The reference range was not used to interpret this result as normal/abnormal. GRAN MAT (NEUT) % (test code = 770-8) 62.3 % IMM GRAN % (test code = 1083158942) 0.70 % LYMPH % (test code = 736-9) 29.9 % MONO % (test code = 5905-5) 6.0 % EOS % (test code = 713-8) 0.5 % BASO % (test code = 706-2) 0.6 % GRAN MAT x10^3(ANC) (test code = 6820988914) 5.49 10*3/uL 1.88-7.09 IMM GRAN x10^3 (test code = 4054617966) 0.06 10*3/uL 0-0.06 LYMPH x10^3 (test code = 731-0) 2.63 10*3/uL 1.32-3.29 MONO x10^3 (test code = 742-7) 0.53 10*3/uL 0.33-0.92 EOS x10^3 (test code = 711-2) 0.04 10*3/uL 0.03-0.39 BASO x10^3 (test code = 704-7) 0.05 10*3/uL 0.01-0.07 Lab Interpretation (test code = 66525-8) Abnormal [facility] HEMOGLOBIN A1C [id number] 21:58:00* Test Item Value Reference Range Interpretation Comme nts POCT HBA1C (test code = 4548-4) 5.2 % 4-6 [facility] HEMOGLOBIN A1C [id number] 21:58:00* Test Item Value Reference Range Interpretation Comme nts POCT HBA1C (test code = 4548-4) 5.2 % 4-6 [facility]>14 WEEKS US [id number] 21:43:38Cephalic presentationUnB[facility]>14 WEEKS US [id number] 21:43:38Cephal[facility]Un[facility]/O SPECIFIC [id number] 21:35:00* Test Item Value Reference Range Interpretation Comme nts POCT PH U (test code = 3254) NA 5-8 POCT U LEUK EST (test code = 3263) NA Negative - Negative POCT U NIT (test code = 3262) NA Negative - Negati ve POCT U PROT (test code = 3259) Negative Negative - Negat ariana POCT U GLU (test code = 3256) Negative Negative - Negati ve POCT U KETONE (test code = 3258) NA Negative - Neg ative POCT U BLD (test code = 3257) NA Negative - Negati ve Lab Interpretation (test cod e = 21563-3) Normal [facility] URINALYSIS W/O SPECIFIC [id number] 21:35:00* Test Item Value Reference Range Interpretation Comme nts POCT PH U (test code = 3254) NA 5-8 POCT U LEUK EST (test code = 3263) NA Negative - Negative POCT U NIT (test code = 3262) NA Negative - Negati ve POCT U PROT (test code = 3259) Negative Negative - Negat ariana POCT U GLU (test code = 3256) Negative Negative - Negati ve POCT U KETONE (test code = 3258) NA Negative - Neg ative POCT U BLD (test code = 3257) NA Negative - Negati ve Lab Interpretation (test cod e = 09865-7) Normal [facility] URINALYSIS W/O SPECIFIC [id number] 21:23:00* Test Item Value Reference Range Interpretation Comme nts POCT PH U (test code = 3254) n/a 5-8 POCT U LEUK EST (test code = 3263) n/a Negative - N egative POCT U NIT (test code = 3262) n/a Negative - Negati ve POCT U PROT (test code = 3259) neg Negative - Negat ariana POCT U GLU (test code = 3256) neg Negative - Negati ve POCT U KETONE (test code = 3258) n/a Negative - Neg ative POCT U BLD (test code = 3257) n/a Negative - Negati ve [facility] URINALYSIS W/O SPECIFIC [id number] 15:56:00* Test Item Value Reference Range Interpretation Comme nts POCT PH U (test code = 3254) N/A 5-8 POCT U LEUK EST (test code = 3263) N/A Negative - Negative POCT U NIT (test code = 3262) N/A Negative - Negati ve POCT U PROT (test code = 3259) Negative Negative - Negat ariana POCT U GLU (test code = 3256) Trace Negative - Negati ve POCT U KETONE (test code = 3258) N/A Negative - Neg ative POCT U BLD (test code = 3257) N/A Negative - Negati ve [facility] CenterPO[facility] W/O SPECIFIC [id number] 15:56:00* Test Item Value Reference Range Interpretation Comme nts POCT PH U (test code = 3254) N/A 5-8 POCT U LEUK EST (test code = 3263) N/A Negative - Negative POCT U NIT (test code = 3262) N/A Negative - Negati ve POCT U PROT (test code = 3259) Negative Negative - Negat ariana POCT U GLU (test code = 3256) Trace Negative - Negati ve POCT U KETONE (test code = 3258) N/A Negative - Neg ative POCT U BLD (test code = 3257) N/A Negative - Negati ve [facility]
[2023-02-24 16:53] LABS: Specific Gravity 1.012 (1.005-1.030)
--- NOTE | 2023-02-24 17:32 | RAD REPORT ---
EXAM DESCRIPTION: CTSpine Lumbar Wo Con02/24/2023 5:22 pm CLINICAL HISTORY: Lower back pain. Radiculopathy COMPARISON: None TECHNIQUE: Computed axial tomography lumbar spine was obtained with coronal and sagittal reconstruct ion. All CT scans are performed using dose optimization technique as appropriate and may include automated exposure control or mA/KV adjustment according to patient size. FINDINGS: Moderate to large left paracentral disc herniation L4-5 Small disc bulge L5-S1 No fracture or dislocation IMPRESSION: Moderate to large left paracentral disc herniation L4-5
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
[2023-02-24 18:18] VITALS: BP 140/87; TEMP 98; O2SAT 100
== END ==
LOC: ER 14:52
DX: M51.26 Other intervertebral disc displacement, lumbar region (principal)
CPT/HCPCS: 81025; 72131; 96372; 99284; Q0162

== ENCOUNTER → 2023-03-15 | Emergency (ER) | payer BC ==
[~2023-03-15] MED LIST changes: +KETOROLAC 30 MG/ML INJ ONE; -ONDANSETRON 4 MG (ODT) TAB ONE; +dexAMETHasone 10 MG/ML VIAL ONE
--- OUTSIDE RECORDS SUMMARY | 2023-03-15 18:57 | XMS REPORT | Continuity of Care Document ---
Author Name Unknown Address [address] [facility] [address] [place] [address] [facility] thconnect Address [address] [facility] [address] [place] [address] Care Team Providers Care Edger Feeder Name Role Phone PERICO POON Primary Care Physician UnavaLANDON Colvin Attending Clinician Unavailable Shivani Hobson PA-C Attending Clinician [phone] Landon Domínguez MD Attending Clinician [phone] Doctor Unassigned, [place] Attending Clinician U navailable ADRIÁN_SLY_TRIPP Attending Clinician Unavailable Arleth Velasquez MD Attending Clinician [phone] SHIVANI HOBSON Attending Clinician Unavailable 2, [facility] Attending Clinician Unavailable Consults, Rmchp Ang Pn Genetic Attending Clinici an Unavailable Rommel Hernandez MD Attending Clinician [phone] ROMMEL HERNANDEZ Attending Clinician Unavailable Ultrasound, Ang-gloria Attending Clinician UnavailSidney Groves MD Attending Clinician [phone] LANDON DOMÍNGUEZ Admitting Clinician Unavailable ADRIÁN_SLY_TRIPP Admitting Clinician Unavailable Arleth Velasquez MD Admitting Clinician [phone] Payers Payer Name Policy Type Policy Number Effective Date Expirati on Date Source [facility] MEDICAID [id number] 2019 00:00:00 [facility] [id number] 2020 00:00:00 Problems Condition Name Condition Details Condition Category Status Onset Date Resolution Date Last Treatment Date Treating Clinician Comments Source Presence of 52 mg levonorges trel-relea sing intrauteri ne device (IUD) Presence of 52 mg levonorges trel-relea sing intrauteri ne device (IUD) Disease Active 2019-02 0-15 00:00: 00 [facility] Normal labor Normal labor Disease Active 8-28 00:00: 00 [facility] 39 weeks gestation of 39 weeks gestation of Disease Active 828 00:00: 00 [facility] Liveborn infant, of pyle , born in hospital by vaginal delivery Liveborn , of pyle , born in hospital by vaginal delivery Disease Active 8 00:00: 00 [facility] COVID-19 virus infection COVID-19 virus infection Disease Active 10-23 00:00: 00 [facility] Abnormal maternal glucose tolerance, antepartum Abnormal maternal glucose tolerance, antepartum Disease Active 814 00:00: 00 Last Assessmen t & Plan: 3 hr gtt wnl [facility] Positive GBS test Positive GBS test Disease Active 814 00:00: 00 [facility] Obesity (BMI 30-39.9) Obesity (BMI 30-39.9) Disease Active 6-08 00:00: 00 [facility] Gastroesop hageal reflux disease, esophagiti s presence not specified Gastroesop hageal reflux disease, esophagiti s presence not specified Disease Active 07-23 00:00: 00 [facility] Abnormal findings on screening Abnormal findings on screening Disease Active 5 00:00: 00 [facility] Supervisio n of high-risk with insufficie nt care in third trimester Supervisio n of high-risk with insufficie nt care in third trimester Disease Active 4-09 00:00: 00 [facility] Allergies, Adverse Reactions, Alerts Allergy Name Allergy Type Status Severity Reaction(s) Onset Date Inactive Date Treating Clinician Comments Source NO KNOWN ALLERGIE S Drug Class Active [facility] Social History Social Habit Start Date Stop Date Quantity Comments Source ASSERTION 2019-02-05 00:00:00 [facility] History SDOH Alcohol Binge [facility] History SDOH Alcohol Comment [facility] History of tobacco use Cigarette Smoker [facility] Exposure to SARS-CoV-2 (event) 2021-11-22 00:00:00 2021-12-02 13:21:00 Not sure [facility] Tobacco use and exposure 2021-12-02 00:00:00 2021-12-02 00:00:00 Smokeless tobacco non-user [facility] Cigarettes smoked current (pack per day) - Reported 2021-12-02 00:00:00 2021-12-02 00:00:00 [facility] Cigarette pack-years 2021-12-02 00:00:00 2021-12-02 00:00:00 [facility] Alcohol intake 2021-12-02 00:00:00 2021-12-02 00:00:00 Ex-drinker (finding) [facility] History SDOH Alcohol Std Drinks 2019-06-05 00:00:00 2019-06-05 00:00:00 2 [facility] History SDOH Alcohol Frequency 2019-06-05 00:00:00 2019-06-05 00:00:00 3 [facility] Sex Assigned At 1995 00:00:00 1995 00:00:00 [facility] Smoking Status Start Date Stop Date Source Ex-smoker 2021-12-02 00:00:00 [facility] Or[facility]ication Name Filled Medication Name Start Date Stop Date Current Medication? Ordering Clinician Indication Dosage Frequency Signature (SIG) Comments Components Source metroNIDAZO LE 500 mg tablet 2021-02 00:00: 00 Yes [id number] 500mg Take 1 tablet by mouth every 12 (twelve) hours. [facility] meloxicam 7.5 mg tablet 2021-02 13:54: 16 Yes 7.5mg Take 7.5 mg by mouth. [facility] baclofen 10 mg tablet 2021-02 13:54: 16 Yes 10mg Take 10 mg by mouth. [facility] meloxicam 7.5 mg tablet 2021-02 0 13:54: 16 Yes 7.5mg Take 7.5 mg by mouth. [facility] baclofen 10 mg tablet 2021-02 13:54: 16 Yes 10mg Take 10 mg by mouth. [facility] meloxicam 7.5 mg tablet 2021-02 0 13:54: 16 Yes 7.5mg Take 7.5 mg by mouth. [facility] baclofen 10 mg tablet 2021-02 0 13:54: 16 Yes 10mg Take 10 mg by mouth. [facility] meloxicam 7.5 mg tablet 2021-02 13:54: 16 Yes 7.5mg Take 7.5 mg by mouth. [facility] baclofen 10 mg tablet 2021-02 13:54: 16 Yes 10mg Take 10 mg by mouth. [facility] LOESTRIN FE (LOESTRIN FE 1/20) 1 mg-20 mcg (21)/75 mg (7) tablet 2021-02 00:00: 00 Yes [id number] 1{tbl} Take 1 tablet by mouth in the morning. [facility] LOESTRIN FE (LOESTRIN FE 1/20) 1 mg-20 mcg (21)/75 mg (7) tablet 2021-02 00:00: 00 Yes [id number] 1{tbl} Take 1 tablet by mouth in the morning. [facility] LOESTRIN FE (LOESTRIN FE 1/20) 1 mg-20 mcg (21)/75 mg (7) tablet 2021-02 0 00:00: 00 Yes [id number] 1{tbl} Take 1 tablet by mouth in the morning. [facility] LOESTRIN FE (LOESTRIN FE 1/20) 1 mg-20 mcg (21)/75 mg (7) tablet 2021-02 0 00:00: 00 Yes [id number] 1{tbl} Take 1 tablet by mouth in the morning. [facility] gabapentin 600 mg tablet 10-24 00:00: 00 Yes 600mg Take 600 mg by mouth in the morning and 600 mg at noon and 600 mg in the evening. [facility] gabapentin 600 mg tablet 2021-0 10-24 00:00: 00 Yes 600mg Take 600 mg by mouth in the morning and 600 mg at noon and 600 mg in the evening. [facility] gabapentin 600 mg tablet 2021-0 10-24 00:00: 00 Yes 600mg Take 600 mg by mouth in the morning and 600 mg at noon and 600 mg in the evening. [facility] gabapentin 600 mg tablet 0 10-24 00:00: 00 Yes 600mg Take 600 mg by mouth in the morning and 600 mg at noon and 600 mg in the evening. [facility] SERTraline 100 mg tablet 2021-0 10-09 00:00: 00 Yes TAKE 1 AND A HALF TABLETS BY MOUTH DAILY [facility] SERTraline 100 mg tablet 2021-0 10-09 00:00: 00 Yes TAKE 1 AND A HALF TABLETS BY MOUTH DAILY [facility] SERTraline 100 mg tablet 2021-0 10-09 00:00: 00 Yes TAKE 1 AND A HALF TABLETS BY MOUTH DAILY [facility] SERTraline 100 mg tablet 2021-0 10-09 00:00: 00 Yes TAKE 1 AND A HALF TABLETS BY MOUTH DAILY [facility] buPROPion HCL, smoking deter, 150 mg Tb12 2-0 8- 00:00: 00 Yes 1{tbl} Take 1 tablet by mouth 2 (two) times daily. [facility] buPROPion HCL, smoking deter, 150 mg Tb12 2-0 8- 00:00: 00 Yes 1{tbl} Take 1 tablet by mouth 2 (two) times daily. [facility] buPROPion HCL, smoking deter, 150 mg Tb12 2-0 8- 00:00: 00 Yes 1{tbl} Take 1 tablet by mouth 2 (two) times daily. [facility] buPROPion HCL, smoking deter, 150 mg Tb12 2-0 8-08 00:00: 00 Yes 1{tbl} Take 1 tablet by mouth 2 (two) times daily. [facility] levonorgest reL (MIRENA) IUD 1 Device 2019-02 0-16 00:30: 00 12-10 23:28 :00 No 1{devic e} [facility] levonorgest reL (MIRENA) IUD 1 Device 2019-02 0-16 00:30: 00 12-10 23:28 :00 No 1{devic e} 1 Device, Intrauteri ne, ONCE, 1 dose, [facility] 12/11/19 at 1930, Routine [facility] levonorgest reL (MIRENA) IUD 1 Device 2019-02 016 00:30: 00 12-10 23:28 :00 No 1{devic e} [facility] levonorgest reL (MIRENA) IUD 1 Device 2019-02 0-16 00:30: 00 12-10 23:28 :00 No 1{devic e} 1 Device, Intrauteri ne, ONCE, 1 dose, [facility] 12/11/19 at 1930, Routine [facility] rho(D) immune globulin (RHOGAM) syringe 300 mcg 10-23 22:49: 17 Yes 300ug 300 mcg, Intramuscu lar, ONCE, For 1 dose, Conditiona l, Routine [facility] HYDROcodone -acetaminop hen (NORCO 5) 5-325 mg tablet 1 tablet 10-23 22:49: 12 Yes 1{tbl} 1 tablet, Oral, Q6HPRN, Starting Sun10/24/19 at 174, Until Discontinu ed, Routine, Pain (scale 7-10) [facility] ibuprofen (IBU) tablet 600 mg 10-23 22:49: 12 Yes 600mg 600 mg, Oral, Q6HPRN, Starting Sun10/24/19 at 174, Until Discontinu ed, Routine, Pain (scale 4-6) [facility] diphenhydrA MINE-0.9 % sod.chlr (BENADRYL) 25 mg/50 mL piggyback 25 mg 10-23 22:49: 12 Yes 25mg 25 mg, IV Piggyback, Administer over 30 Minutes, Q6HPRN, Starting Sun10/24/19 at 174, Until Discontinu ed, Routine, Itching [facility] ondansetron (ZOFRAN (PF)) injection 4 mg 10-23 22:49: 12 Yes 4mg 4 mg, Slow IV Push, Q8HPRN, Starting Sun10/24/19 at 174, Until Discontinu ed, Routine, Nausea and Vomiting (N/V) [facility] simethicone (GAS RELIEF (SIMETHICON E)) chewable tablet 160 mg 10-23 22:49: 12 Yes 160mg 160 mg, Oral, PC+HSPRN, Starting Sun10/24/19 at 174, Until Discontinu ed, Routine, Gas [facility] docusate calcium (SURFAK) capsule 240 mg 10-23 22:49: 12 Yes 240mg 240 mg, Oral, QDAILYPRN, Starting Sun10/24/19 at 174, Until Discontinu ed, Routine, Constipati on [facility] magnesium hydroxide (MILK OF MAGNESIA) 400 mg/5 mL suspension 30 mL 10-23 22:49: 12 Yes 30mL 30 mL, Oral, QDAILYPRN, Starting Sun10/24/19 at 174, Until Discontinu ed, Routine, Constipati on [facility] acetaminoph en (TYLENOL) tablet 650 mg 10-23 22:49: 11 Yes 650mg 650 mg, Oral, Q6HPRN, Starting Sun10/24/19 at 174, Until Discontinu ed, Routine, Pain (scale 1-3) [facility] diphenhydrA MINE (BENADRYL) tablet 25 mg 10-23 22:49: 11 Yes 25mg 25 mg, Oral, Q6HPRN, Starting Sun10/24/19 at 174, Until Discontinu ed, Routine, Sleep, Itching [facility] benzocaine- menthol (DERMOPLAST ) 20-0.5 % topical spray 10-23 22:49: 11 Yes Topical, PRN, Starting Sun10/24/19 at 1749, Until Discontinu ed, Routine, Perineum discomfort [facility] benzocaine- menthol (DERMOPLAST ) 20-0.5 % topical spray 10-23 16:17: 00 Yes Topical, PRN, Starting Sun10/24/19 at 1117, Until Discontinu ed, Routine, Localized pain [facility] LR 1000 mL + oxytocin 20 units IV Solution 10-23 15:45: 00 10-23 16:19 :00 No at 125 mL/hr, IV Infusion, ONCE, 1 dose, Sun10/24/19 at 1045, Routine [facility] oxytocin (PITOCIN) 20 Units in lactated ringers 1,000 mL IV infusion 10-23 14:13: 45 10-23 22:49 :17 No at 6 mL/hr, IV Infusion, TITRATE, Starting Sun10/24/19 at 0913, Until Sun10/24/19 at 1749, Routine [facility] FENTanyl PF (SUBLIMAZE (PF)) injection 50 mcg 10-23 10:45: 00 10-23 09:42 :00 No 50ug 50 mcg, Slow IV Push, ONCE, 1 dose, Sun10/24/19 at 0545, Routine [facility] D5W-LR IV infusion 1,000 mL 10-23 09:00: 00 10-23 22:49 :17 No 1000mL at 125 mL/hr, IV Infusion, CONTINUOUS , Starting Sun10/24/19 at 0400, Until Sun10/24/19 at 174, Routine [facility] lactated ringers IV infusion 500 mL 10-23 08:52: 15 10-23 22:49 :17 No 500mL at 999 mL/hr, 500 mL, IV Infusion, PRN - SEE INSTRUCTIO NS, Starting Sun10/24/19 at 0352, Until Sun10/24/19 at 174, Routine [facility] vits62/FA/o m3/dha/epa ( GUMMY ORAL) 10-09 15:37: 59 10-09 00:00 :00 No 1{piece } Take 1 Piece by mouth daily. [facility] vits62/FA/o m3/dha/epa ( GUMMY ORAL) 10-09 15:37: 59 10-09 00:00 :00 No 1{piece } Take 1 Piece by mouth daily. [facility] vits62/FA/o m3/dha/epa ( GUMMY ORAL) 10-02 21:11: 56 Yes 1{piece } Take 1 Piece by mouth daily. [facility] vits62/FA/o m3/dha/epa ( GUMMY ORAL) 10-02 21:11: 56 Yes 1{piece } Take 1 Piece by mouth daily. [facility] vits62/FA/o m3/dha/epa ( GUMMY ORAL) 10-02 21:11: 56 Yes 1{piece } Take 1 Piece by mouth daily. [facility] vits62/FA/o m3/dha/epa ( GUMMY ORAL) 10-02 21:11: 56 Yes 1{piece } Take 1 Piece by mouth daily. [facility] famotidine 20 mg tablet 2019-0 07-23 00:00: 00 Yes [id number] 20mg Take 1 tablet by mouth 2 (two) times daily. [facility] famotidine 20 mg tablet 2019-0 07-23 00:00: 00 Yes [id number] 20mg Take 1 tablet by mouth 2 (two) times daily. [facility] famotidine 20 mg tablet 2019-0 28 00:00: 00 Yes [id number] 20mg Take 1 tablet by mouth 2 (two) times daily. [facility] famotidine 20 mg tablet 2019-0 28 00:00: 00 Yes [id number] 20mg Take 1 tablet by mouth 2 (two) times daily. [facility] famotidine 20 mg tablet 2019-0 28 00:00: 00 Yes [id number] 20mg Take 1 tablet by mouth 2 (two) times daily. [facility] famotidine 20 mg tablet 2019-0 28 00:00: 00 Yes [id number] 20mg Take 1 tablet by mouth 2 (two) times daily. [facility] famotidine 20 mg tablet 2019-0 28 00:00: 00 Yes [id number] 20mg Take 1 tablet by mouth 2 (two) times daily. [facility] famotidine 20 mg tablet 2019-0 528 00:00: 00 Yes [id number] 20mg Take 1 tablet by mouth 2 (two) times daily. [facility] famotidine 20 mg tablet 2019-0 -28 00:00: 00 Yes [id number] 20mg Take 1 tablet by mouth 2 (two) times daily. [facility] 28 00:00: 00 Yes [id number] 20mg Take 1 tablet by mouth 2 (two) times daily. [facility]-0 28 00:00: 00 Yes [id number] 20mg Take 1 tablet by mouth 2 (two) times daily. [facility] 2019-0 07-23 00:00: 00 Yes [id number] 20mg Take 1 tablet by mouth 2 (two) times daily. [facility] famotidine 20 mg tablet 2019-0 07-23 00:00: 00 Yes [id number] 20mg Take 1 tablet by mouth 2 (two) times daily. [facility]-0 07-23 00:00: 00 Yes [id number] 20mg Take 1 tablet by mouth 2 (two) times daily. [facility] 2019-0 28 00:00: 00 Yes [id number] 20mg Take 1 tablet by mouth 2 (two) times daily. [facility] 2019-0 28 00:00: 00 Yes [id number] 20mg Take 1 tablet by mouth 2 (two) times daily. [facility] 2019-0 5-28 00:00: 00 Yes [id number] 20mg Take 1 tablet by mouth 2 (two) times daily. [facility] 07-23 00:00: 00 Yes [id number] 20mg Take 1 tablet by mouth 2 (two) times daily. [facility] famotidine 20 mg tablet 07-23 00:00: 00 Yes [id number] 20mg Take 1 tablet by mouth 2 (two) times daily. [facility] famotidine 20 mg tablet 07-23 00:00: 00 Yes [id number] 20mg Take 1 tablet by mouth 2 (two) times daily. [facility] famotidine 20 mg tablet 07-23 00:00: 00 Yes [id number] 20mg Take 1 tablet by mouth 2 (two) times daily. [facility] famotidine 20 mg tablet 07-23 00:00: 00 Yes [id number] 20mg Take 1 tablet by mouth 2 (two) times daily. [facility] famotidine 20 mg tablet 07-23 00:00: 00 01-07 00:00 :00 No [id number] 20mg Take 1 tablet by mouth 2 (two) times daily. [facility] famotidine 20 mg tablet 07-23 00:00: 00 01-07 00:00 :00 No [id number] 20mg Take 1 tablet by mouth 2 (two) times daily. [facility] vits62/FA/o m3/dha/epa ( GUMMY ORAL) 06-04 20:38: 24 Yes 1{piece } Take 1 Piece by mouth daily. [facility] vits62/FA/o m3/dha/epa ( GUMMY ORAL) 06-04 20:38: 24 Yes 1{piece } Take 1 Piece by mouth daily. [facility] vits62/FA/o m3/dha/epa ( GUMMY ORAL) 06-04 20:38: 24 Yes 1{piece } Take 1 Piece by mouth daily. [facility] vits62/FA/o m3/dha/epa ( GUMMY ORAL) 06-04 20:38: 24 Yes 1{piece } Take 1 Piece by mouth daily. [facility] vits62/FA/o m3/dha/epa ( GUMMY ORAL) 0 409 20:38: 24 Yes 1{piece } Take 1 Piece by mouth daily. [facility] vits62/FA/o m3/dha/epa ( GUMMY ORAL) 0 409 20:38: 24 Yes 1{piece } Take 1 Piece by mouth daily. [facility] vits62/FA/o m3/dha/epa ( GUMMY ORAL) 0 409 20:38: 24 Yes 1{piece } Take 1 Piece by mouth daily. [facility] vits62/FA/o m3/dha/epa ( GUMMY ORAL) 409 20:38: 24 Yes 1{piece } Take 1 Piece by mouth daily. [facility] vits62/FA/o m3/dha/epa ( GUMMY ORAL) 409 20:38: 24 Yes 1{piece } Take 1 Piece by mouth daily. [facility] vits62/FA/o m3/dha/epa ( GUMMY ORAL) 409 20:38: 24 Yes 1{piece } Take 1 Piece by mouth daily. [facility] vits62/FA/o m3/dha/epa ( GUMMY ORAL) 409 20:38: 24 Yes 1{piece } Take 1 Piece by mouth daily. [facility] vits62/FA/o m3/dha/epa ( GUMMY ORAL) 0 409 20:38: 24 Yes 1{piece } Take 1 Piece by mouth daily. [facility] vits62/FA/o m3/dha/epa ( GUMMY ORAL) 0 409 20:38: 24 Yes 1{piece } Take 1 Piece by mouth daily. [facility] vits62/FA/o m3/dha/epa ( GUMMY ORAL) 0 409 20:38: 24 Yes 1{piece } Take 1 Piece by mouth daily. [facility] vits62/FA/o m3/dha/epa ( GUMMY ORAL) 06-04 20:38: 24 Yes 1{piece } Take 1 Piece by mouth daily. [facility] vits62/FA/o m3/dha/epa ( GUMMY ORAL) 06-04 20:38: 24 Yes 1{piece } Take 1 Piece by mouth daily. [facility] vits62/FA/o m3/dha/epa ( GUMMY ORAL) 06-04 20:38: 24 Yes 1{piece } Take 1 Piece by mouth daily. [facility] vits62/FA/o m3/dha/epa ( GUMMY ORAL) 06-04 20:38: 24 Yes 1{piece } Take 1 Piece by mouth daily. [facility] vits62/FA/o m3/dha/epa ( GUMMY ORAL) 06-04 20:38: 24 Yes 1{piece } Take 1 Piece by mouth daily. [facility] PNV 102-iron-fo late 1-dss-dha (VITAFOL FE+, WITH DOCUSATE,) 90 mg iron-1 mg -50 mg-200 mg Cap 06-04 00:00: 00 Yes [id number] 09 Take 1 TAB-CAP/M2 by mouth daily. [facility] PNV 102-iron-fo late 1-dss-dha (VITAFOL FE+, WITH DOCUSATE,) 90 mg iron-1 mg -50 mg-200 mg Cap 06-04 00:00: 00 Yes [id number] 09 Take 1 TAB-CAP/M2 by mouth daily. [facility] PNV 102-iron-fo late 1-dss-dha (VITAFOL FE+, WITH DOCUSATE,) 90 mg iron-1 mg -50 mg-200 mg Cap 06-04 00:00: 00 Yes [id number] 09 Take 1 TAB-CAP/M2 by mouth daily. [facility] PNV 102-iron-fo late 1-dss-dha (VITAFOL FE+, WITH DOCUSATE,) 90 mg iron-1 mg -50 mg-200 mg Cap 2020-0 4-09 00:00: 00 Yes [id number] 09 Take 1 TAB-CAP/M2 by mouth daily. [facility] 102-iron-fo late 1-dss-dha (VITAFOL FE+, WITH DOCUSATE,) 90 mg iron-1 mg -50 mg-200 mg Cap 2020-0 4-09 00:00: 00 Yes [id number] 09 Take 1 TAB-CAP/M2 by mouth daily. [facility] 102-iron-fo late 1-dss-dha (VITAFOL FE+, WITH DOCUSATE,) 90 mg iron-1 mg -50 mg-200 mg Cap 2020-0 4-09 00:00: 00 Yes [id number] 09 Take 1 TAB-CAP/M2 by mouth daily. [facility] 102-iron-fo late 1-dss-dha (VITAFOL FE+, WITH DOCUSATE,) 90 mg iron-1 mg -50 mg-200 mg Cap 2020-0 4-09 00:00: 00 Yes [id number] 09 Take 1 TAB-CAP/M2 by mouth daily. [facility] 102-iron-fo late 1-dss-dha (VITAFOL FE+, WITH DOCUSATE,) 90 mg iron-1 mg -50 mg-200 mg Cap 2020-0 4-09 00:00: 00 Yes [id number] 09 Take 1 TAB-CAP/M2 by mouth daily. [facility] 102-iron-fo late 1-dss-dha (VITAFOL FE+, WITH DOCUSATE,) 90 mg iron-1 mg -50 mg-200 mg Cap 2020-0 4-09 00:00: 00 Yes [id number] 09 Take 1 TAB-CAP/M2 by mouth daily. [facility] 102-iron-fo late 1-dss-dha (VITAFOL FE+, WITH DOCUSATE,) 90 mg iron-1 mg -50 mg-200 mg Cap 2020-0 4-09 00:00: 00 Yes [id number] 09 Take 1 TAB-CAP/M2 by mouth daily. [facility] 102-iron-fo late 1-dss-dha (VITAFOL FE+, WITH DOCUSATE,) 90 mg iron-1 mg -50 mg-200 mg Cap 2020-0 4-09 00:00: 00 Yes [id number] 09 Take 1 TAB-CAP/M2 by mouth daily. [facility] 102-iron-fo late 1-dss-dha (VITAFOL FE+, WITH DOCUSATE,) 90 mg iron-1 mg -50 mg-200 mg Cap 2020-0 4-09 00:00: 00 Yes [id number] 09 Take 1 TAB-CAP/M2 by mouth daily. [facility] 102-iron-fo late 1-dss-dha (VITAFOL FE+, WITH DOCUSATE,) 90 mg iron-1 mg -50 mg-200 mg Cap 2020-0 4-09 00:00: 00 Yes [id number] 09 Take 1 TAB-CAP/M2 by mouth daily. [facility] 102-iron-fo late 1-dss-dha (VITAFOL FE+, WITH DOCUSATE,) 90 mg iron-1 mg -50 mg-200 mg Cap 2020-0 4-09 00:00: 00 Yes [id number] 09 Take 1 TAB-CAP/M2 by mouth daily. [facility] 102-iron-fo late 1-dss-dha (VITAFOL FE+, WITH DOCUSATE,) 90 mg iron-1 mg -50 mg-200 mg Cap 2020-0 4-09 00:00: 00 Yes [id number] 09 Take 1 TAB-CAP/M2 by mouth daily. [facility] 102-iron-fo late 1-dss-dha (VITAFOL FE+, WITH DOCUSATE,) 90 mg iron-1 mg -50 mg-200 mg Cap 2020-0 4-09 00:00: 00 Yes [id number] 09 Take 1 TAB-CAP/M2 by mouth daily. [facility] 102-iron-fo late 1-dss-dha (VITAFOL FE+, WITH DOCUSATE,) 90 mg iron-1 mg -50 mg-200 mg Cap 2020-0 4-09 00:00: 00 Yes [id number] 09 Take 1 TAB-CAP/M2 by mouth daily. [facility] 102-iron-fo late 1-dss-dha (VITAFOL FE+, WITH DOCUSATE,) 90 mg iron-1 mg -50 mg-200 mg Cap 2020-0 4-09 00:00: 00 Yes [id number] 09 Take 1 TAB-CAP/M2 by mouth daily. [facility] 102-iron-fo late 1-dss-dha (VITAFOL FE+, WITH DOCUSATE,) 90 mg iron-1 mg -50 mg-200 mg Cap 2020-0 4-09 00:00: 00 Yes [id number] 09 Take 1 TAB-CAP/M2 by mouth daily. [facility] 102-iron-fo late 1-dss-dha (VITAFOL FE+, WITH DOCUSATE,) 90 mg iron-1 mg -50 mg-200 mg Cap 2020-0 4-09 00:00: 00 Yes [id number] 09 Take 1 TAB-CAP/M2 by mouth daily. [facility] 102-iron-fo late 1-dss-dha (VITAFOL FE+, WITH DOCUSATE,) 90 mg iron-1 mg -50 mg-200 mg Cap 2020-0 4-09 00:00: 00 Yes [id number] 09 Take 1 TAB-CAP/M2 by mouth daily. [facility] 102-iron-fo late 1-dss-dha (VITAFOL FE+, WITH DOCUSATE,) 90 mg iron-1 mg -50 mg-200 mg Cap 2020-0 4-09 00:00: 00 Yes [id number] 09 Take 1 TAB-CAP/M2 by mouth daily. [facility] 102-iron-fo late 1-dss-dha (VITAFOL FE+, WITH DOCUSATE,) 90 mg iron-1 mg -50 mg-200 mg Cap 2020-0 4-09 00:00: 00 Yes [id number] 09 Take 1 TAB-CAP/M2 by mouth daily. [facility] 102-iron-fo late 1-dss-dha (VITAFOL FE+, WITH DOCUSATE,) 90 mg iron-1 mg -50 mg-200 mg Cap 2020-0 4-09 00:00: 00 Yes [id number] 09 Take 1 TAB-CAP/M2 by mouth daily. [facility] 102-iron-fo late 1-dss-dha (VITAFOL FE+, WITH DOCUSATE,) 90 mg iron-1 mg -50 mg-200 mg Cap 2020-0 4-09 00:00: 00 Yes [id number] 09 Take 1 TAB-CAP/M2 by mouth daily. [facility] 102-iron-fo late 1-dss-dha (VITAFOL FE+, WITH DOCUSATE,) 90 mg iron-1 mg -50 mg-200 mg Cap 2020-0 4- 00:00: 00 Yes [id number] 09 Take 1 TAB-CAP/M2 by mouth daily. [facility] 102-iron-fo late 1-dss-dha (VITAFOL FE+, WITH DOCUSATE,) 90 mg iron-1 mg -50 mg-200 mg Cap 2020-0 4- 00:00: 00 Yes [id number] 09 Take 1 TAB-CAP/M2 by mouth daily. [facility] 102-iron-fo late 1-dss-dha (VITAFOL FE+, WITH DOCUSATE,) 90 mg iron-1 mg -50 mg-200 mg Cap 2020-0 4- 00:00: 00 Yes [id number] 09 Take 1 TAB-CAP/M2 by mouth daily. [facility] 102-iron-fo late 1-dss-dha (VITAFOL FE+, WITH DOCUSATE,) 90 mg iron-1 mg -50 mg-200 mg Cap 2020-0 4- 00:00: 00 Yes [id number] 09 Take 1 TAB-CAP/M2 by mouth daily. [facility] 102-iron-fo late 1-dss-dha (VITAFOL FE+, WITH DOCUSATE,) 90 mg iron-1 mg -50 mg-200 mg Cap 2020-0 4- 00:00: 00 Yes [id number] 09 Take 1 TAB-CAP/M2 by mouth daily. [facility] 102-iron-fo late 1-dss-dha (VITAFOL FE+, WITH DOCUSATE,) 90 mg iron-1 mg -50 mg-200 mg Cap - 00:00: 00 Yes [id number] Take 1 TAB-CAP/M2 [facility] mouth daily[facility] PNV 102-iron-fo late 1-dss-dha (VITAFOL FE+, WITH DOCUSATE,) 90 mg iron-1 mg -50 mg-200 mg Cap 06-04 00:00: 00 01-07 00:00 :00 No [id number] 09 Take 1 TAB-CAP/M2 by mouth daily. [facility] PNV 102-iron-fo late 1-dss-dha (VITAFOL FE+, WITH DOCUSATE,) 90 mg iron-1 mg -50 mg-200 mg Cap 06-04 00:00: 00 01-07 00:00 :00 No [id number] Take 1 TAB-CAP/M2 by mouth daily. [facility] Vital Signs Vital Name Observation Time Observation Value Comments S ource Systolic blood pressure 2021-12-02 18:51:00 102 mm[Hg] [facility] Diastolic blood pressure 2021-12-02 18:51:00 71 mm[Hg] [facility] Heart rate 2021-12-02 18:51:00 89 /min [facility] Body temperature 2021-12-02 18:51:00 36.72 Deisy [facility] Respiratory rate 2021-12-02 18:51:00 16 /min [facility] Body height 2021-12-02 18:51:00 162.6 cm [facility] Body weight 2021-12-02 18:51:00 64.093 kg [facility] BMI 2021-12-02 18:51:00 24.25 kg/m2 [facility] Oxygen saturation in Arterial blood by Pulse oximetry 2021-12-02 18:51:00 98 /min [facility] Systolic blood pressure 2020-01-08 21:28:00 132 mm[Hg] [facility] Diastolic blood pressure 2020-01-08 21:28:00 70 mm[Hg] [facility] Heart rate 2020-01-08 21:28:00 92 /[facility] 2020-01-08 21:28:00 36.89 Deisy [facility] Respiratory rate 2020-01-08 21:28:00 18 /min [facility] Body height 2020-01-08 21:28:00 162.6 cm [facility] weight 2020-01-08 21:28:00 90.266 kg [facility] BMI 2020-01-08 21:28:00 34.16 kg/m2 [facility] Systolic blood pressure 2019-12-11 20:34:00 117 mm[Hg] [facility] Diastolic blood pressure 2019-12-11 20:34:00 74 mm[Hg] [facility] Heart rate 2019-12-11 20:34:00 71 /min [facility] Body temperature 2019-12-11 20:34:00 36.83 Deisy [facility] Respiratory rate 2019-12-11 20:34:00 18 /min [facility] Body height 2019-12-11 20:34:00 162.6 cm [facility] Body weight 2019-12-11 20:34:00 90.266 kg [facility] BMI 2019-12-11 20:34:00 34.16 kg/m2 [facility] Systolic blood pressure 2019-11-20 20:57:00 109 mm[Hg] [facility] Diastolic blood pressure 2019-11-20 20:57:00 73 mm[Hg] [facility] Heart rate 2019-11-20 20:57:00 72 /min Unive [facility] Body temperature 2019-11-20 20:57:00 37.11 Deisy [facility] Respiratory rate 2019-11-20 20:57:00 18 /min [facility] Body height 2019-11-20 20:57:00 162.6 cm [facility] Body weight 2019-11-20 20:57:00 87.363 kg [facility] BMI 2019-11-20 20:57:00 33.06 kg/m2 [facility] Respiratory rate 2019-10-25 19:15:00 18 /min [facility] Systolic blood pressure 2019-10-25 13:05:00 123 mm[Hg] [facility] Diastolic blood pressure 2019-10-25 13:05:00 83 mm[Hg] [facility] Heart rate 2019-10-25 13:05:00 87 /min Unive [facility] Body temperature 2019-10-25 13:05:00 36.67 Deisy [facility] Oxygen saturation in Arterial blood by Pulse oximetry 2019-10-25 13:05:00 100 /min [facility] Body height 2019-10-24 09:25:00 162.6 cm [facility] Body weight 2019-10-24 09:25:00 93.441 kg [facility] BMI 2019-10-24 09:25:00 35.36 kg/m2 [facility] Systolic blood pressure 2019-10-17 14:02:00 119 mm[Hg] [facility] Diastolic blood pressure 2019-10-17 14:02:00 75 mm[Hg] [facility] Heart rate 2019-10-17 14:02:00 84 /min Unive [facility] Body temperature 2019-10-17 14:02:00 36.83 Deisy [facility] Respiratory rate 2019-10-17 14:02:00 18 /min [facility] Body height 2019-10-17 14:02:00 162.6 cm [facility] Body weight 2019-10-17 14:02:00 93.441 kg [facility] BMI 2019-10-17 14:02:00 35.36 kg/m2 [facility] Systolic blood pressure 2019-10-10 15:06:00 116 mm[Hg] [facility] Diastolic blood pressure 2019-10-10 15:06:00 78 mm[Hg] [facility] Heart rate 2019-10-10 15:06:00 85 /min Unive [facility] Body temperature 2019-10-10 15:06:00 36.94 Deisy [facility] Respiratory rate 2019-10-10 15:06:00 18 /min [facility] Body height 2019-10-10 15:06:00 162.6 cm [facility] Body weight 2019-10-10 15:06:00 93.078 kg [facility] BMI 2019-10-10 15:06:00 35.22 kg/m2 [facility] Systolic blood pressure 2019-10-03 21:11:00 115 mm[Hg] [facility] Diastolic blood pressure 2019-10-03 21:11:00 74 mm[Hg] [facility] Heart rate 2019-10-03 21:11:00 91 /min Unive [facility] Body temperature 2019-10-03 21:11:00 36.72 Deisy [facility] Respiratory rate 2019-10-03 21:11:00 18 /min [facility] Body weight 2019-10-03 21:11:00 91.808 kg [facility] BMI 2019-10-03 21:11:00 34.74 kg/m2 [facility] Systolic blood pressure 2019-09-15 21:17:00 118 mm[Hg] [facility] Diastolic blood pressure 2019-09-15 21:17:00 72 mm[Hg] [facility] Heart rate 2019-09-15 21:17:00 64 /min Unive [facility] Body temperature 2019-09-15 21:17:00 37.06 Deisy [facility] Respiratory rate 2019-09-15 21:17:00 18 /min [facility] Body height 2019-09-15 21:17:00 162.6 cm [facility] Body weight 2019-09-15 21:17:00 89.812 kg [facility] BMI 2019-09-15 21:17:00 33.99 kg/m2 [facility] Systolic blood pressure 2019-08-04 15:38:00 114 mm[Hg] [facility] Diastolic blood pressure 2019-08-04 15:38:00 74 mm[Hg] [facility] Heart rate 2019-08-04 15:38:00 92 /min Unive [facility] Body temperature 2019-08-04 15:38:00 36.83 Deisy [facility] Respiratory rate 2019-08-04 15:38:00 18 /min [facility] Body height 2019-08-04 15:38:00 162.6 cm [facility] Body weight 2019-08-04 15:38:00 87.091 kg [facility] BMI 2019-08-04 15:38:00 32.96 kg/m2 [facility] Procedures Procedure Date / Time Performed Performing Clinician Source DISCLOSURE AND CONSENT, MEDICAL AND SURGICAL PROCEDURES 2021-12-02 05:01:00 Doctor Unassigned, [place] [facility] POCT TEST 2021-12-02 00:00:00 Landon Domínguez [facility] DISCLOSURE AND CONSENT, MEDICAL AND SURGICAL PROCEDURES 2019-12-11 05:01:00 Doctor Unassigned, [place] [facility] POCT TEST 2019-12-11 00:00:00 Landon Domínguez [facility] CBC WITH DIFF 2019-10-25 08:36:00 Landon Domínguez [facility] VENOUS CORD GAS 2019-10-24 14:20:00 Landon Domínguez [facility] CBC WITH DIFF 2019-10-24 09:11:00 [facility] HEPATITIS B SURFACE ANTIGEN 2019-10-24 09:11:00 Arleth Velasquez [facility] ADC OR NANI ONLY - RPR 2019-10-24 09:11:00 Ron [facility] HIV 1/2 AG-AB WITH REFLEX 2019-10-24 09:11:00 Ron [facility] COVID-19 (ID NOW RAPID TESTING) 2019-10-24 09:11:00 Arleth Velasquez [facility] HB ABO GROUPING 2019-10-24 09:10:00 oRn [facility] RHO (D) IMMUNE GLOBULIN 2019-10-24 09:10:00 Landon Domínguez [facility] NOTICE OF PRIVACY PRACTICES 2019-10-24 08:36:07 Doctor Unassigned, [place] [facility] CONSENT/REFUSAL FOR DIAGNOSIS AND TREATMENT 2019-10-24 08:33:33 Doctor Unassigned, [place] [facility] ASSIGNMENT OF BENEFITS 2019-10-24 08:33:13 Docto r Unassigned, [place] [facility] POCT URINALYSIS W/O SPECIFIC GRAVITY 2019-10-17 00:00:00 [facility] POCT URINALYSIS W/O SPECIFIC GRAVITY 2019-10-10 15:08:00 Ryan Domínguezen [facility] 3 HR GLUCOSE TOLERANCE TEST 2019-10-09 17:12:00 [facility] GLUCOSE TOLERANCE TEST 2019-10-09 16:05:00 [facility] GLUCOSE TOLERANCE TEST 2019-10-09 15:00:00 [facility] 2019-10-09 14:02:00 Landon Domínguez [facility] CBC WITH DIFF 2019-10-09 14:02:00 Holden [facility] GLUCOSE FASTING 2019-10-09 14:02:[address] [facility] >14 WEEKS US LIMITED 2019-10-03 21:43:13 [facility] POCT URINALYSIS W/O SPECIFIC GRAVITY 2019-10-03 21:35:00 [facility] DSU PRE-OP 2019-10-03 05:01:00 Doctor Unass igned, [place] [facility] POCT HEMOGLOBIN A1C TEST 2019-10-03 00:00:00 Shivani Hobson [facility] POCT URINALYSIS W/O SPECIFIC GRAVITY 2019-09-15 00:00:00 Landon Domínguez [facility] TDAP (ADACEL) IMMUNIZATION 2019-08-04 16:00:53 Landon Domínguez [facility] POCT URINALYSIS W/O SPECIFIC GRAVITY 2019-08-04 00:00:00 Andrea [facility] SCANNED LAB RESULTS 2019-07-24 05:01:00 Doctor Sean jones, [place] [facility] SCANNED LAB RESULTS 2019-07-07 05:01:00 Doctor Sean jones, [place] [facility] AGREEMENTS AUTHORIZATIONS AND IRREVOCABLE ASSIGNMENTS (FORM 2001) 2019-06-18 05:01:00 Doctor Unassigned, [place] [facility] Encounters Start Date/Time End Date/Time Encounter Type Admission Type Attending Clinicians Care Facility Care Department Encounter ID Source 2020-12-24 14:37:30 Outpatient [email or web address] NANNET[facility] [id number] [facility] 2023-01-01 08:00:00 2023-01-01 08:00:[address] [facility] [id number] [facility] 2021-12-05 00:00:00 2021-12-05 00:00:00 Case Management [facility]iv[facility] Hob[facility] 1..840.114 350.1.13.10 4.2.7.2.686 [id number] [facility] 2021-12-02 13:30:00 2021-12-02 14:30:[address] [facility] [id number] [facility] 2021-12-02 13:30:00 2021-12-02 14:00:00 Office Visit Landon Domínguez [facility] 1.2.840.114 350.1.13.10 4.2.7.2.686 [id number] 134 [id number] [facility] 2021-12-02 00:00:00 2021-12-02 00:00:00 Orders Only Doctor Unassigned, [place] [facility] 1.2.840.114 350.1.13.10 4.2.7.2.686 [id number] [facility] 2020-12-28 13:30:00 2020-12-28 13:30:[address] [facility] [id number] [facility] 2020-07-07 09:30:00 2020-07-07 09:30:[address] [facility] [id number] [facility] 2020-05-26 05:14:00 2020-05-26 05:14:00 Outpatient GUU_SHENG_Y AW [facility] [id number] [facility]ana lilia [facility] 2020-01-08 15:04:40 2020-01-08 15:34:40 [facility] 1.2.840.114 350.1.13.10 4.2.7.2.686 [id number] [facility] 2020-01-08 15:00:00 2020-01-08 15:00:00 Outpatient R LANDON DOMÍNGUEZ [facility] [id number] [facility] 2019-12-11 15:06:04 2019-12-11 16:09:16 Office Visit Landon Domínguez [facility] 1.2.840.114 350.1.13.10 4.2.7.2.686 [id number] [facility] 2019-12-11 15:00:00 2019-12-11 15:00:00 Outpatient R LANDON DOMÍNGUEZ [facility] [id number] [facility] 2019-12-11 00:00:00 2019-12-11 00:00:00 Orders Only Doctor Unassigned, [place] [facility] 1.840.114 350.1.13.10 4.2.7.2.686 [id number] [id number] [facility] 2019-11-20 15:38:58 2019-11-20 16:14:30 Routine Visit Landon Domínguez [facility] 1..840.114 350.1.13.10 4.2.7.2.686 [id number] [facility] 2019-11-20 15:30:00 2019-11-20 15:30:00 [facility] [id number] [facility] 2019-11-13 15:30:00 2019-11-13 15:30:00 Outpatient R LANDON DOMÍNGUEZ [facility] [id number] [facility] 2019-10-27 09:00:00 2019-10-27 09:00:[address] [facility] [id number] [facility] 2019-10-24 03:33:00 2019-10-25 14:45:00 Hospital Encounter Landon Domínguez [facility] 1..840.114 350.1.13.10 4.2.7.2.686 [id number] [facility] 2019-10-24 09:00:00 2019-10-24 09:00:00 Outpatient R LANDON DOMÍNGUEZ [facility] [id number] [facility] 2019-10-17 08:54:41 2019-10-17 09:09:41 [facility]..840.114 350.1.13.10 4.2.7.2.686 [id number] [facility] 2019-10-17 09:00:00 2019-10-17 09:00:00 [id number] 2019-10-10 09:54:20 2019-10-10 10:49:54 Routine Visit Landon Domínguez [facility] 1..840.114 350.1.13.10 4.2.7.2.686 [id number] [facility] 2019-10-10 10:00:00 2019-10-10 10:00:00 Outpatient R LANDON DOMÍNGUEZ 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 1..840.114 350.1.13.10 4.2.7.2.686 [id number] [facility] 2019-10-09 09:00:00 2019-10-09 09:00:00 Outpatient R LANDON DOMÍNGUEZ [facility] [id number] [facility] 2019-10-08 08:30:00 2019-10-08 08:30:[address] [facility] [id number] [facility] 2019-10-03 15:55:08 2019-10-03 16:10:08 Routine Visit Shivani Hobson [facility] 1.2.840.114 350.1.13.10 4.2.7.2.686 [id number] [facility] 2019-10-03 16:00:00 2019-10-03 16:00:00 [facility] [id number] [facility] 2019-10-03 00:00:00 2019-10-03 00:00:00 Orders Only Doctor Unassigned, [place] [facility] 1.2.840.114 350.1.13.10 4.2.7.2.686 [id number] [facility] 2019-09-22 08:30:00 2019-09-22 08:30:[address] 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 [id number] [facility] 2019-09-01 11:30:00 2019-09-01 11:30:00 Outpatient R SHIVANI HOBSON [facility] [id number] [facility] 2019-09-01 07:52:30 2019-09-01 08:07:30 Telemedici ne Visit Shivani Hobson [facility] 1.2.840.114 350.1.13.10 4.2.7.2.686 [id number] [facility] 2019-08-12 00:00:00 2019-08-12 00:00:00 Telephone Shivani Hobson [facility] 1.2.840.114 350.1.13.10 4.2.7.2.686 [id number] [facility] 2019-08-04 10:26:46 2019-08-04 11:59:45 Routine Visit Landon Domínguez [facility] 1.2.840.114 350.1.13.10 4.2.7.2.686 [id number] [facility] 2019-08-04 10:30:00 2019-08-04 10:30:00 Outpatient R LANDON DOMÍNGUEZ [facility] [id number] [facility] 2019-07-29 10:30:00 2019-07-29 10:30:[address] [facility] [id number] [facility] 2019-07-28 07:55:28 2019-07-28 17:00:39 Telemedici ne Visit Consults, Rmchp Ang Pn Genetic Rommel Hernandez [facility] [[email or web address] INTERIOR DESIGN PROGRAM [facility] 1.2.114 350.1.13.10 4.2.7.2.686 [id number] [facility] 2019-07-28 09:30:00 2019-07-28 09:30:[address] [facility] [id number] [facility] 2019-07-24 14:00:00 2019-07-24 14:00:00 Outpatient R LANDON DOMÍNGUEZ [facility] [id number] [facility] 2019-07-24 08:03:52 2019-07-24 08:18:52 Telemedici ne Visit Landon Domínguez [facility] 1.84.114 350.1.13.10 4.2.7.2.686 [id number] [facility] 2019-07-24 00:00:00 2019-07-24 00:00:00 Orders Only Doctor Unassigned, [place] [facility] 1.2840.114 350.1.13.10 4.2.7.2.686 [id number] [facility] 2019-07-22 00:00:00 2019-07-22 00:00:00 Telephone Ryan Domínguezen Hang [facility] 1.284.114 350.1.13.10 4.2.7.2.686 [id number] [facility] 2019-07-18 00:00:00 2019-07-18 00:00:00 Telephone DomínguezLandon Hang [facility] 1.284.114 350.1.13.10 4.2.7.2.686 [id number] [facility] 2019-07-16 00:00:00 2019-07-16 00:00:00 Telephone Andrea, Landon Mauricio [facility] Office Building One 1..114 350.1.13.10 4.2.7.2.686 [id number] [facility] 2019-07-14 00:00:00 2019-07-14 00:00:00 Telephone Andrea Landon Mauricio [facility] 1.840.114 350.1.13.10 4.2.7.2.686 [id number] [facility] 2019-07-07 00:00:00 2019-07-07 00:00:00 Orders Only Doctor Unassigned, [place] [facility] 1.2840.114 350.1.13.10 4.2.7.2.686 [id number] [facility] 2019-07-04 15:15:00 2019-07-04 15:15:[address] [facility] [id number] [facility] 2019-07-03 16:15:00 2019-07-03 16:15:00 Outpatient R LANDON DOMÍNGUEZ [facility] [id number] [facility] 2019-07-03 08:03:54 2019-07-03 08:18:54 Telemedici ne Visit Shivani Hobson Vien Cam [facility] 1.114 350.1.13.10 4.2.7.2.686 [id number] [facility] 2019-06-18 14:18:50 2019-06-18 15:12:47 Production Line Welder Visit Ultrasound, Harley-MfL[place] R [facility] [[email or web address] INTERIOR DESIGN PROGRAM CH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 [id number] [facility] 2019-06-18 00:00:00 2019-06-18 00:00:00 Orders Only Doctor Unassigned, [place] [facility] 1.840.114 350.1.13.10 4.2.7.2.686 [id number] [facility] Results Test Description Test Time Test Comments Results Result Co mments Source [facility] [id number] 19:14:00* Test Item Value Reference Range Interpretation Comme nts POCT PREG (test code = 1605) Negative On board controls acceptable with C Line (test code = 3574) Yes POCT PREG LOT # (test code = 3575) POCT PREG TEST DATE ( test code = 3576) [facility] [id number] 20:50:00* Test Item Value Reference Range Interpretation Comme nts POCT PREG (test code = 1605) Negative On board controls acceptable with C Line (test code = 3574) Yes POCT PREG LOT # (test code = 3575) POCT PREG TEST DATE ( test code = 3576) [facility] [id number] 20:50:00* Test Item Value Reference Range Interpretation Comme nts POCT PREG (test code = 1605) Negative On board controls acceptable with C Line (test code = 3574) Yes POCT PREG LOT # (test code = 3575) POCT PREG TEST DATE ( test code = 3576) [facility] [id number] 09:39:00* Test Item Value Reference Range Interpretation [...] 33.7 g/dL 31.6-35.1 RDW-SD (test code = 37477-9) 46.3 fL 39-49.9 RDW-CV (test code = 788-0) 13.3 % 12-15.5 PLT (test code = 777-3) See_Comment [Automated [employer] ge] The system which generated this result transmitted reference range: 166 - 358 10*3/?L. The reference range was not used to interpret this result as normal/abnormal. MPV (test code = 38993-1) 9.7 fL 9.5-12.9 NRBC/100 WBC (test code = 3467954207) See_Comment [Automated [employer] ssage] The system which generated this result transmitted reference range: 0.0 - 10.0 /100 WBCs. The reference range was not used to interpret this result as normal/abnormal. NRBC x10^3 (test code = 3083662755) <0.01 See_Comment [Automated [employer] ge] The system which generated this result transmitted reference range: 10*3/?L. The reference range was not used to interpret this result as normal/abnormal. GRAN MAT (NEUT) % (test code = 770-8) 67.7 % IMM GRAN % (test code = 2934873092) 0.70 % LYMPH % (test code = 736-9) 23.3 % MONO % (test code = 5905-5) 7.1 % EOS % (test code = 713-8) 0.8 % BASO % (test code = 706-2) 0.4 % GRAN MAT x10^3(ANC) (test code = 8646028103) 7.43 10*3/uL 1.88-7.09 H IMM GRAN x10^3 (test code = 0389984742) 0.08 10*3/uL 0-0.06 H LYMPH x10^3 (test code = 731-0) 2.56 10*3/uL 1.32-3.29 MONO x10^3 (test code = 742-7) 0.78 10*3/uL 0.33-0.92 EOS x10^3 (test code = 711-2) 0.09 10*3/uL 0.03-0.39 BASO x10^3 (test code = 704-7) 0.04 10*3/uL 0.01-0.07 Lab Interpretation (test code = 76124-4) [facility]normal [facility] ONLY - [id number] 03:09:00* Test Item Value Reference Range Interpretation Comme nts RPR (Qualitative) (test code = 50149-6) Nonreactive Nonreactive Lab Interpretation (test cod e = 31629-0) Normal [facility] (D) IMMUNE [id number] 22:52:21* Test Item Value Reference Range Interpretation Comme nts RHIG CANDIDATE? (test code = 5055) No- see comment Patient is not a candidate for RhIg- Patient is Rh Positive.Performed at [facility] [[email or web address]] Laboratory Services - [facility] Blood [address] [place] [id number] Free: [phone] No. [id number] [facility]atitis B Surface [id number] 15:34:00 * Test Item Value Reference Range Interpretation Comme nts HBsAg Semi-Quantitative (radha t code = 5195-3) Negative Negative [facility] CORD [id number] 14:31:00* Test Item Value Reference Range Interpretation Comme nts VENOUS BASE EXCESS, CORD (test code = 9784184219) mEq/L VENOUS PH, CORD (test code = 7709683597) 7.25-7.45 VENOUS PC02, CORD (test code = 2932323440) See_Comment [Automated messa ge] The system which generated this result transmitted reference range: 27 - 49 mmHg. The reference range was not used to interpret this result as normal/abnormal. VENOUS PO2, CORD (test code = [id number]) See_Comment [Automated me ssage] The system which generated this result transmitted reference range: 17 - 41 mmHg. The reference range was not used to interpret this result as normal/abnormal. VENOUS BICARBONATE, CORD (test code = [id number]) See_Comment [Automated messa ge] The system which generated this result transmitted reference range: 12 - 29 mEq/L. The reference range was not used to interpret this result as normal/abnormal. [id number] 14:28:00* Test Item Value Reference Range Interpretation Comme nts BASE EXCESS, CORD (test code = 2081816795) mEq/L AC PH, CORD (BEAKER) (test code = 5027468278) 7.18-7.38 PC02, CORD (test code = 4203525391) See_Comment [Automated messa ge] The system which generated this result transmitted reference range: 32 - 66 mmHg. The reference range was not used to interpret this result as normal/abnormal. PO2, CORD (test code = 5151310819) See_Comment [Automated messa ge] The system which generated this result transmitted reference range: 10 - 30 mmHg. The reference range was not used to interpret this result as normal/abnormal. BICARBONATE, CORD (test code = 4269345618) See_Comment [Automated messa ge] The system which generated this result transmitted reference range: 17 - 27 mEq/L. The reference range was not used to interpret this result as normal/abnormal. [facility]2 AG-AB WITH [id number] 10:27:00* Test Item Value Reference Range Interpretation Comme [facility] HIV Semi-quantitative (test code = 13330-4) Negative Negative IBETH (test code = IBETH) Non-reactive for HIV-1 antigen and HIV-1/HIV-2 antibodies. ?No laboratory evidence of HIV infection. ?Repeat in 2-4 weeks if acute HIV infection is suspected. [facility]Type and Screen - ONCE [id number] 10:02:48 * Test Item Value Reference Range Interpretation Comme nts ABO & RH (test code = 20) O Positive Performed at [facility] Laboratory [facility] Blood [address] Free: [phone] No. [id number] IAT (test code = 1185) Negative Performed at [facility] Laboratory [facility] Blood [address] Free: [phone] No. [id number] [facility]ID NOW RAPID TESTING)2019-10-24 09:50:00* Test Item Value Reference Range Interpretation Comme nts SARS-CoV-2 Rapid ID NOW (test code = 10428-3) Positive Not Detected A IBETH (test code = IBETH) ID NOW COVID-19 As say is an isothermal nucleic acid amplification test intended for the qualitative detection of nucleic acid from SARS-CoV-2 viral RNA in nasopharyngeal (RECRUITING OPERATIONS CONSULTANT) specimens. It is used under Emergency Use [...] clinically indicated. Lab Interpretation (test code = 67617-4) Abnormal [facility] with [id number] 09:33:00* Test Item Value Reference Range Interpretation [...] 34.6 g/dL 31.6-35.1 RDW-SD (test code = 34495-4) 42.7 fL 39-49.9 RDW-CV (test code = 788-0) 12.9 % 12-15.5 PLT (test code = 777-3) See_Comment [Automated messa ge] The system which generated this result transmitted reference range: 166 - 358 10*3/?L. The reference range was not used to interpret this result as normal/abnormal. MPV (test code = 92099-6) 9.6 fL 9.5-12.9 NRBC/100 WBC (test code = 3057590470) See_Comment [Automated [employer] ssage] The system which generated this result transmitted reference range: 0.0 - 10.0 /100 WBCs. The reference range was not used to interpret this result as normal/abnormal. NRBC x10^3 (test code = 5409797290) <0.01 See_Comment [Automated messa ge] The system which generated this result transmitted reference range: 10*3/?L. The reference range was not used to interpret this result as normal/abnormal. GRAN MAT (NEUT) % (test code = 770-8) 72.0 % IMM GRAN % (test code = 3204850606) 0.70 % LYMPH % (test code = 736-9) 20.8 % MONO % (test code = 5905-5) 5.7 % EOS % (test code = 713-8) 0.5 % BASO % (test code = 706-2) 0.3 % GRAN MAT x10^3(ANC) (test code = 6278071019) 8.70 10*3/uL 1.88-7.09 H IMM GRAN x10^3 (test code = 7026323392) 0.08 10*3/uL 0-0.06 H LYMPH x10^3 (test code = 731-0) 2.52 10*3/uL 1.32-3.29 MONO x10^3 (test code = 742-7) 0.69 10*3/uL 0.33-0.92 EOS x10^3 (test code = 711-2) 0.06 10*3/uL 0.03-0.39 BASO x10^3 (test code = 704-7) 0.04 10*3/uL 0.01-0.07 Lab Interpretation (test code = 17526-9) Abnormal [facility] URINALYSIS W/O SPECIFIC [id number] 14:04:00* Test Item Value Reference Range Interpretation [...] = 3257) n/a Negative - Negati ve [facility] URINALYSIS W/O SPECIFIC [id number] 15:08:00* Test Item Value Reference Range Interpretation [...] = 3257) n/a Negative - Negati ve [facility] URINALYSIS W/O SPECIFIC [id number] 15:08:00* Test Item Value Reference Range Interpretation [...] = 3257) n/a Negative - Negati ve [facility] HR GLUCOSE TOLERANCE [id number] 18:00:00 * Test Item Value Reference Range Interpretation Comme nts GLUC 3 HR (test code = 3635721183) 103 mg/dL 70-110 Lab Interpretation (test cod e = 72234-8) Normal [facility]SE [id number] 17:52:00* Test Item Value Reference Range Interpretation Comme nts GLU FASTNG (test code = 1388153744) 86 mg/dL 70-110 Lab Interpretation (test cod e = 60929-8) Normal [facility] HR GLUCOSE TOLERANCE [id number] 17:48:00 * Test Item Value Reference Range Interpretation Comme nts GLUC 1 HR (test code = 9509120460) 131 mg/dL 120-170 Lab Interpretation (test cod e = 75996-9) Normal [facility] HR GLUCOSE TOLERANCE [id number] 17:48:00 * Test Item Value Reference Range Interpretation Comme nts GLUC 2 HR (test code = 8003766063) 171 mg/dL 70-120 H Lab Interpretation (test cod e = 18049-9) Abnormal [facility] WITH [id number] 17:33:00* Test Item Value Reference Range Interpretation Comme nts WBC (test code = 6690-2) See_Comment [Automated [employer]a ge] The system which generated this result [...] 33.5 g/dL 31.6-35.1 RDW-SD (test code = 89063-3) 43.9 fL 39-49.9 RDW-CV (test code = 788-0) 12.9 % 12-15.5 PLT (test code = 777-3) See_Comment [Automated [employer]a ge] The system which generated this result transmitted reference range: 166 - 358 10*3/?L. The reference range was not used to interpret this result as normal/abnormal. MPV (test code = 35058-6) 9.8 fL 9.5-12.9 NRBC/100 WBC (test code = 2067918554) See_Comment [Automated [employer] ssage] The system which generated this result transmitted reference range: 0.0 - 10.0 /100 WBCs. The reference range was not used to interpret this result as normal/abnormal. NRBC x10^3 (test code = 3070285467) <0.01 See_Comment [Automated [employer]a ge] The system which generated this result transmitted reference range: 10*3/?L. The reference range was not used to interpret this result as normal/abnormal. GRAN MAT (NEUT) % (test code = 770-8) 62.3 % IMM GRAN % (test code = 8057305585) 0.70 % LYMPH % (test code = 736-9) 29.9 % MONO % (test code = 5905-5) 6.0 % EOS % (test code = 713-8) 0.5 % BASO % (test code = 706-2) 0.6 % GRAN MAT x10^3(ANC) (test code = 0473761233) 5.49 10*3/uL 1.88-7.09 IMM GRAN x10^3 (test code = 8123230463) 0.06 10*3/uL 0-0.06 LYMPH x10^3 (test code = 731-0) 2.63 10*3/uL 1.32-3.29 MONO x10^3 (test code = 742-7) 0.53 10*3/uL 0.33-0.92 EOS x10^3 (test code = 711-2) 0.04 10*3/uL 0.03-0.39 BASO x10^3 (test code = 704-7) 0.05 10*3/uL 0.01-0.07 Lab Interpretation (test code = 25116-0) Abnormal [facility] HEMOGLOBIN A1C [id number] 21:58:00* Test Item Value Reference Range Interpretation Comme nts POCT HBA1C (test code = 4548-4) 5.2 % 4-6 [facility] HEMOGLOBIN A1C [id number] 21:58:00* Test Item Value Reference Range Interpretation Comme nts POCT HBA1C (test code = 4548-4) 5.2 % 4-6 [facility]>14 WEEKS US [id number] 21:43:38[facility]>14 W[facility] US [id number] 21:43:38[facility]AL[facility] W/O SPECIFIC [id number] 21:35:00* Test Item Value Reference Range Interpretation [...] ve Lab Interpretation (test cod e = 34698-1) Normal [facility] URINALYSIS W/O SPECIFIC [id number] 21:35:00* Test Item Value Reference Range Interpretation [...] ve Lab Interpretation (test cod e = 49367-9) Normal [facility] URINALYSIS W/O SPECIFIC [id number] 21:23:00* Test Item Value Reference Range Interpretation [...] = 3257) n/a Negative - Negati ve [facility] URINALYSIS W/O SPECIFIC [id number] 15:56:00* Test Item Value Reference Range Interpretation [...] = 3257) N/A Negative - Negati ve [facility] W/O SPECIFIC [id number] 15:56:00* Test Item Value Reference Range Interpretation [...] = 3257) N/A Negative - Negati ve [facility]
[2023-03-15 20:33] LABS: Urine Bacteria None Seen /HPF (<20); Urine RBC <5 /HPF (None Seen)
--- NOTE | 2023-03-15 21:16 | RAD REPORT ---
EXAM DESCRIPTION: CT - Pelvis Wo Cont - 03/15/2023 8:55 pm CLINICAL HISTORY: Pelvic pain status post fall COMPARISON: None. TECHNIQUE: Computed axial tomography of the pelvis was obtained. Coronal and sagittal reconstruction performed All CT scans are performed using dose optimization technique as appropriate and may include automated exposure control or mA/KV adjustment according to patient size. FINDINGS: No fracture or dislocation is seen. Muscles are normal size and density. A subcutaneous contusion is not noted No significant joint effusion 3 centimeter right ovarian cyst IMPRESSION: No fracture seen
--- NOTE | 2023-03-15 21:16 | RAD REPORT ---
EXAM DESCRIPTION: CTSpine Lumbar Wo Con03/15/2023 8:54 pm CLINICAL HISTORY: leg radiculopathy. Fall COMPARISON: January 2023 TECHNIQUE: Computed axial tomography lumbar spine was obtained with coronal and sagittal reconstruct ion. All CT scans are performed using dose optimization technique as appropriate and may include automated exposure control or mA/KV adjustment according to patient size. FINDINGS: No fracture is seen. No dislocation Large left posterolateral disc herniation L4-5 Small to moderate disc bulge L5-S1 IMPRESSION: Large left posterolateral disc herniation L4-5 Small to moderate disc bulge L5-S1 MRI lumbar spine may be helpful for further evaluation
--- NOTE | 2023-03-15 22:19 | ER ---
Nurse's Notes [facility] Name: Olga Wilkins Age: 27 yrs Sex: Female : 1995 Arrival Date: 03/15/2023 Time: 18:53 Bed 12 Private MD: Diagnosis: Fall on same level from slipping, tripping and stumbling without subsequent striking against object;Intervertebral disc disorders with radiculopathy, lumbosacral region Presentation: 03/15 19:15 Chief complaint: Patient states: chronic back pain of 10 that radiates down left leg, pf1 onset for 2 years, worse after falling this AM. Patient stated was getting out of bed this AM from a standing position and fell upon losing her balance. Patient stated is currently out of her Tramadol and Flexeril prescription. Patient stated did not take any pain medication today. 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 Coronavirus screen: Vaccine status: Patient reports being unvaccinated. Client denies travel out of the [place] in the last 14 days. At this time, the client does not indicate any symptoms associated with coronavirus-19. Ebola Screen: Patient negative for fever greater than or equal to 101.5 degrees Fahrenheit, and additional compatible Ebola Virus Disease symptoms. Initial Sepsis Screen: Does the patient meet any 2 criteria? No. Patient's initial sepsis screen is negative. Does the patient have a suspected source of infection? No. Patient's initial sepsis screen is negative. Risk Assessment: Do you want to hurt yourself or someone else? Patient reports no desire to harm self or others. 19:15 Method Of Arrival: Ambulatory pf1 19:15 Acuity: REBEKAH 3 pf1 Triage Assessment: 22:54 General: Appears in no apparent distress. uncomfortable, Behavior is calm, cooperative. pf1 Pain: Complains of pain in back. 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 Last tetanus immunization: > 10 years ago Flu vaccine is not up to date. - Social history:: Smoking status: Patient denies any tobacco usage or history of. Patient/guardian denies using alcohol, street drugs. Screenin:21 [facility] ED Fall Risk Assessment (Adult) History of falling in the last 3 months, pf1 including since admission Yes- single mechanical fall (1 pt). Abuse screen: Denies threats or abuse. Nutritional screening: No deficits noted. Tuberculosis screening: No symptoms or risk factors identified. Assessment: 22:53 General: see triage assessment. pf1 Vital Signs: 19:15 BP 131 / 92; Pulse 83; Resp 16; Temp 98.1; Pulse Ox 99% on R/A; Weight 70.31 kg; Height pf1 5 ft. 4 in. ; Pain 10/10; 19:15 Body Mass Index 26.61 (70.31 kg, 162.56 cm) pf1 19:15 Pain Scale: Adult pf1 ED Course: 18:58 Patient arrived in ED. kj1 19:22 Triage completed. pf1 19:52 Francois Hennessy PA is PHCP. cp 19:52 Sergio Bustamante is Attending Physician. cp 20:20 Test, Urine Sent. tm6 20:20 Urine Microscopic Only Sent. tm6 20:54 CT Lumbar Spine Wo Con In Process Unspecified. EDMS 20:54 CT Pelvis wo Cont In Process Unspecified. EDMS 22:53 Justine Hutton, RN is Primary Nurse. pf1 22:54 No provider procedures requiring assistance completed. Patient did not have IV access pf1 during this emergency room visit. 22:54 Arm band placed on right wrist. pf1 22:54 Patient has correct armband on for positive identification. pf1 Administered Medications: 22:10 Drug: morphine IM 4 mg IM once Route: IM; Site: left gluteus; pf1 22:11 Drug: Ketorolac IM 30 mg IM once Route: IM; Site: right gluteus; pf1 22:12 Drug: Dexamethasone IM 10 mg IM once Route: IM; Site: left ventrogluteal; pf1 Medication: 22:54 VIS not applicable for this client. pf1 Outcome: 22:18 Discharge ordered by . cp 22:54 Discharged to home ambulatory, pf1 22:54 Condition: stable 22:54 Discharge instructions given to patient, Instructed on discharge instructions, follow up and referral plans. Demonstrated understanding of instructions, follow-up care, 22:55 Patient left the ED. pf1 Signatures: Dispatcher [employer] EDMS Francois Hennessy PA PA cp Jackson, Kandis kj1 Justine Hutton, RN RN pf1 Kristi Geller RN RN tm6
--- NOTE | 2023-03-15 22:19 | EDPHYS ---
Physician Documentation [facility] Name: Olga Wilkins Age: 27 yrs Sex: Female : 1995 Arrival Date: 03/15/2023 Time: 18:53 Bed 12 Private MD: ED Physician Sergio Bustamante HPI: 03/15 20:00 This 27 yrs old Female presents to ER via Ambulatory with complaints of Low Back Pain. cp 20:00 The patient presents with pain chronic pain that is worse after slip and fall this cp morning when getting out of bed. 20:00 The symptoms are located in the low back. The pain radiates to the left leg. Onset: The cp symptoms/episode began/occurred 2 year(s) ago. 20:00 Associated signs and symptoms: Pertinent positives: radiating pain and tingling down cp left leg, Pertinent negatives: abdominal pain, fever, incontinence, urinary retention, weakness, saddle anesthesia. 20:00 Severity of symptoms: in the emergency department the symptoms are unchanged, patient cp reports running out of prescribed tramadol and flexeril recently. 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 Last tetanus immunization: > 10 years ago Flu vaccine is not up to date. - Social history:: Smoking status: Patient denies any tobacco usage or history of. Patient/guardian denies using alcohol, street drugs. ROS: 20:05 Back: Positive for pain at rest, pain with movement, of the low back, cp 20:05 Constitutional: Negative for body aches, chills, fever, cp 20:05 Neck: Negative for pain with movement, pain at rest, stiffness, 20:05 Cardiovascular: Negative for chest pain, 20:05 Abdomen/GI: Negative for abdominal pain, bowel incontinence, 20:05 : Negative for urinary symptoms, difficulty urinating, bladder incontinence, 20:05 Neuro: Negative for altered mental status, weakness, saddle anesthesia, 20:05 All other systems are negative, Exam: 20:10 Constitutional: The patient appears in no acute distress, alert, awake, non-toxic, well cp developed, well nourished, uncomfortable, 20:10 Head/Face: Normocephalic, atraumatic. cp 20:10 Neck: ROM/movement: is normal, is supple, without pain, no range of motions limitations, 20:10 Chest/axilla: Inspection: normal, 20:10 Cardiovascular: Rate: normal, 20:10 Respiratory: the patient does not display signs of respiratory distress, Respirations: normal, no use of accessory muscles, no retractions, labored breathing, is not present, Breath sounds: are clear throughout, no decreased breath sounds, no stridor, no wheezing, 20:10 Abdomen/GI: Inspection: abdomen appears normal, Palpation: abdomen is soft and non-tender, in all quadrants, 20:10 Back: pain, that is moderate, of the lumbar area and left low back, ROM is painful, with all movement, 20:10 Neuro: Orientation: to person, place \T\ time. Mentation: is normal, Motor: moves all fours, strength is normal, Sensation: no obvious gross deficits, Gait: is steady, Vital Signs: 19:15 BP 131 / 92; Pulse 83; Resp 16; Temp 98.1; Pulse Ox 99% on R/A; Weight 70.31 kg; Height pf1 5 ft. 4 in. ; Pain 10/10; 19:15 Body Mass Index 26.61 (70.31 kg, 162.56 cm) pf1 19:15 Pain Scale: Adult pf1 MDM: 19:52 Patient medically screened. cp 22:17 Data reviewed: vital signs, nurses notes, lab test result(s), radiologic studies, CT cp scan. 22:17 I considered the following discharge prescriptions or medication management in the emergency department Medications were administered in the Emergency Department. See MAR. Counseling: I had a detailed discussion with the patient and/or guardian regarding the historical points, exam findings, and any diagnostic results supporting the discharge/admit diagnosis, lab results, radiology results, the need for outpatient follow up, a neurosurgeon, to return to the emergency department if symptoms worsen or persist or if there are any questions or concerns that arise at home. Response to treatment: the patient's symptoms have markedly improved after treatment, and as a result, I will discharge patient. 03/15 19:59 Order name: Urine Microscopic Only; Complete Time: 21:36 cp 03/15 21:36 Interpretation: Normal except: BYST Trace. cp 03/15 19:59 Order name: Test, Urine; Complete Time: 21:36 cp 03/15 19:59 Order name: CT Lumbar Spine Wo Con; Complete Time: 21:36 cp 03/15 19:59 Order name: CT Pelvis wo Cont; Complete Time: 21:36 cp Administered Medications: 22:10 Drug: morphine IM 4 mg IM once Route: IM; Site: left gluteus; pf1 22:11 Drug: Ketorolac IM 30 mg IM once Route: IM; Site: right gluteus; pf1 22:12 Drug: Dexamethasone IM 10 mg IM once Route: IM; Site: left ventrogluteal; pf1 Disposition Summary: 03/15/23 22:18 Discharge Ordered Notes: Location: Home cp Problem: an acute exacerbation cp Symptoms: have improved cp Condition: Stable cp Diagnosis - Fall on same level from slipping, tripping and stumbling without subsequent cp striking against object - Intervertebral disc disorders with radiculopathy, lumbosacral region cp Followup: cp - With: Private Physician - When: 1 - 2 days - Reason: Recheck today's complaints Discharge Instructions: - Discharge Summary Sheet cp - Herniated Disk cp - Lumbosacral Radiculopathy cp - Back Exercises cp - Form - Return To Work cp Forms: - Family Work Release cp - Medication Reconciliation Form cp - Thank You Letter cp - Antibiotic Education cp - Prescription Opioid Use cp - Patient Portal Instructions cp - Leadership Thank You Letter cp - Work release form pf1 Signatures: Dispatcher [employer] EDOH Francois Hennessy PA PA cp Justine Hutton, RN RN pf1 Corrections: (The following items were deleted from the chart) 03/16 21:10 03/15 20:00 The patient presents with pain chronic pain that is worse after slip and cp fall, cp 03/16 21:10 03/15 20:00 Severity of symptoms: in the emergency department the symptoms are cp unchanged, patient reports running out of prescribed tramadol and flexeril today, cp
[2023-03-16 01:47] VITALS: BP 131/92; TEMP 98.1; O2SAT 99
== END ==
LOC: ER 18:53
DX: S39.92XA Unspecified injury of lower back, initial encounter (principal); M51.17 Intervertebral disc disorders with radiculopathy, lumbosacral region; W01.0XXA Fall on same level from slipping, tripping and stumbling without subsequent striking against object, initial encounter; Y93.89 Activity, other specified; Y92.013 Bedroom of single-family (private) house as the place of occurrence of the external cause
CPT/HCPCS: 81025; 81015; 72131; 72192; 96372; 99284; J1100

== ENCOUNTER → 2023-03-21 | Emergency (ER) | payer BC ==
[~2023-03-21] MED LIST changes: +DIAZEPAM 5 MG TABLET ONE; +HYDROMORPHONE HCL 1 MG/ML INJ ONE; -MORPHINE 4 MG/ML SYR ONE; +NA CHLORIDE 0.9% 1,000 ML ONE; +ONDANSETRON 4 MG/2 ML VIAL ONE
--- OUTSIDE RECORDS SUMMARY | 2023-03-21 07:30 | XMS REPORT | Continuity of Care Document ---
Author Name Unknown Address [address] [facility] [address] [place] [address] [facility] thconnect Address [address] [facility] 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 Role Phone CLEVE PERICO A Primary Care Physician UnavaLANDON Colvin Attending Clinician Unavailable Shivani Hatch PA-C Attending Clinician [phone] Landon Domínguez MD Attending Clinician [phone] Doctor Unassigned, [place] Attending Clinician U navailable [email or web address] Attending Clinician Unavailable Arleth Velasquez MD Attending Clinician [phone] SHIVANI HATCH Attending Clinician Unavailable 2, [facility] Attending Clinician Unavailable Consults, Rmchp Ang Pn Genetic Attending Clinici an Unavailable Rommel Hernandez MD Attending Clinician [phone] ROMMEL HERNANDEZ Attending Clinician Unavailable Ultrasound, Timigloria Attending Clinician UnavailSidney Groves MD Attending Clinician [phone] LANDON DOMÍNGUEZ Admitting Clinician Unavailable [email or web address] Admitting Clinician Unavailable Arleth Velasquez MD Admitting Clinician [phone] Payers Payer Name Policy Type Policy Number Effective Date Expirati on Date Source [employer] [id number] 2019 00:00:00 [facility] [id number] 2020 00:00:00 Problems Condition Name Condition Details Condition Category Status Onset Date Resolution Date Last Treatment Date Treating Clinician Comments Source Presence of 52 mg levonorges trel-relea sing intrauteri ne device (IUD) Presence of 52 mg levonorges trel-relea sing intrauteri ne device (IUD) Disease Active 2019-02 0-15 00:00: 00 [facility] Normal labor Normal labor Disease Active 8-28 00:00: 00 [facility] 39 weeks gestation of 39 weeks gestation of Disease Active 828 00:00: 00 [facility] Liveborn infant, of pyle , born in hospital by vaginal delivery Liveborn infant, of pyle , born in hospital by vaginal delivery Disease Active 8 00:00: 00 [facility] COVID-19 virus infection COVID-19 virus infection Disease Active 10-23 00:00: 00 [facility] Abnormal maternal glucose tolerance, antepartum Abnormal maternal glucose tolerance, antepartum Disease Active 814 00:00: 00 Last Assessmen t & Plan: [address] [facility] Positive GBS test Positive GBS test Disease Active 814 00:00: 00 [facility] Obesity (BMI 30-39.9) Obesity (BMI 30-39.9) Disease Active 6-08 00:00: 00 [facility] Gastroesop hageal reflux disease, esophagiti s presence not specified Gastroesop hageal reflux disease, esophagiti s presence not specified Disease Active 07-23 00:00: 00 [facility] Abnormal findings on screening Abnormal findings on screening Disease Active 5 00:00: 00 [facility] Supervisio n of high-risk with insufficie nt care in third trimester Supervisio n of high-risk with insufficie nt care in third trimester Disease Active 4-09 00:00: 00 [facility] Allergies, Adverse Reactions, Alerts Allergy Name Allergy Type Status Severity Reaction(s) Onset Date Inactive Date Treating Clinician Comments Source NO KNOWN ALLERGIE S Drug Class Active [facility] Social History Social Habit Start Date Stop Date Quantity Comments Source ASSERTION 2019-02-05 00:00:00 [facility] History SDOH Alcohol Binge [facility] History SDOH Alcohol Comment [facility] History of tobacco use Cigarette Smoker [facility] Exposure to SARS-CoV-2 (event) 2021-11-22 00:00:00 2021-12-02 13:21:00 Not sure [facility] Tobacco use and exposure 2021-12-02 00:00:00 2021-12-02 00:00:00 Smokeless tobacco non-user [facility] Cigarettes smoked current (pack per day) - Reported 2021-12-02 00:00:00 2021-12-02 00:00:00 [facility] Cigarette pack-years 2021-12-02 00:00:00 2021-12-02 00:00:00 [facility] Alcohol intake 2021-12-02 00:00:00 2021-12-02 00:00:00 Ex-drinker (finding) [facility] History SDOH Alcohol Std Drinks 2019-06-05 00:00:00 2019-06-05 00:00:00 2 [facility] History SDOH Alcohol Frequency 2019-06-05 00:00:00 2019-06-05 00:00:00 3 [facility] Sex Assigned At 1995 00:00:00 1995 00:00:00 [facility] Smoking Status Start Date Stop Date Source Ex-smoker 2021-12-02 00:00:00 2021[facility]12[facility]02 [facility] Ordered Medication Name Filled Medication Name Start Date Stop Date Current Medication? Ordering Clinician Indication Dosage Frequency Signature (SIG) Comments Components Source metroNIDAZO LE 500 mg tablet 2021-02 00:00: 00 Yes [id number] 500mg Take 1 tablet by mouth every 12 (twelve) hours. [facility] meloxicam 7.5 mg tablet 2021-02 13:54: 16 Yes 7.5mg Take 7.[address] [facility] baclofen 10 mg tablet 2021-02 13:54: 16 Yes 10mg Take [address] [facility] meloxicam 7.5 mg tablet 2021-02 0 13:54: 16 Yes 7.5mg Take 7.[address] [facility] baclofen 10 mg tablet 2021-02 0 13:54: 16 Yes 10mg Take [address] [facility] meloxicam 7.5 mg tablet 2021-02 0 13:54: 16 Yes 7.5mg Take 7.[address] [facility] baclofen 10 mg tablet 2021-02 13:54: 16 Yes 10mg Take [address] [facility] meloxicam 7.5 mg tablet 2021-02 13:54: 16 Yes 7.5mg Take 7.[address] [facility] baclofen 10 mg tablet 2021-02 13:54: 16 Yes 10mg Take [address] [facility] LOESTRIN FE (LOESTRIN FE 1/20) 1 mg-20 mcg (21)/75 mg (7) tablet 2021-02 00:00: 00 Yes [id number] 1{tbl} Take 1 tablet by mouth in the morning. [facility] LOESTRIN FE (LOESTRIN FE 1/20) 1 mg-20 mcg (21)/75 mg (7) tablet 2021-02 0 00:00: 00 Yes [id number] 1{tbl} Take 1 tablet by mouth in the morning. [facility] LOESTRIN FE (LOESTRIN FE 1/20) 1 mg-20 mcg (21)/75 mg (7) tablet 2021-02 0 00:00: 00 Yes [id number] 1{tbl} Take 1 tablet by mouth in the morning. [facility] LOESTRIN FE (LOESTRIN FE 1/20) 1 mg-20 mcg (21)/75 mg (7) tablet 2021-02 0 00:00: 00 Yes [id number] 1{tbl} Take 1 tablet by mouth in the morning. [facility] gabapentin 600 mg tablet 8 00:00: 00 Yes 600mg Take 600 mg by mouth in the morning and 600 mg at noon and 600 mg in the evening[address] [facility] gabapentin 600 mg tablet 2021-0 10-24 00:00: 00 Yes 600mg Take 600 mg by mouth in the morning and 600 mg at noon and 600 mg in the evening[address] [facility] gabapentin 600 mg tablet 2021-0 10-24 00:00: 00 Yes 600mg Take 600 mg by mouth in the morning and 600 mg at noon and 600 mg in the evening[address] [facility] gabapentin 600 mg tablet 0 10-24 00:00: 00 Yes 600mg Take 600 mg by mouth in the morning and 600 mg at noon and 600 mg in [address] [facility] SERTraline 100 mg tablet 0 8 00:00: 00 Yes TAKE 1 AND A HALF TABLETS BY MOUTH DAILY [facility] SERTraline 100 mg tablet 2021-0 8 00:00: 00 Yes TAKE 1 AND A HALF TABLETS BY MOUTH DAILY [facility] SERTraline 100 mg tablet 2021-0 10-09 00:00: 00 Yes TAKE 1 AND A HALF TABLETS BY MOUTH DAILY [facility] SERTraline 100 mg tablet 2021-0 10-09 00:00: 00 Yes TAKE 1 AND A HALF TABLETS BY MOUTH DAILY [facility] buPROPion HCL, smoking deter, 150 mg Tb12 2-0 8-08 00:00: 00 Yes 1{tbl} Take 1 tablet by mouth 2 (two) times daily. [facility] buPROPion HCL, smoking deter, 150 mg Tb12 2-0 8-08 00:00: 00 Yes 1{tbl} Take 1 tablet by mouth 2 (two) times daily. [facility] buPROPion HCL, smoking deter, 150 mg Tb12 2-0 8- 00:00: 00 Yes 1{tbl} Take 1 tablet by mouth 2 (two) times daily. [facility] buPROPion HCL, smoking deter, 150 mg Tb12 2-0 8-08 00:00: 00 Yes 1{tbl} Take 1 tablet by mouth 2 (two) times daily. [facility] levonorgest reL (MIRENA) IUD 1 Device 2019-02 0-16 00:30: 00 12-10 23:28 :00 No 1{devic e} [facility] levonorgest reL (MIRENA) IUD 1 Device 2019-02 0-16 00:30: 00 12-10 23:28 :00 No 1{devic e} 1 Device, Intrauteri ne, ONCE, 1 dose, [facility] 12/11/19 at 1930, Routine [facility] levonorgest reL (MIRENA) IUD 1 Device 2019-02 016 00:30: 00 12-10 23:28 :00 No 1{devic e} [facility] levonorgest reL (MIRENA) IUD 1 Device 2019-02 016 00:30: 00 12-10 23:28 :00 No 1{devic e} 1 Device, Intrauteri ne, ONCE, 1 dose, [facility] 12/11/19 at 1930, Routine [facility] rho(D) immune globulin (RHOGAM) syringe 300 mcg 10-23 22:49: 17 Yes 300ug 300 mcg, Intramuscu lar, ONCE, For 1 dose, Conditiona l, Routine [facility] HYDROcodone -acetaminop hen (NORCO 5) 5-325 mg tablet 1 tablet 10-23 22:49: 12 Yes 1{tbl} 1 tablet, Oral, Q6HPRN, Starting Sun10/24/19 at 1749, Until Discontinu ed, Routine, Pain (scale 7-10) [facility] ibuprofen (IBU) tablet 600 mg 10-23 22:49: 12 Yes 600mg 600 mg, Oral, Q6HPRN, Starting Sun10/24/19 at 174, Until Discontinu ed, Routine, Pain (scale 4-6) [facility] diphenhydrA MINE-0.9 % sod.chlr (BENADRYL) 25 mg/50 mL piggyback 25 mg 10-23 22:49: 12 Yes 25mg 25 mg, IV Piggyback, Administer over 30 Minutes, Q6HPRN, Starting Sun10/24/19 at 174, Until Discontinu ed, Routine, Itching [facility] ondansetron (ZOFRAN (PF)) injection 4 mg 10-23 22:49: 12 Yes 4mg 4 mg, Slow IV Push, Q8HPRN, Starting Sun10/24/19 at 174, Until Discontinu ed, Routine, Nausea and Vomiting (N/V) [facility] simethicone (GAS RELIEF (SIMETHICON E)) chewable tablet 160 mg 10-23 22:49: 12 Yes 160mg 160 mg, Oral, PC+HSPRN, Starting Sun10/24/19 at 174, Until Discontinu ed, Routine, Gas [facility] docusate calcium (SURFAK) capsule 240 mg 10-23 22:49: 12 Yes 240mg 240 mg, Oral, QDAILYPRN, Starting Sun10/24/19 at 174, Until Discontinu ed, Routine, Constipati on [facility] magnesium hydroxide (MILK OF MAGNESIA) 400 mg/5 mL suspension 30 mL 10-23 22:49: 12 Yes 30mL 30 mL, Oral, QDAILYPRN, Starting Sun10/24/19 at 174, Until Discontinu ed, Routine, Constipati on [facility] acetaminoph en (TYLENOL) tablet 650 mg 10-23 22:49: 11 Yes 650mg 650 mg, Oral, Q6HPRN, Starting Sun10/24/19 at 174, Until Discontinu ed, Routine, Pain (scale 1-3) [facility] diphenhydrA MINE (BENADRYL) tablet 25 mg 10-23 22:49: 11 Yes 25mg 25 mg, Oral, Q6HPRN, Starting Sun10/24/19 at 174, Until Discontinu ed, Routine, Sleep, Itching [facility] benzocaine- menthol (DERMOPLAST ) 20-0.5 % topical spray 10-23 22:49: 11 Yes Topical, PRN, Starting Sun10/24/19 at 1749, Until Discontinu ed, Routine, Perineum discomfort [facility] benzocaine- menthol (DERMOPLAST ) 20-0.5 % topical spray 10-23 16:17: 00 Yes Topical, PRN, Starting Sun10/24/19 at 1117, Until Discontinu ed, Routine, Localized pain [facility] LR 1000 mL + oxytocin 20 units IV Solution 10-23 15:45: 00 10-23 16:19 :00 No at 125 mL/hr, IV Infusion, ONCE, 1 dose, Sun10/24/19 at 1045, Routine [facility] oxytocin (PITOCIN) 20 Units in lactated ringers 1,000 mL IV infusion 10-23 14:13: 45 10-23 22:49 :17 No at 6 mL/hr, IV Infusion, TITRATE, Starting Sun10/24/19 at 0913, Until Sun10/24/19 at 1749, Routine [facility] FENTanyl PF (SUBLIMAZE (PF)) injection 50 mcg 10-23 10:45: 00 10-23 09:42 :00 No 50ug 50 mcg, Slow IV Push, ONCE, 1 dose, Sun10/24/19 at 0545, Routine [facility] D5W-LR IV infusion 1,000 mL 10-23 09:00: 00 10-23 22:49 :17 No 1000mL at 125 mL/hr, IV Infusion, CONTINUOUS , Starting Sun10/24/19 at 0400, Until Sun10/24/19 at 174, Routine [facility] lactated ringers IV infusion 500 mL 10-23 08:52: 15 10-23 22:49 :17 No 500mL at 999 mL/hr, 500 mL, IV Infusion, PRN - SEE INSTRUCTIO NS, Starting Sun10/24/19 at 0352, Until Sun10/24/19 at 174, Routine [facility] vits62/FA/o m3/dha/epa ( GUMMY ORAL) 10-09 15:37: 59 10-09 00:00 :00 No 1{piece } Take 1 Piece by mouth daily. [facility] vits62/FA/o m3/dha/epa ( GUMMY ORAL) 10-09 15:37: 59 10-09 00:00 :00 No 1{piece } Take 1 Piece by mouth daily. [facility] vits62/FA/o m3/dha/epa ( GUMMY ORAL) 10-02 21:11: 56 Yes 1{piece } Take 1 Piece by mouth daily. [facility] vits62/FA/o m3/dha/epa ( GUMMY ORAL) 10-02 21:11: 56 Yes 1{piece } Take 1 Piece by mouth daily. [facility] vits62/FA/o m3/dha/epa ( GUMMY ORAL) 10-02 21:11: 56 Yes 1{piece } Take 1 Piece by mouth daily. [facility] vits62/FA/o m3/dha/epa ( GUMMY ORAL) 10-02 21:11: 56 Yes 1{piece } Take 1 Piece by mouth daily. [facility] famotidine 20 mg tablet 0 07-23 00:00: 00 Yes [id number] 20mg Take 1 tablet by mouth 2 (two) times daily. [facility] famotidine 20 mg tablet 0 07-23 00:00: 00 Yes [id number] 20mg Take 1 tablet by mouth 2 (two) times daily. [facility] famotidine 20 mg tablet 0 07-23 00:00: 00 Yes [id number] 20mg Take 1 tablet by mouth 2 (two) times daily. [facility] famotidine 20 mg tablet 0 07-23 00:00: 00 Yes [id number] 20mg Take 1 tablet by mouth 2 (two) times daily. [facility] famotidine 20 mg tablet 0 07-23 00:00: 00 Yes [id number] 20mg Take 1 tablet by mouth 2 (two) times daily. [facility] famotidine 20 mg tablet 0 07-23 00:00: 00 Yes [id number] 20mg Take 1 tablet by mouth 2 (two) times daily. [facility] famotidine 20 mg tablet 2019-0 28 00:00: 00 Yes [id number] 20mg Take 1 tablet by mouth 2 (two) times daily. [facility] famotidine 20 mg tablet 2019-0 28 00:00: 00 Yes [id number] 20mg Take 1 tablet by mouth 2 (two) times daily. [facility] 2019-0 5-28 00:00: 00 Yes [id number] 20mg Take 1 tablet by mouth 2 (two) times daily. [facility] 2019-0 28 00:00: 00 Yes [id number] 20mg Take 1 tablet by mouth 2 (two) times daily. [facility] famotidine 20 mg tablet 2019-0 28 00:00: 00 Yes [id number] 20mg Take 1 tablet by mouth 2 (two) times daily. [facility] famotidine 20 mg tablet 2019-0 28 00:00: 00 Yes [id number] 20mg Take 1 tablet by mouth 2 (two) times daily. [facility] famotidine 20 mg tablet 2019-0 07-23 00:00: 00 Yes [id number] 20mg Take 1 tablet by mouth 2 (two) times daily. [facility] famotidine 20 mg tablet 2019-0 07-23 00:00: 00 Yes [id number] 20mg Take 1 tablet by mouth 2 (two) times daily. [facility] famotidine 20 mg tablet 2019-0 28 00:00: 00 Yes [id number] 20mg Take 1 tablet by mouth 2 (two) times daily. [facility] famotidine 20 mg tablet 2019-0 -28 00:00: 00 Yes [id number] 20mg Take 1 tablet by mouth 2 (two) times daily. [facility] famotidine 20 mg tablet 2019-0 -28 00:00: 00 Yes [id number] 20mg Take 1 tablet by mouth 2 (two) times daily. [facility] famotidine 20 mg tablet 07-23 00:00: 00 Yes [id number] 20mg Take 1 tablet by mouth 2 (two) times daily. [facility] famotidine 20 mg tablet 07-23 00:00: 00 Yes [id number] 20mg Take 1 tablet by mouth 2 (two) times daily. [facility] mg [facility] 07-23 00:00: 00 Yes [id number] 20mg Take 1 tablet by mouth 2 (two) times daily. [facility] famotidine 20 mg tablet 07-23 00:00: 00 Yes [id number] 20mg Take 1 tablet by mouth 2 (two) times daily. [facility] famotidine 20 mg tablet 07-23 00:00: 00 Yes [id number] 20mg Take 1 tablet by mouth 2 (two) times daily. [facility] famotidine 20 mg tablet 07-23 00:00: 00 01-07 00:00 :00 No [id number] 20mg Take 1 tablet by mouth 2 (two) times daily. [facility] famotidine 20 mg tablet 07-23 00:00: 00 01-07 00:00 :00 No [id number] 20mg Take 1 tablet by mouth 2 (two) times daily. [facility] vits62/FA/o m3/dha/epa ( GUMMY ORAL) 06-04 20:38: 24 Yes 1{piece } Take 1 Piece by mouth daily. [facility] vits62/FA/o m3/dha/epa ( GUMMY ORAL) 409 20:38: 24 Yes 1{piece } Take 1 Piece by mouth daily. [facility] vits62/FA/o m3/dha/epa ( GUMMY ORAL) 0 409 20:38: 24 Yes 1{piece } Take 1 Piece by mouth daily. [facility] vits62/FA/o m3/dha/epa ( GUMMY ORAL) 0 409 20:38: 24 Yes 1{piece } Take 1 Piece by mouth daily. [facility] vits62/FA/o m3/dha/epa ( GUMMY ORAL) 409 20:38: 24 Yes 1{piece } Take 1 Piece by mouth daily. [facility] vits62/FA/o m3/dha/epa ( GUMMY ORAL) 409 20:38: 24 Yes 1{piece } Take 1 Piece by mouth daily. [facility] vits62/FA/o m3/dha/epa ( GUMMY ORAL) 409 20:38: 24 Yes 1{piece } Take 1 Piece by mouth daily. [facility] vits62/FA/o m3/dha/epa ( GUMMY ORAL) 409 20:38: 24 Yes 1{piece } Take 1 Piece by mouth daily. [facility] vits62/FA/o m3/dha/epa ( GUMMY ORAL) 409 20:38: 24 Yes 1{piece } Take 1 Piece by mouth daily. [facility] vits62/FA/o m3/dha/epa ( GUMMY ORAL) 409 20:38: 24 Yes 1{piece } Take 1 Piece by mouth daily. [facility] vits62/FA/o m3/dha/epa ( GUMMY ORAL) 409 20:38: 24 Yes 1{piece } Take 1 Piece by mouth daily. [facility] vits62/FA/o m3/dha/epa ( GUMMY ORAL) 409 20:38: 24 Yes 1{piece } Take 1 Piece by mouth daily. [facility] vits62/FA/o m3/dha/epa ( GUMMY ORAL) 409 20:38: 24 Yes 1{piece } Take 1 Piece by mouth daily. [facility] vits62/FA/o m3/dha/epa ( GUMMY ORAL) 409 20:38: 24 Yes 1{piece } Take 1 Piece by mouth daily. [facility] vits62/FA/o m3/dha/epa ( GUMMY ORAL) 06-04 20:38: 24 Yes 1{piece } Take 1 Piece by mouth daily. [facility] vits62/FA/o m3/dha/epa ( GUMMY ORAL) 06-04 20:38: 24 Yes 1{piece } Take 1 Piece by mouth daily. [facility] vits62/FA/o m3/dha/epa ( GUMMY ORAL) 06-04 20:38: 24 Yes 1{piece } Take 1 Piece by mouth daily. [facility] vits62/FA/o m3/dha/epa ( GUMMY ORAL) 06-04 20:38: 24 Yes 1{piece } Take 1 Piece by mouth daily. [facility] vits62/FA/o m3/dha/epa ( GUMMY ORAL) 06-04 20:38: 24 Yes 1{piece } Take 1 Piece by mouth daily. [facility] PNV 102-iron-fo late 1-dss-dha (VITAFOL FE+, WITH DOCUSATE,) 90 mg iron-1 mg -50 mg-200 mg Cap 06-04 00:00: 00 Yes [id number] 09 Take 1 TAB-CAP/M2 by mouth daily. [facility] PN 102-iron-fo late 1-dss-dha (VITAFOL FE+, WITH DOCUSATE,) 90 mg iron-1 mg -50 mg-200 mg Cap 06-04 00:00: 00 Yes [id number] 09 Take 1 TAB-CAP/M2 by mouth daily. [facility] PN 102-iron-fo late 1-dss-dha (VITAFOL FE+, WITH DOCUSATE,) 90 mg iron-1 mg -50 mg-200 mg Cap 06-04 00:00: 00 Yes [id number] 09 Take 1 TAB-CAP/M2 by mouth daily. [facility] PNV 102-iron-fo late 1-dss-dha (VITAFOL FE+, WITH DOCUSATE,) 90 mg iron-1 mg -50 mg-200 mg Cap 2020-0 4-09 00:00: 00 Yes [id number] 09 Take 1 TAB-CAP/M2 by mouth daily. [facility] 102-iron-fo late 1-dss-dha (VITAFOL FE+, WITH DOCUSATE,) 90 mg iron-1 mg -50 mg-200 mg Cap 2020-0 4-09 00:00: 00 Yes [id number] 09 Take 1 TAB-CAP/M2 by mouth daily. [facility] 102-iron-fo late 1-dss-dha (VITAFOL FE+, WITH DOCUSATE,) 90 mg iron-1 mg -50 mg-200 mg Cap 2020-0 4-09 00:00: 00 Yes [id number] 09 Take 1 TAB-CAP/M2 by mouth daily. [facility] 102-iron-fo late 1-dss-dha (VITAFOL FE+, WITH DOCUSATE,) 90 mg iron-1 mg -50 mg-200 mg Cap 2020-0 4-09 00:00: 00 Yes [id number] 09 Take 1 TAB-CAP/M2 by mouth daily. [facility] 102-iron-fo late 1-dss-dha (VITAFOL FE+, WITH DOCUSATE,) 90 mg iron-1 mg -50 mg-200 mg Cap 2020-0 4-09 00:00: 00 Yes [id number] 09 Take 1 TAB-CAP/M2 by mouth daily. [facility] 102-iron-fo late 1-dss-dha (VITAFOL FE+, WITH DOCUSATE,) 90 mg iron-1 mg -50 mg-200 mg Cap 2020-0 4-09 00:00: 00 Yes [id number] 09 Take 1 TAB-CAP/M2 by mouth daily. [facility] 102-iron-fo late 1-dss-dha (VITAFOL FE+, WITH DOCUSATE,) 90 mg iron-1 mg -50 mg-200 mg Cap 2020-0 4-09 00:00: 00 Yes [id number] 09 Take 1 TAB-CAP/M2 by mouth daily. [facility] 102-iron-fo late 1-dss-dha (VITAFOL FE+, WITH DOCUSATE,) 90 mg iron-1 mg -50 mg-200 mg Cap 2020-0 4-09 00:00: 00 Yes [id number] 09 Take 1 TAB-CAP/M2 by mouth daily. [facility] 102-iron-fo late 1-dss-dha (VITAFOL FE+, WITH DOCUSATE,) 90 mg iron-1 mg -50 mg-200 mg Cap 2020-0 4-09 00:00: 00 Yes [id number] 09 Take 1 TAB-CAP/M2 by mouth daily. [facility] 102-iron-fo late 1-dss-dha (VITAFOL FE+, WITH DOCUSATE,) 90 mg iron-1 mg -50 mg-200 mg Cap 2020-0 4-09 00:00: 00 Yes [id number] 09 Take 1 TAB-CAP/M2 by mouth daily. [facility] 102-iron-fo late 1-dss-dha (VITAFOL FE+, WITH DOCUSATE,) 90 mg iron-1 mg -50 mg-200 mg Cap 2020-0 4-09 00:00: 00 Yes [id number] 09 Take 1 TAB-CAP/M2 by mouth daily. [facility] 102-iron-fo late 1-dss-dha (VITAFOL FE+, WITH DOCUSATE,) 90 mg iron-1 mg -50 mg-200 mg Cap 2020-0 4-09 00:00: 00 Yes [id number] 09 Take 1 TAB-CAP/M2 by mouth daily. [facility] 102-iron-fo late 1-dss-dha (VITAFOL FE+, WITH DOCUSATE,) 90 mg iron-1 mg -50 mg-200 mg Cap 2020-0 4-09 00:00: 00 Yes [id number] 09 Take 1 TAB-CAP/M2 by mouth daily. [facility] 102-iron-fo late 1-dss-dha (VITAFOL FE+, WITH DOCUSATE,) 90 mg iron-1 mg -50 mg-200 mg Cap 2020-0 4-09 00:00: 00 Yes [id number] 09 Take 1 TAB-CAP/M2 by mouth daily. [facility] 102-iron-fo late 1-dss-dha (VITAFOL FE+, WITH DOCUSATE,) 90 mg iron-1 mg -50 mg-200 mg Cap 2020-0 4-09 00:00: 00 Yes [id number] 09 Take 1 TAB-CAP/M2 by mouth daily. [facility] 102-iron-fo late 1-dss-dha (VITAFOL FE+, WITH DOCUSATE,) 90 mg iron-1 mg -50 mg-200 mg Cap 2020-0 4-09 00:00: 00 Yes [id number] 09 Take 1 TAB-CAP/M2 by mouth daily. [facility] 102-iron-fo late 1-dss-dha (VITAFOL FE+, WITH DOCUSATE,) 90 mg iron-1 mg -50 mg-200 mg Cap 2020-0 4-09 00:00: 00 Yes [id number] 09 Take 1 TAB-CAP/M2 by mouth daily. [facility] 102-iron-fo late 1-dss-dha (VITAFOL FE+, WITH DOCUSATE,) 90 mg iron-1 mg -50 mg-200 mg Cap 2020-0 4-09 00:00: 00 Yes [id number] 09 Take 1 TAB-CAP/M2 by mouth daily. [facility] 102-iron-fo late 1-dss-dha (VITAFOL FE+, WITH DOCUSATE,) 90 mg iron-1 mg -50 mg-200 mg Cap 2020-0 4-09 00:00: 00 Yes [id number] 09 Take 1 TAB-CAP/M2 by mouth daily. [facility] 102-iron-fo late 1-dss-dha (VITAFOL FE+, WITH DOCUSATE,) 90 mg iron-1 mg -50 mg-200 mg Cap 2020-0 4-09 00:00: 00 Yes [id number] 09 Take 1 TAB-CAP/M2 by mouth daily. [facility] 102-iron-fo late 1-dss-dha (VITAFOL FE+, WITH DOCUSATE,) 90 mg iron-1 mg -50 mg-200 mg Cap 2020-0 4-09 00:00: 00 Yes [id number] 09 Take 1 TAB-CAP/M2 by mouth daily. [facility] 102-iron-fo late 1-dss-dha (VITAFOL FE+, WITH DOCUSATE,) 90 mg iron-1 mg -50 mg-200 mg Cap 2020-0 4-09 00:00: 00 Yes [id number] 09 Take 1 TAB-CAP/M2 by mouth daily. [facility] 102-iron-fo late 1-dss-dha (VITAFOL FE+, WITH DOCUSATE,) 90 mg iron-1 mg -50 mg-200 mg Cap 2020-0 4-09 00:00: 00 Yes [id number] 09 Take 1 TAB-CAP/M2 by mouth daily. [facility] 102-iron-fo late 1-dss-dha (VITAFOL FE+, WITH DOCUSATE,) 90 mg iron-1 mg -50 mg-200 mg Cap 2020-0 4-09 00:00: 00 Yes [id number] 09 Take 1 TAB-CAP/M2 by mouth daily. [facility] 102-iron-fo late 1-dss-dha (VITAFOL FE+, WITH DOCUSATE,) 90 mg iron-1 mg -50 mg-200 mg Cap 2020-0 4-09 00:00: 00 Yes [id number] 09 Take 1 TAB-CAP/M2 by mouth daily. [facility] 102-iron-fo late 1-dss-dha (VITAFOL FE+, WITH DOCUSATE,) 90 mg iron-1 mg -50 mg-200 mg Cap 2020-0 4-09 00:00: 00 Yes [id number] 09 Take 1 TAB-CAP/M2 by mouth daily. [facility] 102-iron-fo late 1-dss-dha (VITAFOL FE+, WITH DOCUSATE,) 90 mg iron-1 mg -50 mg-200 mg Cap 2020-0 4-09 00:00: 00 Yes [id number] 09 Take 1 TAB-CAP/M2 by mouth daily. [facility] 102-iron-fo late 1-dss-dha (VITAFOL FE+, WITH DOCUSATE,) 90 mg iron-1 mg -50 mg-200 mg Cap 2020-0 4-09 00:00: 00 Yes [id number] 09 Take 1 TAB-CAP/M2 by mouth daily. [facility] 102-iron-fo late 1-dss-dha (VITAFOL FE+, WITH DOCUSATE,) 90 mg iron-1 mg -50 mg-200 mg Cap 06-04 00:00: 00 01-07 00:00 :00 No [id number] 09 Take 1 TAB-CAP/M2 by mouth daily. [facility] 102-iron-fo late 1-dss-dha (VITAFOL FE+, WITH DOCUSATE,) 90 mg iron-1 mg -50 mg-200 mg Cap 06-04 00:00: 00 01-07 00:00 :00 No [id number] 09 Take 1 TAB-CAP/M2 by mouth daily. [facility] Vital Signs Vital Name Observation Time Observation Value Comments S ource Systolic blood pressure 2021-12-02 18:51:00 102 mm[Hg] [facility] Diastolic blood pressure 2021-12-02 18:51:00 71 mm[Hg] [facility] Heart rate 2021-12-02 18:51:00 89 /min [facility] Body temperature 2021-12-02 18:51:00 36.72 Deisy [facility] Respiratory rate 2021-12-02 18:51:00 16 /min [facility] Body height 2021-12-02 18:51:00 162.6 cm [facility] Body weight 2021-12-02 18:51:00 64.093 kg [facility] BMI 2021-12-02 18:51:00 24.25 kg/m2 [facility] Oxygen saturation in Arterial blood by Pulse oximetry 2021-12-02 18:51:00 98 /min [facility] Systolic blood pressure 2020-01-08 21:28:00 132 mm[Hg] [facility] Diastolic blood pressure 2020-01-08 21:28:00 70 mm[Hg] [facility] Heart rate 2020-01-08 21:28:00 92 /min [facility] Body temperature 2020-01-08 21:28:00 36.89 Deisy [facility] Respiratory rate 2020-01-08 21:28:00 18 /min [facility] Body height 2020-01-08 21:28:00 162.6 cm [facility] Body weight 2020-01-08 21:28:00 90.266 kg [facility] 2020-01-08 21:28:00 34.16 kg/m2 [facility] Systolic blood pressure 2019-12-11 20:34:00 117 mm[Hg] [facility] Diastolic blood pressure 2019-12-11 20:34:00 74 mm[Hg] [facility] Heart rate 2019-12-11 20:34:00 71 /min [facility] Body temperature 2019-12-11 20:34:00 36.83 Deisy [facility] Respiratory rate 2019-12-11 20:34:00 18 /min [facility] Body height 2019-12-11 20:34:00 162.6 cm [facility] Body weight 2019-12-11 20:34:00 90.266 kg [facility] BMI 2019-12-11 20:34:00 34.16 kg/m2 [facility] Systolic blood pressure 2019-11-20 20:57:00 109 mm[Hg] [facility] Diastolic blood pressure 2019-11-20 20:57:00 73 mm[Hg] [facility] Heart rate 2019-11-20 20:57:00 72 /min [facility] Body temperature 2019-11-20 20:57:00 37.11 Deisy [facility] Respiratory rate 2019-11-20 20:57:00 18 /min [facility] Body height 2019-11-20 20:57:00 162.6 cm [facility] Body weight 2019-11-20 20:57:00 87.363 kg [facility] BMI 2019-11-20 20:57:00 33.06 kg/m2 [facility] Respiratory rate 2019-10-25 19:15:00 18 /min [facility] Systolic blood pressure 2019-10-25 13:05:00 123 mm[Hg] [facility] Diastolic blood pressure 2019-10-25 13:05:00 83 mm[Hg] [facility] Heart rate 2019-10-25 13:05:00 87 /min [facility] Body temperature 2019-10-25 13:05:00 36.67 Deisy [facility] Oxygen saturation in Arterial blood by Pulse oximetry 2019-10-25 13:05:00 100 /min [facility] Body height 2019-10-24 09:25:00 162.6 cm [facility] Body weight 2019-10-24 09:25:00 93.441 kg [facility] BMI 2019-10-24 09:25:00 35.36 kg/m2 [facility] Systolic blood pressure 2019-10-17 14:02:00 119 mm[Hg] [facility] Diastolic blood pressure 2019-10-17 14:02:00 75 mm[Hg] [facility] Heart rate 2019-10-17 14:02:00 84 /min [facility] Body temperature 2019-10-17 14:02:00 36.83 Deisy [facility] Respiratory rate 2019-10-17 14:02:00 18 /min [facility] Body height 2019-10-17 14:02:00 162.6 cm [facility] Body weight 2019-10-17 14:02:00 93.441 kg [facility] BMI 2019-10-17 14:02:00 35.36 kg/m2 [facility] Systolic blood pressure 2019-10-10 15:06:00 116 mm[Hg] [facility] Diastolic blood pressure 2019-10-10 15:06:00 78 mm[Hg] [facility] Heart rate 2019-10-10 15:06:00 85 /min [facility] Body temperature 2019-10-10 15:06:00 36.94 Deisy [facility] Respiratory rate 2019-10-10 15:06:00 18 /min [facility] Body height 2019-10-10 15:06:00 162.6 cm [facility] Body weight 2019-10-10 15:06:00 93.078 kg [facility] BMI 2019-10-10 15:06:00 35.22 kg/m2 [facility] Systolic blood pressure 2019-10-03 21:11:00 115 mm[Hg] [facility] Diastolic blood pressure 2019-10-03 21:11:00 74 mm[Hg] [facility] Heart rate 2019-10-03 21:11:00 91 /min [facility] Body temperature 2019-10-03 21:11:00 36.72 Deisy [facility] Respiratory rate 2019-10-03 21:11:00 18 /min [facility] Body weight 2019-10-03 21:11:00 91.808 kg [facility] BMI 2019-10-03 21:11:00 34.74 kg/m2 [facility] Systolic blood pressure 2019-09-15 21:17:00 118 mm[Hg] [facility] Diastolic blood pressure 2019-09-15 21:17:00 72 mm[Hg] [facility] Heart rate 2019-09-15 21:17:00 64 /min [facility] Body temperature 2019-09-15 21:17:00 37.06 Deisy [facility] Respiratory rate 2019-09-15 21:17:00 18 /min [facility] Body height 2019-09-15 21:17:00 162.6 cm [facility] Body weight 2019-09-15 21:17:00 89.812 kg [facility] BMI 2019-09-15 21:17:00 33.99 kg/m2 [facility] Systolic blood pressure 2019-08-04 15:38:00 114 mm[Hg] [facility] Diastolic blood pressure 2019-08-04 15:38:00 74 mm[Hg] [facility] Heart rate 2019-08-04 15:38:00 92 /min [facility] Body temperature 2019-08-04 15:38:00 36.83 Deisy [facility] Respiratory rate 2019-08-04 15:38:00 18 /min [facility] Body height 2019-08-04 15:38:00 162.6 cm [facility] Body weight 2019-08-04 15:38:00 87.091 kg [facility] BMI 2019-08-04 15:38:00 32.96 kg/m2 [facility] Procedures Procedure Date / Time Performed Performing Clinician Source DISCLOSURE AND CONSENT, MEDICAL AND SURGICAL PROCEDURES 2021-12-02 05:01:00 Doctor [place]assigned, [place] [facility] POCT TEST 2021-12-02 00:00:00 Landon Domínguez [facility] DISCLOSURE AND CONSENT, MEDICAL AND SURGICAL PROCEDURES 2019-12-11 05:01:00 Doctor Unassigned, [place] [facility] POCT TEST 2019-12-11 00:00:00 Landon Domínguez [facility] CBC WITH DIFF 2019-10-25 08:36:00 Landon Domínguez [facility] VENOUS CORD GAS 2019-10-24 14:20:00 Landon Domínguez [facility] CBC WITH DIFF 2019-10-24 09:11:[address] [facility] HEPATITIS B SURFACE ANTIGEN 2019-10-24 09:11:00 Arleth Velasquez [facility] ADC OR NANI ONLY - RPR 2019-10-24 09:11:00 Fish [facility] HIV 1/2 AG-AB WITH REFLEX 2019-10-24 09:11:00 Fish [facility] COVID-19 (ID NOW RAPID TESTING) 2019-10-24 09:11:00 Ron Arleth [facility] HB ABO GROUPING 2019-10-24 09:10:00 Ron Arleth [facility] RHO (D) IMMUNE GLOBULIN 2019-10-24 09:10:00 Landon Domínguez [facility] NOTICE OF PRIVACY PRACTICES 2019-10-24 08:36:07 Doctor Unassigned, [place] [facility] CONSENT/REFUSAL FOR DIAGNOSIS AND TREATMENT 2019-10-24 08:33:33 Doctor Unassigned, [place] [facility] ASSIGNMENT OF BENEFITS 2019-10-24 08:33:13 Docto r Unassigned, [place] [facility] POCT URINALYSIS W/O SPECIFIC GRAVITY 2019-10-17 00:00:00 Joce [facility] POCT URINALYSIS W/O SPECIFIC GRAVITY 2019-10-10 15:08[facility]00 [facility] GLU[facility]SE TOLERANCE TEST 2019-10-09 17:12:00 Sang [facility] 2 HR GLUCOSE TOLERANCE TEST 2019-10-09 16:05:00 [facility] HR GLUCOSE TOLERANCE TEST 2019-10-09 15:00:00 Sang [facility] GLUCOSE FASTING 2019-10-09 14:02:00 Sang [facility] CBC WITH DIFF 2019-10-09 14:02:00 Joce [facility] GLUCOSE FASTING 2019-10-09 14:02:00 Sang [facility] >14 WEEKS US LIMITED 2019-10-03 21:43:13 Joce [facility] POCT URINALYSIS W/O SPECIFIC GRAVITY 2019-10-03 21:35:00 Joce [facility] DSU PRE-OP 2019-10-03 05:01:00 Doctor Unass igned, [place] [facility] POCT HEMOGLOBIN A1C TEST 2019-10-03 00:00:00 Joce [facility] POCT URINALYSIS W/O SPECIFIC GRAVITY 2019-09-15 00:00:00 Ryan Domínguezen [facility] TDAP (ADACEL) IMMUNIZATION 2019-08-04 16:00:53 [facility]IN[facility] W/O SPECIFIC GRAVITY 2019-08-04 00:00:00 Sang [facility] SCANNED LAB RESULTS 2019-07-24 05:01:00 Doctor Sean jones, [place] [facility] SCANNED LAB RESULTS 2019-07-07 05:01:00 Doctor Sean jones, [place] [facility] AGREEMENTS AUTHORIZATIONS AND IRREVOCABLE ASSIGNMENTS (FORM 2001) 2019-06-18 05:01:00 Doctor Unassigned, [place] [facility] Encounters Start Date/Time End Date/Time Encounter Type Admission Type Attending Clinicians Care Facility Care Department Encounter ID Source 2020-12-24 14:37:30 Outpatient [facility] NANNETTE [id number] [facility] 2023-01-01 08:00:00 2023-01-01 08:00:00 Outpatient LANDON HERNANDEZ [facility] [id number] [facility] 2021-12-05 00:00:00 2021-12-05 00:00:00 Case Management Shivani Hatch [facility] 1..840.114 350.1.13.10 4.2.7.2.[id number] [facility] 2021-12-02 13:30:00 2021-12-02 14:30:59 Outpatient LANDON HERNANDEZ [facility] [id number] [facility] 2021-12-02 13:30:00 2021-12-02 14:00:00 Office Visit Landon Domínguez [facility] 1..840.114 350.1.13.10 4.2.7.2.[id number] [facility] 2021-12-02 00:00:00 2021-12-02 00:00:00 Orders Only Doctor Unassigned, [place] [facility] 1..840.114 350.1.13.10 4.2.7.2.[id number] [facility] 2020-12-28 13:30:00 2020-12-28 13:30:00 Outpatient LANDON HERNANDEZ [facility] [id number] [facility] 2020-07-07 09:30:00 2020-07-07 09:30:00 Outpatient LANDON HERNANDEZ [facility] [id number] [facility] 2020-05-26 05:14:00 2020-05-26 05:14:00 Outpatient GUU_SHENG_Y AW [facility] [id number] Rodrigoagor da EpisFormerly [facility] Program 2020-01-08 15:04:40 2020-01-08 15:34:40 [facility] 1.2.840.114 350.1.13.10 4.2.7.2.[id number] [facility] 2020-01-08 15:00:00 2020-01-08 15:00:00 [id number] 2019-12-11 15:06:04 2019-12-11 16:09:16 Office Visit Landon Domínguez [facility] Building 1.2.840.114 350.1.13.10 4.2.7.2.[id number] [facility] 2019-12-11 15:00:00 2019-12-11 15:00:00 Outpatient R LANDON DOMÍNGUEZ [facility] [id number] [facility] 2019-12-11 00:00:00 2019-12-11 00:00:00 Orders Only Doctor Unassigned, [place] [facility] 1.2.840.114 350.1.13.10 4.2.7.2.[id number] [facility] 2019-11-20 15:38:58 2019-11-20 16:14:30 Routine Visit Landon Domínguez [facility] Building 1.2.840.114 350.1.13.10 4.2.7.2.[id number] [facility] 2019-11-20 15:30:00 2019-11-20 15:30:00 [id number] 2019-11-13 15:30:00 2019-11-13 15:30:00 Outpatient R LANDON DOMÍNGUEZ [facility] [id number] [facility] 2019-10-27 09:00:00 2019-10-27 09:00:00 Outpatient R [facility] [id number] [facility] 2019-10-24 03:33:00 2019-10-25 14:45:00 Hospital Encounter Landon Domínguez [facility] 1..840.114 350.1.13.10 4.2.7.2.[id number] [facility] 2019-10-24 09:00:00 2019-10-24 09:00:00 Outpatient R LANDON DOMÍNGUEZ [facility] [id number] [facility] 2019-10-17 08:54:41 2019-10-17 09:09:41 [facility]..[facility].114 350.1.13.10 4.2.7.2.[id number] [facility] 2019-10-17 09:00:00 2019-10-17 09:00:00 [id number] 2019-10-10 09:54:20 2019-10-10 10:49:54 Routine Visit Landon Domínguez [facility] Building 1..840.114 350.1.13.10 4.2.7.2.[id number] [facility] 2019-10-10 10:00:00 2019-10-10 10:00:00 Outpatient R LANDON DOMÍNGUEZ [facility] [id number] [facility] 2019-10-09 08:57:15 2019-10-09 09:12:15 Insulation Cutter And Former Visit 2, Adc Lab Landon Domínguez [facility] Building 1..840.114 350.1.13.10 4.2.7.2.[id number] [facility] 2019-10-09 09:00:00 2019-10-09 09:00:00 Outpatient R LANDON DOMÍNGUEZ [facility] [id number] [facility] 2019-10-08 08:30:00 2019-10-08 08:30:00 Outpatient R [facility] [id number] [facility] 2019-10-03 15:55:08 2019-10-03 16:10:08 Routine Visit Shivani Hatch [facility] 1.2.840.114 350.1.13.10 4.2.7.2.[id number] [facility] 2019-10-03 16:00:00 2019-10-03 16:00:00 Outpatient R [facility] [id number] [facility] 2019-10-03 00:00:00 2019-10-03 00:00:00 Orders Only Doctor Unassigned, [place] [facility] 1..840.114 350.1.13.10 4.2.7.2.[id number] [facility] 2019-09-22 08:30:00 2019-09-22 08:30:00 Outpatient R [facility] [id number] [facility] 2019-09-16 00:00:00 2019-09-16 00:00:00 Case Management Landon Domínguez [facility] Building 1.2.840.114 350.1.13.10 4.2.7.2.[id number] [facility] 2019-09-15 15:47:00 2019-09-15 16:33:51 Routine Visit Landon Domínguez [facility] Building 1.2.840.114 350.1.13.10 4.2.7.2.[id number] [facility] 2019-09-15 13:16:45 2019-09-15 13:31:45 Insulation Cutter And Former Visit 2, Adc Lab [facility] 1.2.840.114 350.1.13.10 4.2.7.2.[id number] [facility] 2019-09-15 13:00:00 2019-09-15 13:00:00 Outpatient R [facility] [id number] [facility] 2019-09-01 11:30:00 2019-09-01 11:30:00 Outpatient R SHIVANI HATCH [facility] [id number] [facility] 2019-09-01 07:52:30 2019-09-01 08:07:30 Telemedici ne Visit Shivani Hatch [facility] nal Building 1.2.840.114 350.1.13.10 4.2.7.2.[id number] [facility] 2019-08-12 00:00:00 2019-08-12 00:00:00 Telephone Shivani Hatch [facility] Building 1.2.840.114 350.1.13.10 4.2.7.2.[id number] [facility] 2019-08-04 10:26:46 2019-08-04 11:59:45 Routine Visit Landon Domínguez [facility] Building 1.2.840.114 350.1.13.10 4.2.7.2.[id number] [facility] 2019-08-04 10:30:00 2019-08-04 10:30:00 Outpatient R LANDON DOMÍNGUEZ [facility] [id number] [facility] 2019-07-29 10:30:00 2019-07-29 10:30:00 Outpatient P [facility] [id number] [facility] 2019-07-28 07:55:28 2019-07-28 17:00:39 Telemedici ne Visit Consults, Rmchp Ang Pn Genetic Rommel Hernandez Billy [facility] [employer] [facility] 1.2840.114 350.1.13.10 4.2.7.2.[id number] [facility] 2019-07-28 09:30:00 2019-07-28 09:30:00 Outpatient ROMMEL OLSON [facility] [id number] [facility] 2019-07-24 14:00:00 2019-07-24 14:00:00 Outpatient R LANDON DOMÍNGUEZ [facility] [id number] [facility] 2019-07-24 08:03:52 2019-07-24 08:18:52 Telemedici ne Visit Landon Domínguez [facility] 1.2840.114 350.1.13.10 4.2.7.2.[id number] [facility] 2019-07-24 00:00:00 2019-07-24 00:00:00 Orders Only Doctor Unassigned, [place] [facility] 1.2840.114 350.1.13.10 4.2.7.2.[id number] [facility] 2019-07-22 00:00:00 2019-07-22 00:00:00 Telephone Ladnon Domínguez [facility] 1.284.114 350.1.13.10 4.2.7.2.[id number] [facility] 2019-07-18 00:00:00 2019-07-18 00:00:00 Telephone Landon Domínguez [facility] 1.2840.114 350.1.13.10 4.2.7.2.[id number] [facility] 2019-07-16 00:00:00 2019-07-16 00:00:00 [facility] 1..114 350.1.13.10 4.2.7.2.[id number] [facility] 2019-07-14 00:00:00 2019-07-14 00:00:00 Telephone Landon Domínguez [facility] Building 1..114 350.1.13.10 4.2.7.2.[id number] [facility] 2019-07-07 00:00:00 2019-07-07 00:00:00 Orders Only Doctor Unassigned, [place] [facility] 1..114 350.1.13.10 4.2.7.2.[id number] [facility] 2019-07-04 15:15:00 2019-07-04 15:15:00 Outpatient R [facility] [id number] [facility] 2019-07-03 16:15:00 2019-07-03 16:15:00 Outpatient R [facility] [id number] [facility] 2019-07-03 08:03:54 2019-07-03 08:18:54 Telemedici ne Visit Shivani Hatch [place] [facility] Building 1.114 350.1.13.10 4.2.7.2.[id number] [facility] 2019-06-18 14:18:50 2019-06-18 15:12:47 Insulation Cutter And Former Visit Ultrasound, Ang-Mfgloria Domínguez LandonSidney Tesfaye [facility] [employer] 1..114 350.1.13.10 4.2.7.2.[id number] [facility] 2019-06-18 13:08:11 2019-06-18 13:23:11 Insulation Cutter And Former Visit 2, Adc Lab Domínguez, Landon Cam [facility] 1.840.114 350.1.13.10 4.2.7.2.[id number] [facility] 2019-06-18 13:00:00 2019-06-18 13:00:00 Outpatient R LANDON DOMÍNGUEZ [facility] [id number] [facility] 2019-06-18 00:00:00 2019-06-18 00:00:00 Orders Only Doctor Unassigned, [place] [facility] 1.840.114 350.1.13.10 4.2.7.2.[id number] [facility] Results Test Description Test Time Test Comments Results Result Co mments Source [facility] [id number] 19:14:00* Test Item Value Reference Range Interpretation Comme nts POCT PREG (test code = 1605) Negative On board controls acceptable with C Line (test code = 3574) Yes POCT PREG LOT # (test code = 3575) POCT PREG TEST DATE ( test code = 3576) [facility] [id number] 20:50:00* Test Item Value Reference Range Interpretation Comme nts POCT PREG (test code = 1605) Negative On board controls acceptable with C Line (test code = 3574) Yes POCT PREG LOT # (test code = 3575) POCT PREG TEST DATE ( test code = 3576) [facility] [id number] 20:50:00* Test Item Value Reference Range Interpretation Comme nts POCT PREG (test code = 1605) Negative On board controls acceptable with C Line (test code = 3574) Yes POCT PREG LOT # (test code = 3575) POCT PREG TEST DATE ( test code = 3576) [facility] [id number] 09:39:00* Test Item Value Reference Range Interpretation [...] 33.7 g/dL 31.6-35.1 RDW-SD (test code = 86842-8) 46.3 fL 39-49.9 RDW-CV (test code = 788-0) 13.3 % 12-15.5 PLT (test code = 777-3) See_Comment [Automated Nanalysisa ge] The system which generated this result transmitted reference range: 166 - 358 10*3/?L. The reference range was not used to interpret this result as normal/abnormal. MPV (test code = 10481-8) 9.7 fL 9.5-12.9 NRBC/100 WBC (test code = 4694811519) See_Comment [Automated Mapittrackit ssage] The system which generated this result transmitted reference range: 0.0 - 10.0 /100 WBCs. The reference range was not used to interpret this result as normal/abnormal. NRBC x10^3 (test code = 3160494249) <0.01 See_Comment [Automated messa ge] The system which generated this result transmitted reference range: 10*3/?L. The reference range was not used to interpret this result as normal/abnormal. GRAN MAT (NEUT) % (test code = 770-8) 67.7 % IMM GRAN % (test code = 6511160817) 0.70 % LYMPH % (test code = 736-9) 23.3 % MONO % (test code = 5905-5) 7.1 % EOS % (test code = 713-8) 0.8 % BASO % (test code = 706-2) 0.4 % GRAN MAT x10^3(ANC) (test code = 0895205865) 7.43 10*3/uL 1.88-7.09 H IMM GRAN x10^3 (test code = 6359969137) 0.08 10*3/uL 0-0.06 H LYMPH x10^3 (test code = 731-0) 2.56 10*3/uL 1.32-3.29 MONO x10^3 (test code = 742-7) 0.78 10*3/uL 0.33-0.92 EOS x10^3 (test code = 711-2) 0.09 10*3/uL 0.03-0.39 BASO x10^3 (test code = 704-7) 0.04 10*3/uL 0.01-0.07 Lab Interpretation (test code = 84586-5) [facility] [id number] 03:09:00* Test Item Value Reference Range Interpretation Comme nts RPR (Qualitative) (test code = 37060-8) Nonreactive Nonreactive Lab Interpretation (test cod e = 75531-3) [facility] IMMUNE [id number] 22:52:21* Test Item Value Reference Range Interpretation Comme nts RHIG CANDIDATE? (test code = 5055) No- see comment Patient is not a candidate for RhIg- Patient is Rh Positive.Performed at [facility] Laboratory Services - [facility] Blood [address] [place] [phone] Free: [phone] No. [id number] [facility] Surface [id number] 15:34:00 * Test Item Value Reference Range Interpretation Comme nts HBsAg Semi-Quantitative (radha t code = 5195-3) Negative Negative UT [facility] [id number] 14:31:00* Test Item Value Reference Range Interpretation Comme nts VENOUS BASE EXCESS, CORD (test code = 8739779286) mEq/L VENOUS PH, CORD (test code = 6725856696) 7.25-7.45 VENOUS PC02, CORD (test code = 5502569167) See_Comment [Automated messa ge] The system which generated this result transmitted reference range: 27 - 49 mmHg. The reference range was not used to interpret this result as normal/abnormal. VENOUS PO2, CORD (test code = 8233690605) See_Comment [Automated me ssage] The system which generated this result transmitted reference range: 17 - 41 mmHg. The reference range was not used to interpret this result as normal/abnormal. VENOUS BICARBONATE, CORD (test code = 1231967764) See_Comment [Automated messa ge] The system which generated this result transmitted reference range: 12 - 29 mEq/L. The reference range was not used to interpret this result as normal/abnormal. [facility] [id number] 14:28:00* Test Item Value Reference Range Interpretation Comme nts BASE EXCESS, CORD (test code = 9702688720) mEq/L AC PH, CORD (BEAKER) (test code = 3783038788) 7.18-7.38 PC02, CORD (test code = 2124006485) See_Comment [Automated messa ge] The system which generated this result transmitted reference range: 32 - 66 mmHg. The reference range was not used to interpret this result as normal/abnormal. PO2, CORD (test code = 3169584424) See_Comment [Automated messa ge] The system which generated this result transmitted reference range: 10 - 30 mmHg. The reference range was not used to interpret this result as normal/abnormal. BICARBONATE, CORD (test code = 9370742938) See_Comment [Automated messa ge] The system which generated this result transmitted reference range: 17 - 27 mEq/L. The reference range was not used to interpret this result as normal/abnormal. [facility] WITH [id number] 10:27:00* Test Item Value Reference Range Interpretation Comme [facility] HIV Semi-quantitative (test code = 89793-6) Negative Negative IBETH (test code = IBETH) Non-reactive for HIV-1 antigen and HIV-1/HIV-2 antibodies. ?No laboratory evidence of HIV infection. ?Repeat in 2-4 weeks if acute HIV infection is suspected. [facility] Screen - ONCE [id number] 10:02:48 * Test Item Value Reference Range Interpretation Comme nts ABO & RH (test code = 20) O Positive Performed at [facility] Blood [address] [place] [address] Free: [phone] No. [id number] IAT (test code = 1185) Negative Performed at [facility] Blood [address] Free: [phone] No. [id number] [facility] (ID NOW RAPID TESTING)2019-10-24 09:50:00* Test Item Value Reference Range Interpretation Comme nts SARS-CoV-2 Rapid ID NOW (test code = 02588-5) Positive Not Detected A IBETH (test code = IBETH) ID NOW COVID-19 As say is an isothermal nucleic acid amplification test intended for the qualitative detection of nucleic acid from SARS-CoV-2 viral RNA in nasopharyngeal ([employer]) specimens. It is used under Emergency Use [...] clinically indicated. Lab Interpretation (test code = 36995-5) Abnormal [facility] with [id number] 09:33:00* Test Item Value Reference Range Interpretation [...] 34.6 g/dL 31.6-35.1 RDW-SD (test code = 27233-4) 42.7 fL 39-49.9 RDW-CV (test code = 788-0) 12.9 % 12-15.5 PLT (test code = 777-3) See_Comment [Automated messa ge] The system which generated this result transmitted reference range: 166 - 358 10*3/?L. The reference range was not used to interpret this result as normal/abnormal. MPV (test code = 92189-3) 9.6 fL 9.5-12.9 NRBC/100 WBC (test code = 4652655182) See_Comment [Automated Mapittrackit ssage] The system which generated this result transmitted reference range: 0.0 - 10.0 /100 WBCs. The reference range was not used to interpret this result as normal/abnormal. NRBC x10^3 (test code = 9420769870) <0.01 See_Comment [Automated messa ge] The system which generated this result transmitted reference range: 10*3/?L. The reference range was not used to interpret this result as normal/abnormal. GRAN MAT (NEUT) % (test code = 770-8) 72.0 % IMM GRAN % (test code = 1738202948) 0.70 % LYMPH % (test code = 736-9) 20.8 % MONO % (test code = 5905-5) 5.7 % EOS % (test code = 713-8) 0.5 % BASO % (test code = 706-2) 0.3 % GRAN MAT x10^3(ANC) (test code = 9747328981) 8.70 10*3/uL 1.88-7.09 H IMM GRAN x10^3 (test code = 7049475632) 0.08 10*3/uL 0-0.06 H LYMPH x10^3 (test code = 731-0) 2.52 10*3/uL 1.32-3.29 MONO x10^3 (test code = 742-7) 0.69 10*3/uL 0.33-0.92 EOS x10^3 (test code = 711-2) 0.06 10*3/uL 0.03-0.39 BASO x10^3 (test code = 704-7) 0.04 10*3/uL 0.01-0.07 Lab Interpretation (test code = 59958-6) Abnormal [facility] URINALYSIS W/O SPECIFIC [id number] 14:04:00* Test Item Value Reference Range Interpretation [...] = 3257) n/a Negative - Negati ve [facility] URINALYSIS W/O SPECIFIC [id number] 15:08:00* Test Item Value Reference Range Interpretation [...] = 3257) n/a Negative - [facility] [id number] 15:08:00* Test Item Value Reference Range Interpretation [...] = 3257) n/a Negative - Negati ve [facility] HR GLUCOSE TOLERANCE [id number] 18:00:00 * Test Item Value Reference Range Interpretation Comme nts GLUC 3 HR (test code = 6189739810) 103 mg/dL 70-110 Lab Interpretation (test cod e = 80770-0) Normal [facility] TylerGLUCOSE [id number] 17:52:00* Test Item Value Reference Range Interpretation Comme nts GLU FASTNG (test code = 8662746286) 86 mg/dL 70-110 Lab Interpretation (test cod e = 60831-5) Normal [facility] HR GLUCOSE TOLERANCE [id number] 17:48:00 * Test Item Value Reference Range Interpretation Comme nts GLUC 1 HR (test code = 9623824664) 131 mg/dL 120-170 Lab Interpretation (test cod e = 66003-4) Normal [facility] HR GLUCOSE TOLERANCE [id number] 17:48:00 * Test Item Value Reference Range Interpretation Comme nts GLUC 2 HR (test code = 3102568912) 171 mg/dL 70-120 H Lab Interpretation (test cod e = 53259-4) Abnormal [facility] Tyler[facility] WITH [id number] 17:33:00* Test Item Value Reference Range Interpretation Comme nts WBC (test code = 6690-2) See_Comment [Automated gulu.com ge] The system which generated this result [...] 33.5 g/dL 31.6-35.1 RDW-SD (test code = 88966-2) 43.9 fL 39-49.9 RDW-CV (test code = 788-0) 12.9 % 12-15.5 PLT (test code = 777-3) See_Comment [Automated Nanalysisa ge] The system which generated this result transmitted reference range: 166 - 358 10*3/?L. The reference range was not used to interpret this result as normal/abnormal. MPV (test code = 07318-7) 9.8 fL 9.5-12.9 NRBC/100 WBC (test code = 9908279674) See_Comment [Automated Mapittrackit ssage] The system which generated this result transmitted reference range: 0.0 - 10.0 /100 WBCs. The reference range was not used to interpret this result as normal/abnormal. NRBC x10^3 (test code = 8104533361) <0.01 See_Comment [Automated messa ge] The system which generated this result transmitted reference range: 10*3/?L. The reference range was not used to interpret this result as normal/abnormal. GRAN MAT (NEUT) % (test code = 770-8) 62.3 % IMM GRAN % (test code = 1722390289) 0.70 % LYMPH % (test code = 736-9) 29.9 % MONO % (test code = 5905-5) 6.0 % EOS % (test code = 713-8) 0.5 % BASO % (test code = 706-2) 0.6 % GRAN MAT x10^3(ANC) (test code = 4908796104) 5.49 10*3/uL 1.88-7.09 IMM GRAN x10^3 (test code = 7065824513) 0.06 10*3/uL 0-0.06 LYMPH x10^3 (test code = 731-0) 2.63 10*3/uL 1.32-3.29 MONO x10^3 (test code = 742-7) 0.53 10*3/uL 0.33-0.92 EOS x10^3 (test code = 711-2) 0.04 10*3/uL 0.03-0.39 BASO x10^3 (test code = 704-7) 0.05 10*3/uL 0.01-0.07 Lab Interpretation (test code = 85966-7) Abnormal [facility] HEMOGLOBIN A1C [id number] 21:58:00* Test Item Value Reference Range Interpretation Comme nts POCT HBA1C (test code = 4548-4) 5.2 % 4-6 [facility] HEMOGLOBIN A1C [id number] 21:58:00* Test Item Value Reference Range Interpretation Comme nts POCT HBA1C (test code = 4548-4) 5.2 % 4-6 [facility]>14 WEEKS US [id number] 21:43:38[facility]phal[facility]Un[facility]>14 W[facility] US [id number] 21:43:38[facility]phal[facility]UnP[facility] W/O SPECIFIC [id number] 21:35:00* Test Item Value Reference Range Interpretation [...] ve Lab Interpretation (test cod e = 16819-3) Normal [facility] URINALYSIS W/O SPECIFIC [id number] 21:35:00* Test Item Value Reference Range Interpretation [...] ve Lab Interpretation (test cod e = 91102-8) [facility] URINALYSIS W/O SPECIFIC [id number] 21:23:00* Test Item Value Reference Range Interpretation [...] = 3257) n/a Negative - Negati ve [facility] URINALYSIS W/O SPECIFIC [id number] 15:56:00* Test Item Value Reference Range Interpretation [...] = 3257) N/A Negative - [facility] ve [facility] W/O SPECIFIC [id number] 15:56:00* Test Item Value Reference Range Interpretation [...] = 3257) N/A Negative - Negati ve [facility]
[2023-03-21 08:35] LABS: Absolute Lymphocytes (CBC) 1.9 K/uL (0.7-4.9); Hematocrit 36.4 % (36.0-45.0); Lymphocytes % 21.8 % (15.3-44.8); MCV 92.7 fL (80-100); MPV 6.6 fL (7.6-11.3); Platelets 192 thou/uL (152-406); RBC Red Blood Cell Count 3.93 M/uL (3.86-4.86)
[2023-03-21 08:47] LABS: Albumin 3.5 g/dL (3.4-5.0); Bilirubin Total 0.2 mg/dL (0.2-1.0); Protein, Total 6.8 g/dL (6.4-8.2)
--- NOTE | 2023-03-21 10:14 | RAD REPORT ---
EXAM DESCRIPTION: MRI - Lumbar Spine Wo Con - 03/21/2023 9:33 am CLINICAL HISTORY: Radiculopathy COMPARISON: CT lumbar spine March 15, 2023 TECHNIQUE: Sagittal T1, T2 and STIR weighted sequences were obtained. Axial T1 and T2 sequences were obtained through the lumbar disc levels. FINDINGS: L1-2, L2-3 and L3-4 are unremarkable 15 x 12 x 14 millimeter (cc by AP by trans) left posterolateral disc herniation L4-5 markedly compre sses the thecal sac. The disc also extends towards the right Small to moderate disc bulge L5-S1 No significant abnormal signal within the bones IMPRESSION: Large left posterolateral disc herniation L4-5
--- NOTE | 2023-03-21 10:16 | EDPHYS ---
Physician Documentation [facility] Name: Olga Wilkins Age: 27 yrs Sex: Female : 1995 Arrival Date: 03/21/2023 Time: 07:27 Bed 13 Private MD: ED Physician Francois Barboza HPI: 03/21 09:57 This 27 yrs old Female presents to ER via EMS with complaints of Back Pain. chalo 09:57 The patient presents with pain that is acute, with no known mechanism of injury. The chalo symptoms are located in the low back. Onset: The symptoms/episode began/occurred 14 day(s) ago. The pain radiates to the left lower back and left gluteus franky. Associated signs and symptoms: The patient has no apparent associated signs or symptoms. Modifying factors: The patient symptoms are alleviated by nothing, remaining still, rest, the patient symptoms are aggravated by any movement, bending, coughing. Severity of symptoms: At their worst the symptoms were moderate, in the emergency department the symptoms are unchanged. The patient has experienced similar episodes in the past, multiple times. Historical: - Allergies: 07:41 No Known Allergies; ll1 - PMHx: 07:36 chronic back pain; depressive disorder; ll1 - PSHx: 07:41 None; ll1 - Immunization history:: Adult Immunizations up to date. - Social history:: Smoking status: Patient denies any tobacco usage or history of. ROS: 10:01 Constitutional: Negative for fever, chills, and weight loss, Eyes: Negative for injury, chalo pain, redness, and discharge, ENT: Negative for injury, pain, and discharge, Neck: Negative for injury, pain, and swelling, Cardiovascular: Negative for chest pain, palpitations, and edema, Respiratory: Negative for shortness of breath, cough, wheezing, and pleuritic chest pain, Abdomen/GI: Negative for abdominal pain, nausea, vomiting, diarrhea, and constipation, : Negative for injury, bleeding, discharge, and swelling, MS/Extremity: Negative for injury and deformity, Skin: Negative for injury, rash, and discoloration, Neuro: Negative for headache, weakness, numbness, tingling, and seizure, Psych: Negative for depression, anxiety, suicide ideation, homicidal ideation, and hallucinations, Allergy/Immunology: Negative for hives, rash, and allergies, Endocrine: Negative for neck swelling, polydipsia, polyuria, polyphagia, and marked weight changes, Hematologic/Lymphatic: Negative for swollen nodes, abnormal bleeding, and unusual bruising, 10:01 Back: Positive for decreased range of motion, pain at rest, pain with movement, Exam: 10:01 Constitutional: This is a well developed, well nourished patient who is awake, alert, chalo and in no acute distress. Head/Face: Normocephalic, atraumatic. Eyes: Pupils equal round and reactive to light, extra-ocular motions intact. Lids and lashes normal. Conjunctiva and sclera are non-icteric and not injected. Cornea within normal limits. Periorbital areas with no swelling, redness, or edema. ENT: Nares patent. No nasal discharge, no septal abnormalities noted. Tympanic membranes are normal and external auditory canals are clear. Oropharynx with no redness, swelling, or masses, exudates, or evidence of obstruction, uvula midline. Mucous membranes moist. Neck: Trachea midline, no thyromegaly or masses palpated, and no cervical lymphadenopathy. Supple, full range of motion without nuchal rigidity, or vertebral point tenderness. No Meningismus. Chest/axilla: Normal chest wall appearance and motion. Nontender with no deformity. No lesions are appreciated. Cardiovascular: Regular rate and rhythm with a normal S1 and S2. No gallops, murmurs, or rubs. Normal PMI, no JVD. No pulse deficits. Respiratory: Lungs have equal breath sounds bilaterally, clear to auscultation and percussion. No rales, rhonchi or wheezes noted. No increased work of breathing, no retractions or nasal flaring. Abdomen/GI: Soft, non-tender, with normal bowel sounds. No distension or tympany. No guarding or rebound. No evidence of tenderness throughout. Skin: Warm, dry with normal turgor. Normal color with no rashes, no lesions, and no evidence of cellulitis. MS/ Extremity: Pulses equal, no cyanosis. Neurovascular intact. Full, normal range of motion. Neuro: Awake and alert, GCS 15, oriented to person, place, time, and situation. Cranial nerves II-XII grossly intact. Motor strength 5/5 in all extremities. Sensory grossly intact. Cerebellar exam normal. Normal gait. Psych: Awake, alert, with orientation to person, place and time. Behavior, mood, and affect are within normal limits. 10:01 Back: pain, that is moderate, that is severe, ROM is painful, normal spinal alignment noted, CVA tenderness, is absent, muscle spasm, is appreciated in the left low back, left mid back, right mid back and right low back, Straight leg raises: pain bilaterally, Vital Signs: 07:41 BP 134 / 91; Pulse 120; Resp 18; Temp 97.7; Pulse Ox 100% on R/A; Weight 70.31 kg; ll1 Height 5 ft. 4 in. ; Pain 10/10; 10:06 BP 123 / 84; Pulse 106; Resp 18; Pulse Ox 98% on R/A; mb9 12:00 Pulse 104; Resp 18; Pulse Ox 98% on R/A; mb9 07:41 Body Mass Index 26.61 (70.31 kg, 162.56 cm) ll1 07:41 Pain Scale: Adult ll1 MDM: 07:36 Patient medically screened. chalo 10:05 Differential diagnosis: chronic back pain, Epidural or Perispinal Abcess Epidural or chalo Perispinal Bleed Fatigue Fracture Ligament Injury Scoliosis. Data reviewed: vital signs, nurses notes, lab test result(s), radiologic studies, MRI. Consideration of Admission/Observation Escalation of care including admission/observation considered. Management of patient was discussed with the following: Lock Maintenance Supervisor: neurology. I considered the following discharge prescriptions or medication management in the emergency department Medications were administered in the Emergency Department. See MAR. Independent interpretation of the following test(s) in the Emergency Department MRI: My interpretation is mri sign l4-l5. Test considered but Not performed: CT: no repeat ct. Historians other than the Patient: Spouse/Significant Other: well informed. Care significantly affected by the following chronic conditions: cbp, depression. Counseling: I had a detailed discussion with the patient and/or guardian regarding the historical points, exam findings, and any diagnostic results supporting the discharge/admit diagnosis, lab results, radiology results, the need to transfer to another facility, for higher level of care, [facility] does not immediately have the required specialist. 03/21 07:44 Order name: CBC with Diff; Complete Time: :45 [facility] 03/21 07:44 Order name: Comprehensive Metabolic Panel; Complete Time: :45 chalo 03/21 10:01 Order name: SARS RAPID bd 03/21 07:44 Order name: Lumbar Spine Wo Con EDMS Administered Medications: 08:18 Drug: Ondansetron IVP 4 mg IVP once; over 2 minutes Route: IVP; Site: left forearm; mb9 10:08 Follow up: Response: No adverse reaction mb9 08:20 Drug: HYDROmorphone IVP 1 mg IVP once Route: IVP; Site: left forearm; mb9 10:08 Follow up: Response: No adverse reaction mb9 08:22 Drug: Ketorolac IVP 30 mg IVP once Route: IVP; Site: left forearm; mb9 10:08 Follow up: Response: No adverse reaction mb9 08:23 Drug: NS 0.9% IV 1000 ml IV at 1 bolus Per protocol; 1000 mL bolus Route: IV; Rate: 1 mb9 bolus; Site: left forearm; 08:23 Drug: Decadron - Dexamethasone IVP 10 mg IVP once Route: IVP; Site: left forearm; mb9 10:08 Follow up: Response: No adverse reaction mb9 09:10 Drug: Diazepam PO 10 mg PO once Route: PO; mb9 10:08 Follow up: Response: No adverse reaction mb9 09:10 Drug: HYDROmorphone IVP 1 mg IVP once Route: IVP; Site: left forearm; mb9 10:08 Follow up: Response: No adverse reaction mb9 Disposition Summary: 03/21/23 10:15 Transfer Ordered Notes: Transfer Location: [facility] chalo Reason: Higher level of care chalo Condition: Stable chalo Problem: new chalo Symptoms: have improved chalo Accepting Physician: to albina boyce(03/21/23 12:45) mb9 Diagnosis - Other intervertebral disc disorders, lumbar region - large L4-L5 POSTERIOR DISC chalo HERNIATION, [id number] - Low back pain - INTRACTABLE chalo Forms: - Medication Reconciliation Form chalo - SBAR form chalo Signatures: Dispatcher [employer] EDMS Francois Barboza MD MD cha Lewis, Lynsay RN RN ll1 Elle Harper RN RN mb9 Corrections: (The following items were deleted from the chart) 11:37 11:24 Lumbar Spine 3 Views ordered. EDMS EDMS 12:45 10:15 to [facility] mb9
--- NOTE | 2023-03-21 10:16 | ER ---
Nurse's Notes [facility] Name: Olga Wilkins Age: 27 yrs Sex: Female : 1995 Arrival Date: 03/21/2023 Time: 07:27 Bed 13 Private MD: Diagnosis: Other intervertebral disc disorders, lumbar region-large L4-L5 POSTERIOR DISC HERNIATION, [id number];Low back pain-INTRACTABLE Presentation: 03/21 07:36 Chief complaint: Patient states: Awoke with severe back pain today. Tramadol not ll1 helping yet. Coronavirus screen: Client denies travel out of the [place] in the last 14 days. At this time, the client does not indicate any symptoms associated with coronavirus-19. Ebola Screen: Patient denies travel to an Ebola-affected area in the 21 days before illness onset. Initial Sepsis Screen: Does the patient meet any 2 criteria? No. Patient's initial sepsis screen is negative. Does the patient have a suspected source of infection? Yes: Bone or joint infection. Risk Assessment: Do you want to hurt yourself or someone else? Patient reports no desire to harm self or others. Onset of symptoms. 07:36 Method Of Arrival: EMS: [facility] ll1 07:36 Acuity: REBEKAH 4 ll1 08:42 Acuity: REBEKAH 3 mb9 Triage Assessment: 07:42 General: Appears uncomfortable, Behavior is calm, cooperative, appropriate for age. ll1 Pain: Complains of pain in L lower back. Musculoskeletal: Circulation, motion, and sensation intact. Capillary refill < 3 seconds. Historical: - Allergies: 07:41 No Known Allergies; ll1 - PMHx: 07:36 chronic back pain; depressive disorder; ll1 - PSHx: 07:41 None; ll1 - Immunization history:: Adult Immunizations up to date. - Social history:: Smoking status: Patient denies any tobacco usage or history of. Screenin:43 [facility] ED Fall Risk Assessment (Adult) History of falling in the last 3 months, mb9 including since admission No falls in past 3 months (0 pts) Confusion or Disorientation No (0 pts) Intoxicated or Sedated No (0 pts) Impaired Gait No (0 pts) Mobility Assist Device Used No (0 pt) Altered Elimination No (0 pt) Score/Fall Risk Level 0 - 2 = Low Risk Oriented to surroundings, Maintained a safe environment, Educated pt \T\ family on fall prevention, incl call for assistance when getting out of bed. Abuse screen: Denies threats or abuse. Nutritional screening: No deficits noted. Tuberculosis screening: No symptoms or risk factors identified. Assessment: 07:52 Reassessment: No changes from previously documented assessment. Patient and/or family ll1 updated on plan of care and expected duration. Pain level reassessed. to MRI via wheelchair. 09:30 General: Appears uncomfortable, Behavior is cooperative, anxious. Pain: Complains of mb9 pain in back Pain radiates to buttocks, right leg and left leg Pain currently is 10 out of 10 on a pain scale. Quality of pain is described as throbbing. Neuro: Blum Agitation-Sedation Scale (RASS): 0 - Alert and Calm Level of Consciousness is awake, alert, obeys commands, Oriented to person, place, time, situation, Appropriate for age. Cardiovascular: Patient's skin is warm and dry. Respiratory: Airway is patent Respiratory effort is even, unlabored, Respiratory pattern is regular, symmetrical, Breath sounds are clear bilaterally. GI: Abdomen is flat, non-distended. : No signs and/or symptoms were reported regarding the genitourinary system. EENT: No signs and/or symptoms were reported regarding the EENT system. Derm: Skin is pink, warm \T\ dry. Musculoskeletal: Range of motion: intact in all extremities. 11:10 Reassessment: No changes from previously documented assessment. Patient and/or family mb9 updated on plan of care and expected duration. Pain level reassessed. Patient is alert, oriented x 3, equal unlabored respirations, skin warm/dry/pink. 12:00 Reassessment: No changes from previously documented assessment. Patient and/or family mb9 updated on plan of care and expected duration. Pain level reassessed. Patient is alert, oriented x 3, equal unlabored respirations, skin warm/dry/pink. 12:07 Reassessment: report given to transferring nurse REBEKA Payne. mb9 12:40 Reassessment: Report given to [facility]. mb9 Vital Signs: 07:41 BP 134 / 91; Pulse 120; Resp 18; Temp 97.7; Pulse Ox 100% on R/A; Weight 70.31 kg; ll1 Height 5 ft. 4 in. ; Pain 10/10; 10:06 BP 123 / 84; Pulse 106; Resp 18; Pulse Ox 98% on R/A; mb9 12:00 Pulse 104; Resp 18; Pulse Ox 98% on R/A; mb9 07:41 Body Mass Index 26.61 (70.31 kg, 162.56 cm) ll1 07:41 Pain Scale: Adult 1 ED Course: 07:35 Patient arrived in ED. mg5 07:36 Francois Barboza MD is Attending Physician. chalo 07:36 Arm band placed on. ll1 07:37 Triage completed. ll1 07:50 Patient placed in an exam room, on a stretcher. ll1 07:51 Elle Harper RN is Primary Nurse. mb9 08:23 Comprehensive Metabolic Panel Sent. mb9 08:23 CBC with Diff Sent. mb9 08:41 Inserted saline lock: 24 gauge in left forearm, using aseptic technique. mb9 08:42 Placed in gown. Bed in low position. Call light in reach. Side rails up X 1. Client mb9 placed on continuous cardiac and pulse oximetry monitoring. NIBP monitoring applied. 08:43 No provider procedures requiring assistance completed. mb9 09:35 Lumbar Spine Wo Con In Process Unspecified. EDMS 09:[address] [facility]. bd 10:13 SARS RAPID Sent. mb9 10:53 pt accepted in transfer to [facility] 25 tower bed 2546, by dr Galindo admin approval bd given by DIXIE Graves. 12:07 Patient transferred, IV remains in place. mb9 Administered Medications: 08:18 Drug: Ondansetron IVP 4 mg IVP once; over 2 minutes Route: IVP; Site: left forearm; mb9 10:08 Follow up: Response: No adverse reaction mb9 08:20 Drug: HYDROmorphone IVP 1 mg IVP once Route: IVP; Site: left forearm; mb9 10:08 Follow up: Response: No adverse reaction mb9 08:22 Drug: Ketorolac IVP 30 mg IVP once Route: IVP; Site: left forearm; mb9 10:08 Follow up: Response: No adverse reaction mb9 08:23 Drug: NS 0.9% IV 1000 ml IV at 1 bolus Per protocol; 1000 mL bolus Route: IV; Rate: 1 mb9 bolus; Site: left forearm; 08:23 Drug: Decadron - Dexamethasone IVP 10 mg IVP once Route: IVP; Site: left forearm; mb9 10:08 Follow up: Response: No adverse reaction mb9 09:10 Drug: Diazepam PO 10 mg PO once Route: PO; mb9 10:08 Follow up: Response: No adverse reaction mb9 09:10 Drug: HYDROmorphone IVP 1 mg IVP once Route: IVP; Site: left forearm; mb9 10:08 Follow up: Response: No adverse reaction mb9 Medication: 12:07 VIS not applicable for this client. mb9 Outcome: 10:15 ER care complete, transfer ordered by MD. isabel 12:07 Transferred by ground EMS to [facility], Transfer form completed. mb9 X-rays sent w/ patient. 12:07 Condition: stable 12:07 Instructed on the need for transfer, 12:45 Patient left the ED. mb9 Signatures: Dispatcher [employer] EDMS Ml Kendrick Corey, MD MD cha Lewis, Lynsay RN RN ll1 Elle Harper RN RN mb9 Mari Torrez mg5
[2023-03-21 10:40] LABS: SARS-CoV-2 Antigen Rapid Res Negative (Negative)
[2023-03-21 13:36] VITALS: BP 123/84; TEMP 97.7; O2SAT 98
== END ==
LOC: ER 07:27
DX: M51.86 Other intervertebral disc disorders, lumbar region (principal); M51.26 Other intervertebral disc displacement, lumbar region; Z11.52 Encounter for screening for COVID-19
CPT/HCPCS: 85025; 36415; 80053; 72148; 96375; 96374; 99285; 87811; J1100; J1170 ×2; J2405; J7030